=== PATIENT | female | born 1940 | race Caucasian/White ===

== ENCOUNTER 2017-06-14 10:45 | Emergency (ER) | payer MEDICARE, SELFPAY ==
[2017-06-14 10:46] VITALS: BP 152/110; PULSE 70; RESP 16; TEMP 36.2; O2SAT 98; BMI 25.6
[2017-06-14 11:10] VITALS: BP 144/102; PULSE 71; RESP 15; O2SAT 97
[2017-06-14] MEDS: predniSONE 20 MG Tablet 40 MG PO (11:18)
[2017-06-14] MEDS: oxyCODONE 5 MG Tablet PO ×2 (11:18→13:12)
--- NOTE | 2017-06-14 11:40 | RAD_ITS ---
STUDY: X-RAY - PELVIS AND RIGHT HIP REASON FOR EXAM: Female, 77 years old. Right hip pain. Unable to bear weight. TECHNIQUE: Radiological exam, hip, unilateral, with pelvis when performed; 2 or 3 views. COMPARISON: None. FINDINGS: There is a non-specific bowel gas pattern. Normal visualized soft tissue structures. Normal bilateral iliac wings, sacroiliac joints and visualized sacrum. Normal bilateral superior and inferior pubic rami. There is narrowing with sclerosis of the pubic symphysis. Normal bilateral ischial tuberosities. Normal visualized femoral head. There is osteoarthritic spur formation of the acetabular rim. There is mild articular joint space narrowing of the hip. RAD/Hip 2-3 Views with Pelvis IMPRESSION: Degenerative changes of the right hip joint and symphysis pubis. Electronically Signed: Tigre Leos MD at 12:17 EDT Tel [phone], Service support ,
--- NOTE | 2017-06-14 12:48 | ED.VISSUMM ---
- ER Visit Summary Date of Service: 06/14/17 Chief Complaint: Right leg pain History of Present Illness: The patient is a 77 F reports mild pain to the right lateral hip last . It was improved Tuesday, but then the pain worsened over the weekend. Patient states the pain severely worse this morning. She denies any known injury. She does take Neurontin and this dose has not changed recently. Patient has not taken anything else for pain at this time. She states she has an allergy to Tylenol and that it makes her vomit. Patient states that she is not able to bear weight on her right leg today. She denies paresthesias. Physical Examination: Vital signs are significant for blood pressure 152/110, otherwise unremarkable. Head neck examination is unremarkable. Heart is regular rate and rhythm. Lung sounds are clear. Abdomen is soft, nontender, with no masses. Back examination was tenderness over the right SI joint in the sciatic notch. Right lower extremity examination was tenderness over the greater trochanter of the right hip but not over the anterior portion of the hip. The anterior right thigh is tender with light palpation. She has tenderness over the lower leg with light palpation. She has strong distal pulses. Test Results: Right hip and pelvis x-rays revealed degenerative changes. Emergency Department Course and Treatment: Patient was given 5 mg of oxycodone along with 40 mg of p.o. prednisone. On repeat evaluation she does report some improvement but is still unwilling to get up to ambulate. She be given an additional 5 mg of oxycodone. After the second dose of oxycodone patient was able to get up and walk down the dai to the bathroom with her walker. She will be given prednisone and oxycodone for home. Treatment Plan: [] Disposition: Discharge Impression: Sciatica This note was generated with [employer] dictation software. It may contain incorrect words, spelling, and punctuation that were not noted in review of the chart prior to signing ED Disposition - Plan for ED Patient: Chief Complaint: Lower Extremity Injury Referrals: Blade Moseley DO [Primary Care Provider] -
[2017-06-14 13:13] VITALS: BP 134/64; PULSE 70; RESP 18; O2SAT 97
--- NOTE | 2017-06-14 14:08 | ED.DEP ---
ED Disposition - Plan for ED Patient: Disposition: Home or Assisted Living Chief Complaint: Lower Extremity Injury Instructions: ED Sciatica Prescriptions: Oxycodone [Oxyir] 5 mg PO Q6H PRN PRN 4 Days #14 tablet PRN Reason: Pain Prednisone [Deltasone] 40 mg PO DAILY #10 tab Referrals: Blade Moseley DO [Primary Care Provider] - 1 Week
[2017-06-14 14:23] VITALS: RESP 16
== END 2017-06-14 14:24 | disposition home or self-care (01) ==
PROVIDERS: Emergency Provider Emergency Medicine; Family Provider Family Medicine; PCP Family Medicine
DX: M54.30 Sciatica, unspecified side (principal); E11.9 Type 2 diabetes mellitus without complications; I10 Essential (primary) hypertension; E78.00 Pure hypercholesterolemia, unspecified; Z86.73 Personal history of transient ischemic attack (TIA), and cerebral infarction without residual deficits
CPT/HCPCS: 73502; 99283

== ENCOUNTER → 2017-07-05 09:14 | Outpatient (CLI) | payer MEDICARE, SELFPAY ==
[2017-07-05 09:38] LABS: Absolute Lymphocyte Count 1.43 X10^3/ul (0.83-4.51); Absolute Neutrophil Count 2.3 X10^3/uL (2.0-7.7); Basophil# 0.02 X10^3/uL; Basophil% 0.4 % (0-1); Eosinophil# 0.11 X10^3/uL; Eosinophils% 2.5 % (0-5); Hematocrit 37.6 % (37-47); Hemoglobin 12.1 g/dl (12.0-15.0); Lymphocyte # 1.43 X10^3/ul (4.0); Lymphocyte % 32.1 % (19-41); Mean Corp Hgb Conc 32.2 g/gl (32-36); Mean Corpuscular Hgb 31.9 pg (27.0-32.0); Mean Corpuscular Volume 99.2 fL (81-99); Monocyte# 0.57 X10^3/uL; Monocyte% 12.8 % (0-10); Neutrophil % 51.8 % (47-70); Platelet Count 179 K/mm3 (150-450); Red Blood Count 3.79 M/mm3 (4.2-5.4); White Blood Count 4.5 K/mm3 (4.4-11.0)
[2017-07-05 09:40] LABS: POSITIVE COUNT NO; POSITIVE DIFFERENTIAL NO; POSITIVE MORPHOLOGY NO
[2017-07-05 09:53] LABS: Hemoglobin A1c 7.6 % (4.2-6.3)
[2017-07-05 10:12] LABS: ALB/GLOB Ratio 0.9 RATIO (0.9-2.4); AST(SGOT) 21 U/L (15-37); Alanine Aminotransfer ALT/SGPT 18 U/L (13-56); Albumin, Serum 3.4 g/dL (3.2-5.0); Alkaline Phosphatase 48 U/L (45-117); Anion Gap 7 (5-15); BUN 21 mg/dL (7-18); BUN/Creat Ratio 20.2 RATIO (10-20); Calcium,Total 8.8 mg/dL (8.5-10.1); Chloride 107 mmol/L (98-107); Cholesterol 135 mg/dL (200); Creatinine, Serum 1.04 mg/dL (0.55-1.02); EST Glomerular Filtration Rate 54 mL/min (>60); Est Glom Filt Rate - Afr Amer 66 mL/min (>60); Globulin 3.9 g/dL (2.2-4.2); Glucose 150 mg/dL (74-106); High Density Lipoprotein 30 mg/dL; Protein, Total 7.3 g/dL (6.4-8.2); Sodium Level 141 mmol/L (136-145); Triglycerides 334 mg/dL; Very Low Density Lipoprotein 67 mg/dL (5-40)
== END ==
PROVIDERS: Family Provider Family Medicine; PCP Family Medicine; Visit Provider Family Medicine
DX: E11.49 Type 2 diabetes mellitus with other diabetic neurological complication (principal); I10 Essential (primary) hypertension
CPT/HCPCS: 36415; 80053; 80061; 82043; 82570; 83036; 85025

== ENCOUNTER → 2017-11-02 10:34 | Outpatient (CLI) | payer MEDICARE, SELFPAY | PROVIDERS: Family Provider Family Medicine; PCP Family Medicine; Visit Provider Family Medicine | DX: M54.2 Cervicalgia (principal) | CPT/HCPCS: 72050 ==

== ENCOUNTER 2018-04-09 07:37 | Emergency (ER) | payer SELFPAY ==
[2018-04-09 07:38] VITALS: BP 121/91; PULSE 87; RESP 20; TEMP 36.4; O2SAT 97; BMI 27.4
[2018-04-09] MEDS: fentaNYL 100 MCG/2 ML Ampul 50 MCG IM (07:58)
[2018-04-09] MEDS: Ondansetron ODT 4 MG Tablet PO (07:58)
--- NOTE | 2018-04-09 08:00 | RAD_ITS ---
STUDY: X-RAY - RIGHT FEMUR REASON FOR STUDY: Female, 77 years old. Fall. TECHNIQUE: 5 view(s) of the femur. COMPARISON: None. FINDINGS: There is diffuse demineralization of the femur. Normal visualized soft tissue structure. RAD/Femur Min 2 Views IMPRESSION: No evidence of acute fracture or dislocation. Electronically Signed: Fortino Lee DO at 8:44 EST , Service support ,
--- NOTE | 2018-04-09 08:05 | RAD_ITS ---
STUDY: X-RAY - RIGHT FOOT CLINICAL: Female, 77 years old. Fall. TECHNIQUE: 3 view(s) of the foot. COMPARISON: None. FINDINGS: Normal talus, calcaneus, and tarsal bones. Small enthesophyte of the distal Achilles tendon insertion and plantar fascial insertion is present. Normal visualized subtalar, talonavicular, calcaneocuboid, tarsal and tarsometatarsal articulations. Normal metatarsi. Normal metatarsophalangeal joint of the great toe. Normal tibial and fibular sesamoid bones. Normal interphalangeal joint of the great toe. Normal phalanges of the great toe. Normal second through fifth metatarsophalangeal joints. Normal interphalangeal joints and phalanges of the lesser toes. The soft tissue structures are unremarkable. RAD/Foot min 3 Views IMPRESSION: Degenerative changes with no evidence of acute fracture or dislocation. Electronically Signed: Fortino Lee DO at 8:44 EST , Service support ,
--- NOTE | 2018-04-09 08:10 | RAD_ITS ---
STUDY: X-RAY - RIGHT HIP REASON FOR EXAM: Female, 77 years old. Fall. TECHNIQUE: 2 views of the hip. COMPARISON: None. FINDINGS: There are osteoarthritic changes of the femoral head with marginal osteophyte formation. Normal acetabulum. There is mild articular joint space narrowing. Normal visualized superior and inferior pubic rami and ischial tuberosities. RAD/HIP, UNI W/ Pelvis 2-3 Views IMPRESSION: Degenerative changes with no evidence of acute fracture or dislocation. Electronically Signed: Fortino Lee DO at 8:33 EST , Service support ,
--- NOTE | 2018-04-09 08:15 | RAD_ITS ---
STUDY: X-RAY - LUMBAR SPINE REASON FOR EXAM: Female, 77 years old. Fall. TECHNIQUE: 3 view(s) of the lumbar spine were obtained. COMPARISON: None FINDINGS: Normal lumbar lordosis. There is no substantial scoliosis. There is a normal alignment of the vertebrae. There is multilevel endplate spondylosis of the lumbar vertebrae. Normal disc space heights. Multilevel facet arthropathy is present. The soft tissue structures are unremarkable. RAD/Lumbar Spine 2 or 3 Views IMPRESSION: Multilevel endplate degenerative changes and facet arthropathy with no evidence of malalignment. Electronically Signed: Fortino Lee DO at 8:32 EST , Service support ,
--- NOTE | 2018-04-09 08:20 | RAD_ITS ---
STUDY: X-RAY - RIGHT TIBIA AND FIBULA REASON FOR EXAM: Female, 77 years old. Fall. TECHNIQUE: 2 view(s) of the tibia and fibula were obtained. COMPARISON: None. FINDINGS: Normal visualized tibia. Normal visualized fibula. Calcification within the menisci are present. The soft tissue structures are unremarkable. RAD/Tibia & Fibula 2 Views IMPRESSION: No evidence of acute fracture or dislocation. Electronically Signed: Fortino Lee DO at 8:39 EST , Service support ,
--- NOTE | 2018-04-09 08:27 | ED.DCSUM_ITS ---
- ER Visit Summary Date of Service: 04/09/18 Chief Complaint: Fall History of Present Illness: The patient is a [address] Moseley. She reports that yesterday she slipped on ice in parking lot. States that she had pain in her right leg at that time. However, she is able to walk around yesterday without difficulty. She reports that today she is unable to bear weight. She is unable to localize the pain. States that she has pain in her right lower extremity from hip to foot that is 10 out of 10 in severity. She denies any blow to the head or loss of consciousness. She is not any blood thinners. Dates at baseline she does use a walker. She lives with her son. Physical Examination: Vitals: Stable. Afebrile. Neck: No vertebral tenderness. Full ROM without difficulty. Cleared by NEXUS criteria. Back: Mild diffuse tenderness palpation over lumbar spine. No point tenderness. General: A&O x 3. NAD. Cardiovascular exam: Regular rate and rhythm, no murmur, rub or gallop. Respiratory exam: Chest nontender. No crepitus. Clear to auscultation bilaterally. No wheezes or stridor. Abdominal exam: Soft, nontender, nondistended, normal bowel sounds. No pain in RUQ or LUQ specifically. No peritoneal signs. Extremity: Tenderness to palpation that is diffuse over her entire right lower extremity. This seems to be worse over her knee. There is no contusion or soft tissue swelling. She is neurovascular intact.. Test Results: Right hip and pelvis x-ray show degenerative changes. No acute disease. Right femur x-ray shows no acute disease. Right tib-fib shows no acute disease. Right foot x-ray shows degenerative changes and no acute disease. LS spine x-ray showed degenerative changes and no acute disease. Emergency Department Course and Treatment: Patient was treated with fentanyl IM and Zofran p.o. She is resting comfortably. Patient was given a single [place] p.o. She was able to ambulate without a walker without difficulty. She feels well and would like to go home. Treatment Plan: Patient be discharged with [place] and Colace. Instructed follow- up with her primary care physician in 3-5 days if not improving. Return to the emergency department for any worsening symptoms. Disposition: To home in improved and stable condition. Impression: 1. Fall. 2. Right knee pain, acute. This note was generated with [employer] dictation software. It may contain incorrect words, spelling, and punctuation that were not noted in review of the chart prior to signing ED Disposition - Plan for ED Patient: Disposition: Home or Assisted Living Chief Complaint: Lower Extremity Injury Instructions: ED Knee Pain [facility]O Prescriptions: Hydrocodone Bitart/Apap 5-325 [[place] 5MG-325MG] 1 tablet PO Q4H PRN PRN 2 Days #10 tablet PRN Reason: Pain Docusate Sodium [[place]ace] 100 mg PO DAILY #20 capsule Referrals: Blade Moseley DO [Primary Care Provider] - 3-5 Days if not improving
[2018-04-09 11:17] VITALS: BP 148/72; PULSE 89; RESP 16; O2SAT 96
--- NOTE | 2018-04-10 09:17 | ED.RN ---
see downtime documentation
== END 2018-04-09 11:19 | disposition home or self-care (01) ==
PROVIDERS: Emergency Provider Emergency Medicine; Family Provider Family Medicine; PCP Family Medicine
DX: M25.561 Pain in right knee (principal); Z79.899 Other long term (current) drug therapy; Z79.82 Long term (current) use of aspirin; Z79.84 Long term (current) use of oral hypoglycemic drugs; Z79.4 Long term (current) use of insulin; Z79.52 Long term (current) use of systemic steroids; E11.9 Type 2 diabetes mellitus without complications; I10 Essential (primary) hypertension; E78.00 Pure hypercholesterolemia, unspecified; Z86.73 Personal history of transient ischemic attack (TIA), and cerebral infarction without residual deficits
CPT/HCPCS: 72100; 73502; 73552; 73590; 73630; 96372; 99283

== ENCOUNTER → 2018-07-31 13:25 | Outpatient (CLI) | payer MEDICARE, SELFPAY ==
[2018-07-31 15:43] LABS: Absolute Lymphocyte Count 1.56 X10^3/ul (0.83-4.51); Absolute Neutrophil Count 1.9 X10^3/uL (2.0-7.7); Basophil# 0.02 X10^3/uL; Basophil% 0.5 % (0-1); Eosinophil# 0.12 X10^3/uL; Eosinophils% 2.9 % (0-5); Hematocrit 39.7 % (37-47); Hemoglobin 12.8 g/dl (12.0-15.0); Lymphocyte # 1.56 X10^3/ul (4.0); Lymphocyte % 37.7 % (19-41); Mean Corp Hgb Conc 32.2 g/gl (32-36); Mean Corpuscular Hgb 31.8 pg (27.0-32.0); Mean Corpuscular Volume 98.5 fL (81-99); Monocyte# 0.55 X10^3/uL; Monocyte% 13.3 % (0-10); Neutrophil # 1.87 X10^3/uL (2.7-7.7); Neutrophil % 45.1 % (47-70); Platelet Count 200 K/mm3 (150-450); RBC Distribution Width CV 13.8 % (11.6-14.6); RBC Distribution Width SD 48.1 fl (35.1-43.9); Red Blood Count 4.03 M/mm3 (4.2-5.4); White Blood Count 4.1 K/mm3 (4.4-11.0)
[2018-07-31 15:45] LABS: POSITIVE COUNT NO; POSITIVE DIFFERENTIAL NO; POSITIVE MORPHOLOGY NO
[2018-07-31 16:24] LABS: Microalbumin:Creatinine Ratio 1431.2 mg/g CRE (<30 mg/g CRE)
[2018-08-01 16:22] LABS: ALB/GLOB Ratio 0.9 RATIO (0.9-2.4); AST(SGOT) 18 U/L (15-37); Alanine Aminotransfer ALT/SGPT 20 U/L (13-56); Albumin, Serum 3.8 g/dL (3.2-5.0); Alkaline Phosphatase 52 U/L (45-117); Anion Gap 10 (5-15); BUN 28 mg/dL (7-18); BUN/Creat Ratio 25.9 RATIO (10-20); Calcium,Total 9.6 mg/dL (8.5-10.1); Chloride 105 mmol/L (98-107); Cholesterol 162 mg/dL (200); Creatinine, Serum 1.08 mg/dL (0.55-1.02); EST Glomerular Filtration Rate 52 mL/min (>60); Est Glom Filt Rate - Afr Amer 63 mL/min (>60); Globulin 4.4 g/dL (2.2-4.2); Glucose 75 mg/dL (74-106); High Density Lipoprotein 36 mg/dL; Potassium 4.2 mmol/L (3.5-5.1); Protein, Total 8.2 g/dL (6.4-8.2); Sodium Level 142 mmol/L (136-145); Triglycerides 318 mg/dL; Very Low Density Lipoprotein 64 mg/dL (5-40)
== END ==
PROVIDERS: Family Provider Family Medicine; PCP Family Medicine; Visit Provider Family Medicine
DX: E11.49 Type 2 diabetes mellitus with other diabetic neurological complication (principal); N18.3 Chronic kidney disease, stage 3 (moderate); I12.9 Hypertensive chronic kidney disease with stage 1 through stage 4 chronic kidney disease, or unspecified chronic kidney disease
CPT/HCPCS: 36415; 80053; 80061; 82043; 82570; 85025

== ENCOUNTER → 2019-02-15 08:53 | Outpatient (CLI) | payer MEDICARE, SELFPAY ==
--- NOTE | 2019-02-15 08:56 | CDU_ITS ---
Reason For Study: Updated evaluation of carotid atheroslcerosis Rt. Velocities/BP Lt. Velocities/BP Prox CCA 72.1/9.5 cm/sec. Prox CCA 79.4/14.6 cm/sec. Mid CCA 68.2/10.8 cm/sec. Mid CCA 87.1/15.7 cm/sec. Dist CCA 83.8/14.7 cm/sec. Dist CCA 72.9/14.6 cm/sec. Prox ICA 56.5/9.5 cm/sec. Prox ICA 164/31.9 cm/sec. Mid ICA 74.7/22.6 cm/sec. Mid ICA 130.1/29.2 cm/sec. Dist ICA 95.6/27.8 cm/sec. Dist ICA 95.1/24.8 cm/sec. Rt. ICA/CCA = 1.3. Lt. ICA/CCA = 2.1. Prox ECA 109.9/8.2 cm/sec. Prox ECA 172.3/7.9 cm/sec. Rt. Vert. 39/14.5 cm/sec. Lt. Vert. 106/20.4 cm/sec. Right Extracranial There is heterogeneous, irregular atherosclerotic plaque noted in the right common carotid artery. There is heterogeneous, irregular atherosclerotic plaque noted in the right internal carotid artery. There is intimal thickening but no significant atherosclerotic plaque noted in the right external carotid artery. Abnormal waveform noted in the right vertebral artery. Left Extracranial There is homogeneous, smooth atherosclerotic plaque noted in the left common carotid artery. There is heterogeneous, irregular atherosclerotic plaque noted in the left internal carotid artery. Acoustic shadowing does not allow adequate sampling of velocities in the left internal carotid artery. Significant stenosis cannot be excluded. There is heterogeneous, irregular atherosclerotic plaque noted in the left external carotid artery. Antegrade flow is noted in the left vertebral artery. Procedure Carotid Duplex [id number]. Exam performed in department. Interpretation Summary Irregular calcific plaque at the distal right common carotid artery Postoperative changes of the right carotid bulb and proximal internal carotid Irregular calcific plaque at the proximal portion of the right internal carotid <50% stenosis right internal carotid <50% stenosis right external carotid Patent, antegrade, less than 50% stenosis right vertebral Irregular calcific plaque with shadowing left proximal internal carotid 50-69% stenosis left internal carotid <50% stenosis left external carotid Patent, antegrade, less than 50% stenosis left vertebral though close to 50% Vertebral is the only slight change from the previous examination of February 08, 2017 Ordering Physician: Blade Moseley Referring Physician: Blade Moseley Performed By: Amy Hernandez RVT
== END ==
LOC: CVS 08:54
PROVIDERS: Family Provider Family Medicine; PCP Family Medicine; Referring Provider Family Medicine; Visit Provider Family Medicine
DX: I65.23 Occlusion and stenosis of bilateral carotid arteries (principal)
CPT/HCPCS: 93880

== ENCOUNTER 2019-06-17 16:21 | Inpatient (IN) | payer MEDICARE, SELFPAY ==
[2019-06-17] VITALS (25 sets, daily range): BP systolic 75–173; BP diastolic 53–87; PULSE 84–112; RESP 14–36; TEMP 33.7–37.7; O2SAT 77–100; BMI 24.6; BMI 24.0
--- NOTE | 2019-06-17 16:30 | EKG12_ITS ---
Test Reason : CP Blood Pressure : / mmHG Vent. Rate : 098 BPM Atrial Rate : 098 BPM P-R Int : 146 ms QRS Dur : 106 ms QT Int : 364 ms P-R-T Axes : 054 -16 101 degrees QTc Int : 464 ms Normal sinus rhythm ST elevation consider inferior injury or acute infarct with possible posterior extension ACUTE VT / STEMI Consider right ventricular involvement in acute inferior infarct Abnormal ECG Confirmed by ELEONORA KEMP, DENISE ([id number]), news editor GILBERT RAMOS ([id number]) on 06/19/2019 12:58:45 PM Referred By: Pedro Alexandre Confirmed By:DENISE CREWS MD
[2019-06-17] MEDS: Heparin Injection (Vial) 5,000 UNIT/ML VIAL 4000 UNIT IV (16:33)
[2019-06-17 16:39] LABS: Absolute Lymphocyte Count 3.67 X10^3/uL (0.83-4.51); Absolute Neutrophil Count 3.2 X10^3/uL (2.0-7.7); Basophil# 0.05 X10^3/uL; Basophil% 0.6 % (0-1); Eosinophil# 0.22 X10^3/uL; Eosinophils% 2.7 % (0-5); Hematocrit 42.4 % (37-47); Hemoglobin 13.4 g/dL (12.0-15.0); Lymphocyte # 3.67 X10^3/ul (4.0); Lymphocyte % 45.6 % (19-41); Mean Corp Hgb Conc 31.6 g/dL (32-36); Mean Corpuscular Hgb 32.5 pg (27.0-32.0); Mean Corpuscular Volume 102.9 fL (81-99); Mean Platelet Vol. 9.8 fl (6.2-12.0); Monocyte# 0.85 X10^3/uL; Monocyte% 10.6 % (0-10); NRBC Flagged by Analyzer 0 % (0-5); Neutrophil # 3.22 X10^3/uL (2.7-7.7); Neutrophil % 40.1 % (47-70); Platelet Count 199 K/mm3 (150-450); RBC Distribution Width SD 52.7 fl (35.1-43.9); Red Blood Count 4.12 M/mm3 (4.2-5.4)
[2019-06-17] MEDS: Etomidate 20 MG/10 ML Vial IV (16:42)
[2019-06-17] MEDS: Succinylcholine Chloride 200 MG/10 ML Vial 100 MG IV (16:43)
[2019-06-17 16:45] LABS: Partial Thromboplast Time 27.5 Seconds (24.1-36.2); Prothrombin Time (Protime)PT. 12.7 SECONDS (11.7-14.9)
[2019-06-17] MEDS: Propofol 10MG/Ml 1,000 MG/100 ML Bottle 3.8 MG CONT INF (16:55)
--- NOTE | 2019-06-17 16:57 | RAD_ITS ---
STUDY: X-RAY CHEST REASON FOR EXAM: Female, 79 years old. STEMI, ETT AND OG PLACEMENT TECHNIQUE: Single frontal view of the chest. COMPARISON: 06/19/2015 FINDINGS: Endotracheal tube tip is 5.8 cm from hector. Enteric tube tip in the body of the stomach. Diffuse alveolar disease, most confluent in the right upper lobe and right perihilar region. There is no demonstrated pleural abnormality. Normal size heart. Normal mediastinum and paul. Normal visualized pulmonary arteries. Normal visualized aortic arch and descending thoracic aorta. Normal visualized thoracic spine. Normal visualized ribs, clavicles, and shoulders. There is no demonstrated abnormality of the visualized soft tissue structures of the upper abdomen. RAD/Chest 1 View (Portable) IMPRESSION: Endotracheal tube tip is 5.8 cm from hector. Enteric tube tip in the body of the stomach. Diffuse alveolar disease, most confluent in the right upper lobe and right perihilar region. Electronically Signed: Harsha Dumont MD at 17:40 EDT Tel , Service support ,
--- NOTE | 2019-06-17 16:59 | ED.VISSUMM ---
- ER Visit Summary Date of Service: 06/17/19 Chief Complaint: Chest pain History of Present Illness: The patient is a 79 F with chest pain that started about 20 minutes ago at rest. It was retrosternal and 10 out of 10. No other associated symptoms. No history of this. She has a history of stroke, carotid stenosis, diabetes, hypertension, hyperlipidemia, former smoker. Denies any history of GA, stents, bypass. Denies any history of PE or dissection. Denies any aortic disease. Denies any recent cough or fever. Physical Examination: Blood pressure 75/53 and pulse ox 77% on room air. Patient appears uncomfortable but not toxic or in distress. Alert and oriented. Heart regular. Lungs clear. Skin unremarkable. Calves soft and supple. No edema. Test Results: EKG shows inferior ST segment elevation GA. Labs and chest x-ray pending. Emergency Department Course and Treatment: Prehospital EKG was limited secondary to artifact. There was some concern for an inferior GA, but her ETA was 2 minutes. Repeat on arrival did show inferior GA with reciprocal changes. STEMI team was activated. Patient was treated with heparin. Vitals showed hypotension and hypoxia. She was started on a fluid bolus 500 cc and supplemental oxygen. She was quickly deteriorating. She was intubated for hypoxic respiratory failure by me. [place] scope was used, one attempt. Coronavirus precautions were utilized although the patient had no symptoms. I wore full PPE. Cardiology was notified of her change in vitals and requested starting levo. Patient was sedated with propofol. Hospitalist was contacted and will accompany the patient to the lab. Treatment Plan: As above Disposition: Admit to ICU Impression: Inferior STEMI Hypoxic respiratory failure This note was generated with [employer] dictation software. It may contain incorrect words, spelling, and punctuation that were not noted in review of the chart prior to signing ED Disposition - Plan for ED Patient: Referrals: Blade Moseley DO [Primary Care Provider] -
[2019-06-17 17:00] LABS: Anion Gap 7 (5-15); BUN 26 mg/dL (7-18); BUN/Creat Ratio 20.5 RATIO (10-20); Calcium,Total 9.2 mg/dL (8.5-10.1); Chloride 107 mmol/L (98-107); Creatinine, Serum 1.27 mg/dL (0.55-1.02); EST Glomerular Filtration Rate 43 mL/min (>60); Est Glom Filt Rate - Afr Amer 52 mL/min (>60); Estimated Creatinine Clearance 33.07 ml/min; Glucose 201 mg/dL (74-106); Potassium 4.8 mmol/L (3.5-5.1); Sodium Level 139 mmol/L (136-145)
--- NOTE | 2019-06-17 17:31 | PCM.HP.STD ---
<Hemant Ventura - Last Filed: 06/17/19 17:31> Problem List (1) STEMI (ST elevation myocardial infarction) Status: Acute (2) HTN (hypertension) Status: Chronic (3) HLD (hyperlipidemia) Status: Chronic (4) CVA (cerebral vascular accident) Status: Chronic (5) Diabetes Status: Chronic Qualifiers: Diabetes mellitus type: type 2 History of Present Illness Date of Admission: 06/17/19 Chief Complaint: chest pain The patient is a 79 year old F with pmhx of DMt2, HTN, HLD, CVA wh presented to the ER with c/o chest pain. Hx limited as pt intubated and sedated at time of exam. Pt developed sudden onset of severe chest pain 20 mins prior to arrival. EMS was called. EKG in the ER showed ST elevation in lead III and ST depression in V2. Pt was initially alert and oriented. Pt was hypoxic on nonrebreather and subsequently sedated and intubated. Patient was hypotensive and placed on norepinephrine. Stemi alert was called and patient was taken to the tree tapping laborer. Troponin elevated. [] Past Medical History Past Medical History (Chronic Problems): Chronic Problems HTN (hypertension) (Chronic) HLD (hyperlipidemia) (Chronic) CVA (cerebral vascular accident) (Chronic) Diabetes (Chronic) Allergies niacin [From Niaspan Extended-Release] Allergy (Verified 06/17/19 16:23) Other ramipril [From Altace] Allergy (Verified 06/17/19 16:23) Other Home Medications: Ambulatory Orders Medication Instructions Recorded Amlodipine Besylate [Norvasc] 10 mg PO DAILY 06/14/17 Aspirin 325 mg PO DAILY@0800 06/14/17 Atorvastatin Calcium [Lipitor] 40 mg PO QHS 06/14/17 Gabapentin [Neurontin] 300 mg PO 4X/DAY 06/14/17 Gemfibrozil [Lopid] 600 mg PO BID 06/14/17 Insulin Glargine,Hum.rec.anlog 15 unit SQ QHS 06/14/17 [Lantus] Metoprolol Tartrate 25 mg PO BID 06/14/17 Docusate Sodium [Colace] 100 mg PO DAILY #20 capsule 04/09/18 metFORMIN HCl [Glucophage] 1,000 mg PO BIDCM 06/17/19 Surgical History: no surgical history Psychiatric History: No pertinent psych hx RECRUITING INTERN History: No pertinent RECRUITING INTERN history Lives: - - assisted living Smoking Status: Former smoker Tobacco Use: Non-smoker Alcohol: None Drugs: None - *Family History Maternal History Items: Unknown Paternal History Items: No pertinent history Review of Systems Constitutional: Denies: Chills, Fever, Weight Change HEENT: Denies: Head Aches, Sinus Congestion, Sinus Drainage Cardiovascular: Reports: Chest Pain. Denies: Palpitations Respiratory: Denies: Cough, Shortness of breath at rest, Sputum production Gastrointestinal: Denies: Abdominal Pain, Nausea, Vomiting Genitourinary: Denies: Dysuria Musculoskeletal: Denies: Joint Pain, Joint Tenderness Skin: Denies: Rash, Wounds Neurological: Denies: Numbness, Tingling, Focal weakness Psychiatric: Denies: Anxiety, Depression, Homicidal Ideations, Suicidal Ideations Hematologic/ Lymphatic: Denies: Easy Bruising, Easy Bleeding Unable to obtain accurate/complete ROS d/t: Pt intubated/sedated VTE Information - Inpt Only VTE Present on Admission: No VTE Mechan Device Prophylaxis: None VTE Pharm Prophylaxis ordered?: Yes Patient Problems: Active and Suspected Problems STEMI (ST elevation myocardial infarction) (Acute) - Physical Exam Vitals/I&O's: Vital Signs Temp Pulse Resp BP Pulse Ox 97.5 F L 111 H 25 H 106/79 96 06/17/19 17:04 06/17/19 17:04 06/17/19 17:04 06/17/19 17:04 06/17/19 17:04 Oxygen Flow Rate (L/min) 15 Oxygen Delivery Method Ambu-Bag Weight: 152 lb 8.958 oz Body Mass Index (BMI) 24.6 Intake and Output for Last 24 Hours 06/15/19 06/16/19 06/17/19 23:59 23:59 23:59 Intake Total 1000.44 / 1000.44 Balance 1000.44 / 1000.44 General: - - sedated HEENT: Atraumatic, PERRLA, EOMI, Normocephalic Neck: Supple, No JVD, Negative Carotid Bruits Lungs: Clear to auscultation, Normal air movement Cardiovascular: Regular rate, No murmurs Abdomen: Bowel Sounds Present, Soft, Non Tender Extremities: No edema, Capillary Refill Less than 3 Seconds Skin: No rashes, No breakdown Musculoskeletal: No Tenderness to Palpation of Joints or Extremities Neurological: Cranial nerves II-XII grossly intact Psych/Mental Status: - - sedated Laboratory Results 06/17/19 16:25: WBC 8.0, RBC 4.12 L, Hgb 13.4, Hct 42.4, MCV 102.9 H, MCH 32.5 H, MCHC 31.6 L, RDW Std Deviation 52.7 H, RDW Coeff of Hebert 14.0, Plt Count 199, MPV 9.8, Immature Gran % (Auto) 0.400, Neut % (Auto) 40.1 L, Lymph % (Auto) 45.6 H, [place] % (Auto) 10.6 H, Eos % (Auto) 2.7, Baso % (Auto) 0.6, Absolute Neuts (auto) 3.2, Absolute Lymphs (auto) 3.67, Nucleated RBC % 0 06/17/19 16:25: PT 12.7, INR 1.0, APTT 27.5 06/17/19 16:25: Sodium 139, Potassium 4.8, Chloride 107, Carbon Dioxide 25.0, Anion Gap 7, BUN 26 H, Creatinine 1.27 H, Estim Creat Clear Calc 33.07, Est GFR (MDRD) Af Amer 52 L, Est GFR (MDRD) Non-Af 43 L, BUN/Creatinine Ratio 20.5 H, Glucose 201 H, Calcium 9.2, Troponin I 0.821 H* 06/17/19 16:25: Serum , Qual Cancelled Current Medications Sodium Chloride () 500 mls @ 999 mls/hr IV .Q31M [facility] Last Infusion: 06/17/19 16:57 Dose: Infused Documented by: Norepinephrine Bitartrate 8 mg (/ Sodium Chloride) 250 mls @ 9.375 mls/hr CONT INF .[id number] [facility]; Protocol Stop: 06/18/19 19:19 Last Admin: 06/17/19 16:57 Dose: 5 mcg/min, 9.4 mls/hr Documented by: Propofol (Diprivan) 1,000 mg in 100 mls @ 4.152 mls/hr CONT INF .Q12H [facility]; Protocol Last Titration: 06/17/19 17:02 Dose: 15 mcg/kg/min, 6.2 mls/hr Documented by: Assessment/Plan All Active Problems STEMI (ST elevation myocardial infarction) (Acute) 1. STEMI, chest pain - ST elevation in III, ST depression in V2. Cath per Dr. Alexandre. No prior hx CAD. Trop initially 0.821. Continue aspirin, statin. Pt on norepi. Allergic to ramipril. 2. DMt2 - hold orals, SSI, check A1C, continue lantus. 3. HLD - statin, hold lopid. 4. HTN - hold for hypotension. This patient was seen by Hemant Ventura PA-C under the supervision of Dr. Kent <Janice Kent - Last Filed: 06/17/19 20:09> History of Present Illness The patient is a 79 year old F [] Past Medical History Allergies niacin [From Niaspan Extended-Release] Allergy (Verified 06/17/19 16:23) Other ramipril [From Altace] Allergy (Verified 06/17/19 16:23) Other - Physical Exam Vitals/I&O's: Vital Signs Temp Pulse Resp BP Pulse Ox 97.5 F L 111 H 32 H 106/79 96 06/17/19 17:04 06/17/19 17:04 06/17/19 17:58 06/17/19 17:04 06/17/19 17:04 Oxygen Flow Rate (L/min) 15 Oxygen Delivery Method Ambu-Bag Weight: 69.2 kg Body Mass Index (BMI) 24.6 Intake and Output for Last 24 Hours 06/15/19 06/16/19 06/17/19 23:59 23:59 23:59 Intake Total 1000.44 / 1000.44 Balance 1000.44 / 1000.44 Laboratory Results 06/17/19 16:25: WBC 8.0, RBC 4.12 L, Hgb 13.4, Hct 42.4, MCV 102.9 H, MCH 32.5 H, MCHC 31.6 L, RDW Std Deviation 52.7 H, RDW Coeff of Hebert 14.0, Plt Count 199, MPV 9.8, Immature Gran % (Auto) 0.400, Neut % (Auto) 40.1 L, Lymph % (Auto) 45.6 H, [place] % (Auto) 10.6 H, Eos % (Auto) 2.7, Baso % (Auto) 0.6, Absolute Neuts (auto) 3.2, Absolute Lymphs (auto) 3.67, Nucleated RBC % 0 06/17/19 16:25: PT 12.7, INR 1.0, APTT 27.5 06/17/19 16:25: Sodium 139, Potassium 4.8, Chloride 107, Carbon Dioxide 25.0, Anion Gap 7, BUN 26 H, Creatinine 1.27 H, Estim Creat Clear Calc 33.07, Est GFR (MDRD) Af Amer 52 L, Est GFR (MDRD) Non-Af 43 L, BUN/Creatinine Ratio 20.5 H, Glucose 201 H, Calcium 9.2, Troponin I 0.821 H* 06/17/19 16:25: Serum , Qual Cancelled Current Medications Aspirin (Ecotrin) 81 mg PO DAILY@0800 [facility] Atorvastatin Calcium (Lipitor) 40 mg PO QHS [facility] Atropine Sulfate () 0.5 mg IV UD PRN PRN Reason: HR <50 bpm Gabapentin (Neurontin) 300 mg PO 4X/DAY [facility] Gemfibrozil (Lopid) 600 mg PO BIDAC [facility] Heparin Sodium (Beef Lung) (Heparin 500 Unit/5 Ml (100/Ml)) 500 unit IV UD PRN PRN Reason: HEPARIN FLUSH Sodium Chloride () 500 mls @ 999 mls/hr IV .Q31M [facility] Last Infusion: 06/17/19 16:57 Dose: Infused Documented by: Norepinephrine Bitartrate 8 mg (/ Sodium Chloride) 250 mls @ 9.375 mls/hr CONT INF .[id number] [facility]; Protocol Stop: 06/18/19 19:19 Last Admin: 06/17/19 16:57 Dose: 5 mcg/min, 9.4 mls/hr Documented by: Propofol (Diprivan) 1,000 mg in 100 mls @ 4.152 mls/hr CONT INF .Q12H [facility]; Protocol Last Titration: 06/17/19 17:02 Dose: 15 mcg/kg/min, 6.2 mls/hr Documented by: Eptifibatide (Integrilin) 75 mg in 100 mls @ 5.536 mls/hr CONT INF .Q18H4M [facility] Stop: 06/18/19 08:00 Sodium Chloride () 250 mls @ 15 mls/hr IV .[id number] PRN PRN Reason: Saline Flush Sodium Chloride () 250 mls @ 15 mls/hr IV .[id number] PRN PRN Reason: Additional IVPB Infusion Metoprolol Tartrate (Lopressor (Beta Abel)) 25 mg PO BID [facility] Sodium Chloride () 500 ml IV BOLUS PRN PRN Reason: VASO-VAGAL PROTOCOL Sodium Chloride () 10 - 40 ml IV UD PRN PRN Reason: SALINE FLUSH Ticagrelor (Brilinta) 90 mg PO BID [facility] Assessment/Plan This patient was seen in conjunction with HECTOR Lackey. I have independently interviewed and examined the patient and reviewed pertinent historical, laboratory, and other data. Please refer to HECTOR Lackey note for his patient's presentation, findings, and recommendations. I have reviewed and his note and concur with his documentation 79-year-old female with past medical history of type II DM, hypertension, history of CVA who sent her with chest pain that started 20 minutes before arrival. Patient EKG from the field was suggestive of inferior [place] with reciprocal changes in the anterior leads. Patient was intubated at the time of exam, history was taken from review of chart and ED physician. Physical Exam: Gen: Intubated, not pale, not jaundiced CVS:HS I +II, regular, no murmurs RESP: Diminished at lung bases GI: BS present and normal, soft, nontender, no palpable organs EXT:No edema ASSESSMENT: 1. Acute STEMI, likely inferior [place] 2. Hypotension 3. Type II DM 4. Hyperlipidemia 5. History of CVA Plan: Patient was sent to the cardiac Utility Manager, intervention cardiology following We will follow-up on recommendations Inpatient E&M: [id number] Init Hosp L3
--- NOTE | 2019-06-17 19:00 | EKG12_ITS ---
Test Reason : POST CATH Blood Pressure : / mmHG Vent. Rate : 108 BPM Atrial Rate : 108 BPM P-R Int : 154 ms QRS Dur : 102 ms QT Int : 336 ms P-R-T Axes : 066 -36 075 degrees QTc Int : 450 ms Sinus tachycardia Left axis deviation Inferior-posterior infarct , possibly acute ST & T wave abnormality, consider lateral ischemia * ACUTE NH Consider right ventricular involvement in acute inferior infarct Abnormal ECG Confirmed by GUILLERMINA KEMP, LENARD ([id number]), photograph editor GILBERT RAMOS ([id number]) on 06/19/2019 2:34:32 PM Referred By: Pedro Alexandre Confirmed By:LENARD SARMIENTO MD
--- NOTE | 2019-06-17 19:10 | CON.PCM_ITS ---
Problem List (1) STEMI (ST elevation myocardial infarction) Status: Acute Reason for Consult Date of Consultation: 06/17/19 History of Present Illness: The patient is a 79 year old F with pmhx of DMt2, HTN, HLD, CVA wh presented to the ER with c/o chest pain. Hx limited as pt intubated and sedated at time of exam. Pt developed sudden onset of severe chest pain 20 mins prior to arrival. EMS was called. EKG in the ER showed ST elevation in lead III and ST depression in V2. Pt was initially alert and oriented. Pt was hypoxic on nonrebreather and subsequently sedated and intubated. Patient was hypotensive and placed on norepinephrine. Stemi alert was called and patient was taken to the microbiology lab manager. Troponin elevated. Patient was brought emergently to the Ocean Import Representative and underwent coronary angiography which revealed occluded circumflex which appears to be chronic, significant stenosis in the LAD and also RCA which appears to be the culprit for patient's presentation. Patient also had severe mitral regurgitation which is possibly ischemic and less likely due to flail leaflet. We did consider emergent echocardiography prior to proceeding with PCI to see if the patient would benefit from CABG and mitral valve replacement if that happens to the case. However the patient was hypotensive on levo and because of her advanced age and overall clinical condition we felt that it will be reasonable to attempt PCI and see if this helps with her MR and overall clinical condition. The RCA was tortuous and heavily calcified. It was also difficult to engage. Eventually we were able to cross the lesion but initial attempts at crossing the culprit lesion with the balloon were unsuccessful. We had to use a guide liner to assist with crossing the lesion. This led to delays in door to balloon time. PCI of the RCA was then completed with 3 drug-eluting stents. Patient's blood pressure improved and she has been requiring lesser doses of the levophed. Review of systems: Review of systems could not be performed as patient is intubated and sedated [] Past Medical History Allergies/Adverse Reactions: Allergies niacin [From Niaspan Extended-Release] Allergy (Verified 06/17/19 16:23) Other ramipril [From Altace] Allergy (Verified 06/17/19 16:23) Other Home Medications: Ambulatory Orders Medication Instructions Recorded Amlodipine Besylate [Norvasc] 10 mg PO DAILY 04/03/18 Aspirin 325 mg PO DAILY@0800 06/14/17 Atorvastatin Calcium [Lipitor] 40 mg PO QHS 06/14/17 Gabapentin [Neurontin] 300 mg PO 4X/DAY 06/14/17 Gemfibrozil [Lopid] 600 mg PO BID 06/14/17 Insulin Glargine,Hum.rec.anlog 15 unit SQ QHS 06/14/17 [Lantus] Metoprolol Tartrate 25 mg PO BID 06/14/17 Docusate Sodium [Colace] 100 mg PO DAILY #20 capsule 04/09/18 metFORMIN HCl [Glucophage] 1,000 mg PO BIDCM 06/17/19 Past Medical History (Chronic Problems): Chronic Problems HTN (hypertension) (Chronic) HLD (hyperlipidemia) (Chronic) CVA (cerebral vascular accident) (Chronic) Diabetes (Chronic) Surgical History: no surgical history Psychiatric History: No pertinent psych hx PUNCHBOARD STUFFER History: No pertinent PUNCHBOARD STUFFER history - *Family History Maternal History Items: Unknown Paternal History Items: No pertinent history Lives: - - assisted living Smoking Status: Former smoker Tobacco Use: Non-smoker Alcohol: None Drugs: None Objective: Vital Signs Temp Pulse Resp BP Pulse Ox 97.5 F L 111 H 32 H 106/79 96 06/17/19 17:04 06/17/19 17:04 06/17/19 17:58 06/17/19 17:04 06/17/19 17:04 Oxygen Flow Rate (L/min) 15 Oxygen Delivery Method Ambu-Bag Weight: 152 lb 8.958 oz Body Mass Index (BMI) 24.6 Intake and Output for Last 24 Hours 06/15/19 06/16/19 06/17/19 23:59 23:59 23:59 Intake Total 1000.44 / 1000.44 Balance 1000.44 / 1000.44 General: - - Intubated HEENT: Atraumatic Cardiovascular: Regular Rhythm Abdomen: Soft Skin: No Rashes 06/17/19 16:25: WBC 8.0, RBC 4.12 L, Hgb 13.4, Hct 42.4, MCV 102.9 H, MCH 32.5 H , MCHC 31.6 L, Plt Count 199, MPV 9.8, Immature Gran % (Auto) 0.400, Neut % (Auto) 40.1 L, Lymph % (Auto) 45.6 H, [place] % (Auto) 10.6 H, Eos % (Auto) 2.7, Baso % (Auto) 0.6, Absolute Neuts (auto) 3.2, Nucleated RBC % 0 06/17/19 16:25: PT 12.7, INR 1.0, APTT 27.5 06/17/19 16:25: Sodium 139, Potassium 4.8, Chloride 107, Carbon Dioxide 25.0, Anion Gap 7, BUN 26 H, Creatinine 1.27 H, Est GFR (MDRD) Af Amer 52 L, Est GFR (MDRD) Non-Af 43 L, BUN/Creatinine Ratio 20.5 H, Glucose 201 H, Calcium 9.2, Troponin I 0.821 H* Rhythm: EKG: ECHO: Stress Test: Cardiac Cath: PCI: CT Surgery: Holter monitor: EPS: PPM: CXR: Chest CT Scan: Assessment/Plan 1. ST elevation ND: Treated with PCI to the RCA. Patient is currently on levo. She is also on propofol which could be contributing to her hypotension as well. If possible, if she can be switched to a fentanyl drip this may help with her hypotension. For now we will continue the levo. We will also keep her on dual antiplatelet therapy with aspirin and Brilinta and continue her statin. 2. Mitral regurgitation: Patient had severe mitral regurgitation on LV gram. This could be ischemic in origin and less likely flail leaflet. We did consider getting an emergent echo. However after PCI to the RCA patient's blood pressure stabilized. We will get a 2D echo tomorrow morning. 3. LV dysfunction: Patient is on levo at this time. Eventually she will need MINESH inhibitor and beta-winifred. If her propofol can be switched to fentanyl that will be helpful as well.
--- NOTE | 2019-06-17 20:01 | CL.I_ITS ---
Patient Name: BHARATHI CUADRA Study Date: 06/17/2019 Performing: Agnes Alexandre MD Ht: 66.14 inches 168 cm : 1940 Wt: 152.12 lbs 69 kg Age: 79 Gender: female BSA: 1.78 PROCEDURE(S) PERFORMED QF18-HKS/COR/LV [id number], MATTHEW AND/OR PTCA, ARTERY OR GRAFT, SINGLE VESSEL CLINICAL PROFILE AND CO-MORBIDITIES Indications: ACS <= 24 hrs Heart Failure: NYHA Class: 4, Newly Diagnosed: Yes, Heart Failure Type: Systolic Stress/Imaging Stress/Image Study Performed: No CONCLUSIONS Triple vessel CAD as described. LVEF is around 45%. No significant . Severe MR. Successful PCI of R CA with MATTHEW RECOMMENDATIONS DESCRIPTION OF PROCEDURE The patient arrived to the procedure lab. The risks and benefits of the procedure as well as a full d escription of our services here and lack of surgical backup were fully explained to the patient and/o r their significant other prior to the catheterization. The Timeout was completed, verifying the eliazar ect patient and procedure. The patient's procedural site was prepped and draped in the usual fashion. Local anesthetic was given subcutaneously to right groin region with Lidocaine 2%. Using a modified Seldinger technique, arterial access was obtained via the right femoral artery, a 6Fr sheath was inse rted.. Right Coronary Artery selective angiography was then performed in multiple views using a 5 Fr . JR 4 catheter. Left Coronary Artery selective angiography was performed in multiple views using a 5 Fr. JL4 catheter. Left Ventriculography was performed in PINO projection using a 5 Fr. Pigtail cathet er. Right Coronary Artery selective angiography was then performed in multiple views using a 5 Fr. 3DRC (Vincent) catheter XB 3.0 Guide catheter was inserted and engaged into the RCA. BMW Guide wire was advanced to the R CA. JR 4 Guide catheter was inserted and engaged into the RCA. BMW Guide wire was advanced to the RCA . Emerge [id number] catheter was advanced across lesion in the graft to the RCA. PTCA balloon inf lated at 8 atms for 12 secs. PTCA balloon inflated at 8 atms for 7 secs. PTCA balloon inflated at 8 a tms for 7 secs. PTCA balloon inflated at 8 atms for 8 secs. Angiogram performed post balloon dilatati on. 6fr Guideliner Guide catheter was inserted and engaged into the RCA. Emerge 2.00x[address] Ball[address] was inserted. PTCA balloon inflated at 10 atms for 34 secs. PTCA balloon inflated at 12 atms for 11 secs. PTCA balloon inflated at 14 atms for 42 secs. PTCA balloon inflated at 14 atms for 29 secs. PTCA balloon inflated at 14 atms for 8 secs. PTCA balloon inflated at 14 atms for 9 secs. PTCA balloo n inflated at 14 atms for 9 secs. PTCA balloon inflated at 14 atms for 7 secs. Angiogram performed post balloon dilatation. Synergy 3.00x20 Drug Eluting stent was inserted. Angiogram perform ed post stent deployment. Synergy 3.00x38 Drug Eluting stent was inserted. Angiogram performed post s tent deployment. Angiogram performed post stent deployment. Synergy 3.00x28 Drug Eluting stent was in serted. Angiogram performed post stent deployment. NC Emerge 3.00x20 Balloon catheter was inserted. A ngiogram performed post balloon dilatation. NC Euphora Balloon catheter was inserted. PTCA balloon in flated at 26 atms for 25 secs. Angiogram performed post balloon dilatation. The arterial sheath was sutured in place with heparinized normal saline under pressure CORONARY ANGIOGRAPHY DOMINANCE: Right Dominant LEFT HEART ASSESSMENT Left Ventricular Ejection Fraction: by LV Gram 45 % LVEDP: 30 mmHg Inferior Hypokinesis - Severe LEFT MAIN: Mild luminal irregularities LEFT ANTERIOR DESCENDING ARTERY: PROX LAD: 90 % Stenosis CIRCUMFLEX ARTERY: OSTIAL CIRC: 100 % Stenosis RIGHT CORONARY ARTERY: PROX RCA: 80 % Stenosis MID RCA: 80 % Stenosis DISTAL RCA: 95 % Stenosis VALVE FINDINGS: No Aortic Valve Stenosis Mitral Valve Insufficiency - Grade 4 INTERVENTION INFORMATION LESION SITE: RCA (Distal) Lesion Complexity: High/C, chronic total occlusion: No, lesion at bifurcation: No, thrombus present: No, lesion length: 20 mm, culprit lesion: Yes, Previously treated lesion: No Pre Stenosis: 95 % Pre intervention JEAN PIERRE flow: 3 PROCEDURE: Drug Eluting Stent with pre and post dilatation RCA was difficult to engage. Pt. was vomiting in the lab during the procedure, lesion was difficult t o cross with a balloon. Initial attempts were unsuccessful. We had to use the guideliner and other ma neuvers to cross the lesion. Patient had to be intubated in the ER as well. All these led to delay to PCI. Also, since the LCx was occluded and pt. had severe MR and there was JEAN PIERRE 3 flow in the RCA ini tially, we wanted to make sure the LCx was a chronic occlusion. Post Stenosis: 0 % Post intervention JEAN PIERRE flow: 3 Lesion Devices: Cb Sci NC EMERGE MR 2.00x20 BALLOON Cb Sci EMERGE MR 3.00x20 BALLOON Cb Sci Synergy MR MATTHEW 3.00x20 Cb Sci NC EMERGE MR 3.00x20 BALLOON Medtronic NC EUPHORA RX 3.0x12 BALLOON LESION SITE: RCA (Mid) Lesion Complexity: High/C, lesion at bifurcation: No, thrombus present: No, lesion length: 38 mm, cul prit lesion: Yes, Previously treated lesion: No Pre Stenosis: 80 % Pre intervention JEAN PIERRE flow: 3 PROCEDURE: Drug Eluting Stent with pre and post dilatation Post Stenosis: 0 % Post intervention JEAN PIERRE flow: 3 Lesion Devices: Cb Sci Synergy MR MATTHEW 3.00x38 Cb Sci NC EMERGE MR 3.00x20 BALLOON Medtronic NC EUPHORA RX 3.0x12 BALLOON LESION SITE: RCA (Proximal) Lesion Complexity: High/C, chronic total occlusion: No, lesion at bifurcation: No, thrombus present: No, lesion length: 28 mm, culprit lesion: Yes, Previously treated lesion: No Pre Stenosis: 80 % Pre intervention JEAN PIERRE flow: 3 PROCEDURE: Drug Eluting Stent with pre and post dilatation Despite high pressure inflations with an NC balloon (upto 26 she) there was residual stenosis in this location. 30 % Post intervention JEAN PIERRE flow: 3 Lesion Devices: Cb Sci Synergy MR MATTHEW 3.00x28 Cb Sci NC EMERGE MR 3.00x20 BALLOON Medtronic NC EUPHORA RX 3.0x12 BALLOON COMPLICATIONS No Complications PROCEDURE MEDICATIONS Versed 3 mg IV Versed 2 mg IV Oxygen: 100 % FiO2 via ventilator. See Resp Record for Settings Heparin 2000 unit(s) IV 06/17/2019 17:54:21 SUMMARY OF HEMODYNAMIC DATA Time AIR REST ECG 17:20:55 AO 136/77 (107) SA 17:29:27 LV 89/7, 30 17:37:52 LV 86/7, 30 17:37:58 AO 72/49 (58) 17:46:15 Signed By Agnes Alexandre MD On 06/17/2019 20:00:23 Agnes Alexandre MD
[2019-06-17 20:06] LABS: Bedside Glucose 198 mg/dL (70-110)
--- NOTE | 2019-06-17 20:09 | ECHOD_ITS ---
Reason For Study: S/P DE Procedure This was a 2D Doppler, Color Flow transthoracic echocardiogram. The study was technically difficult. Pt in supine position on vent at time of exam. Exam performed portable in ICU/CCU. Left Ventricle Normal LV size. The estimated ejection fraction is 55-60 %. Unable to assess diastolic dysfunction. No regional wall motion abnormalities noted. Right Ventricle Normal RV size. Normal systolic function. Atria Normal left atrium. Normal right atrium. No doppler evidence for ASD. Mitral Valve There is moderate mitral annular calcification. Moderate focal mitral valve calcification of the posterior leaflet. There is no mitral valve stenosis. Severe (4+) mitral valve insufficiency. Tricuspid Valve There is no tricuspid stenosis. Unable to estimate RV systolic pressure due to inadequate jet, pulmonary artery pressure probably normal. Aortic Valve Aortic sclerosis, no stenosis. There is no aortic stenosis. Mild-Moderate (1-2+) aortic valve insufficiency. Great Vessels Normal aortic root. Pericardium/Pleural No pericardial effusion. MMode/2D Measurements & Calculations LVIDd: 4.4 cm IVSd: 1.2 cm Ao root diam: 3.5 cm LVIDs: 3.1 cm LVPWd: 1.3 cm RVDd: 3.0 cm FS: 30.0 % LAV(MOD-bp): 39.8 ml LVAd ap4: 24.9 cm2 SV(MOD-sp4): 30.6 ml LAV(MOD-bp) Indexed: 22.4 ml/m2 EDV(MOD-sp4): 67.9 ml LAV(MOD-sp2): 31.1 ml EDV(sp4-el): 72.1 ml LAV(MOD-sp4): 39.9 ml LVAs ap4: 17.8 cm2 ESV(MOD-sp4): 37.3 ml ESV(sp4-el): 38.8 ml EF(MOD-sp4): 45.1 % EF(sp4-el): 46.2 % SV(sp4-el): 33.3 ml LA dimension(2D): 3.6 cm LA A4 area: 16.4 cm2 RA A4 area: 10.5 cm2 Time Measurements MV dec time: 0.28 sec Doppler Measurements & Calculations MV E max stu: 79.9 cm/sec Lat Peak E' Stu: 5.6 cm/sec Med Peak E' Stu: 2.6 cm/sec MV A max stu: 130.6 cm/sec E/E' lat: 14.2 E/E' med: 30.2 MV E/A: 0.61 Ao V2 max: 154.6 cm/sec AI max stu: 364.5 cm/sec LV V1 max: 99.2 cm/sec Ao max P.6 mmHg AI max P.4 mmHg LV V1 max P.9 mmHg AI dec slope: 328.2 cm/sec2 AI P1/2t: 325.3 msec PA V2 max: 110.6 cm/sec PI end-d stu: 133.1 cm/sec Interpretation Summary There is moderate mitral annular calcification. Unable to assess diastolic dysfunction. Severe (4+) mitral valve insufficiency. Aortic sclerosis, no stenosis. Moderate focal mitral valve calcification of the posterior leaflet. Mild-Moderate (1-2+) aortic valve insufficiency. The estimated ejection fraction is 55-60 %. Ordering Physician: Pedro Alexandre Referring Physician: REBECCA DE LA GARZA Performed By: Natalia Pemberton, TIFFANYCS, RVT
--- NOTE | 2019-06-17 20:30 | NURSING ---
Pt intubated/sedated at this time. Unable to educate to room/surroundings.
[2019-06-17] MEDS: TICAGRELOR 90 MG TABLET 180 MG PO (20:58)
[2019-06-17 21:21] LABS: Hematocrit 40.9 % (37-47); Hemoglobin 13.4 g/dL (12.0-15.0); Mean Corp Hgb Conc 32.8 g/dL (32-36); Mean Corpuscular Hgb 33.1 pg (27.0-32.0); Platelet Count 191 K/mm3 (150-450); RBC Distribution Width SD 52.4 fl (35.1-43.9); Red Blood Count 4.05 M/mm3 (4.2-5.4); White Blood Count 9.3 K/mm3 (4.4-11.0)
--- NOTE | 2019-06-17 21:30 | NURSING ---
Drsg to right groin noted to have some oozing. New drsg placed area soft, nontender, no bruising or evidence of hematoma at this time. No new oozing noted. Knee immobilizer placed at this time.
[2019-06-17 21:32] LABS: Blood Gas Specimen Type ART; Mode A-C; O2 Delivery Device Vent; SITE ART LINE
[2019-06-17 21:33] LABS: FI02 80; PEEP 10; RR 14; Time Given 2112; Vt 430
[2019-06-17 21:34] LABS: Base Excess -3 mmol/L (-2 to +2); Bicarbonate 22.3 mmol/L (22-26); PO2 69 mmHG (75-100); SO2 93 % (95-99); Total Carbon Dioxide 23 mmol/L; pH 7.35 (7.35-7.45)
[2019-06-17] MEDS: Metoprolol Tartrate 25 MG Tablet PO (22:07)
[2019-06-17] MEDS: Gabapentin 300 MG Capsule PO (22:07)
[2019-06-17] MEDS: Atorvastatin Calcium 40 MG Tablet PO (22:07)
[2019-06-17] MEDS: Chlorhexidine 15 ML PO (22:18)
[2019-06-17] MEDS: fentaNYL drip 100 ML 2.5 MCG IV (22:32)
[2019-06-18] VITALS (42 sets, daily range): BP systolic 96–155; BP diastolic 56–79; PULSE 76–99; RESP 14–22; TEMP 38.2–39; O2SAT 95–99; BMI 24.0
[2019-06-18] MEDS: Propofol 10MG/Ml 1,000 MG/100 ML Bottle 8.3 MG CONT INF (01:24)
--- NOTE | 2019-06-18 03:01 | PCM.PN.BLA ---
Progress Note Notified by nursing the patient was a STEMI and was taken to the Public Health Worker. Patient vomited during the cath procedure. Her temperature has been increasing. Temperature now is 101.7 Fahrenheit. Review of records show that on presentation patient chest x-ray after endotracheal intubation showed diffuse alveolar disease, most confluent in the right upper lobe and right perihilar region. Chest x-ray was independently reviewed. I agree with radiologist interpretation. We will get urinalysis; and urine culture. We will get a culture of sputum. We will get blood culture x2. Because of concern for aspiration pneumonia we will start patient on Zosyn. PRN Tylenol ordered. STROKE Vital Signs/Narrative: Vital Signs Temp Pulse Resp BP Pulse Ox 06/18/19 02:00 101.6 F H 83 16 135/69 H 99 06/18/19 01:00 101.4 F H 82 16 133/68 H 99 06/18/19 00:00 100.7 F H 84 17 124/66 H 98 06/17/19 23:18 86
[2019-06-18] MEDS: Acetaminophen 650 MG/20 ML UDC GT ×3 (03:26→21:23)
[2019-06-18 03:29] LABS: Hematocrit 39.7 % (37-47); Hemoglobin 12.8 g/dL (12.0-15.0); Mean Corp Hgb Conc 32.2 g/dL (32-36); Mean Corpuscular Hgb 32.8 pg (27.0-32.0); Mean Corpuscular Volume 101.8 fL (81-99); Mean Platelet Vol. 9.8 fl (6.2-12.0); Platelet Count 203 K/mm3 (150-450); RBC Distribution Width CV 14.2 % (11.6-14.6); RBC Distribution Width SD 53.1 fl (35.1-43.9); White Blood Count 11.8 K/mm3 (4.4-11.0)
[2019-06-18 03:48] LABS: ALB/GLOB Ratio 0.8 RATIO (0.9-2.4); AST(SGOT) 304 U/L (15-37); Alanine Aminotransfer ALT/SGPT 45 U/L (13-56); Alkaline Phosphatase 50 U/L (45-117); Anion Gap 10 (5-15); BUN 26 mg/dL (7-18); BUN/Creat Ratio 23.4 RATIO (10-20); Chloride 105 mmol/L (98-107); Creatinine, Serum 1.11 mg/dL (0.55-1.02); EST Glomerular Filtration Rate 50 mL/min (>60); Est Glom Filt Rate - Afr Amer 61 mL/min (>60); Estimated Creatinine Clearance 37.84 ml/min; Globulin 3.8 g/dL (2.2-4.2); Glucose 237 mg/dL (74-106); Potassium 4.6 mmol/L (3.5-5.1); Protein, Total 6.8 g/dL (6.4-8.2); Sodium Level 138 mmol/L (136-145)
[2019-06-18 04:06] LABS: Bacteria 0 SEEN /hpf (None Seen); Color, Urine Yellow (Yellow); Glucose, Dipstick 50 mg/dl (Normal); Ketone-Dipstick Negative (Negative); Leukocyte Esterase-Dipstick 25 /ul (Negative); Mucous, Urine 0 SEEN /hpf (<or=2+); Nitrite-Dipstick Negative (Negative); Occult Blood-Urine 250 /ul (Negative); Protein-Dipstick 100 mg/dl (Negative); Specific Gravity, Urine 1.015 (1.002-1.030); Squamous Epithelial Cells - UA 0 SEEN /hpf (5-10); Urine Bilirubin Dipstick Negative (Negative); Urine Clarity Sl. Cloudy (Clear); Urine Urobilinogen Normal (Normal)
[2019-06-18 04:15] LABS: Red Blood Cells-Urine 25-50 SEEN /hpf (0-5); White Blood Cells 5-10 SEEN /hpf (0-5)
[2019-06-18 06:05] LABS: Bedside Glucose 236 mg/dL (70-110)
[2019-06-18] MEDS: TITRATION PARAMETER CHANGE 1 EACH IV (06:11)
[2019-06-18] MEDS: Gemfibrozil 600 MG Tablet PO ×2 (06:31→18:29)
[2019-06-18] MEDS: Insulin Lispro 100 UNIT/ML INSULN.PEN SC ×2 (06:31→11:29)
--- NOTE | 2019-06-18 07:47 | CON.PCM_ITS ---
Reason for Consult Date of Consultation: 06/18/19 Reason for Consultation: Acute respiratory failure History of Present Illness: The patient is an 79-year-old female, with a history as outlined below, who presented to the emergency department on June 16 with complaints of chest pain. History pertinent to the patient's hospitalization was obtained primarily via chart review, as the patient is currently intubated and there is no family available at the bedside. On presentation to the emergency department, the patient was noted to be afebrile, but was hypotensive and tachypneic. She was also documented to be saturating 77% on room air. Initial laboratory evaluation revealed no evidence of a leukocytosis. Coagulation profile was within normal limits. Chemistry profile was notable for a creatinine of 1.27. Initial troponin was elevated at 0.821. Due to impending respiratory failure, the patient was emergently intubated. Initial plain film chest x-ray revealed diffuse alveolar disease, most pronounced throughout the right hemithorax. The patient was taken to the cardiac catheterization lab where she underwent intervention with PCI to the RCA. There was evidence of triple-vessel coronary disease with an ejection fraction of 45% and severe MR. Post procedure, the patient was transferred to the medical intensive care unit for further management. Of note, I was notified by the nursing staff that the patient had vomited during her cardiac catheterization with concerns for subsequent aspiration event. The patient was febrile overnight with a T-max of 101.7 ?F. The patient was subsequently started on Zosyn. Past Medical History Past Medical History (Chronic Problems): Chronic Problems HTN (hypertension) (Chronic) HLD (hyperlipidemia) (Chronic) CVA (cerebral vascular accident) (Chronic) Diabetes (Chronic) Allergies niacin [From Niaspan Extended-Release] Allergy (Verified 06/17/19 16:23) Other ramipril [From Altace] Allergy (Verified 06/17/19 16:23) Other Home Medications: Ambulatory Orders Medication Instructions Recorded Amlodipine Besylate [Norvasc] 10 mg PO DAILY 06/14/17 Aspirin 325 mg PO DAILY@0800 06/14/17 Atorvastatin Calcium [Lipitor] 40 mg PO QHS 06/14/17 Gabapentin [Neurontin] 300 mg PO 4X/DAY 06/14/17 Gemfibrozil [Lopid] 600 mg PO BID 06/14/17 Insulin Glargine,Hum.rec.anlog 15 unit SQ QHS 06/14/17 [Lantus] Metoprolol Tartrate 25 mg PO BID 06/14/17 Docusate Sodium [Colace] 100 mg PO DAILY #20 capsule 04/09/18 metFORMIN HCl [Glucophage] 1,000 mg PO BIDCM 06/17/19 Surgical History: no surgical history Psychiatric History: No pertinent psych hx 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 Patient Problems: Active and Suspected Problems STEMI (ST elevation myocardial infarction) (Acute) Objective: The patient's most recent lab work, culture data and imaging studies have all b een personally reviewed. Blood, urine and sputum cultures are pending. - Physical Exam Vitals/I&O's: Vital Signs Temp Pulse Resp BP Pulse Ox 100.8 F H 87 16 129/61 H 96 06/18/19 07:00 06/18/19 07:01 06/18/19 07:01 06/18/19 07:00 06/18/19 07:01 Oxygen Flow Rate (L/min) 15 Oxygen Delivery Method Mechanical Ventilator Weight: 149 lb 4.047 oz Body Mass Index (BMI) 24.0 Intake and Output for Last 24 Hours 06/16/19 06/17/19 06/18/19 23:59 23:59 23:59 Intake Total 1121.33 / 1125.18 247.94 / 247.94 Output Total 400 / 400 475 / 475 Balance 721.33 / 725.18 -227.06 / -227.06 General: - - Intubated, sedated and mechanically ventilated. HEENT: Atraumatic, PERRLA, Normocephalic Oral: No Gingival or Mucosal Lesions/ Ulcerations, - - Endotracheal and OG tubes are currently in place Neck: Supple, No Nodes, Trachea Midline Lungs: No rhonchi, No wheeze, Diminished, Tachypneic Cardiovascular: Regular rate, Regular Rhythm, Normal S1, Normal S2, No murmurs Abdomen: Bowel Sounds Present, Soft, Non Tender Extremities: No clubbing, No cyanosis, No edema Skin: No breakdown Musculoskeletal: No Tenderness to Palpation of Joints or Extremities Lymphatic: No Cervical, Supraclavicular, or Inguinal Adenopathy Neurological: - - No focal neurological deficits. Currently sedated on the ventilator. Psych/Mental Status: Restless Labs (Last 48 Hours) 06/17/19 06/17/19 06/17/19 16:25 16:25 16:25 WBC 8.0 RBC 4.12 L Hgb 13.4 Hct 42.4 MCV 102.9 H MCH 32.5 H MCHC 31.6 L RDW Std Deviation 52.7 H RDW Coeff of Hebert 14.0 Plt Count 199 MPV 9.8 Immature Gran % (Auto) 0.400 Neut % (Auto) 40.1 L Lymph % (Auto) 45.6 H Mineral % (Auto) 10.6 H Eos % (Auto) 2.7 Baso % (Auto) 0.6 Absolute Neuts (auto) 3.2 Absolute Lymphs (auto) 3.67 Nucleated RBC % 0 PT 12.7 INR 1.0 APTT 27.5 Specimen Type Sample Site pH Bicarbonate Actual POC Total CO2 Base Excess O2 Saturation O2 % ABG pCO2 ABG pO2 Cabrera Test Respiration Rate O2 Delivery Device Minute Volume Vent Mode Tidal Volume POC PEEP Blood Gas Notified Whom Blood Gas Notified Time Sodium 139 Potassium 4.8 Chloride 107 Carbon Dioxide 25.0 Anion Gap 7 BUN 26 H Creatinine 1.27 H Estim Creat Clear Calc 33.07 Est GFR (MDRD) Af Amer 52 L Est GFR (MDRD) Non-Af 43 L BUN/Creatinine Ratio 20.5 H Glucose 201 H Calcium 9.2 Total Bilirubin AST ALT Alkaline Phosphatase Troponin I 0.821 H* Total Protein Albumin Globulin Albumin/Globulin Ratio Serum , Qual Urine Color Urine Clarity Urine pH Ur Specific [place] Urine Protein Urine Glucose (UA) Urine Ketones Urine Occult Blood Urine Nitrite Urine Bilirubin Urine Urobilinogen Ur Leukocyte Esterase Urine RBC Urine WBC Ur Squamous Epith Cells Urine Bacteria Urine Mucus POC Glucose 06/17/19 06/17/19 06/17/19 16:25 20:01 21:02 WBC RBC Hgb Hct MCV MCH MCHC RDW Std Deviation RDW Coeff of Hebert Plt Count MPV Immature Gran % (Auto) Neut % (Auto) Lymph % (Auto) Mineral % (Auto) Eos % (Auto) Baso % (Auto) Absolute Neuts (auto) Absolute Lymphs (auto) Nucleated RBC % PT INR APTT Specimen Type ART Sample Site ART LINE pH 7.35 Bicarbonate Actual 22.3 POC Total CO2 23 Base Excess -3 L O2 Saturation 93 L O2 % 80 ABG pCO2 40.0 ABG pO2 69 L Cabrera Test NA Respiration Rate 14 O2 Delivery Device Vent Minute Volume 7.90 Vent Mode A-C Tidal Volume 430 POC PEEP 10 Blood Gas Notified Whom [facility] Blood Gas Notified Time 2111 Sodium Potassium Chloride Carbon Dioxide Anion Gap BUN Creatinine Estim Creat Clear Calc Est GFR (MDRD) Af Amer Est GFR (MDRD) Non-Af BUN/Creatinine Ratio Glucose Calcium Total Bilirubin AST ALT Alkaline Phosphatase Troponin I Total Protein Albumin Globulin Albumin/Globulin Ratio Serum , Qual Cancelled Urine Color Urine Clarity Urine pH Ur Specific [place] Urine Protein Urine Glucose (UA) Urine Ketones Urine Occult Blood Urine Nitrite Urine Bilirubin Urine Urobilinogen Ur Leukocyte Esterase Urine RBC Urine WBC Ur Squamous Epith Cells Urine Bacteria Urine Mucus POC Glucose 198 H 06/17/19 06/18/19 06/18/19 21:05 03:20 03:20 WBC 9.3 11.8 H RBC 4.05 L 3.90 L Hgb 13.4 12.8 Hct 40.9 39.7 MCV 101.0 H 101.8 H MCH 33.1 H 32.8 H MCHC 32.8 32.2 RDW Std Deviation 52.4 H 53.1 H RDW Coeff of Hebert 14.0 14.2 Plt Count 191 203 MPV 10.0 9.8 Immature Gran % (Auto) Neut % (Auto) Lymph % (Auto) Mineral % (Auto) Eos % (Auto) Baso % (Auto) Absolute Neuts (auto) Absolute Lymphs (auto) Nucleated RBC % PT INR APTT Specimen Type Sample Site pH Bicarbonate Actual POC Total CO2 Base Excess O2 Saturation O2 % ABG pCO2 ABG pO2 Cabrera Test Respiration Rate O2 Delivery Device Minute Volume Vent Mode Tidal Volume POC PEEP Blood Gas Notified Whom Blood Gas Notified Time Sodium 138 Potassium 4.6 Chloride 105 Carbon Dioxide 23.0 Anion Gap 10 BUN 26 H Creatinine 1.11 H Estim Creat Clear Calc 37.84 Est GFR (MDRD) Af Amer 61 Est GFR (MDRD) Non-Af 50 L BUN/Creatinine Ratio 23.4 H Glucose 237 H Calcium 8.0 L Total Bilirubin 0.50 AST 304 H ALT 45 Alkaline Phosphatase 50 Troponin I Total Protein 6.8 Albumin 3.0 L Globulin 3.8 Albumin/Globulin Ratio 0.8 L Serum , Qual Urine Color Urine Clarity Urine pH Ur Specific [place] Urine Protein Urine Glucose (UA) Urine Ketones Urine Occult Blood Urine Nitrite Urine Bilirubin Urine Urobilinogen Ur Leukocyte Esterase Urine RBC Urine WBC Ur Squamous Epith Cells Urine Bacteria Urine Mucus POC Glucose 06/18/19 06/18/19 03:50 06:03 WBC RBC Hgb Hct MCV MCH MCHC RDW Std Deviation RDW Coeff of Hebert Plt Count MPV Immature Gran % (Auto) Neut % (Auto) Lymph % (Auto) Mineral % (Auto) Eos % (Auto) Baso % (Auto) Absolute Neuts (auto) Absolute Lymphs (auto) Nucleated RBC % PT INR APTT Specimen Type Sample Site pH Bicarbonate Actual POC Total CO2 Base Excess O2 Saturation O2 % ABG pCO2 ABG pO2 Cabrera Test Respiration Rate O2 Delivery Device Minute Volume Vent Mode Tidal Volume POC PEEP Blood Gas Notified Whom Blood Gas Notified Time Sodium Potassium Chloride Carbon Dioxide Anion Gap BUN Creatinine Estim Creat Clear Calc Est GFR (MDRD) Af Amer Est GFR (MDRD) Non-Af BUN/Creatinine Ratio Glucose Calcium Total Bilirubin AST ALT Alkaline Phosphatase Troponin I Total Protein Albumin Globulin Albumin/Globulin Ratio Serum , Qual Urine Color Yellow Urine Clarity Sl. Cloudy Urine pH 6.0 Ur Specific [place] 1.015 Urine Protein 100 H Urine Glucose (UA) 50 H Urine Ketones Negative Urine Occult Blood 250 H Urine Nitrite Negative Urine Bilirubin Negative Urine Urobilinogen Normal Ur Leukocyte Esterase 25 H Urine RBC 25-50 SEEN Urine WBC 5-10 SEEN Ur Squamous Epith Cells 0 SEEN Urine Bacteria 0 SEEN Urine Mucus 0 SEEN POC Glucose 236 H Clinical Impression(s) from Imaging Studies Chest X-Ray 06/17/19 16:57 IMPRESSION: Endotracheal tube tip is 5.8 cm from hector. Enteric tube tip in the body of the stomach. Diffuse alveolar disease, most confluent in the right upper lobe and right perihilar region. Electronically Signed: Harsha Dumont MD at 17:40 EDT Tel , Service support , Current Medications Acetaminophen (Tylenol Liquid) 650 mg GT Q6H PRN PRN PRN Reason: temperature of 100.7F Last Admin: 06/18/19 03:26 Dose: 650 mg Documented by: Aspirin (Ecotrin) 81 mg PO DAILY@0800 [facility] Atorvastatin Calcium (Lipitor) 40 mg PO QHS [facility] Last Admin: 06/17/19 22:07 Dose: 40 mg Documented by: Atropine Sulfate () 0.5 mg IV UD PRN PRN Reason: HR <50 bpm Chlorhexidine Gluconate () 15 ml PO BID [facility] Last Admin: 06/17/19 22:18 Dose: 15 ml Documented by: Chlorhexidine Gluconate () 1 each TOPICAL DAILY [facility] Gabapentin (Neurontin) 300 mg PO 4X/DAY [facility] Last Admin: 06/17/19 22:07 Dose: 300 mg Documented by: Gemfibrozil (Lopid) 600 mg PO BIDAC [facility] Last Admin: 06/18/19 06:31 Dose: 600 mg Documented by: Heparin Sodium (Beef Lung) (Heparin 500 Unit/5 Ml (100/Ml)) 500 unit IV UD PRN PRN Reason: HEPARIN FLUSH Norepinephrine Bitartrate 8 mg (/ Sodium Chloride) 250 mls @ 9.375 mls/hr CONT INF .[id number] [facility]; Protocol Stop: 06/18/19 19:19 Last Titration: 06/17/19 20:45 Dose: 0 mcg/min, 0 mls/hr Documented by: Propofol (Diprivan) 1,000 mg in 100 mls @ 4.062 mls/hr CONT INF .Q12H [facility]; Protocol Last Titration: 06/18/19 07:00 Dose: 20 mcg/kg/min, 8.1 mls/hr Documented by: Eptifibatide (Integrilin) 75 mg in 100 mls @ 5.416 mls/hr CONT INF .[id number] [facility] Stop: 06/18/19 08:00 Last Infusion: 06/18/19 06:00 Dose: 1 mcg/kg/min, 5.4 mls/hr Documented by: Sodium Chloride () 250 mls @ 15 mls/hr IV .[id number] PRN PRN Reason: Saline Flush Sodium Chloride () 250 mls @ 15 mls/hr IV .[id number] PRN PRN Reason: Additional IVPB Infusion Fentanyl () 100 mls @ 2.5 mls/hr IV UD [facility]; Protocol Last Titration: 06/18/19 07:00 Dose: 25 mcg/hr, 2.5 mls/hr Documented by: Piperacillin Sod/Tazobactam (Sod 3.375 gm/ Sodium Chloride) 50 mls @ 12.5 mls/hr IV Q8 [facility] Last Admin: 06/18/19 03:48 Dose: 12.5 mls/hr Documented by: Insulin Human Lispro (Humalog Kwikpen (Bkc)) 0 unit SC Q6 [facility]; Protocol Last Admin: 06/18/19 06:31 Dose: 3 units Documented by: Metoprolol Tartrate (Lopressor (Beta Abel)) 25 mg PO BID [facility] Last Admin: 06/17/19 22:07 Dose: 25 mg Documented by: Sodium Chloride () 500 ml IV BOLUS PRN PRN Reason: VASO-VAGAL PROTOCOL Sodium Chloride () 10 - 40 ml IV UD PRN PRN Reason: SALINE FLUSH Ticagrelor (Brilinta) 90 mg PO BID [facility] Assessment/Plan Active and Suspected Problems STEMI (ST elevation myocardial infarction) (Acute) RECOMMENDATIONS: 1. Wean FiO2 and PEEP to maintain oxygen saturations at or above 90%. 2. Obtain repeat plain film chest x-ray and arterial blood gas. 3. Continue empiric antimicrobials for at least 24 hours, pending infectious work-up. 4. Check MRSA screen. 5. Start tube feeds today. 6. Start sliding scale insulin coverage. 7. Start appropriate ICU prophylaxis. IMPRESSIONS: 1. Acute Hypoxemic Respiratory Failure The patient's respiratory failure was likely secondary to her primary cardiac event with subsequent edema vs possible infectious etiology. Repeat x-ray from this morning reveals improvement. Over concerns for possible aspiration event during cardiac catheterization, the patient will be maintained on empiric antimicrobials for at least 24 hours, pending infectious work-up. Will wean FiO2 and PEEP to maintain oxygen saturations at or above 90%. Tube feeds will be started today. The patient will remain on propofol and fentanyl for sedation. Plan for daily paired spontaneous awakening and breathing trials beginning tomorrow. 2. ST segment elevation SD The patient is status post PCI with drug-eluting stent placement to the RCA. Will defer cardiac medical management accordingly. 3. Hypertension/hyperlipidemia/neuropathy/diabetes mellitus Complicates care, management, recovery and prognosis. We will plan to start sliding scale insulin coverage. TIME: 40 minutes of critical care time, independent of procedures, was spent addressing the patient's acute hypoxemic respiratory failure, ST segment elevation myocardial infarction, review of all data and collaboration with the care team. ([id number]) [phone]: [id number] Critical care first hour
--- NOTE | 2019-06-18 07:55 | RAD_ITS ---
STUDY: X-RAY CHEST REASON FOR EXAM: Female, 79 years old. Respiratory failure. Exam done supine d/t cllin. cond TECHNIQUE: Single AP portable view of the chest. COMPARISON: Comparison is made with prior examination dated June 17, 2019. FINDINGS: An endotracheal tube is in situ. The tip is at 4.5 cm proximal to the hector. An orogastric tube is seen with the tip in the body of the stomach. EKG electrodes are seen. Since prior study, there has been improved aeration of the right lung. There now is evidence of the infiltration at the left lung base. Normal size heart. Normal mediastinum and paul. Normal visualized pulmonary arteries. Normal visualized aortic arch and descending thoracic aorta. There are degenerative changes of the visualized thoracic spine. Normal visualized ribs, clavicles, and shoulders. There is no demonstrated abnormality of the visualized soft tissue structures of the upper abdomen. RAD/Chest 1 View (Portable) IMPRESSION: Interval improvement in the aeration of the right lung with the new atelectasis and/or infiltrate in the left lower lobe. The support tubes are in good position. Electronically Signed: Tigre Leos, at 8:48 EDT , Service support ,
[2019-06-18 08:24] LABS: BNP,B-Type NATRIURETIC PEPTIDE 778.1 pg/mL (0-100)
--- NOTE | 2019-06-18 08:39 | PCM.NTREPORT ---
Nutrition Therapy Report - History Current diet / nutrition support order:: none ordered - Anthropometric Measurements Height:: 5 ft 6 in Weight:: 67.7 kg Body Mass Index (BMI):: 24.0 - Relevant Labs Relevant Labs:: WBC 11.8 K/mm3 (4.4-11.0) H 06/18/19 03:20 RBC 3.90 M/mm3 (4.2-5.4) L 06/18/19 03:20 MCV 101.8 fL (81-99) H 06/18/19 03:20 MCH 32.8 pg (27.0-32.0) H 06/18/19 03:20 MCHC 31.6 g/dL (32-36) L 06/17/19 16:25 RDW Std Deviation 53.1 fl (35.1-43.9) H 06/18/19 03:20 Neut % (Auto) 40.1 % (47-70) L 06/17/19 16:25 Lymph % (Auto) 45.6 % (19-41) H 06/17/19 16:25 [place] % (Auto) 10.6 % (0-10) H 06/17/19 16:25 BUN 26 mg/dL (7-18) H 06/18/19 03:20 Creatinine 1.11 mg/dL (0.55-1.02) H 06/18/19 03:20 Est GFR (MDRD) Af Amer 52 mL/min (>60) L 06/17/19 16:25 Est GFR (MDRD) Non-Af 50 mL/min (>60) L 06/18/19 03:20 BUN/Creatinine Ratio 23.4 RATIO (10-20) H 06/18/19 03:20 Glucose 237 mg/dL (74-106) H 06/18/19 03:20 Calcium 8.0 mg/dL (8.5-10.1) L 06/18/19 03:20 AST 304 U/L (15-37) H 06/18/19 03:20 Troponin I 0.821 ng/mL (<0.045) H* 06/17/19 16:25 B-Natriuretic Peptide 778.1 pg/mL (0-100) H 06/18/19 03:20 Albumin 3.0 g/dL (3.2-5.0) L 06/18/19 03:20 Albumin/Globulin Ratio 0.8 RATIO (0.9-2.4) L 06/18/19 03:20 - Assessment Food / Nutrition-Related History:: Pt sedated and intubated. OG in place. Per nsg adm note: UBW not known. Gluc elevated - hx of DM noted. No diet ordered at this time. - Nutrition Diagnosis Problem / Etiology / Signs & Symptoms (PES):: Pt with suboptimal nutrition status r/t sedated and on vent AEB NPO status. [ End ] Evidence of Malnutrition Exists:: No - Nutrition Intervention Nutrition Prescription:: [id number] rhoda/ 65-75 gm pro/day - Food / Nutrient Delivery Interventions Summary of nutrition intervention:: As medically able, rec WILLIAM 1600 rhoda Cardiac diet - consistency per HOME CARE CONSULTANT. If pt to remain on vent, rec nutrition support - rec Vital AF 1.2 at goal rate 60 cc/hr with 100 cc H2O flush every 4 hours to provide ~ 1728 rhoda/108 gm pro/1767 cc free water. Would start tf at 20 cc/hr and increase by 20 cc/hr every 6-8 hrs as pt tolerates until goal rate achieved. [ End ] Nutrition support ordered as / adjusted to:: If pt to remain on vent, rec nutrition support - rec Vital AF 1.2 at goal rate 60 cc/hr with 100 cc H2O flush every 4 hours to provide ~ 1728 rhoda/108 gm pro/1767 cc free water. Would start tf at 20 cc/hr and increase by 20 cc/hr every 6-8 hrs as pt tolerates until goal rate achieved. [ End ] Nutrition education provided?: No - MNT Monitoring Further MNT monitoring and evaluation required?: Yes MNT Follow-up in:: 3-5 days - Please consult RD/LD at [phone] if questions/concerns
--- NOTE | 2019-06-18 09:48 | PCM.PROGNOTE ---
Patient Problems: Active and Suspected Problems STEMI (ST elevation myocardial infarction) (Acute) Subjective: Patient was seen and examined today, she is currently on the ventilator and under light sedation. Patient does not appear to be in respiratory distress. I talked briefly with nursing and critical care about her medical care. - Physical Exam Vitals/I&O's: Vital Signs Temp Pulse Resp BP Pulse Ox 100.7 F H 89 20 H 135/65 H 96 06/18/19 09:00 06/18/19 09:00 06/18/19 09:00 06/18/19 09:00 06/18/19 09:00 Oxygen Flow Rate (L/min) 15 Oxygen Delivery Method Mechanical Ventilator Weight: 67.7 kg Body Mass Index (BMI) 24.0 Intake and Output for Last 24 Hours 06/16/19 06/17/19 06/18/19 23:59 23:59 23:59 Intake Total 1121.33 / 1125.18 297.94 / 297.94 Output Total 400 / 400 475 / 475 Balance 721.33 / 725.18 -177.06 / -177.06 General: No apparent distress, - HEENT: Atraumatic, PERRLA, EOMI, Normocephalic Oral: Moist Mucosa Neck: Supple, No JVD, Trachea Midline, Thyroid Normal Size and Texture Lungs: Clear to auscultation, Normal air movement, No rhonchi, No wheeze Cardiovascular: Regular rate, Regular Rhythm, Normal S1, Normal S2, No murmurs, PMI Normal, No rub noted Abdomen: Bowel Sounds Present, Soft, Non Tender, Non-Distended Extremities: No clubbing, No cyanosis, No edema, Capillary Refill Less than 3 Seconds Skin: No rashes, No breakdown Musculoskeletal: No Tenderness to Palpation of Joints or Extremities Neurological: - - Patient is sedated and on the ventilator Psych/Mental Status: - - Patient is sedated and on the ventilator Microbiology Past 72 Hours 06/18/19 05:45 Sputum, Induced/Lukens Gram Stain - Final Laboratory Results 06/17/19 16:25: WBC 8.0, RBC 4.12 L, Hgb 13.4, Hct 42.4, MCV 102.9 H, MCH 32.5 H, MCHC 31.6 L, RDW Std Deviation 52.7 H, RDW Coeff of Hebert 14.0, Plt Count 199, MPV 9.8, Immature Gran % (Auto) 0.400, Neut % (Auto) 40.1 L, Lymph % (Auto) 45.6 H, [place] % (Auto) 10.6 H, Eos % (Auto) 2.7, Baso % (Auto) 0.6, Absolute Neuts (auto) 3.2, Absolute Lymphs (auto) 3.67, Nucleated RBC % 0 06/17/19 16:25: PT 12.7, INR 1.0, APTT 27.5 06/17/19 16:25: Sodium 139, Potassium 4.8, Chloride 107, Carbon Dioxide 25.0, Anion Gap 7, BUN 26 H, Creatinine 1.27 H, Estim Creat Clear Calc 33.07, Est GFR (MDRD) Af Amer 52 L, Est GFR (MDRD) Non-Af 43 L, BUN/Creatinine Ratio 20.5 H, Glucose 201 H, Calcium 9.2, Troponin I 0.821 H* 06/17/19 16:25: Serum , Qual Cancelled 06/17/19 20:01: POC Glucose 198 H 06/17/19 21:02: Specimen Type ART, Sample Site ART LINE, pH 7.35, Bicarbonate Actual 22.3, POC Total CO2 23, Base Excess -3 L, O2 Saturation 93 L, O2 % 80, ABG pCO2 40.0, ABG pO2 69 L, Cabrera Test NA, Respiration Rate 14, O2 Delivery Device Vent, Minute Volume 7.90, Vent Mode A-C, Tidal Volume 430, POC PEEP 10, Blood Gas Notified Whom CHAKA KEMP, Blood Gas Notified Time 211106/17/19 21:05: WBC 9.3, RBC 4.05 L, Hgb 13.4, Hct 40.9, MCV 101.0 H, MCH 33.1 H, MCHC 32.8, RDW Std Deviation 52.4 H, RDW Coeff of Hebert 14.0, Plt Count 191, MPV 10.0 06/18/19 03:20: WBC 11.8 H, RBC 3.90 L, Hgb 12.8, Hct 39.7, MCV 101.8 H, MCH 32.8 H, MCHC 32.2, RDW Std Deviation 53.1 H, RDW Coeff of Hebert 14.2, Plt Count 203, MPV 9.8 06/18/19 03:20: Sodium 138, Potassium 4.6, Chloride 105, Carbon Dioxide 23.0, Anion Gap 10, BUN 26 H, Creatinine 1.11 H, Estim Creat Clear Calc 37.84, Est GFR (MDRD) Af Amer 61, Est GFR (MDRD) Non-Af 50 L, BUN/Creatinine Ratio 23.4 H, Glucose 237 H, Calcium 8.0 L, Total Bilirubin 0.50, AST 304 H, ALT 45, Alkaline Phosphatase 50, Total Protein 6.8, Albumin 3.0 L, Globulin 3.8, Albumin/Globulin Ratio 0.8 L 06/18/19 03:20: B-Natriuretic Peptide 778.1 H 06/18/19 03:50: Urine Color Yellow, Urine Clarity Sl. Cloudy, Urine pH 6.0, Ur Specific [place] 1.015, Urine Protein 100 H, Urine Glucose (UA) 50 H, Urine Ketones Negative, Urine Occult Blood 250 H, Urine Nitrite Negative, Urine Bilirubin Negative, Urine Urobilinogen Normal, Ur Leukocyte Esterase 25 H, Urine RBC 25-50 SEEN, Urine WBC 5-10 SEEN, Ur Squamous Epith Cells 0 SEEN, Urine Bacteria 0 SEEN, Urine Mucus 0 SEEN 06/18/19 06:03: POC Glucose 236 H 06/18/19 08:55: MRSA (PCR) Pending Current Medications Acetaminophen (Tylenol Liquid) 650 mg GT Q6H PRN PRN PRN Reason: temperature of 100.7F Last Admin: 06/18/19 03:26 Dose: 650 mg Documented by: Aspirin (Ecotrin) 81 mg PO DAILY@0800 [facility] Atorvastatin Calcium (Lipitor) 40 mg PO QHS [facility] Last Admin: 06/17/19 22:07 Dose: 40 mg Documented by: Atropine Sulfate () 0.5 mg IV UD PRN PRN Reason: HR <50 bpm Chlorhexidine Gluconate () 15 ml PO BID [facility] Last Admin: 06/17/19 22:18 Dose: 15 ml Documented by: Chlorhexidine Gluconate () 1 each TOPICAL DAILY [facility] Gabapentin (Neurontin) 300 mg PO 4X/DAY [facility] Last Admin: 06/17/19 22:07 Dose: 300 mg Documented by: Gemfibrozil (Lopid) 600 mg PO BIDAC [facility] Last Admin: 06/18/19 06:31 Dose: 600 mg Documented by: Heparin Sodium (Beef Lung) (Heparin 500 Unit/5 Ml (100/Ml)) 500 unit IV UD PRN PRN Reason: HEPARIN FLUSH Norepinephrine Bitartrate 8 mg (/ Sodium Chloride) 250 mls @ 9.375 mls/hr CONT INF .[id number] [facility]IS; Protocol Stop: 06/18/19 19:19 Last Titration: 06/17/19 20:45 Dose: 0 mcg/min, 0 mls/hr Documented by: Propofol (Diprivan) 1,000 mg in 100 mls @ 4.062 mls/hr CONT INF .Q12H [facility]IS; Protocol Last Titration: 06/18/19 07:00 Dose: 20 mcg/kg/min, 8.1 mls/hr Documented by: Sodium Chloride () 250 mls @ 15 mls/hr IV .[id number] PRN PRN Reason: Saline Flush Sodium Chloride () 250 mls @ 15 mls/hr IV .[id number] PRN PRN Reason: Additional IVPB Infusion Fentanyl () 100 mls @ 2.5 mls/hr IV UD AVIS; Protocol Last Titration: 06/18/19 07:00 Dose: 25 mcg/hr, 2.5 mls/hr Documented by: Piperacillin Sod/Tazobactam (Sod 3.375 gm/ Sodium Chloride) 50 mls @ 12.5 mls/hr IV Q8 [facility]IS Last Infusion: 06/18/19 07:48 Dose: Infused Documented by: Pantoprazole Sodium 40 mg/ (Sodium Chloride) 110 mls @ 330 mls/hr IV Q24 [facility] Enteral Nutritional Formula (Vital Af 1.2 Randy Liquid) 1,000 mls @ 60 mls/hr GT .[id number] [facility] Insulin Human Lispro (Humalog Kwikpen (Bkc)) 0 unit SC Q6 [facility]; Protocol Last Admin: 06/18/19 06:31 Dose: 3 units Documented by: Metoprolol Tartrate (Lopressor (Beta Abel)) 25 mg PO BID [facility] Last Admin: 06/17/19 22:07 Dose: 25 mg Documented by: Sodium Chloride () 500 ml IV BOLUS PRN PRN Reason: VASO-VAGAL PROTOCOL Sodium Chloride () 10 - 40 ml IV UD PRN PRN Reason: SALINE FLUSH Ticagrelor (Brilinta) 90 mg PO BID [facility]IS Medical Necessity - Tobacco Use Smoking Status: Unknown if ever smoked Tobacco Use: Non-smoker Assessment/Plan All Active Problems STEMI (ST elevation myocardial infarction) (Acute) #1 STEMI-cardiology is participating in her care-status post PCI of RCA with drug-eluting stent placement-postop day #1 #2 aspiration pneumonia-critical care is seeing patient, patient will remain on antibiotics at this time #3 type 2 diabetes-continue to monitor blood sugars #4 essential hypertension #5 hyperlipidemia #6 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
--- NOTE | 2019-06-18 10:00 | EKG12_ITS ---
Test Reason : AM EKG Blood Pressure : / mmHG Vent. Rate : 085 BPM Atrial Rate : 085 BPM P-R Int : 134 ms QRS Dur : 088 ms QT Int : 374 ms P-R-T Axes : 055 -49 021 degrees QTc Int : 445 ms Sinus rhythm with Premature atrial complexes Left axis deviation Inferior infarct , age undetermined Abnormal ECG When compared with ECG of 17-JUN-2019 20:01, MANUAL COMPARISON REQUIRED, DATA IS UNCONFIRMED Confirmed by GUILLERMINA KEMP, LENARD ([id number]), assistant film editor GILBERT RAMOS ([id number]) on 06/19/2019 2:34:43 PM Referred By: Pedro Alexandre Confirmed By:LENARD SARMIENTO MD
--- NOTE | 2019-06-18 11:02 | CASEMGMT ---
RN CM Note: attempted to contact luke Diaz [phone] to discuss RN CM assessment. No answer, and no name identifier. Will attempt to call again at later time. Pramod DURBINN RN ACM
[2019-06-18 11:19] LABS: M R Staph aureus DNA By PCR Negative (Negative); Probe Check PASS; Specimen Processing Control PASS
[2019-06-18] MEDS: Gabapentin 300 MG Capsule PO ×4 (11:20→21:23)
[2019-06-18] MEDS: 0.9% Saline Lock 10 ML Syringe IV (11:20)
[2019-06-18] MEDS: TICAGRELOR 90 MG TABLET PO ×2 (11:20→21:23)
[2019-06-18] MEDS: Metoprolol Tartrate 25 MG Tablet PO ×2 (11:20→21:23)
[2019-06-18] MEDS: Aspirin E.C. 81 MG Tablet PO (11:20)
[2019-06-18] MEDS: Chlorhexidine 15 ML PO ×2 (11:24→21:54)
--- NOTE | 2019-06-18 11:26 | CASEMGMT ---
RN CM Assessment Note Presentation: STEMI, emergency heart cath, stent RCA Intro role of CM and purpose of RN CM assessment to patient's son Joe via phone. Demographics, PCP and Pharmacy verified. Per Joe, he uses pt's address for his mailing address. Pt's listed address is correct ([address], [address], [place]). Per Joe, pt is normally independent; does not require assistance with personal care needs. PCP: Dr. Moseley Specialists: none per pt Preferred Pharmacy: [facility] Retail listed, will need to verify with pt when extubated. Insurance: [employer] [facility] Prescription Benefit: yes LNOK : Joe Betts, son. Living Arrangements: Pt lives in apartment. Per son, pt does not require assist with ADL's. Son takes pt to physician and to grocery shopping. Pt has been staying home recently. Transportation: Son drives DME: walker only HHC/SNF: none. Son states pt was in rehab in [place] approx 9 years ago after stroke. Patient DC goals: Home DC PLAN: Anticipate Home. PT/OT evaluations held today. RN CM let son know cm will speak with pt once she is able to participate and address any concerns/needs that may arise. Pramod BASS RN ACM
[2019-06-18] MEDS: Propofol 10MG/Ml 1,000 MG/100 ML Bottle 8.1 MG CONT INF ×2 (11:28→21:52)
[2019-06-18 11:45] LABS: Bedside Glucose 193 mg/dL (70-110)
--- NOTE | 2019-06-18 13:34 | PN.CARD_ITS ---
Subjectve: Patient is intubated, sedated. Her blood pressure is better and she is off Levophed. She has been having fevers overnight and aspiration pneumonia is suspected to be the culprit. She is now on Zosyn. Hemodynamically stable at this time. Objective: Vital Signs Temp Pulse Resp BP Pulse Ox 101 F H 76 14 155/75 H 97 06/18/19 12:00 06/18/19 13:14 06/18/19 13:14 06/18/19 12:00 06/18/19 13:14 Oxygen Flow Rate (L/min) 15 Oxygen Delivery Method Mechanical Ventilator Weight: 149 lb 4.047 oz Body Mass Index (BMI) 24.0 Intake and Output for Last 24 Hours 06/16/19 06/17/19 06/18/19 23:59 23:59 23:59 Intake Total 1121.33 / 1125.18 560.94 / 560.94 Output Total 400 / 400 900 / 900 Balance 721.33 / 725.18 -339.06 / -339.06 General: - - Intubated, sedated HEENT: Atraumatic Oral: Moist Mucosa Neck: Supple Lungs: Clear to auscultation Cardiovascular: Regular Rhythm Extremities: No edema Skin: No Rashes 06/17/19 16:25: WBC 8.0, RBC 4.12 L, Hgb 13.4, Hct 42.4, MCV 102.9 H, MCH 32.5 H , MCHC 31.6 L, Plt Count 199, MPV 9.8, Immature Gran % (Auto) 0.400, Neut % (Auto) 40.1 L, Lymph % (Auto) 45.6 H, [place] % (Auto) 10.6 H, Eos % (Auto) 2.7, Baso % (Auto) 0.6, Absolute Neuts (auto) 3.2, Nucleated RBC % 0 06/17/19 16:25: PT 12.7, INR 1.0, APTT 27.5 06/17/19 16:25: Sodium 139, Potassium 4.8, Chloride 107, Carbon Dioxide 25.0, Anion Gap 7, BUN 26 H, Creatinine 1.27 H, Est GFR (MDRD) Af Amer 52 L, Est GFR (MDRD) Non-Af 43 L, BUN/Creatinine Ratio 20.5 H, Glucose 201 H, Calcium 9.2, Troponin I 0.821 H* 06/17/19 21:02: pH 7.35, Bicarbonate Actual 22.3, POC Total CO2 23, Base Excess -3 L, O2 Saturation 93 L, ABG pCO2 40.0, ABG pO2 69 L, Cabrera Test NA 06/17/19 21:05: WBC 9.3, RBC 4.05 L, Hgb 13.4, Hct 40.9, MCV 101.0 H, MCH 33.1 H , MCHC 32.8, Plt Count 191, MPV 10.0 06/18/19 03:20: WBC 11.8 H, RBC 3.90 L, Hgb 12.8, Hct 39.7, MCV 101.8 H, MCH 32.8 H, MCHC 32.2, Plt Count 203, MPV 9.8 06/18/19 03:20: Sodium 138, Potassium 4.6, Chloride 105, Carbon Dioxide 23.0, Anion Gap 10, BUN 26 H, Creatinine 1.11 H, Est GFR (MDRD) Af Amer 61, Est GFR (MDRD) Non-Af 50 L, BUN/Creatinine Ratio 23.4 H, Glucose 237 H, Calcium 8.0 L, Total Bilirubin 0.50 06/18/19 03:20: B-Natriuretic Peptide 778.1 H 06/18/19 03:50: Urine Color Yellow, Urine Clarity Sl. Cloudy, Urine pH 6.0, Ur Specific [place] 1.015, Urine Protein 100 H, Urine Glucose (UA) 50 H, Urine Ketones Negative, Urine Occult Blood 250 H, Urine Nitrite Negative, Urine Bilirubin Negative, Urine Urobilinogen Normal, Ur Leukocyte Esterase 25 H, Urine RBC 25-50 SEEN, Urine WBC 5-10 SEEN Rhythm: EKG: ECHO: Stress Test: Cardiac Cath: PCI: CT Surgery: Holter monitor: EPS: PPM: CXR: Chest CT Scan: Medical Necessity - Tobacco Use Smoking Status: Unknown if ever smoked Tobacco Use: Non-smoker Assessment/Plan 1. ST elevation VT: Treated with PCI to the RCA. Continue dual antiplatelet therapy, statin. Agree with metoprolol. 2. Mitral regurgitation: Patient still has severe mitral regurgitation on the echo done this morning. No evidence of flail leaflet. Will monitor. 3. LV dysfunction: Patient is wall motion abnormality has resolved and on the 2D echo from this morning she has preserved EF and no significant regional wall motion abnormalities.
[2019-06-18] MEDS: Vital AF 1.2 Cal Liquid 1,000 ML 60 ML GT (15:17)
[2019-06-18] MEDS: CHLORHEXIDINE GLUC 2% CLOTH 1 EACH TOWELETTE TOPICAL (18:29)
[2019-06-18 18:41] LABS: Bedside Glucose 136 mg/dL (70-110)
[2019-06-18] MEDS: Atorvastatin Calcium 40 MG Tablet PO (21:23)
[2019-06-18] MEDS: fentaNYL drip 100 ML 2.5 MCG IV (23:02)
[2019-06-18 23:56] LABS: Bedside Glucose 144 mg/dL (70-110)
[2019-06-19] VITALS (37 sets, daily range): BP systolic 89–130; BP diastolic 57–80; PULSE 80–109; RESP 14–32; TEMP 37.8–38.7; O2SAT 88–99
[2019-06-19 04:36] LABS: Absolute Lymphocyte Count 2.37 X10^3/uL (0.83-4.51); Absolute Neutrophil Count 7.5 X10^3/uL (2.0-7.7); Basophil# 0.03 X10^3/uL; Basophil% 0.3 % (0-1); Eosinophils% 0.9 % (0-5); Hematocrit 34.6 % (37-47); Hemoglobin 11.2 g/dL (12.0-15.0); Lymphocyte # 2.37 X10^3/ul (4.0); Lymphocyte % 21.2 % (19-41); Mean Corp Hgb Conc 32.4 g/dL (32-36); Mean Corpuscular Hgb 32.7 pg (27.0-32.0); Mean Corpuscular Volume 101.2 fL (81-99); Mean Platelet Vol. 10.1 fl (6.2-12.0); Monocyte# 1.19 X10^3/uL; Monocyte% 10.6 % (0-10); NRBC Flagged by Analyzer 0 % (0-5); Neutrophil # 7.46 X10^3/uL (2.7-7.7); Neutrophil % 66.6 % (47-70); Platelet Count 136 K/mm3 (150-450); RBC Distribution Width CV 14.4 % (11.6-14.6); RBC Distribution Width SD 53.2 fl (35.1-43.9); Red Blood Count 3.42 M/mm3 (4.2-5.4); White Blood Count 11.2 K/mm3 (4.4-11.0)
[2019-06-19 04:51] LABS: Anion Gap 8 (5-15); BUN 24 mg/dL (7-18); BUN/Creat Ratio 18.3 RATIO (10-20); Calcium,Total 8.1 mg/dL (8.5-10.1); Chloride 103 mmol/L (98-107); Creatinine, Serum 1.31 mg/dL (0.55-1.02); EST Glomerular Filtration Rate 42 mL/min (>60); Est Glom Filt Rate - Afr Amer 50 mL/min (>60); Estimated Creatinine Clearance 32.06 ml/min; Glucose 205 mg/dL (74-106); Potassium 3.5 mmol/L (3.5-5.1); Sodium Level 137 mmol/L (136-145)
[2019-06-19] MEDS: Acetaminophen 650 MG/20 ML UDC GT ×4 (05:04→23:30)
[2019-06-19] MEDS: CHLORHEXIDINE GLUC 2% CLOTH 1 EACH TOWELETTE TOPICAL (05:17)
[2019-06-19 05:23] LABS: Procalcitonin 0.18 ng/mL (0.00-0.09)
[2019-06-19 06:20] LABS: Bedside Glucose 209 mg/dL (70-110)
[2019-06-19] MEDS: Insulin Lispro 100 UNIT/ML INSULN.PEN SC ×3 (06:21→17:24)
--- NOTE | 2019-06-19 10:00 | EKG12_ITS ---
Test Reason : AM EKG Blood Pressure : / mmHG Vent. Rate : 097 BPM Atrial Rate : 097 BPM P-R Int : 148 ms QRS Dur : 100 ms QT Int : 360 ms P-R-T Axes : 040 -39 026 degrees QTc Int : 457 ms Normal sinus rhythm Left axis deviation Inferior infarct , age undetermined Abnormal ECG Confirmed by ELEONORA KEMP, DENISE ([id number]), marketing editor GILBERT RAMOS ([id number]) on 06/20/2019 8:49:52 AM Referred By: Pedro Alexandre Confirmed By:DENISE CREWS MD
[2019-06-19] MEDS: Chlorhexidine 15 ML PO ×2 (10:15→21:10)
[2019-06-19] MEDS: TICAGRELOR 90 MG TABLET PO ×2 (11:28→21:09)
[2019-06-19] MEDS: Gabapentin 300 MG Capsule PO ×4 (11:28→21:09)
[2019-06-19] MEDS: Metoprolol Tartrate 25 MG Tablet PO ×2 (11:28→21:09)
[2019-06-19] MEDS: Gemfibrozil 600 MG Tablet PO ×2 (11:28→15:18)
[2019-06-19] MEDS: Aspirin E.C. 81 MG Tablet PO (11:28)
--- NOTE | 2019-06-19 11:50 | PCM.PN.INT ---
Subjective: The patient was seen and examined at the bedside this morning. Events from the last 24 hours have been reviewed. The patient has remained febrile overnight with a T-max of 102.2 ?F. She remains hemodynamically stable. The patient has done fairly well this morning on her spontaneous breathing trial. FiO2 requirement is stable at 35%. Procalcitonin was only mildly elevated at 0.18. The patient remains on empiric antimicrobial therapy with Zosyn. Given the patient's high-grade fevers overnight, discussion was undertaken with infectious diseases this morning. Following my discussion with ID, the decision was made to proceed with COVID testing. Objective: The patient's most recent lab work, culture data and imaging studies have all been personally reviewed. Surface echocardiogram revealed normal LV size with an ejection fraction of 60%. There was evidence of severe mitral valve insufficiency. Sputum, blood and urine cultures are pending. Respiratory viral panel was negative. General: - - Remains intubated and mechanically ventilated. Currently tolerating spontaneous mode of mechanical ventilation. Appears comfortable. HEENT: Atraumatic, Normocephalic Oral: Moist Mucosa, - - Endotracheal and OG tubes remain in place. Neck: Supple, No Nodes, Trachea Midline Lungs: No rhonchi, No wheeze, No rales, Diminished Cardiovascular: Regular rate, Regular Rhythm, Normal S1, Normal S2 Abdomen: Soft, Non Tender Extremities: No clubbing, No cyanosis Skin: No breakdown Musculoskeletal: No Muscle Wasting Lymphatic: No Cervical, Supraclavicular, or Inguinal Adenopathy Neurological: - - No focal neurological deficits. Alert and interactive. Vital Signs Temp Pulse Resp BP Pulse Ox 100.6 F H 102 H 24 H 126/75 H 98 06/19/19 08:00 06/19/19 11:28 06/19/19 08:00 06/19/19 08:00 06/19/19 08:00 Oxygen Flow Rate (L/min) 15 Oxygen Delivery Method Mechanical Ventilator Weight: 146 lb 6.191 oz Body Mass Index (BMI) 24.0 Intake and Output for Last 24 Hours 06/17/19 06/18/19 06/19/19 23:59 23:59 23:59 Intake Total 1121.33 / 1125.18 1000.42 / 1010.94 365.25 / 365.25 Output Total 400 / 400 1425 / 1425 1450 / 1450 Balance 721.33 / 725.18 -424.58 / -414.06 -1084.75 / -1084.75 Labs (Last 48 Hours) 06/17/19 06/17/19 06/17/19 16:25 16:25 16:25 WBC 8.0 RBC 4.12 L Hgb 13.4 Hct 42.4 MCV 102.9 H MCH 32.5 H MCHC 31.6 L RDW Std Deviation 52.7 H RDW Coeff of Hebert 14.0 Plt Count 199 MPV 9.8 Immature Gran % (Auto) 0.400 Neut % (Auto) 40.1 L Lymph % (Auto) 45.6 H [place] % (Auto) 10.6 H Eos % (Auto) 2.7 Baso % (Auto) 0.6 Absolute Neuts (auto) 3.2 Absolute Lymphs (auto) 3.67 Nucleated RBC % 0 PT 12.7 INR 1.0 APTT 27.5 Specimen Type Sample Site pH Bicarbonate Actual POC Total CO2 Base Excess O2 Saturation O2 % ABG pCO2 ABG pO2 Cabrera Test Respiration Rate O2 Delivery Device Minute Volume Vent Mode Tidal Volume POC PEEP Blood Gas Notified Whom Blood Gas Notified Time Sodium 139 Potassium 4.8 Chloride 107 Carbon Dioxide 25.0 Anion Gap 7 BUN 26 H Creatinine 1.27 H Estim Creat Clear Calc 33.07 Est GFR (MDRD) Af Amer 52 L Est GFR (MDRD) Non-Af 43 L BUN/Creatinine Ratio 20.5 H Glucose 201 H Calcium 9.2 Total Bilirubin AST ALT Alkaline Phosphatase Troponin I 0.821 H* B-Natriuretic Peptide Total Protein Albumin Globulin Albumin/Globulin Ratio Procalcitonin Serum , Qual Urine Color Urine Clarity Urine pH Ur Specific [place] Urine Protein Urine Glucose (UA) Urine Ketones Urine Occult Blood Urine Nitrite Urine Bilirubin Urine Urobilinogen Ur Leukocyte Esterase Urine RBC Urine WBC Ur Squamous Epith Cells Urine Bacteria Urine Mucus COVID-19 (JEAN-PIERRE) MRSA (PCR) POC Glucose 06/17/19 06/17/19 06/17/19 16:25 20:01 21:02 WBC RBC Hgb Hct MCV MCH MCHC RDW Std Deviation RDW Coeff of Hebert Plt Count MPV Immature Gran % (Auto) Neut % (Auto) Lymph % (Auto) [place] % (Auto) Eos % (Auto) Baso % (Auto) Absolute Neuts (auto) Absolute Lymphs (auto) Nucleated RBC % PT INR APTT Specimen Type ART Sample Site ART LINE pH 7.35 Bicarbonate Actual 22.3 POC Total CO2 23 Base Excess -3 L O2 Saturation 93 L O2 % 80 ABG pCO2 40.0 ABG pO2 69 L Cabrera Test NA Respiration Rate 14 O2 Delivery Device Vent Minute Volume 7.90 Vent Mode A-C Tidal Volume 430 POC PEEP 10 Blood Gas Notified Whom [facility] Blood Gas Notified Time 2111 Sodium Potassium Chloride Carbon Dioxide Anion Gap BUN Creatinine Estim Creat Clear Calc Est GFR (MDRD) Af Amer Est GFR (MDRD) Non-Af BUN/Creatinine Ratio Glucose Calcium Total Bilirubin AST ALT Alkaline Phosphatase Troponin I B-Natriuretic Peptide Total Protein Albumin Globulin Albumin/Globulin Ratio Procalcitonin Serum , Qual Cancelled Urine Color Urine Clarity Urine pH Ur Specific [place] Urine Protein Urine Glucose (UA) Urine Ketones Urine Occult Blood Urine Nitrite Urine Bilirubin Urine Urobilinogen Ur Leukocyte Esterase Urine RBC Urine WBC Ur Squamous Epith Cells Urine Bacteria Urine Mucus COVID-19 (JEAN-PIERRE) MRSA (PCR) POC Glucose 198 H 06/17/19 06/18/19 06/18/19 21:05 03:20 03:20 WBC 9.3 11.8 H RBC 4.05 L 3.90 L Hgb 13.4 12.8 Hct 40.9 39.7 MCV 101.0 H 101.8 H MCH 33.1 H 32.8 H MCHC 32.8 32.2 RDW Std Deviation 52.4 H 53.1 H RDW Coeff of Hebert 14.0 14.2 Plt Count 191 203 MPV 10.0 9.8 Immature Gran % (Auto) Neut % (Auto) Lymph % (Auto) [place] % (Auto) Eos % (Auto) Baso % (Auto) Absolute Neuts (auto) Absolute Lymphs (auto) Nucleated RBC % PT INR APTT Specimen Type Sample Site pH Bicarbonate Actual POC Total CO2 Base Excess O2 Saturation O2 % ABG pCO2 ABG pO2 Cabrera Test Respiration Rate O2 Delivery Device Minute Volume Vent Mode Tidal Volume POC PEEP Blood Gas Notified Whom Blood Gas Notified Time Sodium 138 Potassium 4.6 Chloride 105 Carbon Dioxide 23.0 Anion Gap 10 BUN 26 H Creatinine 1.11 H Estim Creat Clear Calc 37.84 Est GFR (MDRD) Af Amer 61 Est GFR (MDRD) Non-Af 50 L BUN/Creatinine Ratio 23.4 H Glucose 237 H Calcium 8.0 L Total Bilirubin 0.50 AST 304 H ALT 45 Alkaline Phosphatase 50 Troponin I B-Natriuretic Peptide Total Protein 6.8 Albumin 3.0 L Globulin 3.8 Albumin/Globulin Ratio 0.8 L Procalcitonin Serum , Qual Urine Color Urine Clarity Urine pH Ur Specific [place] Urine Protein Urine Glucose (UA) Urine Ketones Urine Occult Blood Urine Nitrite Urine Bilirubin Urine Urobilinogen Ur Leukocyte Esterase Urine RBC Urine WBC Ur Squamous Epith Cells Urine Bacteria Urine Mucus COVID-19 (JEAN-PIERRE) MRSA (PCR) POC Glucose 06/18/19 06/18/19 06/18/19 03:20 03:50 06:03 WBC RBC Hgb Hct MCV MCH MCHC RDW Std Deviation RDW Coeff of Hebert Plt Count MPV Immature Gran % (Auto) Neut % (Auto) Lymph % (Auto) [place] % (Auto) Eos % (Auto) Baso % (Auto) Absolute Neuts (auto) Absolute Lymphs (auto) Nucleated RBC % PT INR APTT Specimen Type Sample Site pH Bicarbonate Actual POC Total CO2 Base Excess O2 Saturation O2 % ABG pCO2 ABG pO2 Cabrera Test Respiration Rate O2 Delivery Device Minute Volume Vent Mode Tidal Volume POC PEEP Blood Gas Notified Whom Blood Gas Notified Time Sodium Potassium Chloride Carbon Dioxide Anion Gap BUN Creatinine Estim Creat Clear Calc Est GFR (MDRD) Af Amer Est GFR (MDRD) Non-Af BUN/Creatinine Ratio Glucose Calcium Total Bilirubin AST ALT Alkaline Phosphatase Troponin I B-Natriuretic Peptide 778.1 H Total Protein Albumin Globulin Albumin/Globulin Ratio Procalcitonin Serum , Qual Urine Color Yellow Urine Clarity Sl. Cloudy Urine pH 6.0 Ur Specific [place] 1.015 Urine Protein 100 H Urine Glucose (UA) 50 H Urine Ketones Negative Urine Occult Blood 250 H Urine Nitrite Negative Urine Bilirubin Negative Urine Urobilinogen Normal Ur Leukocyte Esterase 25 H Urine RBC 25-50 SEEN Urine WBC 5-10 SEEN Ur Squamous Epith Cells 0 SEEN Urine Bacteria 0 SEEN Urine Mucus 0 SEEN COVID-19 (JEAN-PIERRE) MRSA (PCR) POC Glucose 236 H 06/18/19 06/18/19 06/18/19 08:55 11:27 18:28 WBC RBC Hgb Hct MCV MCH MCHC RDW Std Deviation RDW Coeff of Hebert Plt Count MPV Immature Gran % (Auto) Neut % (Auto) Lymph % (Auto) [place] % (Auto) Eos % (Auto) Baso % (Auto) Absolute Neuts (auto) Absolute Lymphs (auto) Nucleated RBC % PT INR APTT Specimen Type Sample Site pH Bicarbonate Actual POC Total CO2 Base Excess O2 Saturation O2 % ABG pCO2 ABG pO2 Cabrera Test Respiration Rate O2 Delivery Device Minute Volume Vent Mode Tidal Volume POC PEEP Blood Gas Notified Whom Blood Gas Notified Time Sodium Potassium Chloride Carbon Dioxide Anion Gap BUN Creatinine Estim Creat Clear Calc Est GFR (MDRD) Af Amer Est GFR (MDRD) Non-Af BUN/Creatinine Ratio Glucose Calcium Total Bilirubin AST ALT Alkaline Phosphatase Troponin I B-Natriuretic Peptide Total Protein Albumin Globulin Albumin/Globulin Ratio Procalcitonin Serum , Qual Urine Color Urine Clarity Urine pH Ur Specific [place] Urine Protein Urine Glucose (UA) Urine Ketones Urine Occult Blood Urine Nitrite Urine Bilirubin Urine Urobilinogen Ur Leukocyte Esterase Urine RBC Urine WBC Ur Squamous Epith Cells Urine Bacteria Urine Mucus COVID-19 (JEAN-PIERRE) MRSA (PCR) Negative POC Glucose 193 H 136 H 06/18/19 06/19/19 06/19/19 23:49 04:30 04:30 WBC 11.2 H RBC 3.42 L Hgb 11.2 L Hct 34.6 L MCV 101.2 H MCH 32.7 H MCHC 32.4 RDW Std Deviation 53.2 H RDW Coeff of Hebert 14.4 Plt Count 136 L MPV 10.1 Immature Gran % (Auto) 0.400 Neut % (Auto) 66.6 Lymph % (Auto) 21.2 [place] % (Auto) 10.6 H Eos % (Auto) 0.9 Baso % (Auto) 0.3 Absolute Neuts (auto) 7.5 Absolute Lymphs (auto) 2.37 Nucleated RBC % 0 PT INR APTT Specimen Type Sample Site pH Bicarbonate Actual POC Total CO2 Base Excess O2 Saturation O2 % ABG pCO2 ABG pO2 Cabrera Test Respiration Rate O2 Delivery Device Minute Volume Vent Mode Tidal Volume POC PEEP Blood Gas Notified Whom Blood Gas Notified Time Sodium 137 Potassium 3.5 Chloride 103 Carbon Dioxide 26.0 Anion Gap 8 BUN 24 H Creatinine 1.31 H Estim Creat Clear Calc 32.06 Est GFR (MDRD) Af Amer 50 L Est GFR (MDRD) Non-Af 42 L BUN/Creatinine Ratio 18.3 Glucose 205 H Calcium 8.1 L Total Bilirubin AST ALT Alkaline Phosphatase Troponin I B-Natriuretic Peptide Total Protein Albumin Globulin Albumin/Globulin Ratio Procalcitonin Serum , Qual Urine Color Urine Clarity Urine pH Ur Specific [place] Urine Protein Urine Glucose (UA) Urine Ketones Urine Occult Blood Urine Nitrite Urine Bilirubin Urine Urobilinogen Ur Leukocyte Esterase Urine RBC Urine WBC Ur Squamous Epith Cells Urine Bacteria Urine Mucus COVID-19 (JEAN-PIERRE) MRSA (PCR) POC Glucose 144 H 06/19/19 06/19/19 06/19/19 04:30 06:16 07:55 WBC RBC Hgb Hct MCV MCH MCHC RDW Std Deviation RDW Coeff of Hebert Plt Count MPV Immature Gran % (Auto) Neut % (Auto) Lymph % (Auto) [place] % (Auto) Eos % (Auto) Baso % (Auto) Absolute Neuts (auto) Absolute Lymphs (auto) Nucleated RBC % PT INR APTT Specimen Type Sample Site pH Bicarbonate Actual POC Total CO2 Base Excess O2 Saturation O2 % ABG pCO2 ABG pO2 Cabrera Test Respiration Rate O2 Delivery Device Minute Volume Vent Mode Tidal Volume POC PEEP Blood Gas Notified Whom Blood Gas Notified Time Sodium Potassium Chloride Carbon Dioxide Anion Gap BUN Creatinine Estim Creat Clear Calc Est GFR (MDRD) Af Amer Est GFR (MDRD) Non-Af BUN/Creatinine Ratio Glucose Calcium Total Bilirubin AST ALT Alkaline Phosphatase Troponin I B-Natriuretic Peptide Total Protein Albumin Globulin Albumin/Globulin Ratio Procalcitonin 0.18 H Serum , Qual Urine Color Urine Clarity Urine pH Ur Specific [place] Urine Protein Urine Glucose (UA) Urine Ketones Urine Occult Blood Urine Nitrite Urine Bilirubin Urine Urobilinogen Ur Leukocyte Esterase Urine RBC Urine WBC Ur Squamous Epith Cells Urine Bacteria Urine Mucus COVID-19 (JEAN-PIERRE) Pending MRSA (PCR) POC Glucose 209 H Microbiology 06/18/19 05:45 Sputum, Induced/Lukens Gram Stain - Final 06/18/19 05:45 Sputum, Induced/Lukens Respiratory Culture - Preliminary Appears to be normal respiratory lenora. Further studies to follow. 06/18/19 03:50 Urine Catheter - Catheter Urine Culture - Preliminary Culture exhibits no growth. 06/19/19 07:55 Mucosa - Nose Respiratory Panel (PCR) - Final 06/19/19 07:58 Wash - Bronchial Wash Gram Stain - Final Clinical Impression(s) from Imaging Studies Chest X-Ray 06/17/19 16:57 IMPRESSION: Endotracheal tube tip is 5.8 cm from hector. Enteric tube tip in the body of the stomach. Diffuse alveolar disease, most confluent in the right upper lobe and right perihilar region. Electronically Signed: Harsha Dumont MD at 17:40 EDT Tel , Service support , Chest X-Ray 06/18/19 07:55 IMPRESSION: Interval improvement in the aeration of the right lung with the new atelectasis and/or infiltrate in the left lower lobe. The support tubes are in good position. Electronically Signed: Tigre Leos, at 8:48 EDT , Service support , Medical Necessity - Tobacco Use Smoking Status: Unknown if ever smoked Tobacco Use: Non-smoker Assessment/Plan All Active Problems STEMI (ST elevation myocardial infarction) (Acute) RECOMMENDATIONS: 1. Wean FiO2 and PEEP to maintain oxygen saturations at or above 90%. 2. Place patient back on assist control mode of mechanical ventilation overnight. 3. Repeat spontaneous breathing trial tomorrow morning. 4. Continue empiric antimicrobials. 5. Obtain respiratory viral panel and send COVID testing. 6. Continue tube feeds. 7. Continue appropriate ICU prophylaxis. IMPRESSIONS: 1. Acute Hypoxemic Respiratory Failure Although the initial precipitating etiology for the patient's respiratory failure was felt to be cardiac in nature with subsequent edema, the patient went on to develop high-grade fevers overnight. Although there was concern for a possible aspiration event, no focal consolidation or infiltrate was noted on follow-up chest x-ray. The patient remains intubated on empiric antimicrobials. Infectious work-up has been unrevealing to date. Respiratory viral panel will be obtained. If negative, will send COVID testing, following discussion with infectious diseases. The patient will be continued on spontaneous mode mechanical ventilation today with plans to transition back to assist control overnight. Repeat spontaneous breathing trial will be completed in the morning with possible extubation. In the interim, recommend continuing tube feeds. 2. ST segment elevation NV The patient is status post PCI with drug-eluting stent placement to the RCA. Will defer cardiac medical management accordingly. 3. Hypertension/hyperlipidemia/neuropathy/diabetes mellitus Complicates care, management, recovery and prognosis. Continue sliding scale insulin coverage. TIME: 42 minutes of critical care time, independent of procedures, was spent addressing the patient's acute hypoxemic respiratory failure, ST segment elevation myocardial infarction, review of all data and collaboration with the care team. ([id number]) [phone]: [id number] Critical care first hour
--- NOTE | 2019-06-19 13:13 | CASEMGMT ---
Addendum entered by Amy Wiley 06/19/19 13:19: SW received call from Josette at [facility]. Pt is not a resident of [facility]. Original Note: Social Work Note Per handoff communication, it is noted that pt is from [facility]. Pt's address was confirmed with pt's son Joe and pt's address is not [facility] address. SW googled pt's address and pt lives at [facility] per the address. Pt is currently intubated. SW placed a call to [facility] and left message asking if pt is resident. SW waiting for call back. Amy Wiley HOSPICE PLAN ADMINISTRATOR, RELATIONS MANAGER
[2019-06-19 13:26] LABS: Bedside Glucose 194 mg/dL (70-110)
--- NOTE | 2019-06-19 16:18 | PN_ITS ---
Patient Problems: Active and Suspected Problems STEMI (ST elevation myocardial infarction) (Acute) Subjective: Patient was seen and examined today, she remains lightly sedated and on the ventilator, she continues to spike temperatures, a specimen was sent out for coronavirus-this is pending at this time. Patient's respiratory panel was negative. - Physical Exam Vitals/I&O's: Vital Signs Temp Pulse Resp BP Pulse Ox 100.6 F H 86 21 H 117/65 98 06/19/19 13:00 06/19/19 13:00 06/19/19 13:00 06/19/19 13:00 06/19/19 13:00 Oxygen Flow Rate (L/min) 15 Oxygen Delivery Method Mechanical Ventilator Weight: 66.4 kg Body Mass Index (BMI) 24.0 Intake and Output for Last 24 Hours 06/17/19 06/18/19 06/19/19 23:59 23:59 23:59 Intake Total 1121.33 / 1125.18 1000.42 / 1010.94 616.92 / 616.92 Output Total 400 / 400 1425 / 1425 1450 / 1450 Balance 721.33 / 725.18 -424.58 / -414.06 -833.08 / -833.08 General: No apparent distress, Well developed, - - Patient is lightly sedated and on the vent HEENT: Atraumatic, PERRLA, EOMI, Normocephalic Oral: Moist Mucosa Neck: Supple, No JVD, Trachea Midline, Thyroid Normal Size and Texture Lungs: Clear to auscultation, Normal air movement, No rhonchi, No wheeze, No rales Cardiovascular: Regular rate, Regular Rhythm, Normal S1, Normal S2, No murmurs, PMI Normal, No rub noted, No Gallop Abdomen: Bowel Sounds Present, Soft, Non Tender, Non-Distended, No hernias noted Extremities: No clubbing, No cyanosis, No edema, Capillary Refill Less than 3 Seconds Skin: No rashes, No breakdown Musculoskeletal: No Tenderness to Palpation of Joints or Extremities Neurological: Cranial nerves II-XII grossly intact, Neuro grossly intact, Sensory exam intact to light touch and pain Psych/Mental Status: Normal Affect, Appropriate, Alert and oriented to time, place, person, mood and affect Microbiology Past 72 Hours 06/18/19 05:45 Sputum, Induced/Lukens Gram Stain - Final 06/18/19 05:45 Sputum, Induced/Lukens Respiratory Culture - Preliminary Appears to be normal respiratory lenora. Further studies to follow. 06/18/19 03:50 Urine Catheter - Catheter Urine Culture - Preliminary Culture exhibits no growth. 06/19/19 07:55 Mucosa - Nose Respiratory Panel (PCR) - Final 06/19/19 07:58 Wash - Bronchial Wash Gram Stain - Final Laboratory Results 06/18/19 18:28: POC Glucose 136 H 06/18/19 23:49: POC Glucose 144 H 06/19/19 04:30: WBC 11.2 H, RBC 3.42 L, Hgb 11.2 L, Hct 34.6 L, MCV 101.2 H, MCH 32.7 H, MCHC 32.4, RDW Std Deviation 53.2 H, RDW Coeff of Hebert 14.4, Plt Count 136 L, MPV 10.1, Immature Gran % (Auto) 0.400, Neut % (Auto) 66.6, Lymph % (Auto) 21.2, [place] % (Auto) 10.6 H, Eos % (Auto) 0.9, Baso % (Auto) 0.3, Absolute Neuts (auto) 7.5, Absolute Lymphs (auto) 2.37, Nucleated RBC % 0 06/19/19 04:30: Sodium 137, Potassium 3.5, Chloride 103, Carbon Dioxide 26.0, Anion Gap 8, BUN 24 H, Creatinine 1.31 H, Estim Creat Clear Calc 32.06, Est GFR (MDRD) Af Amer 50 L, Est GFR (MDRD) Non-Af 42 L, BUN/Creatinine Ratio 18.3, Glucose 205 H, Calcium 8.1 L 06/19/19 04:30: Procalcitonin 0.18 H 06/19/19 06:16: POC Glucose 209 H 06/19/19 07:55: COVID-19 (JEAN-PIERRE) Pending 06/19/19 11:36: POC Glucose 194 H Current Medications Acetaminophen (Tylenol Liquid) 650 mg GT Q6H PRN PRN PRN Reason: temperature of 100.7F Last Admin: 06/19/19 11:36 Dose: 650 mg Documented by: Aspirin (Ecotrin) 81 mg PO DAILY@0800 AVIS Last Admin: 06/19/19 11:28 Dose: 81 mg Documented by: Atorvastatin Calcium (Lipitor) 40 mg PO QHS [facility] Last Admin: 06/18/19 21:23 Dose: 40 mg Documented by: Atropine Sulfate () 0.5 mg IV UD PRN PRN Reason: HR <50 bpm Chlorhexidine Gluconate () 15 ml PO BID [facility] Last Admin: 06/19/19 10:15 Dose: 15 ml Documented by: Chlorhexidine Gluconate () 1 each TOPICAL DAILY [facility] Last Admin: 06/19/19 05:17 Dose: 1 each Documented by: Gabapentin (Neurontin) 300 mg PO 4X/DAY [facility] Last Admin: 06/19/19 15:17 Dose: 300 mg Documented by: Gemfibrozil (Lopid) 600 mg PO BIDAC [facility] Last Admin: 06/19/19 15:18 Dose: 600 mg Documented by: Heparin Sodium (Beef Lung) (Heparin 500 Unit/5 Ml (100/Ml)) 500 unit IV UD PRN PRN Reason: HEPARIN FLUSH Propofol (Diprivan) 1,000 mg in 100 mls @ 4.062 mls/hr CONT INF .Q12H [facility]; Protocol Last Titration: 06/19/19 13:00 Dose: 0 mcg/kg/min, 0 mls/hr Documented by: Sodium Chloride () 250 mls @ 15 mls/hr IV .[id number] PRN PRN Reason: Saline Flush Sodium Chloride () 250 mls @ 15 mls/hr IV .[id number] PRN PRN Reason: Additional IVPB Infusion Fentanyl () 100 mls @ 2.5 mls/hr IV UD [facility]; Protocol Last Titration: 06/19/19 13:00 Dose: 0 mcg/hr, 0 mls/hr Documented by: Piperacillin Sod/Tazobactam (Sod 3.375 gm/ Sodium Chloride) 50 mls @ 12.5 mls/hr IV Q8 [facility] Last Admin: 06/19/19 15:16 Dose: 12.5 mls/hr Documented by: Pantoprazole Sodium 40 mg/ (Sodium Chloride) 110 mls @ 330 mls/hr IV Q24 [facility] Last Infusion: 06/19/19 11:47 Dose: Infused Documented by: Enteral Nutritional Formula (Vital Af 1.2 Randy Liquid) 1,000 mls @ 55 mls/hr GT .[id number] [facility] Last Admin: 06/19/19 06:57 Dose: Not Given Documented by: Insulin Human Lispro (Humalog Kwikpen (Bkc)) 0 unit SC Q6 [facility]; Protocol Last Admin: 06/19/19 11:44 Dose: 2 units Documented by: Metoprolol Tartrate (Lopressor (Beta Abel)) 25 mg PO BID [facility] Last Admin: 06/19/19 11:28 Dose: 25 mg Documented by: Sodium Chloride () 500 ml IV BOLUS PRN PRN Reason: VASO-VAGAL PROTOCOL Sodium Chloride () 10 - 40 ml IV UD PRN PRN Reason: SALINE FLUSH Last Admin: 06/18/19 11:20 Dose: 10 ml Documented by: Ticagrelor (Brilinta) 90 mg PO BID [facility] Last Admin: 06/19/19 11:28 Dose: 90 mg Documented by: Medical Necessity - Tobacco Use Smoking Status: Unknown if ever smoked Tobacco Use: Non-smoker Assessment/Plan All Active Problems STEMI (ST elevation myocardial infarction) (Acute) #1 STEMI-cardiology is participating in her care-status post PCI of RCA with drug-eluting stent placement-postop day #2 #2 aspiration pneumonia-critical care is seeing patient, patient will remain on antibiotics at this time, again a specimen was sent for coronavirus-this is pending at this time #3 type 2 diabetes-continue to monitor blood sugars #4 essential hypertension #5 hyperlipidemia #6 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 #8 hypoxic respiratory failure-patient remains on the vent at this time, pulmonary medicine is seeing patient-patient is under droplet/contact precautions for coronavirus Inpatient E&M: [id number] Subs Hosp L2
[2019-06-19 21:06] LABS: Bedside Glucose 166 mg/dL (70-110)
[2019-06-19] MEDS: Vital AF 1.2 Cal Liquid 1,000 ML 55 ML GT (21:08)
[2019-06-19] MEDS: Atorvastatin Calcium 40 MG Tablet PO (21:09)
[2019-06-20] VITALS (30 sets, daily range): BP systolic 108–156; BP diastolic 55–88; PULSE 78–98; RESP 12–25; TEMP 37.3–38.3; O2SAT 94–99
[2019-06-20] MEDS: Insulin Lispro 100 UNIT/ML INSULN.PEN SC ×4 (00:36→17:33)
[2019-06-20 00:45] LABS: Bedside Glucose 228 mg/dL (70-110)
[2019-06-20 05:51] LABS: Absolute Lymphocyte Count 1.28 X10^3/uL (0.83-4.51); Absolute Neutrophil Count 5.2 X10^3/uL (2.0-7.7); Basophil# 0.01 X10^3/uL; Basophil% 0.1 % (0-1); Eosinophil# 0.07 X10^3/uL; Hematocrit 31.5 % (37-47); Hemoglobin 10.1 g/dL (12.0-15.0); Lymphocyte # 1.28 X10^3/ul (4.0); Lymphocyte % 18.2 % (19-41); Mean Corp Hgb Conc 32.1 g/dL (32-36); Mean Corpuscular Hgb 32.7 pg (27.0-32.0); Mean Corpuscular Volume 101.9 fL (81-99); Monocyte# 0.47 X10^3/uL; Monocyte% 6.7 % (0-10); NRBC Flagged by Analyzer 0 % (0-5); Neutrophil # 5.19 X10^3/uL (2.7-7.7); Neutrophil % 73.6 % (47-70); Platelet Count 142 K/mm3 (150-450); RBC Distribution Width CV 14.1 % (11.6-14.6); RBC Distribution Width SD 52.5 fl (35.1-43.9); Red Blood Count 3.09 M/mm3 (4.2-5.4); White Blood Count 7.1 K/mm3 (4.4-11.0)
[2019-06-20 06:03] LABS: Anion Gap 5 (5-15); BUN 23 mg/dL (7-18); BUN/Creat Ratio 18.7 RATIO (10-20); Calcium,Total 8.5 mg/dL (8.5-10.1); Chloride 108 mmol/L (98-107); Creatinine, Serum 1.23 mg/dL (0.55-1.02); EST Glomerular Filtration Rate 45 mL/min (>60); Est Glom Filt Rate - Afr Amer 54 mL/min (>60); Estimated Creatinine Clearance 34.15 ml/min; Glucose 240 mg/dL (74-106); Potassium 3.1 mmol/L (3.5-5.1); Sodium Level 140 mmol/L (136-145)
[2019-06-20 06:16] LABS: Bedside Glucose 244 mg/dL (70-110)
--- NOTE | 2019-06-20 06:25 | PN_ITS ---
Subjective: The patient was seen and examined at the bedside this morning. Events from the last 24 hours have been reviewed. Although the patient remains febrile, the fever curve has improved. She remains hemodynamically stable. The patient is maintaining appropriate oxygen saturations on spontaneous mode of mechanical ventilation with an FiO2 of 35%. She is alert and appropriately interactive. Potassium was low this morning at 3.1. COVID testing is pending. Objective: The patient's most recent lab work, culture data and imaging studies have all been personally reviewed. Surface echocardiogram revealed normal LV size with an ejection fraction of 60%. There was evidence of severe mitral valve insufficiency. Sputum, blood and urine cultures are pending. Respiratory viral panel was negative. General: - - Remains intubated and mechanically ventilated. Currently tolerating spontaneous mode of mechanical ventilation. HEENT: Atraumatic, PERRLA, Normocephalic Oral: Moist Mucosa, - - Endotracheal and OG tubes remain in place Neck: Supple, No Nodes, Trachea Midline Lungs: No rhonchi, No wheeze, No rales, Diminished Cardiovascular: Regular rate, Regular Rhythm, Normal S1, Normal S2 Abdomen: Bowel Sounds Present, Soft, Non Tender Extremities: No clubbing, No cyanosis, No edema Skin: No breakdown Musculoskeletal: No Muscle Wasting Lymphatic: No Cervical, Supraclavicular, or Inguinal Adenopathy Neurological: - - No focal neurological deficits. Currently alert and following simple commands appropriately. Vital Signs Temp Pulse Resp BP Pulse Ox 100.4 F H 85 16 114/62 97 06/20/19 06:00 06/20/19 06:00 06/20/19 06:00 06/20/19 06:00 06/20/19 06:00 Oxygen Flow Rate (L/min) 15 Oxygen Delivery Method Mechanical Ventilator Weight: 146 lb 6.191 oz Body Mass Index (BMI) 24.0 Intake and Output for Last 24 Hours 06/18/19 06/19/19 06/20/19 23:59 23:59 23:59 Intake Total 1000.42 / 1010.94 819.74 / 1404.37 649.63 / 649.63 Output Total 1425 / 1425 2250 / 2675 425 / 425 Balance -424.58 / -414.06 -1430.26 / -1270.63 224.63 / 224.63 Labs (Last 48 Hours) 06/18/19 06/18/19 06/18/19 03:20 08:55 11:27 WBC RBC Hgb Hct MCV MCH MCHC RDW Std Deviation RDW Coeff of Hebert Plt Count MPV Immature Gran % (Auto) Neut % (Auto) Lymph % (Auto) [place] % (Auto) Eos % (Auto) Baso % (Auto) Absolute Neuts (auto) Absolute Lymphs (auto) Nucleated RBC % Sodium Potassium Chloride Carbon Dioxide Anion Gap BUN Creatinine Estim Creat Clear Calc Est GFR (MDRD) Af Amer Est GFR (MDRD) Non-Af BUN/Creatinine Ratio Glucose Calcium B-Natriuretic Peptide 778.1 H Procalcitonin COVID-19 (JEAN-PIERRE) MRSA (PCR) Negative POC Glucose 193 H 06/18/19 06/18/19 06/19/19 18:28 23:49 04:30 WBC 11.2 H RBC 3.42 L Hgb 11.2 L Hct 34.6 L MCV 101.2 H MCH 32.7 H MCHC 32.4 RDW Std Deviation 53.2 H RDW Coeff of Hebert 14.4 Plt Count 136 L MPV 10.1 Immature Gran % (Auto) 0.400 Neut % (Auto) 66.6 Lymph % (Auto) 21.2 [place] % (Auto) 10.6 H Eos % (Auto) 0.9 Baso % (Auto) 0.3 Absolute Neuts (auto) 7.5 Absolute Lymphs (auto) 2.37 Nucleated RBC % 0 Sodium Potassium Chloride Carbon Dioxide Anion Gap BUN Creatinine Estim Creat Clear Calc Est GFR (MDRD) Af Amer Est GFR (MDRD) Non-Af BUN/Creatinine Ratio Glucose Calcium B-Natriuretic Peptide Procalcitonin COVID-19 (JEAN-PIERRE) MRSA (PCR) POC Glucose 136 H 144 H 06/19/19 06/19/19 06/19/19 04:30 04:30 06:16 WBC RBC Hgb Hct MCV MCH MCHC RDW Std Deviation RDW Coeff of Hebert Plt Count MPV Immature Gran % (Auto) Neut % (Auto) Lymph % (Auto) [place] % (Auto) Eos % (Auto) Baso % (Auto) Absolute Neuts (auto) Absolute Lymphs (auto) Nucleated RBC % Sodium 137 Potassium 3.5 Chloride 103 Carbon Dioxide 26.0 Anion Gap 8 BUN 24 H Creatinine 1.31 H Estim Creat Clear Calc 32.06 Est GFR (MDRD) Af Amer 50 L Est GFR (MDRD) Non-Af 42 L BUN/Creatinine Ratio 18.3 Glucose 205 H Calcium 8.1 L B-Natriuretic Peptide Procalcitonin 0.18 H COVID-19 (JEAN-PIERRE) MRSA (PCR) POC Glucose 209 H 06/19/19 06/19/19 06/19/19 07:55 11:36 17:10 WBC RBC Hgb Hct MCV MCH MCHC RDW Std Deviation RDW Coeff of Hebert Plt Count MPV Immature Gran % (Auto) Neut % (Auto) Lymph % (Auto) [place] % (Auto) Eos % (Auto) Baso % (Auto) Absolute Neuts (auto) Absolute Lymphs (auto) Nucleated RBC % Sodium Potassium Chloride Carbon Dioxide Anion Gap BUN Creatinine Estim Creat Clear Calc Est GFR (MDRD) Af Amer Est GFR (MDRD) Non-Af BUN/Creatinine Ratio Glucose Calcium B-Natriuretic Peptide Procalcitonin COVID-19 (JEAN-PIERRE) Pending MRSA (PCR) POC Glucose 194 H 166 H 06/20/19 06/20/19 06/20/19 00:34 05:10 05:10 WBC 7.1 RBC 3.09 L Hgb 10.1 L Hct 31.5 L MCV 101.9 H MCH 32.7 H MCHC 32.1 RDW Std Deviation 52.5 H RDW Coeff of Hebert 14.1 Plt Count 142 L MPV 10.0 Immature Gran % (Auto) 0.400 Neut % (Auto) 73.6 H Lymph % (Auto) 18.2 L [place] % (Auto) 6.7 Eos % (Auto) 1.0 Baso % (Auto) 0.1 Absolute Neuts (auto) 5.2 Absolute Lymphs (auto) 1.28 Nucleated RBC % 0 Sodium 140 Potassium 3.1 L Chloride 108 H Carbon Dioxide 27.0 Anion Gap 5 BUN 23 H Creatinine 1.23 H Estim Creat Clear Calc 34.15 Est GFR (MDRD) Af Amer 54 L Est GFR (MDRD) Non-Af 45 L BUN/Creatinine Ratio 18.7 Glucose 240 H Calcium 8.5 B-Natriuretic Peptide Procalcitonin COVID-19 (JE[facility]ERRE) MRSA (PCR) POC Glucose 228 H 06/20/19 05:14 WBC RBC Hgb Hct MCV MCH MCHC RDW Std Deviation RDW Coeff of Hebert Plt Count MPV Immature Gran % (Auto) Neut % (Auto) Lymph % (Auto) [place] % (Auto) Eos % (Auto) Baso % (Auto) Absolute Neuts (auto) Absolute Lymphs (auto) Nucleated RBC % Sodium Potassium Chloride Carbon Dioxide Anion Gap BUN Creatinine Estim Creat Clear Calc Est GFR (MDRD) Af Amer Est GFR (MDRD) Non-Af BUN/Creatinine Ratio Glucose Calcium B-Natriuretic Peptide Procalcitonin COVID-19 ([facility]ERRE) MRSA (PCR) POC Glucose 244 H Microbiology 06/18/19 05:45 Sputum, Induced/Lukens Gram Stain - Final 06/18/19 05:45 Sputum, Induced/Lukens Respiratory Culture - Preliminary Appears to be normal respiratory lenora. Further studies to follow. 06/18/19 03:50 Urine Catheter - Catheter Urine Culture - Preliminary Culture exhibits no growth. 06/19/19 07:55 Mucosa - Nose Respiratory Panel (PCR) - Final 06/19/19 07:58 Wash - Bronchial Wash Gram Stain - Final Clinical Impression(s) from Imaging Studies Chest X-Ray 06/17/19 16:57 IMPRESSION: Endotracheal tube tip is 5.8 cm from hector. Enteric tube tip in the body of the stomach. Diffuse alveolar disease, most confluent in the right upper lobe and right perihilar region. Electronically Signed: Harsha Dumont MD at 17:40 EDT Tel , Service support , Chest X-Ray 06/18/19 07:55 IMPRESSION: Interval improvement in the aeration of the right lung with the new atelectasis and/or infiltrate in the left lower lobe. The support tubes are in good position. Electronically Signed: Tigre Leos at 8:48 EDT , Service support , Medical Necessity - Tobacco Use Smoking Status: Unknown if ever smoked Tobacco Use: Non-smoker Assessment/Plan All Active Problems STEMI (ST elevation myocardial infarction) (Acute) RECOMMENDATIONS: 1. Proceed with a trial of extubation this morning. 2. Once extubated, wean supplemental oxygen to maintain saturations at or above 90%. 3. Perform bedside swallow evaluation and advance diet accordingly. 4. De-escalate from Zosyn to Unasyn. 5. Await COVID test results. 6. Encourage incentive spirometer use and mobilize patient as tolerated. 7. Potassium repletion as ordered. IMPRESSIONS: 1. Acute Hypoxemic Respiratory Failure Although the initial precipitating etiology for the patient's respiratory failure was felt to be cardiac in nature with subsequent edema, the patient went on to develop high-grade fevers. Although there was concern for a possible aspiration event, no focal consolidation or infiltrate was noted on follow-up chest x-ray. Therefore, the patient was maintained on empiric antimicrobials with COVID testing pending. The patient has improved from a respiratory perspective and will be extubated this morning. Once extubated, supplemental oxygen will be weaned to maintain saturations at or above 90%. A bedside swallow evaluation can be completed and diet advanced accordingly. Antibiotics will be de-escalated from Zosyn to Unasyn. Encourage incentive spirometer use and mobilize patient as tolerated. 2. ST segment elevation PA The patient is status post PCI with drug-eluting stent placement to the RCA. Will defer cardiac medical management accordingly. 3. Hypertension/hyperlipidemia/neuropathy/diabetes mellitus Complicates care, management, recovery and prognosis. Continue sliding scale insulin coverage. TIME: 38 minutes of critical care time, independent of procedures, was spent addressing the patient's acute hypoxemic respiratory failure, ST segment elevation myocardial infarction, review of all data and collaboration with the care team. ([id number]) [id number] Critical care first hour
[2019-06-20] MEDS: Potassium Chloride 10mEq/100mL 10 MEQ/100 ML IV.SOLN. 100 MEQ IV BOLUS ×4 (07:42→14:23)
[2019-06-20] MEDS: Chlorhexidine 15 ML PO (07:46)
[2019-06-20] MEDS: Gemfibrozil 600 MG Tablet PO ×2 (09:12→17:32)
[2019-06-20] MEDS: Aspirin E.C. 81 MG Tablet PO (09:12)
[2019-06-20] MEDS: TICAGRELOR 90 MG TABLET PO ×2 (09:12→21:56)
[2019-06-20] MEDS: Metoprolol Tartrate 25 MG Tablet PO ×2 (09:12→21:56)
[2019-06-20] MEDS: Gabapentin 300 MG Capsule PO ×3 (09:44→21:58)
--- NOTE | 2019-06-20 09:45 | CASEMGMT ---
RN ZACH NOTE: Participated in ICU interdisciplinary rounds. Pt has been extubated and is currently on O2 @ 2L/M. PT/OT to work with pt today. CM to follow. If able to discharge home, will need [email or web address] 30 day savings card. Pacheco BSN RN ZACH
--- NOTE | 2019-06-20 10:00 | EKG12_ITS ---
Test Reason : AM EKG Blood Pressure : / mmHG Vent. Rate : 079 BPM Atrial Rate : 079 BPM P-R Int : 154 ms QRS Dur : 100 ms QT Int : 390 ms P-R-T Axes : 056 -37 048 degrees QTc Int : 447 ms Normal sinus rhythm Left axis deviation Inferior infarct (cited on or before 17-FEB-2000) Abnormal ECG When compared with ECG of 19-JUN-2019 04:39, No significant change was found Confirmed by GUILLERMINA KEMP, LENARD ([id number]), assignment desk editor GILBERT RAMOS ([id number]) on 06/25/2019 11:10:46 AM Referred By: Pedro Alexandre Confirmed By:LENARD SARMIENTO MD
[2019-06-20] MEDS: CHLORHEXIDINE GLUC 2% CLOTH 1 EACH TOWELETTE TOPICAL (10:33)
--- NOTE | 2019-06-20 11:15 | NURSING ---
son updated per phone on condition
--- NOTE | 2019-06-20 11:40 | CRPHASE1_ITS ---
Patient Communication PHII Cardiac Rehab Discussed with Patient:: Yes - Deyanira Vega FURNITURE SALESPERSON to completeb, Pt. currently on COVID precautions Guide to Cardiac Rehab Given to Patient:: Yes - Deyanira Vega FURNITURE SALESPERSON to complete, Pt. currently on COVID precautions Cardiac Rehab Facility Choice List Given to Patient:: Yes - Deyanira Vega FURNITURE SALESPERSON to complete, Pt. currently on COVID precautions Choice Program [facility] CR PHII:: Communication Given to CR Die Mounter:: Pedro Alexandre Refer Phase II Cardiac Rehab:: Yes Sessions:: 36 sessions - 3 days/wk, 12 weeks Risk Factors/Lifestyle Hx Hypertension: Yes Hx Diabetes Mellitus Type 2: Yes Hx Dyslipidemia: Yes Cardiac Rehabilitation Info Cardiac Rehabilitation Program Information: Cardiac Rehabilitation is important for patients like you who are recovering from a heart problem. Cardiac rehabilitation programs are recognized as integral to the continued care of the patient with coronary heart disease. The cardiac rehabilitation program is designed to optimize a patient's physical, psychological, and social functioning. Health spiritual care coordinator work in cardiac rehabilitation programs and assist you with getting the treatments you need to get stronger and healthier - like exercise, healthy eating habits, and m edications. Cardiac rehabilitation has been show to help people with heart problems live longer and have better life enjoyment than people who do not go to cardiac rehabilitation. Please contact the Cardiac Rehabilitation Program at [facility] at in two weeks if you have not heard from them.
[2019-06-20 11:41] LABS: Bedside Glucose 215 mg/dL (70-110)
--- NOTE | 2019-06-20 11:43 | CRPH1.INSTRU ---
General Education CAD and cardiac anatomy and function:: Needs reinforcement Explanation of diagnoses and procedures:: Needs reinforcement Sign/Symptoms of ME:: Needs reinforcement Antiplatelet therapy: Needs reinforcement Proper use of NTG-SL: Needs reinforcement Emergency procedures and activation of EMS: Needs reinforcement Compliance of all prescribed medications: Needs reinforcement Dyslipidemia Recommendations Include:: Lipid profile not available Dyslipidemia Response Code:: Needs reinforcement Hypertension Recommendations Include:: BP <130/80 if diabetic, DASH dietary guidelines, Decrease/maintain normal body weight Hypertension:: Needs reinforcement Heart Disease Patient Heart Disease Risk Factors Are:: Previous cardiac event Heart Disease Response Code:: Needs reinforcement Diabetes Patient Diabetes Risk Factors Are:: Elevated blood sugars Recommendations Include:: Maintain fasting blood sugars 70-110 md/dL, Maintain HgbA1c of 6% or less, Monitor blood sugar as prescribed, Diabetic dietary guidelines, Decrease/maintain body weight Diabetes:: Needs reinforcement Stress Recommendations Include:: Identification of stressors, and assessment of coping skills, Stress management techniques Stress Response Code:: Needs reinforcement - Pt currently under COVID precations
[2019-06-20 17:56] LABS: Bedside Glucose 167 mg/dL (70-110)
--- NOTE | 2019-06-20 18:41 | PCM.PROGNOTE ---
Patient Problems: Active and Suspected Problems STEMI (ST elevation myocardial infarction) (Acute) Subjective: Patient was seen and examined today, she was extubated earlier this morning, patient is hard of hearing but is able to communicate well. Her coronavirus test has not resulted as of this evening. Patient's white blood cell count is improved today, she is currently on 2 L of nasal cannula O2. - Physical Exam Vitals/I&O's: Vital Signs Temp Pulse Resp BP Pulse Ox 99.6 F H 85 22 H 155/86 H 98 06/20/19 18:00 06/20/19 18:00 06/20/19 18:00 06/20/19 18:00 06/20/19 18:00 Oxygen Flow Rate (L/min) 2 Oxygen Delivery Method Nasal Cannula Weight: 66.4 kg Body Mass Index (BMI) 24.0 Intake and Output for Last 24 Hours 06/18/19 06/19/19 06/20/19 23:59 23:59 23:59 Intake Total 1000.42 / 1010.94 819.74 / 1404.37 2545.13 / 2545.13 Output Total 1425 / 1425 2250 / 2675 1775 / 1775 Balance -424.58 / -414.06 -1430.26 / -1270.63 770.13 / 770.13 General: Alert, Cooperative, No apparent distress, Well developed HEENT: Atraumatic, PERRLA, EOMI, Normocephalic Oral: Moist Mucosa Neck: Supple, No JVD, Trachea Midline, Thyroid Normal Size and Texture Lungs: Clear to auscultation, Normal air movement, No rhonchi, No wheeze, No rales Cardiovascular: Regular rate, Regular Rhythm, Normal S1, Normal S2, No murmurs, PMI Normal, No rub noted Abdomen: Bowel Sounds Present, Soft, Non Tender, Non-Distended Extremities: No clubbing, No cyanosis, No edema, Capillary Refill Less than 3 Seconds Skin: No rashes, No breakdown Musculoskeletal: No Tenderness to Palpation of Joints or Extremities Neurological: Cranial nerves II-XII grossly intact, Neuro grossly intact, Sensory exam intact to light touch and pain Psych/Mental Status: Normal Affect, Appropriate Microbiology Past 72 Hours 06/19/19 07:58 Wash - Bronchial Wash Gram Stain - Final 06/19/19 07:58 Wash - Bronchial Wash Respiratory Culture - Preliminary Culture exhibits no growth. 06/18/19 05:45 Sputum, Induced/Lukens Gram Stain - Final 06/18/19 05:45 Sputum, Induced/Lukens Respiratory Culture - Final 06/18/19 03:46 Blood Culture (Wb) - Anticubital Left Blood Culture - Preliminary No growth in 48 hours. 06/18/19 03:30 Blood Culture (Wb) - Left Hand Blood Culture - Preliminary No growth in 48 hours. 06/18/19 03:50 Urine Catheter - Catheter Urine Culture - Final Culture exhibits no growth. 06/19/19 07:55 Mucosa - Nose Respiratory Panel (PCR) - Final Laboratory Results 06/19/19 17:10: POC Glucose 166 H 06/20/19 00:34: POC Glucose 228 H 06/20/19 05:10: WBC 7.1, RBC 3.09 L, Hgb 10.1 L, Hct 31.5 L, MCV 101.9 H, MCH 32.7 H, MCHC 32.1, RDW Std Deviation 52.5 H, RDW Coeff of Hebert 14.1, Plt Count 142 L, MPV 10.0, Immature Gran % (Auto) 0.400, Neut % (Auto) 73.6 H, Lymph % (Auto) 18.2 L, [place] % (Auto) 6.7, Eos % (Auto) 1.0, Baso % (Auto) 0.1, Absolute Neuts (auto) 5.2, Absolute Lymphs (auto) 1.28, Nucleated RBC % 0 06/20/19 05:10: Sodium 140, Potassium 3.1 L, Chloride 108 H, Carbon Dioxide 27.0, Anion Gap 5, BUN 23 H, Creatinine 1.23 H, Estim Creat Clear Calc 34.15, Est GFR (MDRD) Af Amer 54 L, Est GFR (MDRD) Non-Af 45 L, BUN/Creatinine Ratio 18.7, Glucose 240 H, Calcium 8.5 06/20/19 05:14: POC Glucose 244 H 06/20/19 11:38: POC Glucose 215 H 06/20/19 17:30: POC Glucose 167 H Current Medications Acetaminophen (Tylenol Liquid) 650 mg GT Q6H PRN PRN PRN Reason: temperature of 100.7F Last Admin: 06/19/19 23:30 Dose: 650 mg Documented by: Aspirin (Ecotrin) 81 mg PO DAILY@0800 [facility] Last Admin: 06/20/19 09:12 Dose: 81 mg Documented by: Atorvastatin Calcium (Lipitor) 40 mg PO QHS [facility] Last Admin: 06/19/19 21:09 Dose: 40 mg Documented by: Atropine Sulfate () 0.5 mg IV UD PRN PRN Reason: HR <50 bpm Chlorhexidine Gluconate () 1 each TOPICAL DAILY [facility] Last Admin: 06/20/19 10:33 Dose: 1 each Documented by: Gabapentin (Neurontin) 300 mg PO 4X/DAY [facility] Last Admin: 06/20/19 17:32 Dose: 300 mg Documented by: Gemfibrozil (Lopid) 600 mg PO BIDAC [facility] Last Admin: 06/20/19 17:32 Dose: 600 mg Documented by: Heparin Sodium (Beef Lung) (Heparin 500 Unit/5 Ml (100/Ml)) 500 unit IV UD PRN PRN Reason: HEPARIN FLUSH Sodium Chloride () 250 mls @ 15 mls/hr IV .[id number] PRN PRN Reason: Saline Flush Sodium Chloride () 250 mls @ 15 mls/hr IV .[id number] PRN PRN Reason: Additional IVPB Infusion Pantoprazole Sodium 40 mg/ (Sodium Chloride) 110 mls @ 330 mls/hr IV Q24 [facility] Last Infusion: 06/20/19 10:03 Dose: Infused Documented by: Ampicillin Sodium/Sulbactam (Sodium 3 gm/ Sodium Chloride) 112 mls @ 150 mls/hr IV Q6 [facility] Last Admin: 06/20/19 17:32 Dose: 150 mls/hr Documented by: Insulin Human Lispro (Humalog Kwikpen (Bkc)) 0 unit SC Q6 [facility]; Protocol Last Admin: 06/20/19 17:33 Dose: 1 units Documented by: Metoprolol Tartrate (Lopressor (Beta Abel)) 25 mg PO BID [facility] Last Admin: 06/20/19 09:12 Dose: 25 mg Documented by: Sodium Chloride () 500 ml IV BOLUS PRN PRN Reason: VASO-VAGAL PROTOCOL Sodium Chloride () 10 - 40 ml IV UD PRN PRN Reason: SALINE FLUSH Last Admin: 06/18/19 11:20 Dose: 10 ml Documented by: Ticagrelor (Brilinta) 90 mg PO BID [facility] Last Admin: 06/20/19 09:12 Dose: 90 mg Documented by: Medical Necessity - Tobacco Use Smoking Status: Unknown if ever smoked Tobacco Use: Non-smoker Assessment/Plan All Active Problems STEMI (ST elevation myocardial infarction) (Acute) #1 STEMI-cardiology is participating in her care-status post PCI of RCA with drug-eluting stent placement-postop day #3 #2 aspiration pneumonia-critical care is seeing patient, patient will remain on antibiotics at this time, again a specimen was sent for coronavirus-this is pending at this time #3 type 2 diabetes-continue to monitor blood sugars #4 essential hypertension #5 hyperlipidemia #6 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 #8 Acute hypoxic respiratory failure-patient is currently on nasal cannula oxygen at 2 L Inpatient E&M: [id number] Subs Hosp L2
[2019-06-20] MEDS: Atorvastatin Calcium 40 MG Tablet PO (21:57)
[2019-06-20] MEDS: Acetaminophen 325 MG Tablet 650 MG PO (21:57)
[2019-06-21] VITALS (29 sets, daily range): BP systolic 106–150; BP diastolic 55–77; PULSE 71–96; RESP 16–27; TEMP 36.6–38.3; O2SAT 93–99
[2019-06-21 00:51] LABS: Bedside Glucose 133 mg/dL (70-110)
[2019-06-21] MEDS: Insulin Lispro 100 UNIT/ML INSULN.PEN SC ×3 (05:53→17:30)
[2019-06-21] MEDS: Gemfibrozil 600 MG Tablet PO ×2 (06:01→17:32)
[2019-06-21 06:25] LABS: Bedside Glucose 169 mg/dL (70-110)
[2019-06-21 06:27] LABS: Absolute Lymphocyte Count 1.32 X10^3/uL (0.83-4.51); Absolute Neutrophil Count 4.4 X10^3/uL (2.0-7.7); Basophil# 0.04 X10^3/uL; Basophil% 0.6 % (0-1); Eosinophil# 0.18 X10^3/uL; Eosinophils% 2.7 % (0-5); Hematocrit 31.4 % (37-47); Hemoglobin 10.1 g/dL (12.0-15.0); Lymphocyte # 1.32 X10^3/ul (4.0); Lymphocyte % 19.7 % (19-41); Mean Corp Hgb Conc 32.2 g/dL (32-36); Mean Corpuscular Hgb 32.9 pg (27.0-32.0); Mean Corpuscular Volume 102.3 fL (81-99); Mean Platelet Vol. 9.5 fl (6.2-12.0); Monocyte# 0.71 X10^3/uL; Monocyte% 10.6 % (0-10); NRBC Flagged by Analyzer 0 % (0-5); Neutrophil # 4.42 X10^3/uL (2.7-7.7); Platelet Count 156 K/mm3 (150-450); RBC Distribution Width CV 13.9 % (11.6-14.6); RBC Distribution Width SD 52.6 fl (35.1-43.9); Red Blood Count 3.07 M/mm3 (4.2-5.4); White Blood Count 6.7 K/mm3 (4.4-11.0)
--- NOTE | 2019-06-21 06:29 | PN_ITS ---
Subjective: The patient was seen and examined at the bedside this morning. Events from the last 24 hours have been reviewed. The patient currently has a low-grade fever but remains hemodynamically stable. She is maintaining appropriate oxygen saturations on 2 L/min. COVID testing was negative. Objective: The patient's most recent lab work, culture data and imaging studies have all been personally reviewed. Surface echocardiogram revealed normal LV size with an ejection fraction of 60%. There was evidence of severe mitral valve insufficiency. Sputum, blood and urine cultures are pending. Respiratory viral panel was negative. General: Alert, No apparent distress HEENT: Atraumatic, Normocephalic Oral: No Gingival or Mucosal Lesions/ Ulcerations Neck: Supple, No Nodes, Trachea Midline Lungs: No rhonchi, No wheeze, No rales, Diminished Cardiovascular: Regular rate, Regular Rhythm, Normal S1, Normal S2 Abdomen: Bowel Sounds Present, Soft, Non Tender Extremities: No clubbing, No cyanosis, No edema Skin: No breakdown Musculoskeletal: No Muscle Wasting Lymphatic: No Cervical, Supraclavicular, or Inguinal Adenopathy Neurological: Neuro grossly intact Psych/Mental Status: Normal Affect, Appropriate Vital Signs Temp Pulse Resp BP Pulse Ox 99.6 F H 78 27 H 130/69 H 97 06/21/19 06:00 06/21/19 06:00 06/21/19 06:00 06/21/19 06:00 06/21/19 06:00 Oxygen Flow Rate (L/min) 2 Oxygen Delivery Method Nasal Cannula Weight: 141 lb 12.116 oz Body Mass Index (BMI) 24.0 Intake and Output for Last 24 Hours 06/19/19 06/20/19 06/21/19 23:59 23:59 23:59 Intake Total 819.74 / 1404.37 2757.13 / 2757.13 112 / 112 Output Total 2250 / 2675 2150 / 2150 150 / 150 Balance -1430.26 / -1270.63 607.13 / 607.13 -38 / -38 Labs (Last 48 Hours) 06/19/19 06/19/19 06/19/19 07:55 11:36 17:10 WBC RBC Hgb Hct MCV MCH MCHC RDW Std Deviation RDW Coeff of Hebert Plt Count MPV Immature Gran % (Auto) Neut % (Auto) Lymph % (Auto) [place] % (Auto) Eos % (Auto) Baso % (Auto) Absolute Neuts (auto) Absolute Lymphs (auto) Nucleated RBC % Sodium Potassium Chloride Carbon Dioxide Anion Gap BUN Creatinine Estim Creat Clear Calc Est GFR (MDRD) Af Amer Est GFR (MDRD) Non-Af BUN/Creatinine Ratio Glucose Calcium Total Bilirubin AST ALT Alkaline Phosphatase Total Protein Albumin COVID-19 (JEAN-PIERRE) Pending POC Glucose 194 H 166 H 06/20/19 06/20/19 06/20/19 00:34 05:10 05:10 WBC 7.1 RBC 3.09 L Hgb 10.1 L Hct 31.5 L MCV 101.9 H MCH 32.7 H MCHC 32.1 RDW Std Deviation 52.5 H RDW Coeff of Hebert 14.1 Plt Count 142 L MPV 10.0 Immature Gran % (Auto) 0.400 Neut % (Auto) 73.6 H Lymph % (Auto) 18.2 L [place] % (Auto) 6.7 Eos % (Auto) 1.0 Baso % (Auto) 0.1 Absolute Neuts (auto) 5.2 Absolute Lymphs (auto) 1.28 Nucleated RBC % 0 Sodium 140 Potassium 3.1 L Chloride 108 H Carbon Dioxide 27.0 Anion Gap 5 BUN 23 H Creatinine 1.23 H Estim Creat Clear Calc 34.15 Est GFR (MDRD) Af Amer 54 L Est GFR (MDRD) Non-Af 45 L BUN/Creatinine Ratio 18.7 Glucose 240 H Calcium 8.5 Total Bilirubin AST ALT Alkaline Phosphatase Total Protein Albumin COVID-19 (JEAN-PIERRE) POC Glucose 228 H 06/20/19 06/20/19 06/20/19 05:14 11:38 17:30 WBC RBC Hgb Hct MCV MCH MCHC RDW Std Deviation RDW Coeff of Hebert Plt Count MPV Immature Gran % (Auto) Neut % (Auto) Lymph % (Auto) [place] % (Auto) Eos % (Auto) Baso % (Auto) Absolute Neuts (auto) Absolute Lymphs (auto) Nucleated RBC % Sodium Potassium Chloride Carbon Dioxide Anion Gap BUN Creatinine Estim Creat Clear Calc Est GFR (MDRD) Af Amer Est GFR (MDRD) Non-Af BUN/Creatinine Ratio Glucose Calcium Total Bilirubin AST ALT Alkaline Phosphatase Total Protein Albumin COVID-19 (JEAN-PIERRE) POC Glucose 244 H 215 H 167 H 06/21/19 06/21/19 06/21/19 00:23 05:50 06:10 WBC 6.7 RBC 3.07 L Hgb 10.1 L Hct 31.4 L MCV 102.3 H MCH 32.9 H MCHC 32.2 RDW Std Deviation 52.6 H RDW Coeff of Hebert 13.9 Plt Count 156 MPV 9.5 Immature Gran % (Auto) 0.400 Neut % (Auto) 66.0 Lymph % (Auto) 19.7 [place] % (Auto) 10.6 H Eos % (Auto) 2.7 Baso % (Auto) 0.6 Absolute Neuts (auto) 4.4 Absolute Lymphs (auto) 1.32 Nucleated RBC % 0 Sodium Potassium Chloride Carbon Dioxide Anion Gap BUN Creatinine Estim Creat Clear Calc Est GFR (MDRD) Af Amer Est GFR (MDRD) Non-Af BUN/Creatinine Ratio Glucose Calcium Total Bilirubin AST ALT Alkaline Phosphatase Total Protein Albumin COVID-19 (JEAN-PIERRE) POC Glucose 133 H 169 H 06/21/19 06:10 WBC RBC Hgb Hct MCV MCH MCHC RDW Std Deviation RDW Coeff of Hebert Plt Count MPV Immature Gran % (Auto) Neut % (Auto) Lymph % (Auto) [place] % (Auto) Eos % (Auto) Baso % (Auto) Absolute Neuts (auto) Absolute Lymphs (auto) Nucleated RBC % Sodium Pending Potassium Pending Chloride Pending Carbon Dioxide Pending Anion Gap Pending BUN Pending Creatinine Pending Estim Creat Clear Calc Est GFR (MDRD) Af Amer Pending Est GFR (MDRD) Non-Af Pending BUN/Creatinine Ratio Pending Glucose Pending Calcium Pending Total Bilirubin Pending AST Pending ALT Pending Alkaline Phosphatase Pending Total Protein Pending Albumin Pending COVID-19 (JEAN-PIERRE) POC Glucose Microbiology 06/19/19 07:58 Wash - Bronchial Wash Gram Stain - Final 06/19/19 07:58 Wash - Bronchial Wash Respiratory Culture - Preliminary Culture exhibits no growth. 06/18/19 05:45 Sputum, Induced/Lukens Gram Stain - Final 06/18/19 05:45 Sputum, Induced/Lukens Respiratory Culture - Final 06/18/19 03:46 Blood Culture (Wb) - Anticubital Left Blood Culture - Preliminary No growth in 48 hours. 06/18/19 03:30 Blood Culture (Wb) - Left Hand Blood Culture - Preliminary No growth in 48 hours. 06/18/19 03:50 Urine Catheter - Catheter Urine Culture - Final Culture exhibits no growth. 06/19/19 07:55 Mucosa - Nose Respiratory Panel (PCR) - Final Clinical Impression(s) from Imaging Studies Chest X-Ray 06/17/19 16:57 IMPRESSION: Endotracheal tube tip is 5.8 cm from hector. Enteric tube tip in the body of the stomach. Diffuse alveolar disease, most confluent in the right upper lobe and right perihilar region. Electronically Signed: Harsha Dumont MD at 17:40 EDT Tel , Service support , Chest X-Ray 06/18/19 07:55 IMPRESSION: Interval improvement in the aeration of the right lung with the new atelectasis and/or infiltrate in the left lower lobe. The support tubes are in good position. Electronically Signed: Tigre Leos, at 8:48 EDT , Service support , Medical Necessity - Tobacco Use Smoking Status: Unknown if ever smoked Tobacco Use: Non-smoker Assessment/Plan All Active Problems STEMI (ST elevation myocardial infarction) (Acute) RECOMMENDATIONS: 1. Continue Augmentin to complete 5 days of treatment. 2. Wean supplemental oxygen to maintain saturations at or above 90%. 3. Encourage incentive spirometer use and mobilize patient as tolerated. 4. The patient is medically stable for transfer out of the intensive care unit. 5. Will sign off from a critical care perspective. IMPRESSIONS: 1. Acute Hypoxemic Respiratory Failure Although the initial precipitating etiology for the patient's respiratory failure was felt to be cardiac in nature with subsequent edema, the patient went on to develop high-grade fevers. Although there was concern for a possible aspiration event, no focal consolidation or infiltrate was noted on follow-up chest x-ray. Therefore, the patient was maintained on empiric antimicrobials. COVID testing was negative. The patient has improved from a respiratory perspective and was able to be extubated on June 19. Plan to continue to wean supplemental oxygen to maintain saturations at or above 90%. Encourage incentive spirometer use and mobilize patient as tolerated. Antibiotics will be de-escalated to Augmentin with plans to complete 5 additional days of treatment. 2. ST segment elevation [place] The patient is status post PCI with drug-eluting stent placement to the RCA. Will defer cardiac medical management accordingly. 3. Hypertension/hyperlipidemia/neuropathy/diabetes mellitus Complicates care, management, recovery and prognosis. Continue sliding scale insulin coverage. This note was generated with [employer] dictation software. It may contain incorrect words, spelling, and punctuation that were not noted in checking the note before signing. Inpatient E&M: 31350 Subs Hosp L3
[2019-06-21 06:46] LABS: ALB/GLOB Ratio 0.5 RATIO (0.9-2.4); AST(SGOT) 54 U/L (15-37); Alanine Aminotransfer ALT/SGPT 21 U/L (13-56); Albumin, Serum 2.5 g/dL (3.2-5.0); Alkaline Phosphatase 44 U/L (45-117); Anion Gap 9 (5-15); BUN 19 mg/dL (7-18); BUN/Creat Ratio 19.2 RATIO (10-20); Calcium,Total 8.7 mg/dL (8.5-10.1); Chloride 107 mmol/L (98-107); Creatinine, Serum 0.99 mg/dL (0.55-1.02); EST Glomerular Filtration Rate 57 mL/min (>60); Est Glom Filt Rate - Afr Amer 69 mL/min (>60); Estimated Creatinine Clearance 42.43 ml/min; Globulin 4.6 g/dL (2.2-4.2); Glucose 173 mg/dL (74-106); Potassium 3.9 mmol/L (3.5-5.1); Protein, Total 7.1 g/dL (6.4-8.2); Sodium Level 141 mmol/L (136-145)
[2019-06-21] MEDS: Gabapentin 300 MG Capsule PO ×4 (08:18→21:22)
[2019-06-21] MEDS: TICAGRELOR 90 MG TABLET PO ×2 (08:19→21:22)
[2019-06-21] MEDS: Metoprolol Tartrate 25 MG Tablet PO ×2 (08:19→21:22)
[2019-06-21] MEDS: CHLORHEXIDINE GLUC 2% CLOTH 1 EACH TOWELETTE TOPICAL (08:20)
[2019-06-21] MEDS: Aspirin E.C. 81 MG Tablet PO (10:39)
[2019-06-21 11:41] LABS: Bedside Glucose 291 mg/dL (70-110)
[2019-06-21] MEDS: Amox/Clavulanate 500 MG Tablet PO ×2 (14:11→21:22)
--- NOTE | 2019-06-21 14:55 | CASEMGMT ---
FLOR SERRANO NOTE: PT/OT notes have been reviewed. Additional therapy recommended. Attempted to contact pt via phone to discuss pt's wishes @ discharge. No answer. CM to attempt again tomorrow. If pt discharged home, will need Brilinta 30 day savings card/instruction on use. COVID-19 results still pending. Pt remains on O2 @ 2 L/M n/c. CM to continue to follow. Pacheco BASS RN CM
--- NOTE | 2019-06-21 16:08 | PN_ITS ---
Patient Problems: Active and Suspected Problems STEMI (ST elevation myocardial infarction) (Acute) Subjective: Patient was seen and examined today, her coronavirus test did not result today-I called the lab and the lab stated that they were told that it takes up to 72 hours now to get the result back. Patient is currently on nasal cannula oxygen and she appears comfortable, she is not coughing during the time of my examination. - Physical Exam Vitals/I&O's: Vital Signs Temp Pulse Resp BP Pulse Ox 97.9 F 84 25 H 130/65 H 98 06/21/19 14:00 06/21/19 15:00 06/21/19 15:00 06/21/19 15:00 06/21/19 15:00 Oxygen Flow Rate (L/min) 2 Oxygen Delivery Method Nasal Cannula Weight: 64.3 kg Body Mass Index (BMI) 24.0 Intake and Output for Last 24 Hours 06/19/19 06/20/19 06/21/19 23:59 23:59 23:59 Intake Total 819.74 / 1404.37 2757.13 / 2757.13 634 / 634 Output Total 2250 / 2675 2150 / 2150 550 / 550 Balance -1430.26 / -1270.63 607.13 / 607.13 84 / 84 General: Alert, Oriented x3, Cooperative, No apparent distress, Well developed HEENT: Atraumatic, PERRLA, EOMI, Normocephalic Oral: Moist Mucosa Neck: Supple, No JVD, Trachea Midline, Thyroid Normal Size and Texture Lungs: Clear to auscultation, Normal air movement, No rhonchi, No wheeze, No rales Cardiovascular: Regular rate, Regular Rhythm, Normal S1, Normal S2, No murmurs, PMI Normal, No rub noted, No Gallop Abdomen: Bowel Sounds Present, Soft, Non Tender, Non-Distended Extremities: No clubbing, No cyanosis, No edema, Capillary Refill Less than 3 Seconds Skin: No rashes, No breakdown Musculoskeletal: No Tenderness to Palpation of Joints or Extremities Neurological: Cranial nerves II-XII grossly intact, Neuro grossly intact, Sensory exam intact to light touch and pain, Coordination normal Psych/Mental Status: Normal Affect, Appropriate, Alert and oriented to time, place, person, mood and affect Microbiology Past 72 Hours 06/19/19 07:58 Wash - Bronchial Wash Gram Stain - Final 06/19/19 07:58 Wash - Bronchial Wash Respiratory Culture - Preliminary Culture exhibits no growth. 06/18/19 05:45 Sputum, Induced/Lukens Gram Stain - Final 06/18/19 05:45 Sputum, Induced/Lukens Respiratory Culture - Final 06/18/19 03:46 Blood Culture (Wb) - Anticubital Left Blood Culture - Preliminary No growth in 48 hours. 06/18/19 03:30 Blood Culture (Wb) - Left Hand Blood Culture - Preliminary No growth in 48 hours. 06/18/19 03:50 Urine Catheter - Catheter Urine Culture - Final Culture exhibits no growth. 06/19/19 07:55 Mucosa - Nose Respiratory Panel (PCR) - Final Laboratory Results 06/20/19 17:30: POC Glucose 167 H 06/21/19 00:23: POC Glucose 133 H 06/21/19 05:50: POC Glucose 169 H 06/21/19 06:10: WBC 6.7, RBC 3.07 L, Hgb 10.1 L, Hct 31.4 L, MCV 102.3 H, MCH 32.9 H, MCHC 32.2, RDW Std Deviation 52.6 H, RDW Coeff of Hebert 13.9, Plt Count 156, MPV 9.5, Immature Gran % (Auto) 0.400, Neut % (Auto) 66.0, Lymph % (Auto) 19.7, [place] % (Auto) 10.6 H, Eos % (Auto) 2.7, Baso % (Auto) 0.6, Absolute Neuts (auto) 4.4, Absolute Lymphs (auto) 1.32, Nucleated RBC % 0 06/21/19 06:10: Sodium 141, Potassium 3.9, Chloride 107, Carbon Dioxide 25.0, Anion Gap 9, BUN 19 H, Creatinine 0.99, Estim Creat Clear Calc 42.43, Est GFR (MDRD) Af Amer 69, Est GFR (MDRD) Non-Af 57 L, BUN/Creatinine Ratio 19.2, Glucose 173 H, Calcium 8.7, Total Bilirubin 0.40, AST 54 H, ALT 21, Alkaline Phosphatase 44 L, Total Protein 7.1, Albumin 2.5 L, Globulin 4.6 H, Albumin/Globulin Ratio 0.5 L 06/21/19 10:36: POC Glucose 291 H Current Medications Acetaminophen (Tylenol Liquid) 650 mg GT Q6H PRN PRN PRN Reason: temperature of 100.7F Last Admin: 06/19/19 23:30 Dose: 650 mg Documented by: Acetaminophen (Tylenol) 650 mg PO Q6H PRN PRN PRN Reason: FEVER Last Admin: 06/20/19 21:57 Dose: 650 mg Documented by: Amoxicillin/Clavulanate Potassium (Augmentin Tablet) 500 mg PO Q8 [facility] Stop: 06/26/19 10:01 Last Admin: 06/21/19 14:11 Dose: 500 mg Documented by: Aspirin (Ecotrin) 81 mg PO DAILY@0800 [facility] Last Admin: 06/21/19 10:39 Dose: 81 mg Documented by: Atorvastatin Calcium (Lipitor) 40 mg PO QHS [facility] Last Admin: 06/20/19 21:57 Dose: 40 mg Documented by: Atropine Sulfate () 0.5 mg IV UD PRN PRN Reason: HR <50 bpm Chlorhexidine Gluconate () 1 each TOPICAL DAILY [facility] Last Admin: 06/21/19 08:20 Dose: 1 each Documented by: Gabapentin (Neurontin) 300 mg PO 4X/DAY [facility] Last Admin: 06/21/19 14:12 Dose: 300 mg Documented by: Gemfibrozil (Lopid) 600 mg PO BIDAC [facility] Last Admin: 06/21/19 06:01 Dose: 600 mg Documented by: Heparin Sodium (Beef Lung) (Heparin 500 Unit/5 Ml (100/Ml)) 500 unit IV UD PRN PRN Reason: HEPARIN FLUSH Sodium Chloride () 250 mls @ 15 mls/hr IV .[id number] PRN PRN Reason: Saline Flush Sodium Chloride () 250 mls @ 15 mls/hr IV .[id number] PRN PRN Reason: Additional IVPB Infusion Insulin Human Lispro (Humalog Kwikpen (Bkc)) 0 unit SC ACHS [facility]; Protocol Metoprolol Tartrate (Lopressor (Beta Abel)) 25 mg PO BID [facility] Last Admin: 06/21/19 08:19 Dose: 25 mg Documented by: Pantoprazole Sodium (Protonix) 20 mg PO DAILY [facility] Sodium Chloride () 500 ml IV BOLUS PRN PRN Reason: VASO-VAGAL PROTOCOL Sodium Chloride () 10 - 40 ml IV UD PRN PRN Reason: SALINE FLUSH Last Admin: 06/18/19 11:20 Dose: 10 ml Documented by: Ticagrelor (Brilinta) 90 mg PO BID [place] Last Admin: 06/21/19 08:19 Dose: 90 mg Documented by: Medical Necessity - Tobacco Use Smoking Status: Unknown if ever smoked Tobacco Use: Non-smoker Assessment/Plan All Active Problems STEMI (ST elevation myocardial infarction) (Acute) #1 STEMI-cardiology is participating in her care-status post PCI of RCA with dr perales-eluting stent placement-postop day #4 #2 aspiration pneumonia-critical care is seeing patient, patient will remain on antibiotics at this time, again a specimen was sent for coronavirus-this is pe nding at this time #3 type 2 diabetes-continue to monitor blood sugars #4 essential hypertension #5 hyperlipidemia #6 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 #8 Acute hypoxic respiratory failure-patient is currently on nasal cannula oxygen at 2 L Inpatient E&M: 32333 Subs Hosp L2
[2019-06-21 17:41] LABS: Bedside Glucose 179 mg/dL (70-110)
[2019-06-21] MEDS: Atorvastatin Calcium 40 MG Tablet PO (21:23)
[2019-06-21] MEDS: Acetaminophen 650 MG/20 ML UDC GT (21:23)
--- NOTE | 2019-06-21 21:24 | NURSING ---
PT UNABLE TO PEPITO LIQUID TYLENOL. TOOK APPROX 2/3 OF DOSE AND STARTED TO GAG. STATES SHE CANNOT HANDLE THE FLAVOR.
[2019-06-21 21:50] LABS: Bedside Glucose 148 mg/dL (70-110)
[2019-06-22] VITALS (18 sets, daily range): BP systolic 114–138; BP diastolic 57–76; PULSE 72–97; RESP 17–26; TEMP 36.3–37.9; O2SAT 93–98
[2019-06-22 05:11] LABS: Absolute Lymphocyte Count 1.45 X10^3/uL (0.83-4.51); Absolute Neutrophil Count 3.8 X10^3/uL (2.0-7.7); Basophil# 0.04 X10^3/uL; Basophil% 0.6 % (0-1); Eosinophil# 0.21 X10^3/uL; Eosinophils% 3.3 % (0-5); Hematocrit 31.4 % (37-47); Hemoglobin 9.9 g/dL (12.0-15.0); Lymphocyte # 1.45 X10^3/ul (4.0); Lymphocyte % 22.9 % (19-41); Mean Corp Hgb Conc 31.5 g/dL (32-36); Mean Corpuscular Hgb 32.1 pg (27.0-32.0); Mean Corpuscular Volume 101.9 fL (81-99); Monocyte# 0.82 X10^3/uL; NRBC Flagged by Analyzer 0 % (0-5); Neutrophil # 3.78 X10^3/uL (2.7-7.7); Neutrophil % 59.7 % (47-70); Platelet Count 162 K/mm3 (150-450); RBC Distribution Width CV 13.6 % (11.6-14.6); RBC Distribution Width SD 50.4 fl (35.1-43.9); Red Blood Count 3.08 M/mm3 (4.2-5.4); White Blood Count 6.3 K/mm3 (4.4-11.0)
[2019-06-22] MEDS: Amox/Clavulanate 500 MG Tablet PO ×3 (05:16→21:43)
[2019-06-22 05:28] LABS: ALB/GLOB Ratio 0.5 RATIO (0.9-2.4); AST(SGOT) 40 U/L (15-37); Alanine Aminotransfer ALT/SGPT 21 U/L (13-56); Albumin, Serum 2.5 g/dL (3.2-5.0); Alkaline Phosphatase 46 U/L (45-117); Anion Gap 8 (5-15); BUN 22 mg/dL (7-18); Calcium,Total 8.8 mg/dL (8.5-10.1); Chloride 107 mmol/L (98-107); EST Glomerular Filtration Rate 57 mL/min (>60); Est Glom Filt Rate - Afr Amer 69 mL/min (>60); Globulin 4.6 g/dL (2.2-4.2); Glucose 175 mg/dL (74-106); Protein, Total 7.1 g/dL (6.4-8.2); Sodium Level 139 mmol/L (136-145)
[2019-06-22] MEDS: Insulin Lispro 100 UNIT/ML INSULN.PEN SC ×4 (08:09→21:44)
[2019-06-22] MEDS: Gemfibrozil 600 MG Tablet PO ×2 (08:11→16:35)
[2019-06-22] MEDS: Aspirin E.C. 81 MG Tablet PO (08:11)
[2019-06-22 08:41] LABS: Bedside Glucose 200 mg/dL (70-110)
[2019-06-22] MEDS: TICAGRELOR 90 MG TABLET PO ×2 (09:41→21:43)
[2019-06-22] MEDS: Pantoprazole Sodium 20 MG Tablet PO (09:41)
[2019-06-22] MEDS: Gabapentin 300 MG Capsule PO ×4 (09:41→21:43)
[2019-06-22] MEDS: Metoprolol Tartrate 25 MG Tablet PO ×2 (09:41→21:43)
--- NOTE | 2019-06-22 10:05 | NURSING ---
Report called to Jaymie RN for pt to be transferred to PCU. Covid 19 result is negative.
--- NOTE | 2019-06-22 12:02 | CASEMGMT ---
Addendum entered by Isaias Giraldo 06/22/19 12:40: Call back received from son Joe. Discussed dc planning including recommendation pt have someone with her for a few days for safety. Son said he will arrange this. Son is agreeable to have [facility] schedule visits with him as pt is [place] and afraid of missing calls. (Dominique, [facility] updated). -Discussed Brilinta savings card, will need to be given to pharmacy when picking up meds for first 30 days free. Verified pt uses [facility] in [place]. Also let son know to check copay for next refill on Brilinta and if cost prohibitive, to call cardiology office and speak with physician. Son is agreeable and voices understanding of above. -ZACH Coy updated on dc plan. Pramod JHAVERI Original Note: FLOR SERRANO Note. Intro role of CM to patient in room. Pt is [place], but able to participate in dc planning. Explained PT notes and recommendation for Home Health on DC. List reviewed, pt is agreeable to [facility] on dc for SN and PT (order placed). Pt lives alone, states her son should be able to assist. FLOR SERRANO requesting to call son to discuss dc plan and he is agreeable. (attempted call, no answer, message left on machine to call FLOR SERRANO back). -Call to [facility]- Dominique. Updated on need for SN, PT on discharge. Updated that coronavirus testing was negative. Pramod JHAVERI
[2019-06-22 12:21] LABS: Bedside Glucose 316 mg/dL (70-110)
--- NOTE | 2019-06-22 12:41 | PCM.PN.CARD ---
Subjectve: Due to the COVID 19 pandemic, patient's condition was discussed with patient's nurse. Patient appears to be stable and doing well from a cardiac standpoint. Her fevers are also coming down. Patient is negative for COVID 19. Objective: Vital Signs Temp Pulse Resp BP Pulse Ox 98.1 F 84 18 138/76 H 96 06/22/19 10:35 06/22/19 12:00 06/22/19 10:35 06/22/19 10:35 06/22/19 10:35 Oxygen Flow Rate (L/min) 2 Oxygen Delivery Method Nasal Cannula Weight: 141 lb 15.643 oz Body Mass Index (BMI) 24.0 Intake and Output for Last 24 Hours 06/20/19 06/21/19 06/22/19 23:59 23:59 23:59 Intake Total 2757.13 / 2757.13 834 / 834 240 / 240 Output Total 2150 / 2150 750 / 1150 1175 / 1175 Balance 607.13 / 607.13 84 / -316 -935 / -935 06/22/19 04:30: WBC 6.3, RBC 3.08 L, Hgb 9.9 L, Hct 31.4 L, MCV 101.9 H, MCH 32.1 H, MCHC 31.5 L, Plt Count 162, MPV 10.0, Immature Gran % (Auto) 0.500, Neut % (Auto) 59.7, Lymph % (Auto) 22.9, [place] % (Auto) 13.0 H, Eos % (Auto) 3.3, Baso % (Auto) 0.6, Absolute Neuts (auto) 3.8, Nucleated RBC % 0 06/22/19 04:30: Sodium 139, Potassium 4.0, Chloride 107, Carbon Dioxide 24.0, Anion Gap 8, BUN 22 H, Creatinine 1.00, Est GFR (MDRD) Af Amer 69, Est GFR (MDRD) Non-Af 57 L, BUN/Creatinine Ratio 22.0 H, Glucose 175 H, Calcium 8.8, Total Bilirubin 0.50 Rhythm: EKG: ECHO: Stress Test: Cardiac Cath: PCI: CT Surgery: Holter monitor: EPS: PPM: CXR: Chest CT Scan: Medical Necessity - Tobacco Use Smoking Status: Unknown if ever smoked Tobacco Use: Non-smoker Assessment/Plan 1. ST elevation RI: Treated with PCI to the RCA. Continue dual antiplatelet therapy, statin. Agree with metoprolol. 2. Mitral regurgitation: Patient still has severe mitral regurgitation on the echo. No evidence of flail leaflet. Will monitor. 3. LV dysfunction: Patient is wall motion abnormality has resolved and on the 2D echo from this morning she has preserved EF and no significant regional wall motion abnormalities. 4. Fever: Improving. Appears to be secondary to aspiration pneumonia. Patient has remained stable from a cardiac standpoint. We will sign off at this time. Please let us know if we can be of any further assistance.
--- NOTE | 2019-06-22 15:50 | PCM.PROGNOTE ---
Patient Problems: Active and Suspected Problems STEMI (ST elevation myocardial infarction) (Acute) Subjective: Patient was seen and examined today, I talked with discharge planning as well as manager social services about discharge planning concerning the patient, at this time, patient is ambulating on room air with an O2 sat of 90%. I talked to her son who states that there will be someone with the patient 24 hours a day when she is discharged for the next several days. Patient's coronavirus test was negative. - Physical Exam Vitals/I&O's: Vital Signs Temp Pulse Resp BP Pulse Ox 98.1 F 84 18 138/76 H 96 06/22/19 10:35 06/22/19 12:00 06/22/19 10:35 06/22/19 10:35 06/22/19 10:35 Oxygen Flow Rate (L/min) 2 Oxygen Delivery Method Nasal Cannula Weight: 64.4 kg Body Mass Index (BMI) 24.0 Intake and Output for Last 24 Hours 06/20/19 06/21/19 06/22/19 23:59 23:59 23:59 Intake Total 2757.13 / 2757.13 834 / 834 240 / 240 Output Total 2150 / 2150 750 / 1150 1175 / 1175 Balance 607.13 / 607.13 84 / -316 -935 / -935 General: Alert, Oriented x3, Cooperative, No apparent distress, Well developed HEENT: Atraumatic, PERRLA, EOMI, Normocephalic Oral: Moist Mucosa Neck: Supple, No JVD, Trachea Midline, Thyroid Normal Size and Texture Lungs: Clear to auscultation, Normal air movement, No rhonchi, No wheeze, No rales Cardiovascular: Regular rate, Regular Rhythm, Normal S1, Normal S2, No murmurs, PMI Normal, No rub noted Abdomen: Bowel Sounds Present, Soft, Non Tender, Non-Distended Extremities: No clubbing, No cyanosis, No edema, Capillary Refill Less than 3 Seconds Skin: No rashes, No breakdown Musculoskeletal: No Tenderness to Palpation of Joints or Extremities Neurological: Cranial nerves II-XII grossly intact, Neuro grossly intact, Sensory exam intact to light touch and pain, Coordination normal Psych/Mental Status: Normal Affect, Appropriate, Alert and oriented to time, place, person, mood and affect Microbiology Past 72 Hours 06/19/19 07:58 Wash - Bronchial Wash Gram Stain - Final 06/19/19 07:58 Wash - Bronchial Wash Respiratory Culture - Preliminary Mixed normal respiratory lenora. No Haemophilus, Streptococcus pneumoniae, beta-hemolytic Streptococcus or Staphylococcus aureus isolated. 06/18/19 05:45 Sputum, Induced/Lukens Gram Stain - Final 06/18/19 05:45 Sputum, Induced/Lukens Respiratory Culture - Final 06/18/19 03:46 Blood Culture (Wb) - Anticubital Left Blood Culture - Preliminary No growth in 48 hours. 06/18/19 03:30 Blood Culture (Wb) - Left Hand Blood Culture - Preliminary No growth in 48 hours. 06/18/19 03:50 Urine Catheter - Catheter Urine Culture - Final Culture exhibits no growth. Laboratory Results 06/19/19 07:55: COVID-19 (JEAN-PIERRE) Not Detected 06/21/19 17:28: POC Glucose 179 H 06/21/19 21:21: POC Glucose 148 H 06/22/19 04:30: WBC 6.3, RBC 3.08 L, Hgb 9.9 L, Hct 31.4 L, MCV 101.9 H, MCH 32.1 H, MCHC 31.5 L, RDW Std Deviation 50.4 H, RDW Coeff of Hebert 13.6, Plt Count 162, MPV 10.0, Immature Gran % (Auto) 0.500, Neut % (Auto) 59.7, Lymph % (Auto) 22.9, [place] % (Auto) 13.0 H, Eos % (Auto) 3.3, Baso % (Auto) 0.6, Absolute Neuts (auto) 3.8, Absolute Lymphs (auto) 1.45, Nucleated RBC % 0 06/22/19 04:30: Sodium 139, Potassium 4.0, Chloride 107, Carbon Dioxide 24.0, Anion Gap 8, BUN 22 H, Creatinine 1.00, Estim Creat Clear Calc 42.00, Est GFR (MDRD) Af Amer 69, Est GFR (MDRD) Non-Af 57 L, BUN/Creatinine Ratio 22.0 H, Glucose 175 H, Calcium 8.8, Total Bilirubin 0.50, AST 40 H, ALT 21, Alkaline Phosphatase 46, Total Protein 7.1, Albumin 2.5 L, Globulin 4.6 H, Albumin/Globulin Ratio 0.5 L 06/22/19 07:52: POC Glucose 200 H 06/22/19 11:21: POC Glucose 316 H Current Medications Acetaminophen (Tylenol Liquid) 650 mg GT Q6H PRN PRN PRN Reason: temperature of 100.7F Last Admin: 06/21/19 21:23 Dose: 650 mg Documented by: Acetaminophen (Tylenol) 650 mg PO Q6H PRN PRN PRN Reason: FEVER Last Admin: 06/20/19 21:57 Dose: 650 mg Documented by: Amoxicillin/Clavulanate Potassium (Augmentin Tablet) 500 mg PO Q8 [facility] Stop: 06/26/19 10:01 Last Admin: 06/22/19 13:55 Dose: 500 mg Documented by: Aspirin (Ecotrin) 81 mg PO DAILY@0800 [facility] Last Admin: 06/22/19 08:11 Dose: 81 mg Documented by: Atorvastatin Calcium (Lipitor) 40 mg PO QHS [facility] Last Admin: 06/21/19 21:23 Dose: 40 mg Documented by: Atropine Sulfate () 0.5 mg IV UD PRN PRN Reason: HR <50 bpm Chlorhexidine Gluconate () 1 each TOPICAL DAILY [facility] Last Admin: 06/22/19 08:18 Dose: Not Given Documented by: Gabapentin (Neurontin) 300 mg PO 4X/DAY [facility] Last Admin: 06/22/19 13:55 Dose: 300 mg Documented by: Gemfibrozil (Lopid) 600 mg PO BIDAC [facility] Last Admin: 06/22/19 08:11 Dose: 600 mg Documented by: Heparin Sodium (Beef Lung) (Heparin 500 Unit/5 Ml (100/Ml)) 500 unit IV UD PRN PRN Reason: HEPARIN FLUSH Sodium Chloride () 250 mls @ 15 mls/hr IV .[id number] PRN PRN Reason: Saline Flush Sodium Chloride () 250 mls @ 15 mls/hr IV .[id number] PRN PRN Reason: Additional IVPB Infusion Insulin Human Lispro (Humalog Kwikpen (Bkc)) 0 unit SC ACHS [facility]; Protocol Last Admin: 06/22/19 11:53 Dose: 6 u Documented by: Metoprolol Tartrate (Lopressor (Beta Abel)) 25 mg PO BID [facility] Last Admin: 06/22/19 09:41 Dose: 25 mg Documented by: Pantoprazole Sodium (Protonix) 20 mg PO DAILY [facility] Last Admin: 06/22/19 09:41 Dose: 20 mg Documented by: Sodium Chloride () 500 ml IV BOLUS PRN PRN Reason: VASO-VAGAL PROTOCOL Sodium Chloride () 10 - 40 ml IV UD PRN PRN Reason: SALINE FLUSH Last Admin: 06/18/19 11:20 Dose: 10 ml Documented by: Ticagrelor (Brilinta) 90 mg PO BID [facility] Last Admin: 06/22/19 09:41 Dose: 90 mg Documented by: Medical Necessity - Tobacco Use Smoking Status: Unknown if ever smoked Tobacco Use: Non-smoker Assessment/Plan All Active Problems STEMI (ST elevation myocardial infarction) (Acute) #1 STEMI-cardiology is participating in her care-status post PCI of RCA with drug-eluting stent placement-postop day #5 #2 aspiration pneumonia-critical care is seeing patient, patient will remain on antibiotics at this time #3 type 2 diabetes-continue to monitor blood sugars, I will place the patient back on her basal insulin #4 essential hypertension #5 hyperlipidemia #6 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 #8 Acute hypoxic respiratory failure-this is resolving Inpatient E&M: 64488 Subs Hosp L2
[2019-06-22] MEDS: metFORMIN HCl 500 MG Tablet PO (16:35)
[2019-06-22 16:41] LABS: Bedside Glucose 151 mg/dL (70-110)
[2019-06-22] MEDS: Atorvastatin Calcium 40 MG Tablet PO (21:43)
[2019-06-22 22:56] LABS: Bedside Glucose 168 mg/dL (70-110)
[2019-06-23] VITALS (7 sets, daily range): BP systolic 106–116; BP diastolic 61–68; PULSE 70–82; RESP 14–22; TEMP 36.7–37.1; O2SAT 94–99
[2019-06-23] MEDS: Amox/Clavulanate 500 MG Tablet PO (05:25)
[2019-06-23] MEDS: Insulin Lispro 100 UNIT/ML INSULN.PEN SC ×2 (06:34→12:45)
[2019-06-23] MEDS: Gemfibrozil 600 MG Tablet PO (06:34)
[2019-06-23 06:41] LABS: Bedside Glucose 180 mg/dL (70-110)
[2019-06-23 07:29] LABS: Absolute Lymphocyte Count 1.52 X10^3/uL (0.83-4.51); Absolute Neutrophil Count 3.5 X10^3/uL (2.0-7.7); Basophil# 0.04 X10^3/uL; Basophil% 0.7 % (0-1); Eosinophil# 0.11 X10^3/uL; Eosinophils% 1.8 % (0-5); Hematocrit 32.1 % (37-47); Hemoglobin 10.5 g/dL (12.0-15.0); Lymphocyte # 1.52 X10^3/ul (4.0); Mean Corp Hgb Conc 32.7 g/dL (32-36); Mean Corpuscular Hgb 32.6 pg (27.0-32.0); Mean Corpuscular Volume 99.7 fL (81-99); Mean Platelet Vol. 10.3 fl (6.2-12.0); Monocyte# 0.85 X10^3/uL; NRBC Flagged by Analyzer 0 % (0-5); Neutrophil # 3.53 X10^3/uL (2.7-7.7); Neutrophil % 57.8 % (47-70); Platelet Count 188 K/mm3 (150-450); RBC Distribution Width CV 13.2 % (11.6-14.6); RBC Distribution Width SD 48.2 fl (35.1-43.9); Red Blood Count 3.22 M/mm3 (4.2-5.4); White Blood Count 6.1 K/mm3 (4.4-11.0)
[2019-06-23 08:00] LABS: ALB/GLOB Ratio 0.5 RATIO (0.9-2.4); AST(SGOT) 33 U/L (15-37); Alanine Aminotransfer ALT/SGPT 21 U/L (13-56); Albumin, Serum 2.6 g/dL (3.2-5.0); Alkaline Phosphatase 49 U/L (45-117); Anion Gap 8 (5-15); BUN 23 mg/dL (7-18); BUN/Creat Ratio 22.5 RATIO (10-20); Chloride 104 mmol/L (98-107); Creatinine, Serum 1.02 mg/dL (0.55-1.02); EST Glomerular Filtration Rate 55 mL/min (>60); Est Glom Filt Rate - Afr Amer 67 mL/min (>60); Estimated Creatinine Clearance 41.18 ml/min; Globulin 4.8 g/dL (2.2-4.2); Glucose 194 mg/dL (74-106); Potassium 3.6 mmol/L (3.5-5.1); Protein, Total 7.4 g/dL (6.4-8.2); Sodium Level 136 mmol/L (136-145)
[2019-06-23] MEDS: Aspirin E.C. 81 MG Tablet PO (08:36)
[2019-06-23] MEDS: metFORMIN HCl 500 MG Tablet PO (08:37)
[2019-06-23] MEDS: TICAGRELOR 90 MG TABLET PO (08:37)
[2019-06-23] MEDS: Metoprolol Tartrate 25 MG Tablet PO (08:37)
[2019-06-23] MEDS: Pantoprazole Sodium 20 MG Tablet PO (08:38)
[2019-06-23] MEDS: Gabapentin 300 MG Capsule PO (08:38)
--- NOTE | 2019-06-23 10:14 | DCINST_ITS ---
- Discharge Diagnoses Current Active Problems: Current Active and Chronic Problems STEMI (ST elevation myocardial infarction) (Acute) HTN (hypertension) (Chronic) HLD (hyperlipidemia) (Chronic) CVA (cerebral vascular accident) (Chronic) Diabetes (Chronic) You will use the following diet at home:: Calorie/Carbohydrate Controlled (specify 1200, 1400, etc) - 1800 OSMIN DIET Your food should be the consistency of: Regular Your liquids should be the consistency of: Regular/Thin Discharge Activity: Return to Normal Activity Weight Bearing Status: Full weight bearing Allergies/Adverse Reactions: Allergies niacin [From Niaspan Extended-Release] Allergy (Verified 06/17/19 16:23) Other ramipril [From Altace] Allergy (Verified 06/17/19 16:23) Other Medications to take at Discharge Atorvastatin Calcium [Lipitor] 40 mg PO QHS 06/14/17 Gabapentin [Neurontin] 300 mg PO 4X/DAY 06/14/17 Gemfibrozil [Lopid] 600 mg PO BID 06/14/17 Insulin Glargine,Hum.rec.anlog [Lantus] 15 unit SQ QHS 06/14/17 Metoprolol Tartrate 25 mg PO BID 06/14/17 Docusate Sodium [Colace] 100 mg PO DAILY #20 capsule 04/09/18 metFORMIN HCl [Glucophage] 1,000 mg PO BIDCM 06/17/19 Amox/Clavulanate Tablet [Augmentin Tablet] 500 mg PO TIDCM #15 tab 06/23/19 Aspirin E.C. [Ecotrin] 81 mg PO DAILY@0800 tablet 06/23/19 Ticagrelor [Brilinta] 90 mg PO BID #60 tab 06/23/19 The following prescriptions were given: Amox/Clavulanate Tablet [Augmentin Tablet] 500 mg PO TIDCM #15 tab Transmission Status: Pending to [facility] Ticagrelor [Brilinta] 90 mg PO BID #60 tab Transmission Status: Pending to [facility] Primary Care Physician: Blade Moseley DO [Primary Care Provider] - Please follow up with your Primary Care Physician in: IN 3 WEEKS Test Results: Test results from this visit will be discussed in further detail at your follow- up appointment, if applicable. Please Follow Up With: Pedro Alexandre MD When: IN 2 WEEKS-CALL OFFICE TO ARRANGE
[2019-06-23 12:01] LABS: Bedside Glucose 201 mg/dL (70-110)
--- NOTE | 2019-06-24 09:21 | DS.PCM_ITS ---
Discharge Date and Diagnosis Date of Admission: 06/17/19 Date of Discharge: 06/23/19 - Primary Discharge Diagnosis #1 STEMI-culprit lesion right coronary artery #2 aspiration pneumonia #3 type 2 diabetes #4 essential hypertension #5 hyperlipidemia #6 Occlusive coronary artery disease left anterior descending artery #7 severe mitral regurg #8 acute hypoxic respiratory failure secondary to pulmonary edema from STEMI #9 triple-vessel coronary artery disease - Secondary Discharge Diagnosis Chronic Problems HTN (hypertension) (Chronic) HLD (hyperlipidemia) (Chronic) CVA (cerebral vascular accident) (Chronic) Diabetes (Chronic) Hospital Course and Treatment Operations: None Procedures: 2-D Echocardiogram, Cardiac catheterization - With MATTHEW stent placement RCA Summary of Care Provided: The patient is a 79 year old F who was seen in the emergency room at [facility] after being brought in by squad with complaints of chest pain or shortness of breath, shortly after her arrival to the emergency room, patient was intubated due to extreme hypoxia, EKG indicated the patient had an acute STEMI, she was taken to the [facility] and cardiac catheterization revealed triple-vessel coronary artery disease with subtotal blockage of the right coronary artery. PCI with MATTHEW stent placement was carried out in the right coronary artery. Patient was then admitted to ICU, she developed a high fever and was felt to have aspirated-it was noted that during her cardiac catheterization she vomited and some vomitus was noted to be present in the ET tube. Patient was seen by critical care, she was placed on IV antibiotics, and a coronavirus test was ultimately carried out which was negative. Patient improved while in the ICU and ultimately was extubated and transferred to PCU. Ultimately her oxygen was weaned off. On 06/23/2019, patient was seen and examined: On examination she appeared in good health and spirits, she does not appear to be in any distress. Vital signs as documented. Skin warm and dry and without overt rashes. Neck without JVD, thyroid appears normal, trachea is midline, neck is supple. Lungs clear, normal air movement was noted. Heart exam notable for regular rhythm, normal sounds and absence of murmurs, rubs or gallops. Abdomen unremarkable and without evidence of organomegaly, masses, or abdominal aortic enlargement, bowel sounds are present in all 4 quadrants, no abdominal tenderness was noted. Extremities nonedematous, no cyanosis was noted, no clubbing was noted. Neuro: Cranial nerves II through XII are grossly intact, no focal motor deficits were noted, sensation to light touch and pinprick is intact, motor exam 5/5 throughout. Psych: Patient is alert and oriented x3, she does not appear anxious or depressed, she does not appear agitated. On 06/23/2019, patient was seen and examined and felt to be in stable condition for discharge home - Physical Exam Vitals/I&O's: Vital Signs Temp Pulse Resp BP Pulse Ox 98.0 F 72 14 116/68 95 06/23/19 09:15 06/23/19 11:04 06/23/19 09:15 06/23/19 09:15 06/23/19 11:38 Oxygen Flow Rate (L/min) 1.5 Oxygen Delivery Method Room Air Weight: 65 kg Body Mass Index (BMI) 24.0 Intake and Output for Last 24 Hours 06/22/19 06/23/19 06/24/19 23:59 23:59 23:59 Intake Total 600 / 600 60 / 60 Output Total 1675 / 1675 Balance -1075 / -1075 60 / 60 Microbiology Past 72 Hours 06/19/19 07:58 Wash - Bronchial Wash Gram Stain - Final 06/19/19 07:58 Wash - Bronchial Wash Respiratory Culture - Final Mixed normal respiratory lneora. No Streptococcus pneumoniae, beta-hemolytic Streptococcus or Staphylococcus aureus isolated. 06/18/19 03:46 Blood Culture (Wb) - Anticubital Left Blood Culture - Final No growth in 5 days. 06/18/19 03:30 Blood Culture (Wb) - Left Hand Blood Culture - Final No growth in 5 days. Laboratory Results 06/23/19 11:38: POC Glucose 201 H Discharge Activity: Return to Normal Activity Weight Bearing Status: Full weight bearing Home Medications: Medications to take at Discharge Atorvastatin Calcium [Lipitor] 40 mg PO QHS 06/14/17 Gabapentin [Neurontin] 300 mg PO 4X/DAY 06/14/17 Gemfibrozil [Lopid] 600 mg PO BID 06/14/17 Insulin Glargine,Hum.rec.anlog [Lantus] 15 unit SQ QHS 06/14/17 Metoprolol Tartrate 25 mg PO BID 06/14/17 Docusate Sodium [Colace] 100 mg PO DAILY #20 capsule 04/09/18 metFORMIN HCl [Glucophage] 1,000 mg PO BIDCM 06/17/19 Amox/Clavulanate Tablet [Augmentin Tablet] 500 mg PO TIDCM #15 tab 06/23/19 Aspirin E.C. [Ecotrin] 81 mg PO DAILY@0800 tab 06/23/19 Ticagrelor [Brilinta] 90 mg PO BID #60 tab 06/23/19 Following Prescrptions Were Given to Patient: Amox/Clavulanate Tablet [Augmentin Tablet] 500 mg PO TIDCM #15 tab Transmission Status: Received by [facility] Ticagrelor [Brilinta] 90 mg PO BID #60 tab Transmission Status: Received by [facility] Primary Care Physician: Blade Moseley DO [Primary Care Provider] - Please follow up with your Primary Care Physician in: IN 3 WEEKS Please Follow Up With: Pedro Alexandre MD When: IN 2 WEEKS-CALL OFFICE TO ARRANGE Disposition: Home with Home Health Minutes spent on discharge:: 31 Patient Condition:: Stable Medical Necessity - Tobacco Use Smoking Status: Unknown if ever smoked Tobacco Use: Non-smoker Meaningful Use Info Meaningful Use Diagnoses (Choose all that apply): AMI - AMI/Post PCI/Angioplasty Aspirin given w/in 24hrs of arrival?: Yes ASA at discharge?: Yes Antiplatelet Therapy at Discharge:: Yes Statins at discharge?: Yes Elvin/ARB at discharge?: No Reason Elvin/ARB not ordered:: Allergy Beta Abel at discharge?: Yes Done w/ Acute [place] measure.: Yes Documented LVEF (%): 55 Inpatient E&M: [id number] Disch Hosp
--- NOTE | 2019-06-25 13:00 | CASEMGMT ---
FLOR SERRANO Discharge Follow-up Phone Call: KEHINDE: Alexandra Strata: 3 Call Date: 06/25/19 Discharge Date: 06/23/19 Time of Call: 1300 Duration: 1 min Admitting Diagnosis: Chest pain RN ZACH attempted to complete follow-up phone call after recent hospitalization. No answer, voice message left with return contact information. Patient was setup with [facility] at discharge.
--- NOTE | 2019-06-26 11:04 | CASEMGMT ---
RN CM Note: Hosp to Post acute COVID-19 transfer Comm Tool faxed to [facility]. COVID 19 testing negative. Pramod DURBINN RN ACM
== END 2019-06-23 14:02 | disposition home health service (06) | DRG 246 ==
LOC: ED 16:31 → ICU 06-18 09:25 → MS2 06-22 06:57 → PCU 06-22 10:33
PROVIDERS: Family Medicine; Hospitalist; Internal Medicine Critical Care Medicine; Admitting Provider Internal Medicine; Emergency Provider Emergency Medicine; PCP Family Medicine; Referring Provider Specialist; Visit Provider Internal Medicine
DX: I21.19 ST elevation (STEMI) myocardial infarction involving other coronary artery of inferior wall (principal); J69.0 Pneumonitis due to inhalation of food and vomit; J96.01 Acute respiratory failure with hypoxia; I50.20 Unspecified systolic (congestive) heart failure; I11.0 Hypertensive heart disease with heart failure; E78.5 Hyperlipidemia, unspecified; I34.0 Nonrheumatic mitral (valve) insufficiency; I25.10 Atherosclerotic heart disease of native coronary artery without angina pectoris; E11.40 Type 2 diabetes mellitus with diabetic neuropathy, unspecified; I65.29 Occlusion and stenosis of unspecified carotid artery; Z86.73 Personal history of transient ischemic attack (TIA), and cerebral infarction without residual deficits; Z79.82 Long term (current) use of aspirin; Z79.899 Other long term (current) drug therapy; Z87.891 Personal history of nicotine dependence
CPT/HCPCS: 31500; 31720; 36415; 51702; 71045; 80048; 80053; 81001; 82803; 82962; 83880; 84145; 84484; 85025; 85027; 85610; 85730; 87040; 87070; 87086; 87205; 87633; 87635; 87641; 92941; 93005; 93306; 93458; 94002; 94003; 94660; 97110; 97116; 97162; 97166; 97530; 97535; 97802; 97803; 99152; 99153; 99251; 99285; J7030; J7040; J7050; Q9967; A4216; C1725; C1769; C1874; C1887; C1894; C9606; G0463; J0295; J0330; J1327; U0004

== ENCOUNTER → 2019-08-02 07:51 | Outpatient (CLI) | payer MEDICARE, SELFPAY ==
[2019-07-04 09:34] VITALS: BMI 24.0
[2019-08-01 14:16] VITALS: BMI 25.7
[2019-08-02 08:18] LABS: Absolute Lymphocyte Count 2.17 X10^3/uL (0.83-4.51); Absolute Neutrophil Count 2.4 X10^3/uL (2.0-7.7); Basophil# 0.05 X10^3/uL; Basophil% 0.9 % (0-1); Eosinophil# 0.21 X10^3/uL; Eosinophils% 3.9 % (0-5); Hematocrit 36.1 % (37-47); Hemoglobin 11.3 g/dL (12.0-15.0); Lymphocyte # 2.17 X10^3/ul (4.0); Lymphocyte % 39.9 % (19-41); Mean Corp Hgb Conc 31.3 g/dL (32-36); Mean Corpuscular Volume 102.3 fL (81-99); Mean Platelet Vol. 9.2 fl (6.2-12.0); Monocyte# 0.59 X10^3/uL; Monocyte% 10.8 % (0-10); NRBC Flagged by Analyzer 0 % (0-5); Neutrophil # 2.36 X10^3/uL (2.7-7.7); Neutrophil % 43.4 % (47-70); Platelet Count 218 K/mm3 (150-450); RBC Distribution Width SD 60.1 fl (35.1-43.9); Red Blood Count 3.53 M/mm3 (4.2-5.4); White Blood Count 5.4 K/mm3 (4.4-11.0)
[2019-08-02 08:37] LABS: Hemoglobin A1c 6.6 % (3.8-5.6)
[2019-08-02 09:04] LABS: ALB/GLOB Ratio 0.8 RATIO (0.9-2.4); AST(SGOT) 18 U/L (15-37); Alanine Aminotransfer ALT/SGPT 20 U/L (13-56); Albumin, Serum 3.4 g/dL (3.2-5.0); Alkaline Phosphatase 53 U/L (45-117); Anion Gap 7 (5-15); BUN 15 mg/dL (7-18); BUN/Creat Ratio 13.6 RATIO (10-20); Calcium,Total 9.8 mg/dL (8.5-10.1); Chloride 106 mmol/L (98-107); Cholesterol 145 mg/dL (200); EST Glomerular Filtration Rate 51 mL/min (>60); Est Glom Filt Rate - Afr Amer 61 mL/min (>60); Globulin 4.3 g/dL (2.2-4.2); Glucose 116 mg/dL (74-106); High Density Lipoprotein 28 mg/dL; Microalbumin:Creatinine Ratio 1120.4 mg/g CRE (<30 mg/g CRE); Potassium 3.9 mmol/L (3.5-5.1); Protein, Total 7.7 g/dL (6.4-8.2); Sodium Level 139 mmol/L (136-145); Triglycerides 411 mg/dL
== END ==
LOC: LAB.FUTURE 07:56 → LAB 07:57
PROVIDERS: Family Provider Family Medicine; PCP Family Medicine; Referring Provider Family Medicine; Visit Provider Family Medicine
DX: I12.9 Hypertensive chronic kidney disease with stage 1 through stage 4 chronic kidney disease, or unspecified chronic kidney disease (principal); E11.22 Type 2 diabetes mellitus with diabetic chronic kidney disease; E11.49 Type 2 diabetes mellitus with other diabetic neurological complication; N18.3 Chronic kidney disease, stage 3 (moderate); E78.5 Hyperlipidemia, unspecified; D64.9 Anemia, unspecified
CPT/HCPCS: 36415; 80053; 80061; 82043; 82570; 83036; 85025

== ENCOUNTER 2019-12-08 00:20 | Emergency (ER) | payer MEDICARE, SELFPAY ==
[2019-10-02 13:22] VITALS: BMI 25.9
[2019-12-08 00:22] VITALS: BP 167/106; PULSE 89; RESP 14; TEMP 36.7; O2SAT 97; BMI 25.0
--- NOTE | 2019-12-08 00:32 | RAD_ITS ---
STUDY: X-RAY - RIGHT WRIST REASON FOR EXAM: Female, 79 years old. NKI -- C/O RT WRIST AND THUMB AREA PAIN X 2+DAYS TECHNIQUE: 4 view(s) of the wrist were obtained. COMPARISON: None. FINDINGS: Normal visualized distal radius and ulna. Normal radiocarpal articulation. Normal distal radioulnar articulation. Normal carpal bones. Normal carpal articulations. There is degenerative arthrosis of the carpometacarpal articulation of the thumb. Normal second through fifth carpometacarpal articulations. Normal visualized metacarpal bones. The soft tissue structures are unremarkable. 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 There is NO fracture or dislocation. Electronically Signed: Preet Katz MD at 1:01 EDT , Service support ,
--- NOTE | 2019-12-08 00:35 | ED.VIS.UPPEX ---
History of Present Illness Chief Complaint: Upper Extremity Injury Informant: Patient Onset: Days - 2-3 Context: Gradual Onset Timing: Continuous Quality of Pain: Aching Location: mostly radial side of R wrist Current Severity: Severe Maximum Severity: Severe Worsened by: moving wrist and/or thumb Relieved by: remaining still Associated Symptoms: Negative for: Parasthesia, Weakness Narrative: Patient denies a known injury but noted yesterday when she was crocheting, she is having a lot of pain in her right wrist and thumb. Pain is gotten worse. She denies any fevers or chills. History is limited she is very hard of hearing. When asked if she has had a history of gout, she states no and her son who lives with her says yes. She is confused about this and states she does not think she has had that before. Patient is a diabetic. - Past Medical History (1) Atherosclerosis of coronary artery of [place] heart without angina pectoris Status: Chronic (2) CVA (cerebral vascular accident) Status: Chronic (3) Essential hypertension Status: Chronic (4) HLD (hyperlipidemia) Status: Chronic (5) History of coronary artery stent placement Status: Chronic Comment: 3.00 x 20 Synergy MR MATTHEW to dRCA, 3.00 x 28 mm Synergy MR MATTHEW to pRCA, 3.00 x 38 mm Synergy MR to mRCA 06/17/19 (6) Mitral valve insufficiency Status: Chronic (7) Nonrheumatic aortic (valve) insufficiency Status: Chronic Past Medical History - Allergies and Home Meds Allergies/Adverse Reactions: Allergies niacin [From Niaspan Extended-Release] Allergy (Verified 12/08/19 00:22) Other ramipril [From Altace] Allergy (Verified 12/08/19 00:22) Other Primary Care Physician: Blade Moseley DO [Primary Care Provider] - Surgical History: no surgical history Lives: With Family Smoking Status: Never smoker - Family History Maternal Family History: Reports: Unknown Paternal Family History: Reports: No pertinent history Review of Systems General: Denies: Chills, Fever, Malaise, Sweats Musculoskeletal: Reports: Extremity Pain. Denies: Neck pain, Back pain, Swelling Skin: Reports: - - Redness right wrist Neurological: Denies: Headache, Weakness, Numbness Physical Exam Vital Signs/Narrative: Vital Signs Temp Pulse Resp BP Pulse Ox 12/08/19 00:22 98.1 F 89 14 167/106 H 97 General: Well nourished, Well developed Head: Normocephalic, Atraumatic ENT: No Trauma, Moist Mucous Membranes Neck: Nontender, Full ROM Extremeties: Very limited range of motion of the right wrist due to pain. There is mild swelling throughout, especially noticed dorsally. All of that is tender, even more the ulnar aspect dorsally. When keeping her wrist immobilized, she is able to move her thumb and range it pretty well. Supination/pronation really increases her pain at the wrist. No obvious nidus for any infection or discrete lesions. The mild erythema at the radial aspect of the wrist is not well-circumscribed. No other skin lesions or epitrochlear lymphadenopathy present. Skin: No rash. Negative for: Normal color - Mild erythema radial aspect of right wrist dorsum, and including the base of the thumb. 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 There is NO fracture or dislocation. Electronically Signed: Preet Katz MD at 1:01 EDT , Service support , 12/08/19 00:32 Wrist min 3 Views [RAD] Stat 12/08/19 00:50 Fluid - Synovial (joint) Gram Stain - Preliminary Laboratory Results 12/08/19 12/08/19 01:00 01:00 WBC 7.5 RBC 3.92 L Hgb 12.6 Hct 39.1 MCV 99.7 H MCH 32.1 H MCHC 32.2 RDW Std Deviation 50.5 H RDW Coeff of Hebert 13.8 Plt Count 214 MPV 9.9 Immature Gran % (Auto) 0.300 Neut % (Auto) 50.8 Lymph % (Auto) 34.7 [place] % (Auto) 11.7 H Eos % (Auto) 2.0 Baso % (Auto) 0.5 Absolute Neuts (auto) 3.8 Absolute Lymphs (auto) 2.60 Nucleated RBC % 0 Sodium 137 Potassium 4.1 Chloride 104 Carbon Dioxide 23.0 Anion Gap 10 BUN 34 H Creatinine 1.37 H Estim Creat Clear Calc 28.28 Est GFR (MDRD) Af Amer 48 L Est GFR (MDRD) Non-Af 39 L BUN/Creatinine Ratio 24.8 H Glucose 173 H Uric Acid 8.2 H Calcium 9.9 - Medical Decision Making I suspect this is gouty arthritis. However, the patient said that she had an infection in her left hand/wrist once that she indicates needed surgery, the details of all of that are unknown, so I recommended an arthrocentesis. The results are as above, see the procedure note. Very little fluid was available but it was reassuring with a positive string sign. I think the chances of this being infected are low, but I did send it for a culture that is pending. I do not have the results of the Gram stain yet. Patient wants to go home before it is back. Her uric acid level is high, and she has no leukocytosis. These are also consistent with gouty arthritis, as is her exam. After colchicine and ibuprofen, she is improved and able to move her wrist better. Again, consistent with gout and less consistent with infection. At this time I do not think she needs any other emergent studies that I am able to get here in the ER within reason. Discussed risk and benefits and reasons to return, including if the area gets worse, to discontinue the prednisone return to the ER immediately. She and the son are comfortable with this overall plan. Given a wrist plan for comfort. Advised to follow-up. Procedures Procedure(s): Right wrist arthrocentesis: After informed consent, the patient was locally anesthetized with 1 cc of plain 1% lidocaine over the dorsum of the wrist, about mid distal radius, after isopropanol prep. I then inserted a 21-gauge needle into the carpal joint, I was able to withdraw only a very small amount of bloody joint fluid with a positive string sign. There is not enough for crystal or cell count analysis, so those were canceled and it was sent for culture. ED Disposition - Plan for ED Patient: Disposition: Home or Assisted Living Diagnosis: Arthritis of right wrist Instructions: ED Osteoarthritis, ED ARTHRITIS Gout Prescriptions: Prednisone [Deltasone] 20 mg PO DAILY #5 tab Transmission Status: Pending to [id number] Referrals: Blade Moseley, DO [Primary Care Provider] - 1-2 Days if not improving Additional Instructions: Use the wrist splint as needed for comfort/pain. Make sure and look at the painful area daily; if at any point it is looking worse or more red/swollen, or you develop fever and chills, stop the prednisone and return to the ER immediately. Expect that your blood sugars may go up with the prednisone, which is why we are putting you on a half dose. You may need to increase your Lantus injection dosing every night. Discussed with your doctor according to what your blood sugars are, if they go up.
[2019-12-08 01:10] LABS: Absolute Neutrophil Count 3.8 X10^3/uL (2.0-7.7); Basophil# 0.04 X10^3/uL; Basophil% 0.5 % (0-1); Eosinophil# 0.15 X10^3/uL; Hematocrit 39.1 % (37-47); Hemoglobin 12.6 g/dL (12.0-15.0); Lymphocyte % 34.7 % (19-41); Mean Corp Hgb Conc 32.2 g/dL (32-36); Mean Corpuscular Hgb 32.1 pg (27.0-32.0); Mean Corpuscular Volume 99.7 fL (81-99); Mean Platelet Vol. 9.9 fl (6.2-12.0); Monocyte# 0.88 X10^3/uL; Monocyte% 11.7 % (0-10); NRBC Flagged by Analyzer 0 % (0-5); Neutrophil # 3.81 X10^3/uL (2.7-7.7); Neutrophil % 50.8 % (47-70); Platelet Count 214 K/mm3 (150-450); RBC Distribution Width CV 13.8 % (11.6-14.6); RBC Distribution Width SD 50.5 fl (35.1-43.9); Red Blood Count 3.92 M/mm3 (4.2-5.4); White Blood Count 7.5 K/mm3 (4.4-11.0)
[2019-12-08 01:24] LABS: Anion Gap 10 (5-15); BUN 34 mg/dL (7-18); BUN/Creat Ratio 24.8 RATIO (10-20); Calcium,Total 9.9 mg/dL (8.5-10.1); Chloride 104 mmol/L (98-107); Creatinine, Serum 1.37 mg/dL (0.55-1.02); EST Glomerular Filtration Rate 39 mL/min (>60); Est Glom Filt Rate - Afr Amer 48 mL/min (>60); Estimated Creatinine Clearance 28.28 ml/min; Glucose 173 mg/dL (74-106); Potassium 4.1 mmol/L (3.5-5.1); Sodium Level 137 mmol/L (136-145); Uric Acid 8.2 mg/dL (2.6-6.0)
[2019-12-08] MEDS: predniSONE 20 MG Tablet 40 MG PO (02:18)
[2019-12-08 02:25] VITALS: BP 139/98; PULSE 87; RESP 15; O2SAT 98
== END 2019-12-08 02:26 | disposition home or self-care (01) ==
PROVIDERS: Emergency Provider Emergency Medicine; PCP Family Medicine
DX: M19.031 Primary osteoarthritis, right wrist (principal); E11.9 Type 2 diabetes mellitus without complications; E78.5 Hyperlipidemia, unspecified; I10 Essential (primary) hypertension; I25.10 Atherosclerotic heart disease of native coronary artery without angina pectoris; I35.1 Nonrheumatic aortic (valve) insufficiency; Z86.73 Personal history of transient ischemic attack (TIA), and cerebral infarction without residual deficits; Z95.5 Presence of coronary angioplasty implant and graft
CPT/HCPCS: 20605; 20610; 36415; 73110; 80048; 84550; 85025; 87070; 87075; 87077; 87205; 99284

== ENCOUNTER → 2020-01-24 12:57 | Outpatient (CLI) | payer MEDICARE, SELFPAY ==
--- NOTE | 2020-01-24 12:58 | ECHOD_ITS ---
Reason For Study: MITRAL REGURG Procedure This was a 2D Doppler, Color Flow transthoracic echocardiogram. Exam performed in department. Left Ventricle Normal LV size. The estimated ejection fraction is 70 %. Unable to assess diastolic dysfunction. No regional wall motion abnormalities noted. Right Ventricle Normal RV size. Normal systolic function. Atria Normal left atrium. Normal right atrium. No doppler evidence for ASD. Mitral Valve There is moderate to severe mitral annular calcification. There is no mitral valve stenosis. Severe (4+) mitral valve insufficiency. Tricuspid Valve There is no tricuspid stenosis. Unable to estimate RV systolic pressure due to insufficient tricuspid regurgitant envelope. Aortic Valve Aortic sclerosis, no stenosis. There is no aortic stenosis. Mild (1+) aortic valve insufficiency. Pulmonic Valve There is no pulmonic valvular stenosis. Trivial pulmonic valve insufficiency. Great Vessels Normal aortic root. Pericardium/Pleural No pericardial effusion. MMode/2D Measurements & Calculations LVIDd: 4.1 cm IVSd: 1.1 cm Ao root diam: 3.7 cm LVIDs: 2.8 cm LVPWd: 1.2 cm RVDd: 3.6 cm FS: 31.5 % LAV(MOD-bp): 50.1 ml LVAd ap4: 29.2 cm2 SV(MOD-sp4): 46.9 ml LAV(MOD-bp) Indexed: 30.8 ml/m2 EDV(MOD-sp4): 86.0 ml LAV(MOD-sp2): 61.2 ml EDV(sp4-el): 93.1 ml LAV(MOD-sp4): 30.3 ml LVAs ap4: 17.4 cm2 ESV(MOD-sp4): 39.0 ml ESV(sp4-el): 41.8 ml EF(MOD-sp4): 54.6 % EF(sp4-el): 55.1 % SV(sp4-el): 51.2 ml LA A4 area: 12.8 cm2 LA dimension(2D): 4.2 cm RA A4 area: 10.7 cm2 Time Measurements MV dec time: 0.34 sec Doppler Measurements & Calculations MV E max stu: 97.7 cm/sec Lat Peak E' Stu: 4.4 cm/sec Med Peak E' Stu: 3.0 cm/sec MV A max stu: 154.3 cm/sec E/E' lat: 22.3 E/E' med: 32.2 MV E/A: 0.63 MV V2 max: 179.1 cm/sec Ao V2 max: 153.6 cm/sec AI max stu: 379.8 cm/sec MV max P.8 mmHg Ao max P.4 mmHg AI max P.8 mmHg MV V2 mean: 89.0 cm/sec MV mean P.7 mmHg AI dec slope: 251.8 cm/sec2 MV V2 VTI: 32.0 cm AI P1/2t: 441.8 msec LV V1 max: 120.4 cm/sec PA V2 max: 93.2 cm/sec PI end-d stu: 76.3 cm/sec LV V1 max P.8 mmHg TR max stu: 280.9 cm/sec MV P1/2t-pr_phl: 105.4 msec TR max P.6 mmHg Interpretation Summary The estimated ejection fraction is 70 %. Unable to assess diastolic dysfunction. Severe (4+) mitral valve insufficiency. Mild (1+) aortic valve insufficiency. Ordering Physician: Pedro Alexandre Referring Physician: REBECCA DE LA GARZA Performed By: Natalia Pemberton, YAJAIRA, RVT
== END ==
PROVIDERS: PCP Family Medicine; Visit Provider Specialist
DX: I34.0 Nonrheumatic mitral (valve) insufficiency (principal); I35.1 Nonrheumatic aortic (valve) insufficiency; I25.10 Atherosclerotic heart disease of native coronary artery without angina pectoris; I10 Essential (primary) hypertension
CPT/HCPCS: 93306

== ENCOUNTER → 2020-02-04 15:20 | Outpatient (CLI) | payer MEDICARE, SELFPAY ==
[2020-02-04 17:35] LABS: Anion Gap 5 (5-15); BUN 23 mg/dL (7-18); BUN/Creat Ratio 18.5 RATIO (10-20); Calcium,Total 10.4 mg/dL (8.5-10.1); Chloride 105 mmol/L (98-107); Creatinine, Serum 1.24 mg/dL (0.55-1.02); EST Glomerular Filtration Rate 44 mL/min (>60); Est Glom Filt Rate - Afr Amer 53 mL/min (>60); Glucose 151 mg/dL (74-106); Potassium 4.4 mmol/L (3.5-5.1); Sodium Level 138 mmol/L (136-145)
== END ==
PROVIDERS: PCP Family Medicine; Visit Provider Family Medicine
DX: E11.49 Type 2 diabetes mellitus with other diabetic neurological complication (principal); N18.31 Chronic kidney disease, stage 3a
CPT/HCPCS: 36415; 80048

== ENCOUNTER 2020-03-10 18:10 | Emergency (ER) | payer MEDICARE, SELFPAY ==
[2020-02-26 13:02] VITALS: BMI 24.3
[2020-03-10] VITALS (7 sets, daily range): BP systolic 122–162; BP diastolic 62–91; PULSE 87–106; RESP 19–29; TEMP 38.6; O2SAT 91–98; BMI 25.7
--- NOTE | 2020-03-10 18:15 | EKG12_ITS ---
Test Reason : SOB Blood Pressure : / mmHG Vent. Rate : 100 BPM Atrial Rate : 100 BPM P-R Int : 134 ms QRS Dur : 084 ms QT Int : 364 ms P-R-T Axes : 023 -49 031 degrees QTc Int : 469 ms Normal sinus rhythm Left anterior fascicular block Inferior infarct , age undetermined Abnormal ECG Confirmed by MARLO KEMP, ANEL ([id number]), online editor YANIRA ESQUIVEL ([id number]) on 03/17/2020 9:14:51 AM Referred By: JAYESH Confirmed By:STEVEN SELLERS MD
--- NOTE | 2020-03-10 18:17 | ED.DCSUM_ITS ---
History of Present Illness Chief Complaint: Shortness of Breath Informant: Patient, [facility] Onset: Days - 3 days prior to arrival Context: Sudden Onset Timing: Continuous Quality: Shortness of breath, fever, cough Location: Infectious Current Severity: Moderate Maximum Severity: - - Not certain Worsened by: Dyspnea on exertion Relieved by: Nothing Associated Symptoms: Exposure to Covid 4 days prior to [place] Narrative: Patient is an 79-year-old woman with history of coronary disease, hypertension, hyperlipidemia, CVA and diabetes who arrived by ambulance because of shortness of breath. Pulse ox on room air at residence was 86%. Patient's cough is scantly positive for sputum. She cannot tell me color. She is not a good informant either because of infectious encephalopathy and or hard of hearing. Patient is slow to respond. She does know her age. She does know the month is February. She thought the year was 2001. There is no history of dementia per review of prior records. Prior similar symptoms: Yes - Per old records respiratory failure with hypoxia due to pneumonia Recent Illness/Hospitalization: No - Past Medical History (1) Nonrheumatic aortic (valve) insufficiency Status: Chronic (2) Mitral valve insufficiency Status: Chronic (3) Atherosclerosis of coronary artery of [place] heart without angina pectoris Status: Chronic (4) Essential hypertension Status: Chronic (5) History of coronary artery stent placement Status: Chronic Comment: 3.00 x 20 Synergy MR MATTHEW to dRCA, 3.00 x 28 mm Synergy MR MATTHEW to pRCA, 3.00 x 38 mm Synergy MR to mRCA 06/17/19 (6) HLD (hyperlipidemia) Status: Chronic (7) CVA (cerebral vascular accident) Status: Chronic Past Medical History - Allergies and Home Meds Allergies/Adverse Reactions: Allergies niacin [From Niaspan Extended-Release] Allergy (Verified 03/10/20 18:23) Other ramipril [From Altace] Allergy (Verified 03/10/20 18:23) Other Primary Care Physician: Blade Moseley DO [Primary Care Provider] - Prior records reviewed: Yes Surgical History: no surgical history Lives: With Family Smoking Status: Never smoker Alcohol: None Drugs: None - Family History Maternal Family History: Reports: Unknown Paternal Family History: Reports: No pertinent history Review of Systems ROS: Unable to Obtain - Not a good informant as documented in the HPI General: Reports: Fever, Malaise Respiratory: Reports: Dyspnea, Cough, Sputum Gastrointestinal: Denies: Abdominal pain, Nausea, Vomiting Genitourinary: Denies: Dysuria, Hematuria, Frequency Skin: Denies: Rash Neurological: Reports: Headache, Weakness Hematologic: Denies: Easy bruising Physical Exam Inital Vital Signs reviewed: Yes General: Well nourished, Well developed, No Acute Distress Head: Normocephalic, Atraumatic Eyes: Perrl, EOMI. Negative for: Pale conjunctiva, Scleral icterus ENT: TM's clear, Nasal congestion. Negative for: No rhinorrhea Neck: Supple, Nontender, No lymphadenopathy, No JVD Cardiovascular: Regular rhythm, No murmurs, Normal S1, Normal S2, Tachycardia Respiratory: Chest nontender, Rales, Decreased Air Movement, - - Breathing is shallow and rapid.. Negative for: No distress, CTA bilaterally Abdomen: Soft, Nontender, Nondistended, Normal bowel sounds Rectal: Deferred Back: Nontender, Normal Inspection Extremities: Nontender, No edema. Negative for: Tenderness Skin: Normal color, No rash, No Trauma. Negative for: Cyanosis, Diaphoresis, Jaundice Neurological: Cranial nerves II-XII grossly intact, Normal Strength, Normal Sensation. Negative for: Alert, Oriented x3, Normal Gait Psychological: - - Unable to determine Diagnostic/Tx/Re-eval Chest X-Ray - ED: 1 View, Read by ED Physician, Heart, Mediastinum, Right Infiltrate, Left Infiltrate Impressions Chest X-Ray 03/10/20 19:20 IMPRESSION: Bilateral infiltrates. Electronically Signed: Benny Swanson DO at 20:04 EST Tel [phone], Service support , 03/10/20 19:20 Chest 1 View (Portable) [RAD] Stat 03/10/20 18:55 Mucosa - Nose SARS-CoV-2 Antigen (Rapid) - Final SARS-CoV-2 (COVID 19) 03/10/20 18:23 Mucosa - Nose Influenza Types A,B Direct FA (CELESTINO) - Final Laboratory Results 03/10/20 03/10/20 03/10/20 18:35 18:35 18:35 WBC 5.0 RBC 3.62 L Hgb 11.8 L Hct 35.1 L MCV 97.0 MCH 32.6 H MCHC 33.6 RDW Std Deviation 48.7 H RDW Coeff of Hebert 13.6 Plt Count 195 MPV 9.7 Immature Gran % (Auto) 0.800 Neut % (Auto) 73.9 H Lymph % (Auto) 18.4 L [place] % (Auto) 6.7 Eos % (Auto) 0.0 Baso % (Auto) 0.2 Absolute Neuts (auto) 3.7 Absolute Lymphs (auto) 0.91 Nucleated RBC % 0 PT 16.7 H INR 1.4 APTT 36.2 Specimen Type VBG pH VBG pO2 VBG HCO3 VBG Total CO2 VBG O2 Sat (Calc) VBG Base Excess POC Mix VBG pCO2 Pt Tmp Sodium 135 L Potassium 3.3 L Chloride 97 L Carbon Dioxide 27.0 Anion Gap 11 BUN 22 H Creatinine 1.20 H Estim Creat Clear Calc 29.57 Est GFR (MDRD) Af Amer 56 L Est GFR (MDRD) Non-Af 46 L BUN/Creatinine Ratio 18.3 Glucose 200 H Lactic Acid Calcium 7.9 L Total Bilirubin 0.80 AST 64 H ALT 35 Alkaline Phosphatase 48 Total Protein 8.0 Albumin 2.8 L Globulin 5.2 H Albumin/Globulin Ratio 0.5 L 03/10/20 03/10/20 18:35 19:16 WBC RBC Hgb Hct MCV MCH MCHC RDW Std Deviation RDW Coeff of Hebert Plt Count MPV Immature Gran % (Auto) Neut % (Auto) Lymph % (Auto) [place] % (Auto) Eos % (Auto) Baso % (Auto) Absolute Neuts (auto) Absolute Lymphs (auto) Nucleated RBC % PT INR APTT Specimen Type CARLOS ENRIQUE VBG pH 7.51 H VBG pO2 32 VBG HCO3 27 H VBG Total CO2 28 VBG O2 Sat (Calc) 69 VBG Base Excess 4 H POC Mix VBG pCO2 Pt Tmp 33.9 L Sodium Potassium Chloride Carbon Dioxide Anion Gap BUN Creatinine Estim Creat Clear Calc Est GFR (MDRD) Af Amer Est GFR (MDRD) Non-Af BUN/Creatinine Ratio Glucose Lactic Acid 1.8 Calcium Total Bilirubin AST ALT Alkaline Phosphatase Total Protein Albumin Globulin Albumin/Globulin Ratio White count is on the low normal side. Lactate is normal. VBG reveals a alkalosis. Comprehensive metabolic panel was marked for an elevated creatinine of 1.2 and glucose of 200. Influenza screen was negative. Covid is positive. In light of the pulse ox of 86% on room air by squad concerned she may deteriorate. Her lowest oxygen saturation at rest was 90%. Will ambulate to determine if patient desaturates. She did receive 10 mg of Decadron IV push. Pulse ox dropped to 91% with activity. Patient does qualify for home oxygen. She has not a candidate for monoclonal antibody. A prescription for Decadron was dispensed. - Medical Decision Making Presents with infectious respiratory symptoms. Need to rule out viral i.e. influenza versus Covid versus other viral causes. Also need to evaluate for bacterial infection and sepsis. Patient has fine rales noted bilaterally. Unable to cooperate to assess for egophony or increased vocal fremitus. Chest x-ray is obtained to evaluate for pneumonia. EKG to rule out cardiac ischemia since she has history of coronary disease as well as prior stroke. Antibiotics were not initially ordered since differential includes influenza, Covid and other viral causes. Patient demanded food. She was told there are more pressing medical tests that need to be done prior to her being fed. Family member states she has to eat now. Family was told she does not need to eat now. Is more important to assess whether she needs to be admitted versus outpatient therapy with oxygen. ED Disposition - Plan for ED Patient: Disposition: Home or Assisted Living Diagnosis: Pneumonia due to COVID-19 virus, Hyperglycemia, Acute renal insufficiency Instructions: Coronavirus Disease 2019 (COVID-19): Caring for Yourself or Others, Coronavirus Disease 2019 (COVID-19): Overview Prescriptions: Dexamethasone [Decadron] 6 mg PO DAILY 5 Days #5 tab Transmission Status: Pending to [id number] Referrals: Blade Moseley DO [Primary Care Provider] - As Needed
[2020-03-10] MEDS: Acetaminophen 325 MG Tablet 650 MG PO (18:42)
[2020-03-10] MEDS: 0.9% Normal Saline 1,000 ML 150 ML IV (18:42)
[2020-03-10] MEDS: dexAMETHasone 10 MG/ML Vial IV (18:43)
[2020-03-10 18:48] LABS: Absolute Lymphocyte Count 0.91 X10^3/uL (0.83-4.51); Absolute Neutrophil Count 3.7 X10^3/uL (2.0-7.7); Basophil# 0.01 X10^3/uL; Basophil% 0.2 % (0-1); Hematocrit 35.1 % (37-47); Hemoglobin 11.8 g/dL (12.0-15.0); Lymphocyte # 0.91 X10^3/ul (4.0); Lymphocyte % 18.4 % (19-41); Mean Corp Hgb Conc 33.6 g/dL (32-36); Mean Corpuscular Hgb 32.6 pg (27.0-32.0); Mean Platelet Vol. 9.7 fl (6.2-12.0); Monocyte# 0.33 X10^3/uL; Monocyte% 6.7 % (0-10); NRBC Flagged by Analyzer 0 % (0-5); Neutrophil # 3.66 X10^3/uL (2.7-7.7); Neutrophil % 73.9 % (47-70); Platelet Count 195 K/mm3 (150-450); RBC Distribution Width CV 13.6 % (11.6-14.6); RBC Distribution Width SD 48.7 fl (35.1-43.9); Red Blood Count 3.62 M/mm3 (4.2-5.4)
[2020-03-10 19:03] LABS: International Normalized Ratio 1.4; Partial Thromboplast Time 36.2 Seconds (24.1-36.2); Prothrombin Time (Protime)PT. 16.7 SECONDS (11.7-14.9)
[2020-03-10 19:04] LABS: ALB/GLOB Ratio 0.5 RATIO (0.9-2.4); AST(SGOT) 64 U/L (15-37); Alanine Aminotransfer ALT/SGPT 35 U/L (13-56); Albumin, Serum 2.8 g/dL (3.2-5.0); Alkaline Phosphatase 48 U/L (45-117); Anion Gap 11 (5-15); BUN 22 mg/dL (7-18); BUN/Creat Ratio 18.3 RATIO (10-20); Calcium,Total 7.9 mg/dL (8.5-10.1); Chloride 97 mmol/L (98-107); EST Glomerular Filtration Rate 46 mL/min (>60); Est Glom Filt Rate - Afr Amer 56 mL/min (>60); Estimated Creatinine Clearance 29.57 ml/min; Globulin 5.2 g/dL (2.2-4.2); Glucose 200 mg/dL (74-106); Potassium 3.3 mmol/L (3.5-5.1); Sodium Level 135 mmol/L (136-145)
[2020-03-10 19:07] LABS: Lactic Acid 1.8 mmol/L (0.4-1.9)
--- NOTE | 2020-03-10 19:20 | RAD_ITS ---
STUDY: X-RAY CHEST REASON FOR EXAM: Female, 79 years old. Fever. Shortness of breath. Productive cough since March 07. TECHNIQUE: Single AP portable view of the chest. COMPARISON: 06/18/2019 FINDINGS: The lungs are well expanded. There is density at the right lung base and left upper lobe. The possibility of a retrocardiac infiltrate left lung base is also considered. There is no demonstrated pleural abnormality. There is borderline cardiomegaly. Normal mediastinum and paul. Normal visualized pulmonary arteries. There is atherosclerotic calcification of the aortic arch with tortuosity. There are diffuse degenerative changes of the visualized thoracic spine. There is degenerative osteoarthritis of the bilateral shoulders. There is no demonstrated abnormality of the visualized soft tissue structures of the upper abdomen. RAD/Chest 1 View (Portable) IMPRESSION: Bilateral infiltrates. Electronically Signed: Benny Swanson DO at 20:04 EST Tel [phone], Service support ,
[2020-03-10 19:21] LABS: Blood Gas Specimen Type VEN; VBG BASE EXCESS 4 mmol/L (-1.0-3.5); VBG Bicarbonate 27 mmol/L (22-26); VBG PO2 32 mmHg (25-40); VBG SO2 69 % (50-70); VBG TCO2 28 mmol/L (23-33); VBG pCO2 33.9 mmHg (41-51); VBG pH 7.51 (7.32-7.42)
--- NOTE | 2020-03-10 21:05 | ED.RN ---
Pt resting po 94% on ra. pt walked around room several times. po drop to 91% on ra. Pt c/o wanting to eat. dr clement notified ok to eat
--- NOTE | 2020-03-10 21:41 | CM.ED ---
Social Work Consult: Home oxygen set-up. Informant: Dr. Mcguire This social worker clinical spoke with patient and patient granddaughter. Patient lives alone but has family checking in on patient often. Patient reports to have a medical alert button. Patient alert and oriented. Patient and patient granddaughter agreeable to plan for patient to discharge to home as patient does not meet criteria for admission per Dr. Mcguire. Patient and patient granddaughter agreeable to home oxygen being set up through [employer]. Patient granddaughter to provide transportation to home for patient. Telephone call to [employer]. Patient information provided. Order and demographic sheet faxed to [employer]. Patient to call [employer] when leaving [facility] ED. Patient provided with number to call [employer] on. PLAN: Discharge to home with home oxygen. Tye BARNETT, MEGANS
== END 2020-03-10 22:08 | disposition home or self-care (01) ==
PROVIDERS: Emergency Provider Emergency Medicine; PCP Family Medicine
DX: U07.1 COVID-19 (principal); J12.89 Other viral pneumonia; E11.65 Type 2 diabetes mellitus with hyperglycemia; N28.9 Disorder of kidney and ureter, unspecified; E78.5 Hyperlipidemia, unspecified; I10 Essential (primary) hypertension; I25.10 Atherosclerotic heart disease of native coronary artery without angina pectoris; I35.1 Nonrheumatic aortic (valve) insufficiency; Z86.73 Personal history of transient ischemic attack (TIA), and cerebral infarction without residual deficits; Z95.5 Presence of coronary angioplasty implant and graft
CPT/HCPCS: 71045; 80053; 82803; 83605; 85025; 85610; 85730; 87040; 87426; 87804; 93005; 96361; 96374; 99285; J7030

== ENCOUNTER 2020-03-15 19:42 | Inpatient (IN) | payer MEDICARE, SELFPAY ==
[2020-03-10 18:12] VITALS: BMI 25.7
[2020-03-15] VITALS (8 sets, daily range): BP systolic 138–152; BP diastolic 66–82; PULSE 71–90; RESP 18–29; TEMP 36–36.8; O2SAT 95–96; BMI 25.6; BMI 23.8
--- NOTE | 2020-03-15 20:42 | EKG12_ITS ---
Test Reason : SOB Blood Pressure : / mmHG Vent. Rate : 082 BPM Atrial Rate : 082 BPM P-R Int : 148 ms QRS Dur : 088 ms QT Int : 396 ms P-R-T Axes : 030 -42 019 degrees QTc Int : 462 ms Normal sinus rhythm Left axis deviation Moderate voltage criteria for LVH, may be normal variant Possible Inferior infarct , age undetermined Abnormal ECG Confirmed by GUILLERMINA KEMP, LENARD ([id number]), visual effects editor YANIRA ESQUIVEL ([id number]) on 03/17/2020 8:50:37 AM Referred By: Jaymie Hobson Confirmed By:LENARD SARMIENTO MD
--- NOTE | 2020-03-15 20:57 | ED.DCSUM_ITS ---
- ER Visit Summary Date of Service: 03/15/20 Chief Complaint: Feeling worse and more short of breath History of Present Illness: The patient is a 79 F diagnosed with Covid pneumonitis several days ago. Placed on home O2. States she is feeling worse and feels more short of breath. Denies any history of DVT or PE. Denies any hemoptysis. Physical Examination: Elderly female vital signs are stable. On 2 L she is 95%. She does not look septic or toxic. She does look very weak. HEENT exam unremarkable. Neck nontender no lymphadenopathy. Lungs clear to auscultation bilaterally. Heart regular rhythm rate about 90 no murmur. Abdomen soft nontender normal bowel sounds no peritoneal signs. Patient is moving all 4 extremities. Calves are nontender without edema or cords. Neurologically she is awake and alert with no focal motor deficits. Test Results: Chest x-ray shows bilateral lower lobe infiltrates consistent with Covid pneumonitis. Compared to the most recent chest x-ray it is significantly worse. CBC shows a white count of 4. Hemoglobin 10.6. Hemoglobin was previously 11. Electrolytes unremarkable creatinine 1.2. Glucose elevated at 451. Patient is diabetic. She is currently on Decadron. Gap of 12. Troponin normal. D-dimer is elevated 1.68 I will discuss that with the hospitalist. EKG sinus rhythm rate 82 no acute signs of NE or ischemia and unchanged from her prior EKG from June of this year. Emergency Department Course and Treatment: Early female known Covid pneumonia diagnosed 4 to 5 days ago. Says she is feeling more short of breath and feeling overall worse. Clinically she appears weak. Her vital signs however stable. Repeat exam patient looks weak tired and dyspneic. Given that she is been treated with Decadron and oxygen as an outpatient she seemed failed that and has worsening Covid appearance on her chest x-ray I will speak to the hospitalist about admission. Treatment Plan: Admission for Covid therapeutics. Disposition: Admission Impression: Acute dyspnea Covid pneumonitis failed outpatient therapy History of prior stroke, CAD with cardiac stents Diabetic hyperglycemia History of diabetes This note was generated with LivelyFeedation software. It may contain incorrect words, spelling, and punctuation that were not noted in review of the chart prior to signing ED Disposition - Plan for ED Patient: Referrals: Blade Moseley DO [Primary Care Provider] -
--- NOTE | 2020-03-15 21:00 | RAD_ITS ---
STUDY: X-RAY CHEST REASON FOR EXAM: Female, 79 years old. PT WAS RECENTLY DIAGNOSED WITH PNEUMONIA SENT HOME ON 2L NC. SATS AT HOME WERE 88% ON 2L WITH INCREASED BACK PAIN PER PT TECHNIQUE: Single AP portable view of the chest. COMPARISON: 03/02/2020 FINDINGS: Worsening patchy airspace disease overlies the left mid to lower lung and right lower lobe. There is no demonstrated pleural abnormality. Normal size heart. Normal mediastinum and paul. Normal visualized pulmonary arteries. There is atherosclerotic calcification of the aortic arch with tortuosity. Normal visualized thoracic spine. Normal visualized ribs, clavicles, and shoulders. There is no demonstrated abnormality of the visualized soft tissue structures of the upper abdomen. RAD/Chest 1 View (Portable) IMPRESSION: Setting airspace disease overlies the left mid to lower lobe and right lower lobe concerning for multifocal infiltrates in the appropriate clinical setting. Underlying viral etiology of illness is not excluded, clinically correlate. Electronically Signed: Fortino Lee DO at 21:15 EST , Service support ,
[2020-03-15 21:22] LABS: Absolute Lymphocyte Count 0.27 X10^3/uL (0.83-4.51); Absolute Neutrophil Count 3.9 X10^3/uL (2.0-7.7); Hematocrit 31.8 % (37-47); Hemoglobin 10.6 g/dL (12.0-15.0); Lymphocyte # 0.27 X10^3/ul (4.0); Lymphocyte % 6.1 % (19-41); Mean Corp Hgb Conc 33.3 g/dL (32-36); Mean Corpuscular Hgb 32.2 pg (27.0-32.0); Mean Corpuscular Volume 96.7 fL (81-99); Mean Platelet Vol. 10.6 fl (6.2-12.0); Monocyte% 4.5 % (0-10); NRBC Flagged by Analyzer 0 % (0-5); Neutrophil % 88.5 % (47-70); POSITIVE DIFFERENTIAL YES; Platelet Count 166 K/mm3 (150-450); RBC Distribution Width CV 13.5 % (11.6-14.6); RBC Distribution Width SD 48.1 fl (35.1-43.9); Red Blood Count 3.29 M/mm3 (4.2-5.4); White Blood Count 4.4 K/mm3 (4.4-11.0)
[2020-03-15 21:25] LABS: Differential Indicated SCAN CRITERIA MET
[2020-03-15 21:34] LABS: D-Dimer Quantitative (DVT/PE) 1.68 FEU/ug/m (0.27-0.49)
[2020-03-15 21:50] LABS: Anion Gap 12 (5-15); BUN 25 mg/dL (7-18); BUN/Creat Ratio 20.8 RATIO (10-20); Calcium,Total 8.2 mg/dL (8.5-10.1); Chloride 100 mmol/L (98-107); EST Glomerular Filtration Rate 46 mL/min (>60); Est Glom Filt Rate - Afr Amer 56 mL/min (>60); Estimated Creatinine Clearance 29.57 ml/min; Glucose 451 mg/dL (74-106); Potassium 4.2 mmol/L (3.5-5.1); Sodium Level 134 mmol/L (136-145)
[2020-03-15 21:52] LABS: Differential Comment SCANNED
--- NOTE | 2020-03-15 22:14 | HP.PCM_ITS ---
Problem List (1) Pneumonia due to COVID-19 virus Status: Acute (2) Acute respiratory failure with hypoxia Status: Acute (3) Valvular heart disease Status: Chronic (4) CKD (chronic kidney disease), stage III Status: Chronic Qualifiers: Chronic kidney disease stage 3 subtype: unspecified whether 3a or 3b Qualified Code(s): N18.30 - Chronic kidney disease, stage 3 unspecified (5) Chronic anemia Status: Chronic (6) Diabetes mellitus, type II Status: Chronic Qualifiers: Diabetes mellitus skilled nursing insulin use: with skilled nursing use Diabetes mellitus complication status: with other specified complication Qualified Code(s): E11.69 - Type 2 diabetes mellitus with other specified complication; Z79.4 - 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 insulin (7) Atherosclerosis of coronary artery of [place] heart without angina pectoris Status: Chronic Qualifiers: Coronary Disease-Associated Artery/Lesion type: [place] artery Qualified Code(s): I25.10 - Atherosclerotic heart disease of [place] coronary artery without angina pectoris (8) Essential hypertension Status: Chronic (9) History of coronary artery stent placement Status: Chronic Comment: 3.00 x 20 Synergy MR MATTHEW to dRCA, 3.00 x 28 mm Synergy MR MATTHEW to pRCA, 3.00 x 38 mm Synergy MR to mRCA 06/17/19 (10) HLD (hyperlipidemia) Status: Chronic Qualifiers: Hyperlipidemia type: unspecified Qualified Code(s): E78.5 - Hyperlipidemia, unspecified (11) CVA (cerebral vascular accident) Status: Chronic Qualifiers: CVA mechanism: unspecified Qualified Code(s): I63.9 - Cerebral infarction, unspecified History of Present Illness Date of Admission: 03/15/20 Chief Complaint: Worsening dyspnea, cough, malaise. The patient is a 79 y/o F w/ PMHx: Chronic normocytic anemia, Hx CVA, HTN, HLD, CAD s/p PCI distal RCA, Diabetes mellitus type II who presents to the [facility] ED on 03/15/19 with history of diagnosis COVID 03/10/20 with exposure ~ 4 days prior to [place] with ongoing dyspnea, cough, fevers with pulse ox at that time 86% on RA with discharge on 2L NC and initiation of decadron; however she has been progressively worsening/declining prompting ED return. She also notes nausea without emesis and ongoing abdominal diffuse cramping 8-10/10 in severity but no diarrhea. She denies any alteration to her sense of taste or smell. She does admit to some headaches. Her son and his family has been checking on her since her ED evaluation. Discussed her current status with them and they denied any other ill family members. Work-up in the ED included T 98.3, heart 89, BP 138/72, respiratory 29, 95% on 2 L nasal cannula, CBC with WBC 4.4, hemoglobin 10.6, platelet 166 with lymphopenia, D-dimer 1.68, BMP with sodium 134, BUN/creatinine 25/1.20, glucose 451, troponin less than 0.015, chest x-ray with airspace disease overlying the left mid to left lower lobe as well as right lower lobe concerning for multifocal infiltrates, EKG was sinus rhythm with no acute evidence of ischemia unchanged from prior. Past Medical History Past Medical History (Chronic Problems): Chronic Problems (Last Reviewed 02/26/20 @ 15:[address] Pedro Alexandre MD) Valvular heart disease (Chronic) CKD (chronic kidney disease), stage III (Chronic) Chronic anemia (Chronic) Diabetes mellitus, type II (Chronic) Nonrheumatic aortic (valve) insufficiency (Chronic) Mitral valve insufficiency (Chronic) Atherosclerosis of coronary artery of [place] heart without angina pectoris (Chronic) Essential hypertension (Chronic) History of coronary artery stent placement (Chronic) 3.00 x [address] Synergy MR MATTHEW to dRCA, 3.00 x 28 mm Synergy MR MATTHEW to pRCA, 3.00 x 38 mm Synergy MR to mRCA 06/17/19 STEMI (ST elevation myocardial infarction) (Chronic) HLD (hyperlipidemia) (Chronic) CVA (cerebral vascular accident) (Chronic) Medical History: Medical History (Last Reviewed 02/26/20 @ 15:[address] Pedro Alexandre MD) Nonrheumatic aortic (valve) insufficiency (Chronic) I35.1 Mitral valve insufficiency (Chronic) I34.0 Atherosclerosis of coronary artery of [place] heart without angina pectoris (Chronic) I25.10 Essential hypertension (Chronic) I10 STEMI (ST elevation myocardial infarction) (Chronic) I21.3 HLD (hyperlipidemia) (Chronic) E78.5 CVA (cerebral vascular accident) (Chronic) I63.9 Type 2 diabetes mellitus without complication E11.9 Acute respiratory failure with hypoxia J96.01 Aspiration pneumonia J69.0 Allergies niacin [From Niaspan Extended-Release] Allergy (Verified 03/15/20 19:49) Other ramipril [From Altace] Allergy (Verified 03/15/20 19:49) Other Home Medications: Ambulatory Orders Medication Instructions Recorded Atorvastatin Calcium [Lipitor] 40 mg PO QHS 06/14/17 Gabapentin [Neurontin] 300 mg PO 4X/DAY 06/14/17 Gemfibrozil [Lopid] 600 mg PO BID 06/14/17 Insulin Glargine,Hum.rec.anlog 15 unit SQ QHS 06/14/17 [Lantus] Metoprolol Tartrate 25 mg PO BID 06/14/17 metFORMIN HCl [Glucophage] 1,000 mg PO BIDCM 06/17/19 Aspirin E.C. [Ecotrin] 81 mg PO DAILY@0800 tab 06/23/19 amlodipine 10 mg tablet 10 mg PO DAILY 10/02/19 ticagrelor 90 mg tablet 90 mg PO BID #60 tab 10/02/19 glimepiride 4 mg tablet 4 mg PO BID tab 02/26/20 Dexamethasone [Decadron] 6 mg PO DAILY 5 Days #5 tab 03/10/20 Surgical History: Surgical History (Last Reviewed 02/26/20 @ 15:[address] Pedro Alexandre MD) History of coronary artery stent placement (Chronic) Z95.5 3.00 x [address] Synergy [address] MATTHEW to dRCA, 3.00 x 28 mm Synergy MR MATTHEW to pRCA, 3.00 x 38 mm Synergy MR to mRCA 06/17/19 Surgical History: - - PCI, R CEA, Hysterectomy. 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 Tobacco Use: Non-smoker Alcohol: None Drugs: None - *Family History Maternal History Items: Diabetes Paternal History Items: Hypertension Review of Systems Constitutional: Reports: Anorexia, Fever, Malaise, Weakness, Fatigue. Denies: Chills, Weight Change HEENT: Reports: Head Aches. Denies: Sinus Congestion, Sinus Drainage Cardiovascular: Denies: Chest Pain, Palpitations Respiratory: Reports: Cough, Shortness of Breath, Shortness of breath at rest, Shortness of breath upon exertion. Denies: Sputum production Gastrointestinal: Reports: Abdominal Pain, Nausea. Denies: Diarrhea, Vomiting Genitourinary: Denies: Dysuria Musculoskeletal: Reports: Back Pain, Joint Pain, Muscle pain. Denies: Joint Tenderness Skin: Denies: Rash, Wounds Neurological: Denies: Numbness, Tingling, Focal weakness Psychiatric: Denies: Anxiety, Depression, Homicidal Ideations, Suicidal Ideations Hematologic/ Lymphatic: Reports: Anemia, Easy Bruising, Easy Bleeding VTE Information - Inpt Only VTE Present on Admission: No VTE Mechan Device Prophylaxis: SCD's VTE Pharm Prophylaxis ordered?: Yes Subjective: Patient ill-appearing, increased respiratory rate, accessory muscle usage, evident distress, notes feeling ill and fatigued. Objective: Physical Examination: General: awake, alert, oriented x 3 and cooperative, extremely hard of hearing all communications via writing, seated upright in the ED bed, increased work of breathing, accessory muscle usage, evident respiratory distress. Skin: normal color, turgor, no icterus, cyanosis. HEENT: AT/NC, EOMI, PERRLA, dry MM, no carotid bruits or JVD noted. Lungs: Diminished breath sounds, greater bilaterally, increased work of breathing accessory muscle usage, evident distress, mild crackles right base otherwise primarily diminished as noted, no obvious rhonchi or wheezing. Heart: Regular rate and rhythm; no gallop, rub audible, +SM. Abdomen: soft, generalized diffuse discomfort with palpation, no rebound or guarding, ND, hyperactive BS, no HSM. Extremities: no cyanosis, clubbing, or edema. Neurological: patient awake, alert, oriented as noted; cognitive function mildly decreased given acute presentation of fatigue; pupils equally reactive to light and accomodation; cranial nerves II-XII grossly normal, moving all 4 extremities, no focal deficits, strength severely global decrease secondary to acute presentation and severity of illness. Psychiatric: affect appears ill-appearing, evident respiratory distress, fatigued, no acute evidence of depressive or anxiety feelings. - Physical Exam Vitals/I&O's: Vital Signs Temp Pulse Resp BP Pulse Ox 98.3 F 72 23 H 143/82 H 95 03/15/20 19:45 03/15/20 21:52 03/15/20 21:52 03/15/20 21:52 03/15/20 21:52 Oxygen Flow Rate (L/min) 2 Oxygen Delivery Method Nasal Cannula Weight: 140 lb Body Mass Index (BMI) 25.6 Laboratory Results 03/15/20 21:05: WBC 4.4, RBC 3.29 L, Hgb 10.6 L, Hct 31.8 L, MCV 96.7, MCH 32.2 H, MCHC 33.3, RDW Std Deviation 48.1 H, RDW Coeff of Hebert 13.5, Plt Count 166, MPV 10.6, Immature Gran % (Auto) 0.900, Neut % (Auto) 88.5 H, Lymph % (Auto) 6.1 L, [place] % (Auto) 4.5, Eos % (Auto) 0.0, Baso % (Auto) 0.0, Absolute Neuts (auto) 3.9, Absolute Lymphs (auto) 0.27 L, Nucleated RBC % 0, Differential Comment SCANNED 03/15/20 21:05: Sodium 134 L, Potassium 4.2, Chloride 100, Carbon Dioxide 22.0, Anion Gap 12, BUN 25 H, Creatinine 1.20 H, Estim Creat Clear Calc 29.57, Est GFR (MDRD) Af Amer 56 L, Est GFR (MDRD) Non-Af 46 L, BUN/Creatinine Ratio 20.8 H, Glucose 451 H*, Calcium 8.2 L, Troponin I < 0.015 03/15/20 21:05: D-Dimer Quant (PE/DVT) 1.68 H* Assessment/Plan All Active Problems (Last Reviewed 02/26/20 @ 15:[address] Pedro Alexandre MD) Pneumonia due to COVID-19 virus (Acute) Acute respiratory failure with hypoxia (Acute) The patient is a 79 y/o F w/ PMHx: Chronic normocytic anemia, Hx CVA, HTN, HLD, CAD s/p PCI distal RCA, Diabetes mellitus type II who presents to the [facility] ED on 03/15/19 with history of diagnosis COVID 03/10/20 with exposure ~ 4 days prior to [place] with ongoing dyspnea, cough, fevers with pulse ox at that time 86% on RA with discharge on 2L NC and initiation of decadron; however she has been progressively worsening/declining prompting ED return. 1. Acute Hypoxic Respiratory Failure secondary Acute Bilateral Pneumonia secondary to Acute Viral Syndrome, COVID-19: Will admit to the COVID unit, will maintain on oxygen with wean as tolerated to room air, PRN albuterol, HOB, IS parameters w/ pending sputum cultures, respiratory viral panel and urine antigens, will obtain procalcitonin, CRP, CPK, Ferritin, LDH, Alk phos/AST/ALT, continue supportive care including q 2 hour turning including prone given no prone bed availability and judicious hydration, closely monitor for worsening status for ARDS and multiorgan failure, D-dimer elevated thus pending CTPA upon admission, will alter chemoprophylaxis if PE evidence, will continue decadron, will initiate remdesivir as renal function currently ~ 30 CrCl but if worsens may need to discontinue, ID consulted. If worsening will transition to the ICU and consult Pulmonary critical care. T+S pending. ABG pending. SPECT likely will require either air Vo or BiPAP. 2. Diabetes mellitus type II with hyperglycemia: Hold oral home regimen, continue home insulin regimen although given usage concurrently of Decadron with significant hyperglycemia will likely need increased dosing and alteration as needed, ADA diet, accu checks w/ ISS. 3. Valvular heart disease: Patient with known severe mitral regurgitation with recent evaluation per cardiology with ongoing dyspnea on exertion with patient reluctance from notes to undergo any further evaluation including MVR plus CABG or LAD PCI with MitraClip. 4. CAD: Status post PCI distal RCA, continue aspirin, Brilinta, statin, metoprolol, not on MINESH inhibitor or ARB. 5. Hypertension: Continue home regimen including amlodipine, metoprolol with hold parameters as needed, PRN hydralazine. 6. Hyperlipidemia: Continue home statin regimen. 7. Chronic normocytic anemia: Admission hemoglobin 10.6, prior appears 10-11, normal, trend. 8. Chronic Kidney Disease Stage III: Admission BUN/Cr 25/1.20, baseline renal function 1.1-1.3, repeat BMP in AM. 9. History CVA: We will continue patient aspirin, Brilinta, statin, hypertensive therapy as noted, attempting blood sugar control given Decadron usage as noted above, may need to alter insulin therapy. 10. DVT prophylaxis: SCDs, lovenox. 11. CODE status: Patient does not have HCPOA nor living will. Discussed via writing communication as patient severely hard of hearing CODE status at length including difference between FULL code, DNR-CCA and DNR-CC status. Following discussions about the differences in these status, requested Full Code status. Discussed that given her age and co-morbidities she has a very poor prognosis. Her son was contacted and her current status was described and did discuss c oncern for her possible demise. Advanced Care Planning Face to Face Time: 18 minutes. Inpatient E&M: 72674 Init Hosp L3 Procedures: 39668 Advncd Care Plan 30 Min
--- NOTE | 2020-03-15 22:39 | ED.RN ---
PT'S SON, HILARIO, WAS UPDATED THROUGHOUT PT'S STAY IN THE E.D. AND INFORMED PT WILL BE ADMITTED TO [facility] AND GIVEN THE PHONE NUMBER FOR UNIT TO CALL FOR UPDATES.
--- NOTE | 2020-03-15 22:50 | CT_ITS ---
HISTORY: COVID + WITH INCREASE SOB AND ELEVATED D -DIMER TECHNIQUE: Helically acquired images were obtained of the chest following the intravenous administration of 75 mL of Isovue-370 Iodinated contrast. as per pulmonary angiogram protocol with 2D , without 3-D MIP reconstructions. A radiation dose optimization technique was used for this scan. COMPARISON: Most recent chest x-ray is from less than 2 hours earlier. FINDINGS: # of images incl. paperwork: [id number] Multifocal bilateral rounded groundglass opacities are present throughout both lungs. Disease is greater peripherally greater than centrally. Greet disease is greater within the bases and it is in the lung apices although it is present within the apices.. No effusions. Within the thoracic spinethere is a kyphosis. Some degenerative disc disease. Vertebral body height is normal. Facets are well aligned. No rib lesions are perceived. Left glenohumeral osteoarthritis with osteophytes and joint space narrowing Heart is enlarged. Thoracic aorta elongated with atherosclerotic plaque. No aneurysms, stenoses, dissections, nor occlusions. Mediastinal adenopathy No pulmonary emboli. The gallbladder is distended. No adrenal lesions are perceived. Some liquid is present within the stomach. Of the visualized portions of the right kidney no hydronephrosis. CT/CTA Chest W/WO Contrast IMPRESSION: No pulmonary embolism, aortic aneurysm, or aortic dissection. Multi lobar multifocal bilateral rounded groundglass airspace disease consistent with Covid 19 pneumonia. Individualized dose optimization techniques were used for this CT. at 2331 Reported and signed by: Albino Martinez MD Electronically Signed: Albino Martinez MD at 23:30 EST Tel , Service support ,
--- NOTE | 2020-03-15 23:06 | PCS.PANDOC ---
PANDEMIC DOCUMENTATION INITIATED: Date: 03/15/20 Time: [id number]
[2020-03-15 23:41] LABS: AST(SGOT) 21 U/L (15-37); Alanine Aminotransfer ALT/SGPT 22 U/L (13-56); Albumin, Serum 2.2 g/dL (3.2-5.0); Alkaline Phosphatase 56 U/L (45-117); Bilirubin, Direct 0.37 mg/dL (0.00-0.30); Ferritin 501 ng/mL (8-252); Globulin 5.3 g/dL (2.2-4.2); LDH 293 U/L (84-246); Magnesium 1.7 mg/dL (1.6-2.6); Protein, Total 7.5 g/dL (6.4-8.2)
[2020-03-15] MEDS: Insulin Lispro 100 UNIT/ML INSULN.PEN 20 UNIT SC (23:52)
[2020-03-15] MEDS: 0.9% Saline Lock 10 ML Syringe IV (23:56)
[2020-03-15] MEDS: MELATONIN 3 MG TABLET PO (23:59)
[2020-03-16] VITALS (13 sets, daily range): BP systolic 107–141; BP diastolic 63–73; PULSE 63–82; RESP 20; TEMP 36.6–37.1; O2SAT 94–97; BMI 24.7
[2020-03-16 01:16] LABS: Bedside Glucose 331 mg/dL (70-110)
[2020-03-16 01:32] LABS: BNP,B-Type NATRIURETIC PEPTIDE 194.5 pg/mL (0-100)
[2020-03-16] MEDS: Gabapentin 300 MG Capsule PO ×4 (05:42→22:09)
[2020-03-16 06:46] LABS: Bedside Glucose 119 mg/dL (70-110)
[2020-03-16 07:48] LABS: Absolute Lymphocyte Count 0.62 X10^3/uL (0.83-4.51); Absolute Neutrophil Count 3.6 X10^3/uL (2.0-7.7); Basophil# 0.01 X10^3/uL; Basophil% 0.2 % (0-1); Eosinophil# 0.01 X10^3/uL; Eosinophils% 0.2 % (0-5); Hematocrit 31.9 % (37-47); Hemoglobin 10.5 g/dL (12.0-15.0); Lymphocyte # 0.62 X10^3/ul (4.0); Lymphocyte % 13.6 % (19-41); Mean Corp Hgb Conc 32.9 g/dL (32-36); Mean Corpuscular Hgb 32.2 pg (27.0-32.0); Mean Corpuscular Volume 97.9 fL (81-99); Mean Platelet Vol. 10.6 fl (6.2-12.0); Monocyte# 0.24 X10^3/uL; Monocyte% 5.3 % (0-10); NRBC Flagged by Analyzer 0 % (0-5); Neutrophil # 3.62 X10^3/uL (2.7-7.7); Neutrophil % 79.6 % (47-70); Platelet Count 166 K/mm3 (150-450); RBC Distribution Width CV 13.5 % (11.6-14.6); RBC Distribution Width SD 48.3 fl (35.1-43.9); Red Blood Count 3.26 M/mm3 (4.2-5.4); White Blood Count 4.6 K/mm3 (4.4-11.0)
--- NOTE | 2020-03-16 07:51 | PN_ITS ---
Patient Problems: Active and Suspected Problems (Last Reviewed 02/26/20 @ 15:[address] Pedro Alexandre MD) Pneumonia due to COVID-19 virus (Acute) Acute respiratory failure with hypoxia (Acute) Reason for Visit: Acute COVID-19 pneumonia Subjective: An 79-year-old lady diagnosed with COVID-19 infection on 03/10/2020 presented to the emergency department with worsening respiratory status Objective: GENERAL: cooperative HEENT: Atraumatic; EYES; Anicteric, Normal Conjunctiva NECK; supple, normal thyroid, RESPIRATORY: Diminished to auscultation CARDIOVASCULAR: Regular S1 S2, GI: soft, normoactive bowel sounds, : No Renal angle tenderness; EXTREMITIES: No edema, no clubbing, MUSCULOSKELETAL: no muscle waisting NEURO: Awake; no lateralizing signs. SKIN: No Rash PSYCH; Flat affect Vitals/I&O's: Vital Signs Temp Pulse Resp BP Pulse Ox 97.9 F 63 20 H 137/71 H 94 03/16/20 05:36 03/16/20 06:59 03/16/20 05:36 03/16/20 05:36 03/16/20 05:36 Oxygen Flow Rate (L/min) 2 Oxygen Delivery Method Nasal Cannula Weight: 61.416 kg Body Mass Index (BMI) 23.8 Intake and Output for Last 24 Hours 03/14/20 03/15/20 03/16/20 23:59 23:59 23:59 Intake Total 200 / 200 814.75 / 814.75 Output Total 650 / 650 Balance 200 / 200 164.75 / 164.75 Microbiology Past 72 Hours 03/16/20 01:20 Mucosa - Nasopharyngeal Respiratory Panel (PCR) - Final Laboratory Results 03/15/20 21:05: WBC 4.4, RBC 3.29 L, Hgb 10.6 L, Hct 31.8 L, MCV 96.7, MCH 32.2 H, MCHC 33.3, RDW Std Deviation 48.1 H, RDW Coeff of Hebert 13.5, Plt Count 166, MPV 10.6, Immature Gran % (Auto) 0.900, Neut % (Auto) 88.5 H, Lymph % (Auto) 6.1 L, [place] % (Auto) 4.5, Eos % (Auto) 0.0, Baso % (Auto) 0.0, Absolute Neuts (auto) 3.9, Absolute Lymphs (auto) 0.27 L, Nucleated RBC % 0, Differential Comment SCANNED 03/15/20 21:05: Sodium 134 L, Potassium 4.2, Chloride 100, Carbon Dioxide 22.0, Anion Gap 12, BUN 25 H, Creatinine 1.20 H, Estim Creat Clear Calc 29.57, Est GFR (MDRD) Af Amer 56 L, Est GFR (MDRD) Non-Af 46 L, BUN/Creatinine Ratio 20.8 H, Glucose 451 H*, Calcium 8.2 L, Troponin I < 0.015 03/15/20 21:05: D-Dimer Quant (PE/DVT) 1.68 H* 03/15/20 21:05: Magnesium 1.7, Ferritin 501 H, Total Bilirubin 0.90, Direct Bilirubin 0.37 H, AST 21, ALT 22, Alkaline Phosphatase 56, Lactate Dehydrogenase 293 H, C-React Prot Ext Range 109.00 H, Total Protein 7.5, Albumin 2.2 L, Globulin 5.3 H 03/15/20 21:05: B-Natriuretic Peptide 194.5 H 03/15/20 21:05: Procalcitonin 0.10 H 03/15/20 23:49: POC Glucose 331 H 03/15/20 23:57: Blood Type A POSITIVE, Antibody Screen NEGATIVE 03/16/20 05:41: POC Glucose 119 H 03/16/20 07:10: Sodium Pending, Potassium Pending, Chloride Pending, Carbon Dioxide Pending, Anion Gap Pending, BUN Pending, Creatinine Pending, Est GFR (MDRD) Af Amer Pending, Est GFR (MDRD) Non-Af Pending, BUN/Creatinine Ratio Pending, Glucose Pending, Calcium Pending, Ferritin Pending, Total Bilirubin Pending, AST Pending, ALT Pending, Alkaline Phosphatase Pending, Troponin I Pending, C-React Prot Ext Range Pending, Total Protein Pending, Albumin Pending 03/16/20 07:10: WBC 4.6, RBC 3.26 L, Hgb 10.5 L, Hct 31.9 L, MCV 97.9, MCH 32.2 H, MCHC 32.9, RDW Std Deviation 48.3 H, RDW Coeff of Hebert 13.5, Plt Count 166, MPV 10.6, Immature Gran % (Auto) 1.100 H, Neut % (Auto) 79.6 H, Lymph % (Auto) 13.6 L, [place] % (Auto) 5.3, Eos % (Auto) 0.2, Baso % (Auto) 0.2, Absolute Neuts (auto) 3.6, Absolute Lymphs (auto) 0.62 L, Nucleated RBC % 0 03/16/20 07:10: D-Dimer Quant (PE/DVT) Pending 03/16/20 07:10: Procalcitonin Pending Current Medications Acetaminophen (Acetaminophen 325 Mg Suppository) 650 mg RECTAL Q4H PRN PRN PRN Reason: Pain Score 1-10/Temp > 100.7 F Acetaminophen (Acetaminophen 325 Mg Tablet) 650 mg PO Q6H PRN PRN PRN Reason: Pain Score 1-10/Temp > 100.7 F Al Hydroxide/Mg Hydroxide (Mag Hydrox/Al Hydrox/Simeth 30 Ml Udc) 30 ml PO Q6H PRN PRN PRN Reason: Gastric Burning Albuterol Sulfate (Albuterol Ih 8.5 Gm (Proair) Inhaler (200 Puffs)) 4 - 8 puff INHALATION Q4H PRN PRN PRN Reason: Dyspnea, wheezing Amlodipine Besylate (Amlodipine 10 Mg Tablet) 10 mg PO DAILY [facility] Aspirin (Aspirin E.C. 81 Mg Tablet) 81 mg PO DAILY [facility] Atorvastatin Calcium (Atorvastatin Calcium 40 Mg Tablet) 40 mg PO QHS [facility] Dexamethasone Sodium Phosphate (Dexamethasone 10 Mg/Ml Vial) 6 mg IV DAILY [facility] Enoxaparin Sodium (Enoxaparin 30 Mg/0.3 Ml Syringe) 30 mg SC DAILY [facility] Gabapentin (Gabapentin 300 Mg Capsule) 300 mg PO ACHS [facility] Last Admin: 03/16/20 05:42 Dose: 300 mg Documented by: Guaifenesin (Guaifenesin 10 Ml Udc (200mg/10ml)) 20 ml PO Q4H PRN PRN PRN Reason: COUGH Hydralazine HCl (Hydralazine 20 Mg/Ml Vial) 10 mg IV Q4H PRN PRN PRN Reason: SBP > 160 Sodium Chloride () 250 mls @ 15 mls/hr IV .[id number] PRN PRN Reason: Saline Flush Last Infusion: 03/16/20 05:35 Dose: 0 mls/hr Documented by: Remdesivir 100 mg/ Sodium (Chloride) 250 mls @ 125 mls/hr IV Q24H [facility] Stop: 03/19/20 23:59 Insulin Glargine (Insulin Glargine 100 Units/Ml Pen) 25 units SC BID [facility] Insulin Human Lispro (Insulin Lispro 100 Unit/Ml Insuln.Pen) 0 unit SC ACHS [facility]; Protocol Last Admin: 03/16/20 05:42 Dose: Not Given Documented by: Magnesium Hydroxide (Magnesium Hydroxide 30 Ml Udc) 30 ml PO DAILY PRN PRN PRN Reason: Constipation Melatonin (Melatonin 3 Mg Tablet) 3 mg PO QHS PRN PRN PRN Reason: INSOMNIA Last Admin: 03/15/20 23:59 Dose: 3 mg Documented by: Metoprolol Tartrate (Metoprolol Tartrate 25 Mg Tablet) 25 mg PO BID [facility] Morphine Sulfate (Morphine 2 Mg/Ml Syringe) 2 mg IV Q3H PRN PRN PRN Reason: Pain Score 6-10 Nitroglycerin (Nitroglycerin (Inpatient Use) 0.4 Mg Tab.Subl) 0.4 mg SUBLINGUAL Q5M PRN PRN Reason: CARDIAC/CHEST PAIN Nutritional Formula (Lactose Free) (Glucerna Shake 120 Ml Liquid) 120 ml PO BID [facility] Ondansetron HCl (Ondansetron 4 Mg/2 Ml Vial) 4 mg IV Q8H PRN PRN PRN Reason: NAUSEA/VOMITING Oxycodone HCl (Oxycodone 5 Mg Tablet) 5 mg PO Q4H PRN PRN PRN Reason: Pain Score 4-5 Prochlorperazine Edisylate (Prochlorperazine 10 Mg/2 Ml Vial) 5 mg IV Q4H PRN PRN PRN Reason: Breakthrough Nausea/Vomiting Psyllium Hydrophilic Mucilloid (Psyllium 1 Packet) 1 packet PO DAILY PRN PRN PRN Reason: Constipation Senna/Docusate Sodium (Senna/Docusate Sodium 1 Tablet) 2 tablet PO BID PRN PRN PRN Reason: Constipation Sodium Chloride (0.9% Saline Lock 10 Ml Syringe) 10 - 40 ml IV UD PRN PRN Reason: SALINE FLUSH Last Admin: 03/15/20 23:56 Dose: 10 ml Documented by: Throat Lozenges (Benzocaine/Menthol 1 Lozenge) 1 lozenge MUCOUS MEM Q2H PRN PRN PRN Reason: SORE THROAT Ticagrelor (Ticagrelor 90 Mg Tablet) 90 mg PO BID [facility] Vital Signs/Narrative: Vital Signs Temp Pulse Resp BP Pulse Ox 03/16/20 06:59 63 03/16/20 05:54 68 03/16/20 05:36 97.9 F 70 20 H 137/71 H 94 Medical Necessity - Tobacco Use Smoking Status: Former smoker - Patient quit cigarette tobacco usage ~ 40 years prior, noted 1 pack/week, starting later in life. Tobacco Use: Non-smoker Assessment/Plan All Active Problems (Last Reviewed 02/26/20 @ 15:[address] Pedro Alexandre MD) Pneumonia due to COVID-19 virus (Acute) Acute respiratory failure with hypoxia (Acute) An 79-year-old lady diagnosed with COVID-19 infection on 03/10/2020 presented to the emergency department with worsening respiratory status 1. Acute hypoxic respiratory failure secondary to COVID-19 pneumonia ?Patient admitted to regular nursing floor started on remdesivir as well as Decadron with daily monitoring with CBC and BMP ordered consult placed to Dr. Saavedra with ID on admission Diabetes mellitus type 2 ?With hyperglycemia patient oral agents held on admission started on long-acting insulin with Accu-Cheks before meals and at bedtime with sliding scale coverage 3. Valvular heart disease ?Patient has known severe mitral valve regurgitation being evaluated by cardiology for possible mitral valve replacement 4. Coronary artery disease ?With previous PCI involving the RCA patient is on recommended medications including dual antiplatelet therapy MINESH inhibitor statin therapy and beta- blockers 5. Hypertension - Blood pressure controlled, home medications continued with dose adjustment as needed 6. Dyslipidemia -Patient is on statin therapy, continued at home dose 7. Dehydration with acute renal insufficiency ?Kidney function improved with rehydration creatinine went down from 1.20 on admission to 0.88 8. Moderate protein calorie malnutrition ?As evidenced by hypoalbuminemia decreased energy level and low appetite consult placed to dietitian 9. History of CVA with no residual effect Patient is on dual antiplatelet therapy and statin therapy did continue 10. DVT prophylaxis ?Lovenox Inpatient E&M: [id number] [facility] Hosp L3
[2020-03-16 08:15] LABS: D-Dimer Quantitative (DVT/PE) 1.88 FEU/ug/m (0.27-0.49)
[2020-03-16 08:19] LABS: ALB/GLOB Ratio 0.5 RATIO (0.9-2.4); AST(SGOT) 17 U/L (15-37); Alanine Aminotransfer ALT/SGPT 17 U/L (13-56); Albumin, Serum 2.1 g/dL (3.2-5.0); Alkaline Phosphatase 51 U/L (45-117); Anion Gap 9 (5-15); BUN 21 mg/dL (7-18); Calcium,Total 8.2 mg/dL (8.5-10.1); Chloride 108 mmol/L (98-107); Creatinine, Serum 0.88 mg/dL (0.55-1.02); EST Glomerular Filtration Rate 66 mL/min (>60); Est Glom Filt Rate - Afr Amer 80 mL/min (>60); Estimated Creatinine Clearance 40.33 ml/min; Ferritin 498 ng/mL (8-252); Globulin 4.2 g/dL (2.2-4.2); Glucose 79 mg/dL (74-106); Potassium 3.5 mmol/L (3.5-5.1); Protein, Total 6.3 g/dL (6.4-8.2); Sodium Level 141 mmol/L (136-145)
[2020-03-16 09:49] LABS: Procalcitonin 0.13 ng/mL (0.00-0.09)
[2020-03-16] MEDS: Enoxaparin 30 MG/0.3 ML Syringe SC (10:02)
[2020-03-16] MEDS: dexAMETHasone 10 MG/ML Vial 6 MG IV (10:03)
[2020-03-16] MEDS: Aspirin E.C. 81 MG Tablet PO (10:03)
[2020-03-16] MEDS: Metoprolol Tartrate 25 MG Tablet PO (10:03)
[2020-03-16] MEDS: amLODIPine 10 MG Tablet PO (10:04)
[2020-03-16] MEDS: TICAGRELOR 90 MG TABLET PO ×2 (10:04→22:06)
--- NOTE | 2020-03-16 11:36 | NT.THERAPY_ITS ---
Nutrition Therapy Report - History Nutrition Services has been consulted to:: Manage nutrient details of diet order Current diet / nutrition support order:: consistent carbohydrate, 2000 calorie controlled, 120mL Glucerna BID - Anthropometric Measurements Height:: 5 ft 2 in Weight:: 61.416 kg Body Mass Index (BMI):: 24.7 - Relevant Labs Relevant Labs:: RBC 3.26 M/mm3 (4.2-5.4) L 03/16/20 07:10 Hgb 10.5 g/dL (12.0-15.0) L 03/16/20 07:10 Hct 31.9 % (37-47) L 03/16/20 07:10 MCH 32.2 pg (27.0-32.0) H 03/16/20 07:10 RDW Std Deviation 48.3 fl (35.1-43.9) H 03/16/20 07:10 Immature Gran % (Auto) 1.100 % (0.0-0.9) H 03/16/20 07:10 Neut % (Auto) 79.6 % (47-70) H 03/16/20 07:10 Lymph % (Auto) 13.6 % (19-41) L 03/16/20 07:10 Absolute Lymphs (auto) 0.62 X10^3/uL (0.83-4.51) L 03/16/20 07:10 D-Dimer Quant (PE/DVT) 1.88 FEU/ug/m (0.27-0.49) H* 03/16/20 07:10 Sodium 134 mmol/L (136-145) L 03/15/20 21:05 Chloride 108 mmol/L (98-107) H 03/16/20 07:10 BUN 21 mg/dL (7-18) H 03/16/20 07:10 Creatinine 1.20 mg/dL (0.55-1.02) H 03/15/20 21:05 Est GFR (MDRD) Af Amer 56 mL/min (>60) L 03/15/20 21:05 Est GFR (MDRD) Non-Af 46 mL/min (>60) L 03/15/20 21:05 BUN/Creatinine Ratio 24.0 RATIO (10-20) H 03/16/20 07:10 Glucose 451 mg/dL (74-106) H* 03/15/20 21:05 Calcium 8.2 mg/dL (8.5-10.1) L 03/16/20 07:10 Ferritin 498 ng/mL (8-252) H 03/16/20 07:10 Direct Bilirubin 0.37 mg/dL (0.00-0.30) H 03/15/20 21:05 Lactate Dehydrogenase 293 U/L (84-246) H 03/15/20 21:05 C-React Prot Ext Range 119.00 mg/L (0.0-3.0) H 03/16/20 07:10 B-Natriuretic Peptide 194.5 pg/mL (0-100) H 03/15/20 21:05 Total Protein 6.3 g/dL (6.4-8.2) L 03/16/20 07:10 Albumin 2.1 g/dL (3.2-5.0) L 03/16/20 07:10 Globulin 5.3 g/dL (2.2-4.2) H 03/15/20 21:05 Albumin/Globulin Ratio 0.5 RATIO (0.9-2.4) L 03/16/20 07:10 Procalcitonin 0.13 ng/mL (0.00-0.09) H 03/16/20 07:10 - Assessment Food / Nutrition-Related History:: Currently in isolation d/t COVID-19. Unable to reach pt by phone. Information gathered from EMR. Per H&P, pt w/ poor PO intake/appetite ~5 days [employer] d/t nausea, abd pain. Diet advanced from clears this AM, so PO intake to be established. Reported UBW 140# and CBW 135.4#-4.6#/3.2% wt loss. - Nutrition Diagnosis Problem / Etiology / Signs & Symptoms (PES):: Pt w/ severe, acute malnutrition r/t inadequate energy intake during acute COVID-19 infection as evidenced by 4.6#/3.2% wt loss < 1 week, reported inadequate PO intake meeting less than 50% of estimated nutritional needs x 5 days. Evidence of Malnutrition Exists:: Yes Severe PCM:: Acute Illness - Nutrition Intervention Nutrition Prescription:: [id number] calories, 50-60 g protein per day - Food / Nutrient Delivery Interventions Summary of nutrition intervention:: Will liberalize diet to regular given acute malnutrition. Will switch Glucerna from BID to TID w/ meals given COVID-19 isolation. Nutrition support ordered as / adjusted to:: regular diet, 120mL glucerna w/ meals - MNT Monitoring Further MNT monitoring and evaluation required?: Yes MNT Follow-up in:: 3-5 days
[2020-03-16 12:05] LABS: Bedside Glucose 60 mg/dL (70-110)
[2020-03-16] MEDS: Insulin Lispro 100 UNIT/ML INSULN.PEN SC ×2 (16:14→22:03)
[2020-03-16] MEDS: Acetaminophen 325 MG Tablet 650 MG PO (16:15)
[2020-03-16 17:00] LABS: Bedside Glucose 319 mg/dL (70-110)
[2020-03-16 21:41] LABS: Bedside Glucose 390 mg/dL (70-110)
[2020-03-16] MEDS: Atorvastatin Calcium 40 MG Tablet PO (22:07)
[2020-03-16] MEDS: 0.9% Saline Lock 10 ML Syringe IV (22:09)
[2020-03-17] VITALS (13 sets, daily range): BP systolic 106–134; BP diastolic 52–78; PULSE 59–96; RESP 18–20; TEMP 36.4–36.6; O2SAT 94–97
[2020-03-17 06:16] LABS: Hematocrit 33.4 % (37-47); Hemoglobin 10.8 g/dL (12.0-15.0); Mean Corp Hgb Conc 32.3 g/dL (32-36); Mean Corpuscular Hgb 31.6 pg (27.0-32.0); Mean Corpuscular Volume 97.7 fL (81-99); Mean Platelet Vol. 10.1 fl (6.2-12.0); Platelet Count 173 K/mm3 (150-450); RBC Distribution Width CV 13.8 % (11.6-14.6); RBC Distribution Width SD 49.3 fl (35.1-43.9); Red Blood Count 3.42 M/mm3 (4.2-5.4); White Blood Count 6.2 K/mm3 (4.4-11.0)
[2020-03-17] MEDS: 0.9% Saline Lock 10 ML Syringe IV ×3 (06:44→08:10)
[2020-03-17] MEDS: Gabapentin 300 MG Capsule PO ×4 (06:44→21:58)
[2020-03-17] MEDS: Dextrose 50%-Water 25 GM/50 ML DISP.SYRIN IV (07:02)
[2020-03-17 07:09] LABS: ALB/GLOB Ratio 0.5 RATIO (0.9-2.4); AST(SGOT) 25 U/L (15-37); Alanine Aminotransfer ALT/SGPT 17 U/L (13-56); Albumin, Serum 2.1 g/dL (3.2-5.0); Alkaline Phosphatase 53 U/L (45-117); Anion Gap 10 (5-15); BUN 25 mg/dL (7-18); BUN/Creat Ratio 29.6 RATIO (10-20); Calcium,Total 8.8 mg/dL (8.5-10.1); Chloride 105 mmol/L (98-107); Creatinine, Serum 0.85 mg/dL (0.55-1.02); EST Glomerular Filtration Rate 69 mL/min (>60); Est Glom Filt Rate - Afr Amer 83 mL/min (>60); Estimated Creatinine Clearance 41.75 ml/min; Globulin 4.3 g/dL (2.2-4.2); Glucose 37 mg/dL (74-106); Magnesium 1.8 mg/dL (1.6-2.6); Potassium 3.6 mmol/L (3.5-5.1); Protein, Total 6.4 g/dL (6.4-8.2); Sodium Level 140 mmol/L (136-145)
[2020-03-17 07:11] LABS: Bedside Glucose 25 mg/dL (70-110)
[2020-03-17 07:11] LABS: Bedside Glucose 32 mg/dL (70-110)
--- NOTE | 2020-03-17 07:28 | NURSING ---
0640 this RN went in to get a AM blood sugar, pts reading came back as 25. this RN retook blood sugar, and reading came back as 32. Pt was conscious, alert and oriented x3, stating she was feeling cold and pt stated she was slightly lightheaded. this RN had AUTOMATIC DISPENSER MECHANIC run and get saltines with peanut butter and apple juice. Dr. Hobson notified and ordered x1 D50 amp. 0702: this RN went in to recheck pts sugar after above, and sugar is now 217
[2020-03-17 07:40] LABS: Bedside Glucose 217 mg/dL (70-110)
[2020-03-17] MEDS: Aspirin E.C. 81 MG Tablet PO (08:06)
[2020-03-17] MEDS: Enoxaparin 30 MG/0.3 ML Syringe SC ×2 (08:06→21:58)
[2020-03-17] MEDS: TICAGRELOR 90 MG TABLET PO ×2 (08:07→21:58)
[2020-03-17] MEDS: dexAMETHasone 10 MG/ML Vial 6 MG IV (08:07)
[2020-03-17] MEDS: amLODIPine 10 MG Tablet PO (08:07)
[2020-03-17] MEDS: Metoprolol Tartrate 25 MG Tablet PO ×2 (08:07→21:58)
[2020-03-17 08:51] LABS: Bedside Glucose 217 mg/dL (70-110)
[2020-03-17] MEDS: Insulin Lispro 100 UNIT/ML INSULN.PEN SC ×3 (11:52→22:00)
[2020-03-17 12:26] LABS: Bedside Glucose 204 mg/dL (70-110)
--- NOTE | 2020-03-17 12:27 | PN_ITS ---
Patient Problems: Active and Suspected Problems (Last Reviewed 02/26/20 @ 15:[address] Pedro Alexandre MD) Pneumonia due to COVID-19 virus (Acute) Acute respiratory failure with hypoxia (Acute) Subjective: Patient seen and examined. She is being managed for acute hypoxic respiratory failure due to COVID-19 infection. Patient was lethargic this morning. She got very worn out easily with the slightest exertion and even by talking. She says she felt very weak and tired. She is on 3 L of oxygen. Review of signs otherw ise negative. Blood sugar fell to 37 today. Vitals/I&O's: Vital Signs Temp Pulse Resp BP Pulse Ox 97.9 F 82 20 H 129/59 H 94 03/17/20 07:58 03/17/20 08:07 03/17/20 07:58 03/17/20 08:07 03/17/20 07:58 Oxygen Flow Rate (L/min) 3 Oxygen Delivery Method Nasal Cannula Weight: 136 lb 8 oz Body Mass Index (BMI) 24.7 Intake and Output for Last 24 Hours 03/15/20 03/16/20 03/17/20 23:59 23:59 23:59 Intake Total 200 / 200 1274.75 / 1274.75 641.75 / 641.75 Output Total 1550 / 1550 625 / 625 Balance 200 / 200 -275.25 / -275.25 16.75 / 16.75 General: Alert, Oriented x3, Cooperative, Lethargic HEENT: Atraumatic, PERRLA, EOMI, Normocephalic Oral: Dry Mucosa Neck: Supple, No JVD, Negative Carotid Bruits Lungs: Clear to auscultation, Normal air movement, No rhonchi, No wheeze, - - on 3L of oxygen by nasal canula Cardiovascular: Regular rate, Regular Rhythm, Normal S1, Normal S2, No murmurs Abdomen: Bowel Sounds Present, Soft, Non Tender, Non-Distended, No Hepato- splenomegaly Extremities: No clubbing, No cyanosis, No edema, Capillary Refill Less than 3 Seconds Skin: No rashes, No breakdown Musculoskeletal: No Tenderness to Palpation of Joints or Extremities Lymphatic: No Cervical, Supraclavicular, or Inguinal Adenopathy Neurological: Cranial nerves II-XII grossly intact, Neuro grossly intact, Motor Exam 5/5 strength throughout Psych/Mental Status: - - lethargic Microbiology Past 72 Hours 03/16/20 05:45 Sputum, Expectorated/Coughed Gram Stain - Final 03/16/20 05:45 Sputum, Expectorated/Coughed Respiratory Culture - Preliminary Appears to be normal respiratory lenora. Further studies to follow. 03/16/20 00:03 Urine, Clean Catch Legionella Antigen - Final 03/16/20 00:03 Urine, Clean Catch Streptococcus pneumoniae Antigen (M - Final 03/16/20 01:20 Mucosa - Nasopharyngeal Respiratory Panel (PCR) - Final Laboratory Results 03/16/20 16:12: POC Glucose 319 H 03/16/20 21:18: POC Glucose 390 H 03/17/20 06:00: WBC 6.2, RBC 3.42 L, Hgb 10.8 L, Hct 33.4 L, MCV 97.7, MCH 31.6, MCHC 32.3, RDW Std Deviation 49.3 H, RDW Coeff of Hebert 13.8, Plt Count 173, MPV 10.1 03/17/20 06:00: Sodium 140, Potassium 3.6, Chloride 105, Carbon Dioxide 25.0, Anion Gap 10, BUN 25 H, Creatinine 0.85, Estim Creat Clear Calc 41.75, Est GFR (MDRD) Af Amer 83, Est GFR (MDRD) Non-Af 69, BUN/Creatinine Ratio 29.6 H, Glucose 37 L*, Calcium 8.8, Magnesium 1.8, Total Bilirubin 0.40, AST 25, ALT 17, Alkaline Phosphatase 53, Total Protein 6.4, Albumin 2.1 L, Globulin 4.3 H, Albumin/Globulin Ratio 0.5 L 03/17/20 06:24: POC Glucose 25 L* 03/17/20 06:27: POC Glucose 32 L* 03/17/20 07:04: POC Glucose 217 H 03/17/20 08:09: POC Glucose 217 H 03/17/20 11:42: POC Glucose 204 H Current Medications Acetaminophen (Acetaminophen 325 Mg Suppository) 650 mg RECTAL Q4H PRN PRN PRN Reason: Pain Score 1-10/Temp > 100.7 F Acetaminophen (Acetaminophen 325 Mg Tablet) 650 mg PO Q6H PRN PRN PRN Reason: Pain Score 1-10/Temp > 100.7 F Last Admin: 03/16/20 16:15 Dose: 650 mg Documented by: Al Hydroxide/Mg Hydroxide (Mag Hydrox/Al Hydrox/Simeth 30 Ml Udc) 30 ml PO Q6H PRN PRN PRN Reason: Gastric Burning Albuterol Sulfate (Albuterol Ih 8.5 Gm (Proair) Inhaler (200 Puffs)) 4 - 8 puff INHALATION Q4H PRN PRN PRN Reason: Dyspnea, wheezing Amlodipine Besylate (Amlodipine 10 Mg Tablet) 10 mg PO DAILY [facility] Last Admin: 03/17/20 08:07 Dose: 10 mg Documented by: Aspirin (Aspirin E.C. 81 Mg Tablet) 81 mg PO DAILY [facility] Last Admin: 03/17/20 08:06 Dose: 81 mg Documented by: Atorvastatin Calcium (Atorvastatin Calcium 40 Mg Tablet) 40 mg PO QHS [facility] Last Admin: 03/16/20 22:07 Dose: 40 mg Documented by: Dexamethasone Sodium Phosphate (Dexamethasone 10 Mg/Ml Vial) 6 mg IV DAILY [facility] Last Admin: 03/17/20 08:07 Dose: 6 mg Documented by: Enoxaparin Sodium (Enoxaparin 30 Mg/0.3 Ml Syringe) 30 mg SC DAILY [facility] Last Admin: 03/17/20 08:06 Dose: 30 mg Documented by: Gabapentin (Gabapentin 300 Mg Capsule) 300 mg PO ACHS [facility] Last Admin: 03/17/20 11:43 Dose: 300 mg Documented by: Guaifenesin (Guaifenesin 10 Ml Udc (200mg/10ml)) 20 ml PO Q4H PRN PRN PRN Reason: COUGH Hydralazine HCl (Hydralazine 20 Mg/Ml Vial) 10 mg IV Q4H PRN PRN PRN Reason: SBP > 160 Sodium Chloride () 250 mls @ 15 mls/hr IV .[id number] PRN PRN Reason: Saline Flush Last Infusion: 03/17/20 03:35 Dose: 0 mls/hr Documented by: Remdesivir 100 mg/ Sodium (Chloride) 250 mls @ 125 mls/hr IV Q24H [facility] Stop: 03/19/20 23:59 Last Infusion: 03/17/20 00:08 Dose: Infused Documented by: Insulin Glargine (Insulin Glargine 100 Units/Ml Pen) 25 units SC BID [facility] Last Admin: 03/17/20 11:43 Dose: 25 u Documented by: Insulin Human Lispro (Insulin Lispro 100 Unit/Ml Insuln.Pen) 0 unit SC [facility]; Protocol Last Admin: 03/17/20 11:52 Dose: 3 u Documented by: Magnesium Hydroxide (Magnesium Hydroxide 30 Ml Udc) 30 ml PO DAILY PRN PRN PRN Reason: Constipation Melatonin (Melatonin 3 Mg Tablet) 3 mg PO QHS PRN PRN PRN Reason: INSOMNIA Last Admin: 03/15/20 23:59 Dose: 3 mg Documented by: Metoprolol Tartrate (Metoprolol Tartrate 25 Mg Tablet) 25 mg PO BID [facility] Last Admin: 03/17/20 08:07 Dose: 25 mg Documented by: Nitroglycerin (Nitroglycerin (Inpatient Use) 0.4 Mg Tab.Subl) 0.4 mg SUBLINGUAL Q5M PRN PRN Reason: CARDIAC/CHEST PAIN Ondansetron HCl (Ondansetron 4 Mg/2 Ml Vial) 4 mg IV Q8H PRN PRN PRN Reason: NAUSEA/VOMITING Oxycodone HCl (Oxycodone 5 Mg Tablet) 5 mg PO Q4H PRN PRN PRN Reason: Pain Score 4-5 Prochlorperazine Edisylate (Prochlorperazine 10 Mg/2 Ml Vial) 5 mg IV Q4H PRN PRN PRN Reason: Breakthrough Nausea/Vomiting Psyllium Hydrophilic Mucilloid (Psyllium 1 Packet) 1 packet PO DAILY PRN PRN PRN Reason: Constipation Senna/Docusate Sodium (Senna/Docusate Sodium 1 Tablet) 2 tablet PO BID PRN PRN PRN Reason: Constipation Sodium Chloride (0.9% Saline Lock 10 Ml Syringe) 10 - 40 ml IV UD PRN PRN Reason: SALINE FLUSH Last Admin: 03/17/20 08:10 Dose: 10 ml Documented by: Throat Lozenges (Benzocaine/Menthol 1 Lozenge) 1 lozenge MUCOUS MEM Q2H PRN PRN PRN Reason: SORE THROAT Ticagrelor (Ticagrelor 90 Mg Tablet) 90 mg PO BID [facility] Last Admin: 03/17/20 08:07 Dose: 90 mg Documented by: Medical Necessity - Tobacco Use Smoking Status: Former smoker - Patient quit cigarette tobacco usage ~ 40 years prior, noted 1 pack/week, starting later in life. Tobacco Use: Non-smoker Assessment/Plan All Active Problems (Last Reviewed 02/26/20 @ 15:[address] Pedro Alexandre MD) Pneumonia due to COVID-19 virus (Acute) Acute respiratory failure with hypoxia (Acute) #Acute hypoxic respiratory failure due to COVID 19 infection * currently on 3L of oxygen. Feels lethargic * on IV decadron and remdesivir * ID consulted; await rec's * titrate oxygen to maintain sats >90% * #COVID 19 infection: as above # Type 2 diabetes mellitus * Was hypoglycemic this morning with blood sugar falling to 37. This resolved after she was given sugary drink. Hold diabetes medications. * Currently on Lantus 25 units twice daily, will hold. Continue insulin sliding scale. Accu-Cheks AC at bedtime. * #Mitral valve regurgitation: To follow-up with cardiology on outpatient basis #Coronary artery disease: Status post stents to the RCA. On aspirin and Brilinta as well as high intensity statin # Hypertension; BP fairly well controlled. On amlodipine and metoprolol. 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
--- NOTE | 2020-03-17 13:34 | CASEMGMT ---
RN CM Note: attempted to contact patient via phone to room. Not available @ this time. Pramod DURBINN RN ACM
--- NOTE | 2020-03-17 15:24 | PCM.HP.ID ---
Problem List (1) Pneumonia due to COVID-19 virus Status: Acute Reason for Consult: covid Consulted by: Dr. Villeda History of Present Illness: The patient is a 79 year old F dx covid 03/10, presented 1/2 with aches, fever, cough, nausea, not feeling well. Started on dex, remdesivir, lovenox 30mg qday. Feeling ok, having some dyspnea. Full ROS performed and neg except as noted above. - Medical History Past Medical History (Chronic Problems): Chronic Problems (Last Reviewed 02/26/20 @ 15:[address] Pedro Alexandre MD) Valvular heart disease (Chronic) CKD (chronic kidney disease), stage III (Chronic) Chronic anemia (Chronic) Diabetes mellitus, type II (Chronic) Nonrheumatic aortic (valve) insufficiency (Chronic) Mitral valve insufficiency (Chronic) Atherosclerosis of coronary artery of [place] heart without angina pectoris (Chronic) Essential hypertension (Chronic) History of coronary artery stent placement (Chronic) 3.00 x 20 Synergy MR MATTHEW to dRCA, 3.00 x 28 mm Synergy MR MATTHEW to pRCA, 3.00 x 38 mm Synergy MR to mRCA 06/17/19 STEMI (ST elevation myocardial infarction) (Chronic) HLD (hyperlipidemia) (Chronic) CVA (cerebral vascular accident) (Chronic) Allergies/Adverse Reactions: Allergies niacin [From Niaspan Extended-Release] Allergy (Verified 03/15/20 19:49) Other ramipril [From Altace] Allergy (Verified 03/15/20 19:49) Other Home Medications: Ambulatory Orders Medication Instructions Recorded Atorvastatin Calcium [Lipitor] 40 mg PO QHS 06/14/17 Gabapentin [Neurontin] 300 mg PO 4X/DAY 06/14/17 Gemfibrozil [Lopid] 600 mg PO BID 06/14/17 Insulin Glargine,Hum.rec.anlog 15 unit SQ QHS 06/14/17 [Lantus] Metoprolol Tartrate 25 mg PO BID 06/14/17 metFORMIN HCl [Glucophage] 1,000 mg PO BIDCM 06/17/19 Aspirin E.C. [Ecotrin] 81 mg PO DAILY@0800 tab 06/23/19 amlodipine 10 mg tablet 10 mg PO DAILY 10/02/19 ticagrelor 90 mg tablet 90 mg PO BID #60 tab 10/02/19 glimepiride 4 mg tablet 4 mg PO BID tab 02/26/20 Dexamethasone [Decadron] 6 mg PO DAILY 5 Days #5 tab 03/10/20 - Social History SMOKING STATUS:: Former smoker Vital Signs Temp Pulse Resp BP Pulse Ox 97.8 F 83 18 106/52 L 97 03/17/20 13:55 03/17/20 13:55 03/17/20 13:55 03/17/20 13:55 03/17/20 13:55 Oxygen Flow Rate (L/min) 3 Oxygen Delivery Method Nasal Cannula Weight: 61.915 kg Body Mass Index (BMI) 24.7 Microbiology Past 72 Hours 03/16/20 05:45 Gram Stain - Final Sputum, Expectorated/Coughed Respiratory Culture - Preliminary Appears to be normal respiratory lenora. Further studies to follow. 03/16/20 00:03 Legionella Antigen - Final Urine, Clean Catch Streptococcus pneumoniae Antigen (M - Final 03/16/20 01:20 Respiratory Panel (PCR) - Final Mucosa - Nasopharyngeal Laboratory Tests Past 24 Hrs 03/17/20 03/17/20 06:00 06:00 WBC 6.2 RBC 3.42 L Hgb 10.8 L Hct 33.4 L MCV 97.7 MCH 31.6 MCHC 32.3 RDW Std Deviation 49.3 H RDW Coeff of Hebert 13.8 Plt Count 173 MPV 10.1 Sodium 140 Potassium 3.6 Chloride 105 Carbon Dioxide 25.0 Anion Gap 10 BUN 25 H Creatinine 0.85 Estim Creat Clear Calc 41.75 Est GFR (MDRD) Af Amer 83 Est GFR (MDRD) Non-Af 69 BUN/Creatinine Ratio 29.6 H Glucose 37 L* Calcium 8.8 Magnesium 1.8 Total Bilirubin 0.40 AST 25 ALT 17 Alkaline Phosphatase 53 Total Protein 6.4 Albumin 2.1 L Globulin 4.3 H Albumin/Globulin Ratio 0.5 L - Other Studies Radiology: [] reviewed Other Studies: [] Route of nutrition/ use of supplements: [] Nutritional Intake: [] IV Site: [] Padilla Catheter: [] - Physical Exam General: Alert, Cooperative, No apparent distress, - - hard of hearing HEENT: Atraumatic, PERRLA, EOMI Neck: Supple, No Nodes Lungs: Diminished Cardiovascular: Regular rate, Regular Rhythm Abdomen: Soft, Non Tender, Non-Distended Extremities: No edema Skin: No rashes IV Site: Peripheral, without redness Musculoskeletal: No Tenderness to Palpation of Joints or Extremities Neurological: Cranial nerves II-XII grossly intact - Assessment/Plan Antibiotics: [] Assessment/Plan: [] Active and Suspected Problems (Last Reviewed 02/26/20 @ 15:[address] Pedro Alexandre MD) Pneumonia due to COVID-19 virus (Acute) Acute respiratory failure with hypoxia (Acute) covid with hypoxia - tested (+) 03/10. On dex, remdesivir. CT neg for PE. D-dimer 1.6. Will change dex to po and increase lovenox to bid. Will follow, thank you
[2020-03-17 16:11] LABS: Bedside Glucose 426 mg/dL (70-110)
[2020-03-17] MEDS: Atorvastatin Calcium 40 MG Tablet PO (21:58)
[2020-03-17 22:25] LABS: Bedside Glucose 194 mg/dL (70-110)
[2020-03-18] VITALS (10 sets, daily range): BP systolic 103–119; BP diastolic 54–60; PULSE 59–76; RESP 16–18; TEMP 36.5–37; O2SAT 94–96
[2020-03-18 05:30] LABS: Hematocrit 31.7 % (37-47); Hemoglobin 10.3 g/dL (12.0-15.0); Mean Corp Hgb Conc 32.5 g/dL (32-36); Mean Corpuscular Hgb 31.9 pg (27.0-32.0); Mean Corpuscular Volume 98.1 fL (81-99); Mean Platelet Vol. 10.2 fl (6.2-12.0); Platelet Count 151 K/mm3 (150-450); RBC Distribution Width CV 13.6 % (11.6-14.6); RBC Distribution Width SD 49.2 fl (35.1-43.9); Red Blood Count 3.23 M/mm3 (4.2-5.4); White Blood Count 4.1 K/mm3 (4.4-11.0)
[2020-03-18 05:49] LABS: ALB/GLOB Ratio 0.5 RATIO (0.9-2.4); AST(SGOT) 15 U/L (15-37); Alanine Aminotransfer ALT/SGPT 15 U/L (13-56); Albumin, Serum 1.9 g/dL (3.2-5.0); Alkaline Phosphatase 51 U/L (45-117); Anion Gap 8 (5-15); BUN 26 mg/dL (7-18); Calcium,Total 8.4 mg/dL (8.5-10.1); Chloride 107 mmol/L (98-107); EST Glomerular Filtration Rate 64 mL/min (>60); Est Glom Filt Rate - Afr Amer 78 mL/min (>60); Estimated Creatinine Clearance 39.43 ml/min; Glucose 67 mg/dL (74-106); Potassium 3.6 mmol/L (3.5-5.1); Protein, Total 5.9 g/dL (6.4-8.2); Sodium Level 142 mmol/L (136-145)
[2020-03-18] MEDS: Gabapentin 300 MG Capsule PO ×4 (07:31→21:04)
[2020-03-18 07:46] LABS: Bedside Glucose 110 mg/dL (70-110)
[2020-03-18 07:46] LABS: Bedside Glucose 51 mg/dL (70-110)
--- NOTE | 2020-03-18 07:56 | PCM.PN.HOSP ---
Patient Problems: Active and Suspected Problems (Last Reviewed 02/26/20 @ 15:[address] Pedro Alexandre MD) Pneumonia due to COVID-19 virus (Acute) Acute respiratory failure with hypoxia (Acute) Subjective: Patient seen and examined. She still feels weak and short of breath. She is now on 2 L of oxygen. She has remained afebrile and tachypnea has resolved. Review systems otherwise negative. Vitals/I&O's: Vital Signs Temp Pulse Resp BP Pulse Ox 97.7 F L 70 16 119/54 L 96 03/18/20 03:56 03/18/20 07:46 03/18/20 03:56 03/18/20 03:56 03/18/20 04:00 Oxygen Flow Rate (L/min) 2 Oxygen Delivery Method Nasal Cannula Weight: 136 lb 10.986 oz Body Mass Index (BMI) 24.7 Intake and Output for Last 24 Hours 03/16/20 03/17/20 03/18/20 23:59 23:59 23:59 Intake Total 1274.75 / 1274.75 841.75 / 841.75 450 / 450 Output Total 1550 / 1550 2100 / 2500 700 / 700 Balance -275.25 / -275.25 -1258.25 / -1658.25 -250 / -250 General: Alert, Oriented x3, Cooperative, Lethargic HEENT: Atraumatic, PERRLA, EOMI, Normocephalic Oral: Dry Mucosa Neck: Supple, No JVD, Negative Carotid Bruits Lungs: Clear to auscultation, Normal air movement, No rhonchi, No wheeze, - - on 2L of oxygen by nasal canula Cardiovascular: Regular rate, Regular Rhythm, Normal S1, Normal S2, No murmurs Abdomen: Bowel Sounds Present, Soft, Non Tender, Non-Distended, No Hepato-splenomegaly Extremities: No clubbing, No cyanosis, No edema, Capillary Refill Less than 3 Seconds Skin: No rashes, No breakdown Musculoskeletal: No Tenderness to Palpation of Joints or Extremities Lymphatic: No Cervical, Supraclavicular, or Inguinal Adenopathy Neurological: Cranial nerves II-XII grossly intact, Neuro grossly intact, Motor Exam 5/5 strength throughout Psych/Mental Status: - - lethargic Microbiology Past 72 Hours 03/16/20 05:45 Sputum, Expectorated/Coughed Gram Stain - Final 03/16/20 05:45 Sputum, Expectorated/Coughed Respiratory Culture - Preliminary Appears to be normal respiratory lenora. Further studies to follow. 03/16/20 00:03 Urine, Clean Catch Legionella Antigen - Final 03/16/20 00:03 Urine, Clean Catch Streptococcus pneumoniae Antigen (M - Final 03/16/20 01:20 Mucosa - Nasopharyngeal Respiratory Panel (PCR) - Final Laboratory Results 03/17/20 08:09: POC Glucose 217 H 03/17/20 11:42: POC Glucose 204 H 03/17/20 15:29: POC Glucose 426 H 03/17/20 21:50: POC Glucose 194 H 03/18/20 05:16: WBC 4.1 L, RBC 3.23 L, Hgb 10.3 L, Hct 31.7 L, MCV 98.1, MCH 31.9, MCHC 32.5, RDW Std Deviation 49.2 H, RDW Coeff of Hebert 13.6, Plt Count 151, MPV 10.2 03/18/20 05:16: Sodium 142, Potassium 3.6, Chloride 107, Carbon Dioxide 27.0, Anion Gap 8, BUN 26 H, Creatinine 0.90, Estim Creat Clear Calc 39.43, Est GFR (MDRD) Af Amer 78, Est GFR (MDRD) Non-Af 64, BUN/Creatinine Ratio 29.0 H, Glucose 67 L, Calcium 8.4 L, Total Bilirubin 0.40, AST 15, ALT 15, Alkaline Phosphatase 51, Total Protein 5.9 L, Albumin 1.9 L, Globulin 4.0, Albumin/Globulin Ratio 0.5 L 03/18/20 06:17: POC Glucose 51 L 03/18/20 07:30: POC Glucose 110 Current Medications Acetaminophen (Acetaminophen 325 Mg Suppository) 650 mg RECTAL Q4H PRN PRN PRN Reason: Pain Score 1-10/Temp > 100.7 F Acetaminophen (Acetaminophen 325 Mg Tablet) 650 mg PO Q6H PRN PRN PRN Reason: Pain Score 1-10/Temp > 100.7 F Last Admin: 03/16/20 16:15 Dose: 650 mg Documented by: Al Hydroxide/Mg Hydroxide (Mag Hydrox/Al Hydrox/Simeth 30 Ml Udc) 30 ml PO Q6H PRN PRN PRN Reason: Gastric Burning Albuterol Sulfate (Albuterol Ih 8.5 Gm (Proair) Inhaler (200 Puffs)) 4 - 8 puff INHALATION Q4H PRN PRN PRN Reason: Dyspnea, wheezing Amlodipine Besylate (Amlodipine 10 Mg Tablet) 10 mg PO DAILY [facility] Last Admin: 03/17/20 08:07 Dose: 10 mg Documented by: Aspirin (Aspirin E.C. 81 Mg Tablet) 81 mg PO DAILY [facility] Last Admin: 03/17/20 08:06 Dose: 81 mg Documented by: Atorvastatin Calcium (Atorvastatin Calcium 40 Mg Tablet) 40 mg PO QHS [facility] Last Admin: 03/17/20 21:58 Dose: 40 mg Documented by: Dexamethasone (Dexamethasone 4 Mg Tablet) 6 mg PO DAILY [facility] Stop: 03/26/20 10:01 Enoxaparin Sodium (Enoxaparin 30 Mg/0.3 Ml Syringe) 30 mg SC BID [facility] Last Admin: 03/17/20 21:58 Dose: 30 mg Documented by: Gabapentin (Gabapentin 300 Mg Capsule) 300 mg PO [facility] Last Admin: 03/18/20 07:31 Dose: 300 mg Documented by: Guaifenesin (Guaifenesin 10 Ml Udc (200mg/10ml)) 20 ml PO Q4H PRN PRN PRN Reason: COUGH Hydralazine HCl (Hydralazine 20 Mg/Ml Vial) 10 mg IV Q4H PRN PRN PRN Reason: SBP > 160 Sodium Chloride () 250 mls @ 15 mls/hr IV .[id number] PRN PRN Reason: Saline Flush Last Infusion: 03/17/20 03:35 Dose: 0 mls/hr Documented by: Remdesivir 100 mg/ Sodium (Chloride) 250 mls @ 125 mls/hr IV Q24H [facility] Stop: 03/19/20 23:59 Last Infusion: 03/18/20 00:15 Dose: Infused Documented by: Insulin Human Lispro (Insulin Lispro 100 Unit/Ml Insuln.Pen) 0 unit SC [facility]; Protocol Last Admin: 03/18/20 07:31 Dose: Not Given Documented by: Magnesium Hydroxide (Magnesium Hydroxide 30 Ml Udc) 30 ml PO DAILY PRN PRN PRN Reason: Constipation Melatonin (Melatonin 3 Mg Tablet) 3 mg PO QHS PRN PRN PRN Reason: INSOMNIA Last Admin: 03/15/20 23:59 Dose: 3 mg Documented by: Metoprolol Tartrate (Metoprolol Tartrate 25 Mg Tablet) 25 mg PO BID [facility] Last Admin: 03/17/20 21:58 Dose: 25 mg Documented by: Nitroglycerin (Nitroglycerin (Inpatient Use) 0.4 Mg Tab.Subl) 0.4 mg SUBLINGUAL Q5M PRN PRN Reason: CARDIAC/CHEST PAIN Ondansetron HCl (Ondansetron 4 Mg/2 Ml Vial) 4 mg IV Q8H PRN PRN PRN Reason: NAUSEA/VOMITING Oxycodone HCl (Oxycodone 5 Mg Tablet) 5 mg PO Q4H PRN PRN PRN Reason: Pain Score 4-5 Prochlorperazine Edisylate (Prochlorperazine 10 Mg/2 Ml Vial) 5 mg IV Q4H PRN PRN PRN Reason: Breakthrough Nausea/Vomiting Psyllium Hydrophilic Mucilloid (Psyllium 1 Packet) 1 packet PO DAILY PRN PRN PRN Reason: Constipation Senna/Docusate Sodium (Senna/Docusate Sodium 1 Tablet) 2 tablet PO BID PRN PRN PRN Reason: Constipation Sodium Chloride (0.9% Saline Lock 10 Ml Syringe) 10 - 40 ml IV UD PRN PRN Reason: SALINE FLUSH Last Admin: 03/17/20 08:10 Dose: 10 ml Documented by: Throat Lozenges (Benzocaine/Menthol 1 Lozenge) 1 lozenge MUCOUS MEM Q2H PRN PRN PRN Reason: SORE THROAT Ticagrelor (Ticagrelor 90 Mg Tablet) 90 mg PO BID [facility] Last Admin: 03/17/20 21:58 Dose: 90 mg Documented by: STROKE Vital Signs/Narrative: Vital Signs Pulse Pulse Ox 03/18/20 07:46 70 03/18/20 04:00 96 Medical Necessity - Tobacco Use Smoking Status: Former smoker - Patient quit cigarette tobacco usage ~ 40 years prior, noted 1 pack/week, starting later in life. Tobacco Use: Non-smoker Assessment/Plan All Active Problems (Last Reviewed 02/26/20 @ 15:[address] Pedro Alexandre MD) Pneumonia due to COVID-19 virus (Acute) Acute respiratory failure with hypoxia (Acute) #Acute hypoxic respiratory failure due to COVID 19 infection currently on 2L of oxygen. Feels lethargic on PO decadron and IV remdesivir ID on board titrate oxygen to maintain sats >90% #COVID 19 infection: as above # Type 2 diabetes mellitus Lantus on hold on account of hypoglycemia Continue same sliding scale. Checks AC at bedtime. #Mitral valve regurgitation: To follow-up with cardiology on outpatient basis #Coronary artery disease: Status post stents to the RCA. On aspirin and Brilinta as well as high intensity statin # Hypertension; BP fairly well controlled. On amlodipine and metoprolol. 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
[2020-03-18 09:26] LABS: Bedside Glucose 49 mg/dL (70-110)
[2020-03-18 09:26] LABS: Bedside Glucose 62 mg/dL (70-110)
[2020-03-18] MEDS: Enoxaparin 30 MG/0.3 ML Syringe SC ×2 (09:28→21:04)
[2020-03-18] MEDS: amLODIPine 10 MG Tablet PO (09:29)
[2020-03-18] MEDS: TICAGRELOR 90 MG TABLET PO ×2 (09:29→21:04)
[2020-03-18] MEDS: Aspirin E.C. 81 MG Tablet PO (09:29)
[2020-03-18] MEDS: Metoprolol Tartrate 25 MG Tablet PO ×2 (09:29→21:14)
[2020-03-18] MEDS: dexAMETHasone 4 MG Tablet 6 MG PO (09:30)
--- NOTE | 2020-03-18 10:15 | PCM.PN.ID ---
Patient Problems: Active and Suspected Problems (Last Reviewed 02/26/20 @ 15:[address] Pedro Alexandre MD) Pneumonia due to COVID-19 virus (Acute) Acute respiratory failure with hypoxia (Acute) Subjective: Feeling a little better, breathing slightly improved, no fever, no n/v/d - Physical Exam Vitals/I&O's: Vital Signs Temp Pulse Resp BP Pulse Ox 97.9 F 76 16 103/54 L 94 03/18/20 09:45 03/18/20 09:45 03/18/20 09:45 03/18/20 09:45 03/18/20 09:45 Oxygen Flow Rate (L/min) 3 Oxygen Delivery Method Nasal Cannula Weight: 62 kg Body Mass Index (BMI) 24.7 Intake and Output for Last 24 Hours 03/16/20 03/17/20 03/18/20 23:59 23:59 23:59 Intake Total 1274.75 / 1274.75 841.75 / 841.75 450 / 450 Output Total 1550 / 1550 2100 / 2500 700 / 700 Balance -275.25 / -275.25 -1258.25 / -1658.25 -250 / -250 General: Alert, Cooperative, No apparent distress Lungs: Diminished Cardiovascular: Regular rate, Regular Rhythm Abdomen: Soft, Non Tender, Non-Distended Skin: No rashes Microbiology Past 72 Hours 03/16/20 05:45 Sputum, Expectorated/Coughed Gram Stain - Final 03/16/20 05:45 Sputum, Expectorated/Coughed Respiratory Culture - Final 03/16/20 00:03 Urine, Clean Catch Legionella Antigen - Final 03/16/20 00:03 Urine, Clean Catch Streptococcus pneumoniae Antigen (M - Final 03/16/20 01:20 Mucosa - Nasopharyngeal Respiratory Panel (PCR) - Final Laboratory Results 03/17/20 11:42: POC Glucose 204 H 03/17/20 15:29: POC Glucose 426 H 03/17/20 21:50: POC Glucose 194 H 03/18/20 05:16: WBC 4.1 L, RBC 3.23 L, Hgb 10.3 L, Hct 31.7 L, MCV 98.1, MCH 31.9, MCHC 32.5, RDW Std Deviation 49.2 H, RDW Coeff of Hebert 13.6, Plt Count 151, MPV 10.2 03/18/20 05:16: Sodium 142, Potassium 3.6, Chloride 107, Carbon Dioxide 27.0, Anion Gap 8, BUN 26 H, Creatinine 0.90, Estim Creat Clear Calc 39.43, Est GFR (MDRD) Af Amer 78, Est GFR (MDRD) Non-Af 64, BUN/Creatinine Ratio 29.0 H, Glucose 67 L, Calcium 8.4 L, Total Bilirubin 0.40, AST 15, ALT 15, Alkaline Phosphatase 51, Total Protein 5.9 L, Albumin 1.9 L, Globulin 4.0, Albumin/Globulin Ratio 0.5 L 03/18/20 06:17: POC Glucose 51 L 03/18/20 06:41: POC Glucose 49 L 03/18/20 06:52: POC Glucose 62 L 03/18/20 07:30: POC Glucose 110 Current Medications Acetaminophen (Acetaminophen 325 Mg Suppository) 650 mg RECTAL Q4H PRN PRN PRN Reason: Pain Score 1-10/Temp > 100.7 F Acetaminophen (Acetaminophen 325 Mg Tablet) 650 mg PO Q6H PRN PRN PRN Reason: Pain Score 1-10/Temp > 100.7 F Last Admin: 03/16/20 16:15 Dose: 650 mg Documented by: Al Hydroxide/Mg Hydroxide (Mag Hydrox/Al Hydrox/Simeth 30 Ml Udc) 30 ml PO Q6H PRN PRN PRN Reason: Gastric Burning Albuterol Sulfate (Albuterol Ih 8.5 Gm (Proair) Inhaler (200 Puffs)) 4 - 8 puff INHALATION Q4H PRN PRN PRN Reason: Dyspnea, wheezing Amlodipine Besylate (Amlodipine 10 Mg Tablet) 10 mg PO DAILY [facility] Last Admin: 03/18/20 09:29 Dose: 10 mg Documented by: Aspirin (Aspirin E.C. 81 Mg Tablet) 81 mg PO DAILY [facility] Last Admin: 03/18/20 09:29 Dose: 81 mg Documented by: Atorvastatin Calcium (Atorvastatin Calcium 40 Mg Tablet) 40 mg PO QHS [facility] Last Admin: 03/17/20 21:58 Dose: 40 mg Documented by: Dexamethasone (Dexamethasone 4 Mg Tablet) 6 mg PO DAILY [facility] Stop: 03/26/20 10:01 Last Admin: 03/18/20 09:30 Dose: 6 mg Documented by: Enoxaparin Sodium (Enoxaparin 30 Mg/0.3 Ml Syringe) 30 mg SC BID [facility] Last Admin: 03/18/20 09:28 Dose: 30 mg Documented by: Gabapentin (Gabapentin 300 Mg Capsule) 300 mg PO [facility] Last Admin: 03/18/20 07:31 Dose: 300 mg Documented by: Guaifenesin (Guaifenesin 10 Ml Udc (200mg/10ml)) 20 ml PO Q4H PRN PRN PRN Reason: COUGH Hydralazine HCl (Hydralazine 20 Mg/Ml Vial) 10 mg IV Q4H PRN PRN PRN Reason: SBP > 160 Sodium Chloride () 250 mls @ 15 mls/hr IV .[id number] PRN PRN Reason: Saline Flush Last Infusion: 03/17/20 03:35 Dose: 0 mls/hr Documented by: Remdesivir 100 mg/ Sodium (Chloride) 250 mls @ 125 mls/hr IV Q24H [facility] Stop: 03/19/20 23:59 Last Infusion: 03/18/20 00:15 Dose: Infused Documented by: Insulin Human Lispro (Insulin Lispro 100 Unit/Ml Insuln.Pen) 0 unit SC [facility]; Protocol Last Admin: 03/18/20 07:31 Dose: Not Given Documented by: Magnesium Hydroxide (Magnesium Hydroxide 30 Ml Udc) 30 ml PO DAILY PRN PRN PRN Reason: Constipation Melatonin (Melatonin 3 Mg Tablet) 3 mg PO QHS PRN PRN PRN Reason: INSOMNIA Last Admin: 03/15/20 23:59 Dose: 3 mg Documented by: Metoprolol Tartrate (Metoprolol Tartrate 25 Mg Tablet) 25 mg PO BID [facility] Last Admin: 03/18/20 09:29 Dose: 25 mg Documented by: Nitroglycerin (Nitroglycerin (Inpatient Use) 0.4 Mg Tab.Subl) 0.4 mg SUBLINGUAL Q5M PRN PRN Reason: CARDIAC/CHEST PAIN Ondansetron HCl (Ondansetron 4 Mg/2 Ml Vial) 4 mg IV Q8H PRN PRN PRN Reason: NAUSEA/VOMITING Oxycodone HCl (Oxycodone 5 Mg Tablet) 5 mg PO Q4H PRN PRN PRN Reason: Pain Score 4-5 Prochlorperazine Edisylate (Prochlorperazine 10 Mg/2 Ml Vial) 5 mg IV Q4H PRN PRN PRN Reason: Breakthrough Nausea/Vomiting Psyllium Hydrophilic Mucilloid (Psyllium 1 Packet) 1 packet PO DAILY PRN PRN PRN Reason: Constipation Senna/Docusate Sodium (Senna/Docusate Sodium 1 Tablet) 2 tablet PO BID PRN PRN PRN Reason: Constipation Sodium Chloride (0.9% Saline Lock 10 Ml Syringe) 10 - 40 ml IV UD PRN PRN Reason: SALINE FLUSH Last Admin: 03/17/20 08:10 Dose: 10 ml Documented by: Throat Lozenges (Benzocaine/Menthol 1 Lozenge) 1 lozenge MUCOUS MEM Q2H PRN PRN PRN Reason: SORE THROAT Ticagrelor (Ticagrelor 90 Mg Tablet) 90 mg PO BID [facility] Last Admin: 03/18/20 09:29 Dose: 90 mg Documented by: Medical Necessity - Tobacco Use Smoking Status: Former smoker - Patient quit cigarette tobacco usage ~ 40 years prior, noted 1 pack/week, starting later in life. Tobacco Use: Non-smoker Route of nutrition/ use of supplements: [] Nutritional Intake: [] IV Site: [] Padilla Catheter: [] - Assessment/Plan Antibiotics: [] Assessment/Plan: [] Active and Suspected Problems (Last Reviewed 02/26/20 @ 15:[address] Pedro Alexandre MD) Pneumonia due to COVID-19 virus (Acute) Acute respiratory failure with hypoxia (Acute) covid with hypoxia - tested (+) 03/10. On dex, remdesivir. CT neg for PE. D-dimer 1.6. On intermediate dose lovenox. Plan will be for 20 days of quarantine from symptom start, complete 10 days total of dex and 2 weeks of either xarelto 10mg daily or eliquis 2.5mg bid. Will follow
--- NOTE | 2020-03-18 10:52 | CASEMGMT ---
Addendum entered by Loulou Esqueda 03/18/20 12:41: JAMIL received message from Gloria at [facility], they are not in network but have been able to get one time contracts with [employer] for pts who have COVID. JAMIL called son back, [facility] is his first choice and would like to try to see if we can get the contract with [facility] for pt. He is in agreement w/placement for pt, he knows she will need 24 hour care when she leaves the hospital. SW will fax the referral to [facility] shortly. LUCHO Arzola Original Note: JAMIL called pt's son to discuss discharge plan as pt is sleeping at this time, as physician states pt may need to go somewhere after her hospital stay. PCP: Dr. Mendez Specialists: [facility] Pharmacy: [facility] [place] Insurance: [employer] Medicare LNOK: Son LW/POA: As per son he is POA, though he is not certain if pt ever completed the forms. SW let son know there are no forms in the computer here. Prior level of function/Living arrangements: Pt lives alone in an apartment. Pt is independent with ADL's except for driving, son takes pt to appointments. DME/HHC/SNF: Pt uses a walker, no home O2. Pt had home health after she had stents put in a few years ago. No history of SNF. SW spoke w/pt about the possibility pt may need SNF placement. SW reviewed w/son possible nursing homes that take COVID and pt's insurance. Son would prefer one of the facilities in [place], though they are not listed on insurance as in network. Pt also mentioned [facility] as a possibility. SW explained will call facilities in [place], and go from there. SW called [facility], they are not in network. SW called [facility], message left. Once SW hears back will follow up again w/son. Plan: SNF likely, facility TBD LUCHO Arzola
[2020-03-18] MEDS: Insulin Lispro 100 UNIT/ML INSULN.PEN SC ×3 (12:25→21:18)
--- NOTE | 2020-03-18 13:02 | CASEMGMT ---
JAMIL faxed referral to [facility], message left for Gloria in admissions. JAMIL will continue to follow. LUCHO Arzola
[2020-03-18 13:50] LABS: Bedside Glucose 298 mg/dL (70-110)
[2020-03-18 16:56] LABS: Bedside Glucose 385 mg/dL (70-110)
[2020-03-18] MEDS: Atorvastatin Calcium 40 MG Tablet PO (21:04)
[2020-03-18] MEDS: 0.9% Saline Lock 10 ML Syringe IV (21:05)
[2020-03-18 21:30] LABS: Bedside Glucose 353 mg/dL (70-110)
[2020-03-19] VITALS (13 sets, daily range): BP systolic 101–126; BP diastolic 55–70; PULSE 52–69; RESP 16–22; TEMP 36.4–36.7; O2SAT 94–98
[2020-03-19 00:41] LABS: Bacteria 0 SEEN /hpf (None Seen); Mucous, Urine 0 SEEN /hpf (<or=2+); Red Blood Cells-Urine 0 SEEN /hpf (0-5); Squamous Epithelial Cells - UA 0 SEEN /hpf (5-10); White Blood Cells 0 SEEN /hpf (0-5)
[2020-03-19 00:44] LABS: Color, Urine Yellow (Yellow); Glucose, Dipstick 1000 mg/dl (Normal); Ketone-Dipstick Negative (Negative); Leukocyte Esterase-Dipstick Negative /ul (Negative); Nitrite-Dipstick Negative (Negative); Occult Blood-Urine Negative /ul (Negative); Protein-Dipstick 15 mg/dl (Negative); Urine Bilirubin Dipstick Negative (Negative); Urine Clarity Clear (Clear); Urine Urobilinogen Normal (Normal)
[2020-03-19 06:15] LABS: Hematocrit 31.1 % (37-47); Hemoglobin 10.1 g/dL (12.0-15.0); Mean Corp Hgb Conc 32.5 g/dL (32-36); Mean Corpuscular Hgb 31.9 pg (27.0-32.0); Mean Corpuscular Volume 98.1 fL (81-99); Mean Platelet Vol. 10.5 fl (6.2-12.0); Platelet Count 141 K/mm3 (150-450); RBC Distribution Width CV 13.5 % (11.6-14.6); RBC Distribution Width SD 48.6 fl (35.1-43.9); Red Blood Count 3.17 M/mm3 (4.2-5.4); White Blood Count 4.6 K/mm3 (4.4-11.0)
[2020-03-19 06:35] LABS: ALB/GLOB Ratio 0.4 RATIO (0.9-2.4); AST(SGOT) 10 U/L (15-37); Alanine Aminotransfer ALT/SGPT 15 U/L (13-56); Albumin, Serum 1.9 g/dL (3.2-5.0); Alkaline Phosphatase 51 U/L (45-117); Anion Gap 6 (5-15); BUN 28 mg/dL (7-18); BUN/Creat Ratio 29.8 RATIO (10-20); Calcium,Total 8.7 mg/dL (8.5-10.1); Chloride 108 mmol/L (98-107); Creatinine, Serum 0.94 mg/dL (0.55-1.02); EST Glomerular Filtration Rate 61 mL/min (>60); Est Glom Filt Rate - Afr Amer 74 mL/min (>60); Estimated Creatinine Clearance 37.75 ml/min; Globulin 4.5 g/dL (2.2-4.2); Glucose 173 mg/dL (74-106); Potassium 4.1 mmol/L (3.5-5.1); Protein, Total 6.4 g/dL (6.4-8.2); Sodium Level 140 mmol/L (136-145)
[2020-03-19 06:51] LABS: Bedside Glucose 223 mg/dL (70-110)
[2020-03-19] MEDS: Gabapentin 300 MG Capsule PO ×4 (06:54→22:09)
[2020-03-19] MEDS: Insulin Lispro 100 UNIT/ML INSULN.PEN SC ×4 (06:54→21:33)
[2020-03-19 07:01] LABS: Bedside Glucose 179 mg/dL (70-110)
[2020-03-19] MEDS: dexAMETHasone 4 MG Tablet 6 MG PO (10:17)
[2020-03-19] MEDS: Aspirin E.C. 81 MG Tablet PO (10:17)
[2020-03-19] MEDS: TICAGRELOR 90 MG TABLET PO ×2 (10:18→21:32)
[2020-03-19] MEDS: amLODIPine 10 MG Tablet PO (10:18)
[2020-03-19] MEDS: Enoxaparin 30 MG/0.3 ML Syringe SC ×2 (10:18→21:32)
[2020-03-19] MEDS: Metoprolol Tartrate 25 MG Tablet PO ×2 (10:27→21:31)
--- NOTE | 2020-03-19 11:22 | CASEMGMT ---
Social Work SW spoke with Gloria at [facility]. Gloria states she submitted requested for one time contract and precert yesterday. Insurance notified her this morning that they received request and are process and will notify of determination later in the day. LISA Sharif
--- NOTE | 2020-03-19 12:10 | PCM.PN.HOSP ---
Patient Problems: Active and Suspected Problems (Last Reviewed 02/26/20 @ 15:[address] Pedro Alexandre MD) Pneumonia due to COVID-19 virus (Acute) Acute respiratory failure with hypoxia (Acute) Subjective: Patient seen and examined. She complains of incontinence with her urine, as well as dysuria. She still complains of feeling very tired. Review of systems is otherwise negative. She has remained hemodynamically stable. Vitals/I&O's: Vital Signs Temp Pulse Resp BP Pulse Ox 97.9 F 62 18 101/55 L 94 03/19/20 10:00 03/19/20 10:27 03/19/20 10:00 03/19/20 10:00 03/19/20 10:00 Oxygen Flow Rate (L/min) 3 Oxygen Delivery Method Nasal Cannula Weight: 137 lb 2.04 oz Body Mass Index (BMI) 24.7 Intake and Output for Last 24 Hours 03/17/20 03/18/20 03/19/20 23:59 23:59 23:59 Intake Total 841.75 / 841.75 700 / 700 700 / 700 Output Total 2100 / 2500 1550 / 1550 750 / 750 Balance -1258.25 / -1658.25 -850 / -850 -50 / -50 General: Alert, Oriented x3, Cooperative, No apparent distress, Lethargic HEENT: Atraumatic, PERRLA, EOMI, Normocephalic Oral: Dry Mucosa Neck: Supple, No JVD, Negative Carotid Bruits Lungs: Clear to auscultation, Normal air movement, No rhonchi, No wheeze, No rales Cardiovascular: Regular rate, Regular Rhythm, Normal S1, Normal S2, No murmurs Abdomen: Bowel Sounds Present, Soft, Non Tender, Non-Distended, No Hepato-splenomegaly Extremities: No clubbing, No cyanosis, No edema, Capillary Refill Less than 3 Seconds Skin: No rashes, No breakdown Musculoskeletal: No Tenderness to Palpation of Joints or Extremities Lymphatic: No Cervical, Supraclavicular, or Inguinal Adenopathy Neurological: Cranial nerves II-XII grossly intact, Neuro grossly intact Psych/Mental Status: Normal Affect, Appropriate, Alert and oriented to time, place, person, mood and affect Microbiology Past 72 Hours 03/16/20 05:45 Sputum, Expectorated/Coughed Gram Stain - Final 03/16/20 05:45 Sputum, Expectorated/Coughed Respiratory Culture - Final 03/16/20 00:03 Urine, Clean Catch Legionella Antigen - Final 03/16/20 00:03 Urine, Clean Catch Streptococcus pneumoniae Antigen (M - Final Laboratory Results 03/18/20 12:21: POC Glucose 298 H 03/18/20 16:31: POC Glucose 385 H 03/18/20 19:25: Urine Color Yellow, Urine Clarity Clear, Urine pH 6.0, Ur Specific [place] 1.010, Urine Protein 15 H, Urine Glucose (UA) 1000 H, Urine Ketones Negative, Urine Occult Blood Negative, Urine Nitrite Negative, Urine Bilirubin Negative, Urine Urobilinogen Normal, Ur Leukocyte Esterase Negative, Urine RBC 0 SEEN, Urine WBC 0 SEEN, Ur Squamous Epith Cells 0 SEEN, Urine Bacteria 0 SEEN, Urine Mucus 0 SEEN 03/18/20 21:17: POC Glucose 353 H 03/19/20 03:33: POC Glucose 223 H 03/19/20 06:02: WBC 4.6, RBC 3.17 L, Hgb 10.1 L, Hct 31.1 L, MCV 98.1, MCH 31.9, MCHC 32.5, RDW Std Deviation 48.6 H, RDW Coeff of Hebert 13.5, Plt Count 141 L, MPV 10.5 03/19/20 06:02: Sodium 140, Potassium 4.1, Chloride 108 H, Carbon Dioxide 26.0, Anion Gap 6, BUN 28 H, Creatinine 0.94, Estim Creat Clear Calc 37.75, Est GFR (MDRD) Af Amer 74, Est GFR (MDRD) Non-Af 61, BUN/Creatinine Ratio 29.8 H, Glucose 173 H, Calcium 8.7, Total Bilirubin 0.30, AST 10 L, ALT 15, Alkaline Phosphatase 51, Total Protein 6.4, Albumin 1.9 L, Globulin 4.5 H, Albumin/Globulin Ratio 0.4 L 03/19/20 06:52: POC Glucose 179 H Diagnostic Data Chest X-Ray 03/15/20 21:00 IMPRESSION: Setting airspace disease overlies the left mid to lower lobe and right lower lobe concerning for multifocal infiltrates in the appropriate clinical setting. Underlying viral etiology of illness is not excluded, clinically correlate. Electronically Signed: Fortino Lee DO at 21:15 EST , Service support , Chest CTA 03/15/20 22:50 IMPRESSION: No pulmonary embolism, aortic aneurysm, or aortic dissection. Multi lobar multifocal bilateral rounded groundglass airspace disease consistent with Covid 19 pneumonia. Individualized dose optimization techniques were used for this CT. at 2331 Reported and signed by: Albino Martinez MD Electronically Signed: Albino Martinez MD at 23:30 EST Tel , Service support , Current Medications Acetaminophen (Acetaminophen 325 Mg Suppository) 650 mg RECTAL Q4H PRN PRN PRN Reason: Pain Score 1-10/Temp > 100.7 F Acetaminophen (Acetaminophen 325 Mg Tablet) 650 mg PO Q6H PRN PRN PRN Reason: Pain Score 1-10/Temp > 100.7 F Last Admin: 03/16/20 16:15 Dose: 650 mg Documented by: Al Hydroxide/Mg Hydroxide (Mag Hydrox/Al Hydrox/Simeth 30 Ml Udc) 30 ml PO Q6H PRN PRN PRN Reason: Gastric Burning Albuterol Sulfate (Albuterol Ih 8.5 Gm (Proair) Inhaler (200 Puffs)) 4 - 8 puff INHALATION Q4H PRN PRN PRN Reason: Dyspnea, wheezing Amlodipine Besylate (Amlodipine 10 Mg Tablet) 10 mg PO DAILY [facility] Last Admin: 03/19/20 10:18 Dose: 10 mg Documented by: Aspirin (Aspirin E.C. 81 Mg Tablet) 81 mg PO DAILY [facility] Last Admin: 03/19/20 10:17 Dose: 81 mg Documented by: Atorvastatin Calcium (Atorvastatin Calcium 40 Mg Tablet) 40 mg PO QHS [facility] Last Admin: 03/18/20 21:04 Dose: 40 mg Documented by: Dexamethasone (Dexamethasone 4 Mg Tablet) 6 mg PO DAILY [facility] Stop: 03/26/20 10:01 Last Admin: 03/19/20 10:17 Dose: 6 mg Documented by: Enoxaparin Sodium (Enoxaparin 30 Mg/0.3 Ml Syringe) 30 mg SC BID [facility] Last Admin: 03/19/20 10:18 Dose: 30 mg Documented by: Gabapentin (Gabapentin 300 Mg Capsule) 300 mg PO [facility] Last Admin: 03/19/20 06:54 Dose: 300 mg Documented by: Guaifenesin (Guaifenesin 10 Ml Udc (200mg/10ml)) 20 ml PO Q4H PRN PRN PRN Reason: COUGH Hydralazine HCl (Hydralazine 20 Mg/Ml Vial) 10 mg IV Q4H PRN PRN PRN Reason: SBP > 160 Sodium Chloride () 250 mls @ 15 mls/hr IV .[id number] PRN PRN Reason: Saline Flush Last Infusion: 03/17/20 03:35 Dose: 0 mls/hr Documented by: Remdesivir 100 mg/ Sodium (Chloride) 250 mls @ 125 mls/hr IV Q24H [facility] Stop: 03/19/20 23:59 Last Infusion: 03/18/20 23:53 Dose: Infused Documented by: Insulin Human Lispro (Insulin Lispro 100 Unit/Ml Insuln.Pen) 0 unit SC [facility]; Protocol Last Admin: 03/19/20 06:54 Dose: 3 u Documented by: Magnesium Hydroxide (Magnesium Hydroxide 30 Ml Udc) 30 ml PO DAILY PRN PRN PRN Reason: Constipation Melatonin (Melatonin 3 Mg Tablet) 3 mg PO QHS PRN PRN PRN Reason: INSOMNIA Last Admin: 03/15/20 23:59 Dose: 3 mg Documented by: Metoprolol Tartrate (Metoprolol Tartrate 25 Mg Tablet) 25 mg PO BID [facility] Last Admin: 03/19/20 10:27 Dose: 25 mg Documented by: Nitroglycerin (Nitroglycerin (Inpatient Use) 0.4 Mg Tab.Subl) 0.4 mg SUBLINGUAL Q5M PRN PRN Reason: CARDIAC/CHEST PAIN Ondansetron HCl (Ondansetron 4 Mg/2 Ml Vial) 4 mg IV Q8H PRN PRN PRN Reason: NAUSEA/VOMITING Oxycodone HCl (Oxycodone 5 Mg Tablet) 5 mg PO Q4H PRN PRN PRN Reason: Pain Score 4-5 Prochlorperazine Edisylate (Prochlorperazine 10 Mg/2 Ml Vial) 5 mg IV Q4H PRN PRN PRN Reason: Breakthrough Nausea/Vomiting Psyllium Hydrophilic Mucilloid (Psyllium 1 Packet) 1 packet PO DAILY PRN PRN PRN Reason: Constipation Senna/Docusate Sodium (Senna/Docusate Sodium 1 Tablet) 2 tablet PO BID PRN PRN PRN Reason: Constipation Sodium Chloride (0.9% Saline Lock 10 Ml Syringe) 10 - 40 ml IV UD PRN PRN Reason: SALINE FLUSH Last Admin: 03/18/20 21:05 Dose: 10 ml Documented by: Throat Lozenges (Benzocaine/Menthol 1 Lozenge) 1 lozenge MUCOUS MEM Q2H PRN PRN PRN Reason: SORE THROAT Ticagrelor (Ticagrelor 90 Mg Tablet) 90 mg PO BID [facility] Last Admin: 03/19/20 10:18 Dose: 90 mg Documented by: STROKE Vital Signs/Narrative: Vital Signs Temp Pulse Resp BP Pulse Ox 03/19/20 10:27 62 03/19/20 10:00 97.9 F 62 18 101/55 L 94 Medical Necessity - Tobacco Use Smoking Status: Former smoker - Patient quit cigarette tobacco usage ~ 40 years prior, noted 1 pack/week, starting later in life. Tobacco Use: Non-smoker Assessment/Plan All Active Problems (Last Reviewed 02/26/20 @ 15:[address] Pedro Alexandre MD) Pneumonia due to COVID-19 virus (Acute) Acute respiratory failure with hypoxia (Acute) #Acute hypoxic respiratory failure due to COVID 19 infection currently on 3L of oxygen. Feels lethargic on PO decadron and IV remdesivir ID on board titrate oxygen to maintain sats >90% #COVID 19 infection: as above #Cystitis: patient complaining of frequency and dysuria as well as incontinence. UA is negative though. Will start on PO omnicef whilst urine culture is pending, as she is symptomatic. # Type 2 diabetes mellitus Lantus on hold on account of hypoglycemia. Hypoglycemia has resolved patient not on lantus at home; this was started in pateint. WIll put lizz back on her home metformin and glimepiride Continue insulin sliding scale. Checks AC at bedtime. #Mitral valve regurgitation: To follow-up with cardiology on outpatient basis #Coronary artery disease: Status post stents to the RCA. On aspirin and Brilinta as well as high intensity statin # Hypertension; BP fairly well controlled. On amlodipine and metoprolol. 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 Will need to be discharged rafal 2 weeks of eliquis 2.5mg bid or xarelto 10mg daily. Disposition: will need placement in SNF. Inpatient E&M: [id number] Subs Hosp L2
[2020-03-19 12:41] LABS: Bedside Glucose 292 mg/dL (70-110)
[2020-03-19] MEDS: Cefdinir 300 MG Capsule PO ×2 (15:09→21:55)
[2020-03-19] MEDS: Glimepiride 4 MG Tablet PO (16:23)
[2020-03-19] MEDS: metFORMIN HCl 1,000 MG Tablet 1000 MG PO (16:24)
[2020-03-19] MEDS: Atorvastatin Calcium 40 MG Tablet PO (21:32)
[2020-03-19] MEDS: 0.9% Saline Lock 10 ML Syringe IV (22:05)
[2020-03-19 22:11] LABS: Bedside Glucose 338 mg/dL (70-110)
[2020-03-20] VITALS (17 sets, daily range): BP systolic 105–117; BP diastolic 50–59; PULSE 52–74; RESP 18–20; TEMP 36.4; O2SAT 90–98
[2020-03-20] MEDS: 0.9% Saline Lock 10 ML Syringe IV (07:03)
[2020-03-20] MEDS: Gabapentin 300 MG Capsule PO ×4 (07:04→21:10)
[2020-03-20 07:06] LABS: Bedside Glucose 403 mg/dL (70-110)
[2020-03-20 07:06] LABS: Bedside Glucose 467 mg/dL (70-110)
[2020-03-20 07:10] LABS: Bedside Glucose 137 mg/dL (70-110)
[2020-03-20 08:14] LABS: Absolute Lymphocyte Count 0.83 X10^3/uL (0.83-4.51); Absolute Neutrophil Count 4.5 X10^3/uL (2.0-7.7); Basophil# 0.02 X10^3/uL; Basophil% 0.3 % (0-1); Eosinophil# 0.02 X10^3/uL; Eosinophils% 0.3 % (0-5); Hematocrit 29.8 % (37-47); Hemoglobin 9.8 g/dL (12.0-15.0); Lymphocyte # 0.83 X10^3/ul (4.0); Lymphocyte % 14.2 % (19-41); Mean Corp Hgb Conc 32.9 g/dL (32-36); Mean Corpuscular Hgb 31.9 pg (27.0-32.0); Mean Corpuscular Volume 97.1 fL (81-99); Monocyte# 0.38 X10^3/uL; Monocyte% 6.5 % (0-10); NRBC Flagged by Analyzer 0.3 % (0-5); Neutrophil # 4.47 X10^3/uL (2.7-7.7); Neutrophil % 76.8 % (47-70); Platelet Count 158 K/mm3 (150-450); RBC Distribution Width CV 13.4 % (11.6-14.6); RBC Distribution Width SD 47.5 fl (35.1-43.9); Red Blood Count 3.07 M/mm3 (4.2-5.4); White Blood Count 5.8 K/mm3 (4.4-11.0)
[2020-03-20 08:54] LABS: ALB/GLOB Ratio 0.5 RATIO (0.9-2.4); AST(SGOT) 19 U/L (15-37); Alanine Aminotransfer ALT/SGPT 17 U/L (13-56); Alkaline Phosphatase 54 U/L (45-117); Anion Gap 9 (5-15); BUN 35 mg/dL (7-18); BUN/Creat Ratio 37.6 RATIO (10-20); Calcium,Total 8.5 mg/dL (8.5-10.1); Chloride 106 mmol/L (98-107); Creatinine, Serum 0.93 mg/dL (0.55-1.02); EST Glomerular Filtration Rate 61 mL/min (>60); Est Glom Filt Rate - Afr Amer 74 mL/min (>60); Estimated Creatinine Clearance 38.16 ml/min; Globulin 3.8 g/dL (2.2-4.2); Glucose 116 mg/dL (74-106); Potassium 4.2 mmol/L (3.5-5.1); Protein, Total 5.8 g/dL (6.4-8.2); Sodium Level 140 mmol/L (136-145)
[2020-03-20] MEDS: metFORMIN HCl 1,000 MG Tablet 1000 MG PO ×2 (09:15→16:17)
[2020-03-20] MEDS: Enoxaparin 30 MG/0.3 ML Syringe SC ×2 (09:17→21:10)
[2020-03-20] MEDS: TICAGRELOR 90 MG TABLET PO ×2 (09:18→21:09)
[2020-03-20] MEDS: amLODIPine 10 MG Tablet PO (09:18)
[2020-03-20] MEDS: Metoprolol Tartrate 25 MG Tablet PO ×2 (09:18→21:10)
[2020-03-20] MEDS: Cefdinir 300 MG Capsule PO ×2 (09:18→21:10)
[2020-03-20] MEDS: dexAMETHasone 4 MG Tablet 6 MG PO (09:18)
[2020-03-20] MEDS: Glimepiride 4 MG Tablet PO ×2 (09:19→16:17)
[2020-03-20] MEDS: Aspirin E.C. 81 MG Tablet PO (09:19)
[2020-03-20] MEDS: Acetaminophen 325 MG Tablet 650 MG PO (09:23)
--- NOTE | 2020-03-20 11:00 | CASEMGMT ---
Social Work SW received message from [facility] who states [facility] will not give them a one time contract to accept pt unless 5 facilities have denied pt then they will reconsider. Phone call to pt son Joe and explained above. Provided names of facilities that are in network with insurance and are accepting covid positive patients. Son does not want [facility]. Informed son of other options: [facility], [facility], [facility], [facility], [facility], [facility], [facility], [facility]. Son stating facilities are too far away. SW again explained insurance will not approve out of network facility. Son choosing [facility]. SW inquired if son has spoke with pt regarding SNF placement yet and he states he has not. SW attempted to call pt room and she does not answer phone. Phone call to [facility] and they will accept referral to review. Referral faxed and will await determination. LISA Sharif
[2020-03-20 11:41] LABS: Bedside Glucose 285 mg/dL (70-110)
[2020-03-20] MEDS: Insulin Lispro 100 UNIT/ML INSULN.PEN SC ×3 (11:57→21:11)
--- NOTE | 2020-03-20 13:36 | CASEMGMT ---
Addendum entered by Litzy Zavala 03/20/20 15:05: Second call placed to [facility] and spoke with Svetlana. They do have beds available. Referral faxed and will await determination if they can accept pt. LISA Sharif Original Note: Social Work Return call from [facility] and they are unable to accept pt. Phone call placed to pt son and updated him and provided list of in network facilities that accept covid patients. Son's next choice is [facility]. left at the [facility] to inquire about bed availability. SW will await return call. LISA Sharif
--- NOTE | 2020-03-20 14:19 | PN_ITS ---
Patient Problems: Active and Suspected Problems (Last Reviewed 02/26/20 @ 15:[address] Pedro Alexandre MD) Pneumonia due to COVID-19 virus (Acute) Acute respiratory failure with hypoxia (Acute) Subjective: Patient seen and examined. She still complains of feeling very tired. Shortness of breath remains the same. She remains on 3 L of oxygen. Review of symptoms otherwise negative. Vitals/I&O's: Vital Signs Temp Pulse Resp BP Pulse Ox 97.5 F L 57 L 20 H 105/51 L 94 03/20/20 08:51 03/20/20 10:54 03/20/20 08:51 03/20/20 09:18 03/20/20 08:51 Oxygen Flow Rate (L/min) 2 Oxygen Delivery Method Nasal Cannula Weight: 137 lb 6.4 oz Body Mass Index (BMI) 24.7 Intake and Output for Last 24 Hours 03/18/20 03/19/20 03/20/20 23:59 23:59 23:59 Intake Total 700 / 700 700 / 700 250 / 250 Output Total 1550 / 1550 750 / 750 Balance -850 / -850 -50 / -50 250 / 250 General: Alert, Oriented x3, Cooperative, No apparent distress, Lethargic HEENT: Atraumatic, PERRLA, EOMI, Normocephalic Oral: Dry Mucosa Neck: Supple, No JVD, Negative Carotid Bruits Lungs: Clear to auscultation, Normal air movement, No rhonchi, No wheeze, No rales, on 3L of oxygen by nasal canula Cardiovascular: Regular rate, Regular Rhythm, Normal S1, Normal S2, No murmurs Abdomen: Bowel Sounds Present, Soft, Non Tender, Non-Distended, No Hepato- splenomegaly Extremities: No clubbing, No cyanosis, No edema, Capillary Refill Less than 3 Seconds Skin: No rashes, No breakdown Musculoskeletal: No Tenderness to Palpation of Joints or Extremities Lymphatic: No Cervical, Supraclavicular, or Inguinal Adenopathy Neurological: Cranial nerves II-XII grossly intact, Neuro grossly intact Psych/Mental Status: Normal Affect, Appropriate, Alert and oriented to time, place, person, mood and affect Microbiology Past 72 Hours 03/18/20 19:25 Urine, Clean Catch Urine Culture - Preliminary Culture exhibits no growth. 03/16/20 05:45 Sputum, Expectorated/Coughed Gram Stain - Final 03/16/20 05:45 Sputum, Expectorated/Coughed Respiratory Culture - Final Laboratory Results 03/19/20 16:17: POC Glucose 467 H* 03/19/20 16:21: POC Glucose 403 H 03/19/20 21:17: POC Glucose 338 H 03/20/20 07:02: POC Glucose 137 H 03/20/20 08:00: WBC 5.8, RBC 3.07 L, Hgb 9.8 L, Hct 29.8 L, MCV 97.1, MCH 31.9, MCHC 32.9, RDW Std Deviation 47.5 H, RDW Coeff of Hebert 13.4, Plt Count 158, MPV 1 1.0, Immature Gran % (Auto) 1.900 H, Neut % (Auto) 76.8 H, Lymph % (Auto) 14.2 L , Craig % (Auto) 6.5, Eos % (Auto) 0.3, Baso % (Auto) 0.3, Absolute Neuts (auto) 4.5, Absolute Lymphs (auto) 0.83, Nucleated RBC % 0.3 03/20/20 08:00: Sodium 140, Potassium 4.2, Chloride 106, Carbon Dioxide 25.0, Anion Gap 9, BUN 35 H, Creatinine 0.93, Estim Creat Clear Calc 38.16, Est GFR (MDRD) Af Amer 74, Est GFR (MDRD) Non-Af 61, BUN/Creatinine Ratio 37.6 H, Glucose 116 H, Calcium 8.5, Total Bilirubin 0.30, AST 19, ALT 17, Alkaline Phosphatase 54, Total Protein 5.8 L, Albumin 2.0 L, Globulin 3.8, Albumin/Globulin Ratio 0.5 L 03/20/20 11:33: POC Glucose 285 H Current Medications Acetaminophen (Acetaminophen 325 Mg Suppository) 650 mg RECTAL Q4H PRN PRN PRN Reason: Pain Score 1-10/Temp > 100.7 F Acetaminophen (Acetaminophen 325 Mg Tablet) 650 mg PO Q6H PRN PRN PRN Reason: Pain Score 1-10/Temp > 100.7 F Last Admin: 03/20/20 09:23 Dose: 650 mg Documented by: Al Hydroxide/Mg Hydroxide (Mag Hydrox/Al Hydrox/Simeth 30 Ml Udc) 30 ml PO Q6H PRN PRN PRN Reason: Gastric Burning Albuterol Sulfate (Albuterol Ih 8.5 Gm (Proair) Inhaler (200 Puffs)) 4 - 8 puff INHALATION Q4H PRN PRN PRN Reason: Dyspnea, wheezing Amlodipine Besylate (Amlodipine 10 Mg Tablet) 10 mg PO DAILY [facility] Last Admin: 03/20/20 09:18 Dose: 10 mg Documented by: Aspirin (Aspirin E.C. 81 Mg Tablet) 81 mg PO DAILY [facility] Last Admin: 03/20/20 09:19 Dose: 81 mg Documented by: Atorvastatin Calcium (Atorvastatin Calcium 40 Mg Tablet) 40 mg PO QHS [facility] Last Admin: 03/19/20 21:32 Dose: 40 mg Documented by: Cefdinir (Cefdinir 300 Mg Capsule) 300 mg PO Q12 [facility] Last Admin: 03/20/20 09:18 Dose: 300 mg Documented by: Dexamethasone (Dexamethasone 4 Mg Tablet) 6 mg PO DAILY [facility] Stop: 03/26/20 10:01 Last Admin: 03/20/20 09:18 Dose: 6 mg Documented by: Enoxaparin Sodium (Enoxaparin 30 Mg/0.3 Ml Syringe) 30 mg SC BID [facility] Last Admin: 03/20/20 09:17 Dose: 30 mg Documented by: Gabapentin (Gabapentin 300 Mg Capsule) 300 mg PO [facility] Last Admin: 03/20/20 11:59 Dose: 300 mg Documented by: Glimepiride (Glimepiride 4 Mg Tablet) [facility] Last Admin: 03/20/20 09:19 Dose: 4 mg Documented by: Guaifenesin (Guaifenesin 10 Ml Udc (200mg/10ml)) 20 ml PO Q4H PRN PRN PRN Reason: COUGH Hydralazine HCl (Hydralazine 20 Mg/Ml Vial) 10 mg IV Q4H PRN PRN PRN Reason: SBP > 160 Sodium Chloride () 250 mls @ 15 mls/hr IV .[id number] PRN PRN Reason: Saline Flush Last Infusion: 03/17/20 03:35 Dose: 0 mls/hr Documented by: Insulin Human Lispro (Insulin Lispro 100 Unit/Ml Insuln.Pen) 0 unit SC [facility]; Protocol Last Admin: 03/20/20 11:57 Dose: 9 units Documented by: Magnesium Hydroxide (Magnesium Hydroxide 30 Ml Udc) 30 ml PO DAILY PRN PRN PRN Reason: Constipation Melatonin (Melatonin 3 Mg Tablet) 3 mg PO QHS PRN PRN PRN Reason: INSOMNIA Last Admin: 03/15/20 23:59 Dose: 3 mg Documented by: Metformin HCl (Metformin Hcl 1,000 Mg Tablet) [facility] Last Admin: 03/20/20 09:15 Dose: 1,000 mg Documented by: Metoprolol Tartrate (Metoprolol Tartrate 25 Mg Tablet) 25 mg PO BID [facility] Last Admin: 03/20/20 09:18 Dose: 25 mg Documented by: Nitroglycerin (Nitroglycerin (Inpatient Use) 0.4 Mg Tab.Subl) 0.4 mg SUBLINGUAL Q5M PRN PRN Reason: CARDIAC/CHEST PAIN Ondansetron HCl (Ondansetron 4 Mg/2 Ml Vial) 4 mg IV Q8H PRN PRN PRN Reason: NAUSEA/VOMITING Oxycodone HCl (Oxycodone 5 Mg Tablet) 5 mg PO Q4H PRN PRN PRN Reason: Pain Score 4-5 Prochlorperazine Edisylate (Prochlorperazine 10 Mg/2 Ml Vial) 5 mg IV Q4H PRN PRN PRN Reason: Breakthrough Nausea/Vomiting Psyllium Hydrophilic Mucilloid (Psyllium 1 Packet) 1 packet PO DAILY PRN PRN PRN Reason: Constipation Senna/Docusate Sodium (Senna/Docusate Sodium 1 Tablet) 2 tablet PO BID PRN PRN PRN Reason: Constipation Sodium Chloride (0.9% Saline Lock 10 Ml Syringe) 10 - 40 ml IV UD PRN PRN Reason: SALINE FLUSH Last Admin: 03/20/20 07:03 Dose: 10 ml Documented by: Throat Lozenges (Benzocaine/Menthol 1 Lozenge) 1 lozenge MUCOUS MEM Q2H PRN PRN PRN Reason: SORE THROAT Ticagrelor (Ticagrelor 90 Mg Tablet) 90 mg PO BID [facility] Last Admin: 03/20/20 09:18 Dose: 90 mg Documented by: STROKE Vital Signs/Narrative: Vital Signs Pulse 01/07/21 10:54 57 L Medical Necessity - Tobacco Use Smoking Status: Former smoker - Patient quit cigarette tobacco usage ~ 40 years prior, noted 1 pack/week, starting later in life. Tobacco Use: Non-smoker Assessment/Plan All Active Problems (Last Reviewed 02/26/20 @ 15:[address] Pedro Alexandre MD) Pneumonia due to COVID-19 virus (Acute) Acute respiratory failure with hypoxia (Acute) #Acute hypoxic respiratory failure due to COVID 19 infection * currently on 3L of oxygen. * on PO decadron and IV remdesivir * ID on board * titrate oxygen to maintain sats >90% * #COVID 19 infection: as above #Cystitis: * on PO omnicef. Urine culture pending. * # Type 2 diabetes mellitus * on metformin and glimepiride. * Continue insulin sliding scale. Checks AC at bedtime. * #Mitral valve regurgitation: To follow-up with cardiology on outpatient basis #Coronary artery disease: Status post stents to the RCA. On aspirin and Brilinta as well as high intensity statin # Hypertension; BP fairly well controlled. On amlodipine and metoprolol. 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 Will need to be discharged 2 weeks of eliquis 2.5mg bid or xarelto 10mg daily. Disposition: awaiting placement Inpatient E&M: [id number] Subs Hosp L2
[2020-03-20 21:00] LABS: Bedside Glucose 410 mg/dL (70-110)
[2020-03-20] MEDS: Atorvastatin Calcium 40 MG Tablet PO (21:09)
[2020-03-20 22:45] LABS: Bedside Glucose 332 mg/dL (70-110)
[2020-03-21] VITALS (11 sets, daily range): BP systolic 105–126; BP diastolic 53–66; PULSE 57–72; RESP 18–20; TEMP 36.3–36.6; O2SAT 87–96
[2020-03-21] MEDS: Mag Hydrox/Al Hydrox/Simeth 30 ML UDC PO (00:22)
[2020-03-21] MEDS: Insulin Lispro 100 UNIT/ML INSULN.PEN SC ×2 (07:52→11:35)
[2020-03-21] MEDS: Gabapentin 300 MG Capsule PO ×2 (07:53→11:35)
[2020-03-21 08:33] LABS: Bedside Glucose 158 mg/dL (70-110)
[2020-03-21] MEDS: Enoxaparin 30 MG/0.3 ML Syringe SC (09:12)
[2020-03-21] MEDS: Aspirin E.C. 81 MG Tablet PO (09:13)
[2020-03-21] MEDS: TICAGRELOR 90 MG TABLET PO (09:13)
[2020-03-21] MEDS: Metoprolol Tartrate 25 MG Tablet PO (09:13)
[2020-03-21] MEDS: metFORMIN HCl 1,000 MG Tablet 1000 MG PO (09:13)
[2020-03-21] MEDS: dexAMETHasone 4 MG Tablet 6 MG PO (09:13)
[2020-03-21] MEDS: Cefdinir 300 MG Capsule PO (09:14)
[2020-03-21] MEDS: Glimepiride 4 MG Tablet PO (09:14)
[2020-03-21] MEDS: amLODIPine 10 MG Tablet PO (09:14)
--- NOTE | 2020-03-21 09:27 | PCM.TXEXTCAR ---
- Diet 03/16/20 11:24 Diet: Regular - General Type of Dietary Supplement:: Glucerna Shake Is pt able to select menu?: No Diet Comments: 120mL w/ meals - Routine Orders/Code Status Enema Type: Fleetz Enema Frequency: Daily PRN Suppository Type: Dulcolax 10mg Suppository Frequency: Daily PRN O2 Liters per Minute: 2 O2 Frequency: PRN Keep PO Greater than or Equal to (%): 90 Code Status: Full Code - Therapies Weight Bearing: Weight bearing as tolerated Physical Therapy: Eval and Treat Occupational Therapy: Eval and Treat - Allergies/Procedures Done in Hospital Allergies/Adverse Reactions: Allergies niacin [From Niaspan Extended-Release] Allergy (Verified 03/15/20 19:49) Other ramipril [From Altace] Allergy (Verified 03/15/20 19:49) Other Procedures: None - Type of Care/Length of Stay Estimated LOS: Convalescent Care Less Than 30 days Type of Care Needed: Skilled Rehab Potential: Fair Prognosis: Fair - Additional Orders/Day of Discharge Day of Discharge: 03/21/20 - Dietary and Speech Recommendations Dietitian Recommendations/Changes: Continue regular diet and glucerna TID w/ meals d/t acute malnutrition. - Follow Up Care Primary Care Physician: Blade Moseley DO [Primary Care Provider] - Please follow up with your Primary Care Physician in: 1-2 weeks
--- NOTE | 2020-03-21 11:47 | CASEMGMT ---
Social Work SW spoke with [facility] and they are able to accept pt today. SW met with pt in room to discuss discharge plans. Pt was understanding that she needs rehab prior to return home alone and is agreeable to discharge plan to [facility]. Pt stating that she wished she had her glasses and dentures to take with her. With pt permission, phone call to pt son and notified that pt has been accepted to the [facility] and requested he bring in dentures and glasses that she can take with her. Son agreeing and states he will bring them in this morning. [facility] notified and will discharge pt today. 7000 convalescent form completed in [facility] system and faxed along with orders to [facility]. Transportation arranged with [facility] for 1230 picker and packer by cot. Son notified of d/c time and [facility] notified as well. Nursing updated on d/c plan. LISA Sharif
[2020-03-21 11:56] LABS: Bedside Glucose 264 mg/dL (70-110)
--- NOTE | 2020-03-21 13:56 | PCM.DC.SUM ---
Discharge Date and Diagnosis - Problem List Patient Problems: Active and Suspected Problems (Last Reviewed 02/26/20 @ 15:[address] Pedro Alexandre MD) Pneumonia due to COVID-19 virus (Acute) Acute respiratory failure with hypoxia (Acute) Date of Admission: 03/15/20 Date of Discharge: 03/21/20 - Primary Discharge Diagnosis Acute Problems: Active Problems (Last Reviewed 02/26/20 @ 15:[address] Pedro Alexandre MD) Pneumonia due to COVID-19 virus (Acute) Acute respiratory failure with hypoxia (Acute) covid 19 - Secondary Discharge Diagnosis Chronic Problems: Chronic Problems (Last Reviewed 02/26/20 @ 15:[address] Pedro Alexandre MD) Valvular heart disease (Chronic) CKD (chronic kidney disease), stage III (Chronic) Chronic anemia (Chronic) Diabetes mellitus, type II (Chronic) Nonrheumatic aortic (valve) insufficiency (Chronic) Mitral valve insufficiency (Chronic) Atherosclerosis of coronary artery of [place] heart without angina pectoris (Chronic) Essential hypertension (Chronic) History of coronary artery stent placement (Chronic) 3.00 x 20 Synergy MR MATTHEW to dRCA, 3.00 x 28 mm Synergy MR MATTHEW to pRCA, 3.00 x 38 mm Synergy MR to mRCA 06/17/19 STEMI (ST elevation myocardial infarction) (Chronic) HLD (hyperlipidemia) (Chronic) CVA (cerebral vascular accident) (Chronic) Hospital Course and Treatment Operations: None Procedures: None Summary of Care Provided: The patient is a 79 year old F with an extensive past medical history as above who was admitted through the ED on 03/15/2020 with a complaint of shortness of breath, cough and fever with her pulse ox being 86% on room air. She had been diagnosed with Covid on 03/10/2020 and had come into the ED and was discharged on 2 L of oxygen and started on Decadron. However she progressively worsened at home so she came back to the ED. She had assisted nausea and some headache. Her D-dimer was elevated at 1.68 and chest x-ray showed airspace disease overlying the mid to left lower lobe as well as right lower lobe concerning for multifocal infiltrates. EKG showed no acute ST changes. She was admitted and managed for [] acute hypoxic respiratory failure due to COVID-19 pneumonia. She was started on Decadron and remdesivir. ID was consulted. CTA chest was negative for PE. Patient's oxygen needs gradually improved and shortness of breath improved though she was still requiring 2 L of oxygen pulse in the hospital. Patient was very debilitated and got easily worn out with even the slightest exertion. She finished a course of remdesivir. She was deemed is needing skilled care in SNF. Stay was complicated by hypoglycemia as she had been put on insulin when she came in. This was stopped and she was put about on her oral diabetes medications. She remained stable and was discharged to the SNF on 03/21/2020 with a prescription for p.o. Decadron 6 mg daily for 6 days to complete a 10 day course. She was also discharged on eliquis 2.5mg bid x 14 days due to hypercoagulability. She is to follow up with her PCP in 1-2 weeks. Patient seen and examined prior to discharge. She was still weak and lethargic. Review of systems otherwise negative. Labs and vitals reviewed. Home meds reviewed and reconciled. O/E: Vital Signs Temp Pulse Resp BP Pulse Ox 97.4 F L 60 20 H 106/54 L 87 03/21/20 11:39 03/21/20 11:39 03/21/20 11:39 03/21/20 11:39 03/21/20 11:48 General: Alert, Oriented x3, Cooperative, No apparent distress, Lethargic HEENT: Atraumatic, PERRLA, EOMI, Normocephalic Oral: Dry Mucosa Neck: Supple, No JVD, Negative Carotid Bruits Lungs: Clear to auscultation, Normal air movement, No rhonchi, No wheeze, No rales, on 3L of oxygen by nasal canula Cardiovascular: Regular rate, Regular Rhythm, Normal S1, Normal S2, No murmurs Abdomen: Bowel Sounds Present, Soft, Non Tender, Non-Distended, No Hepato-splenomegaly Extremities: No clubbing, No cyanosis, No edema, Capillary Refill Less than 3 Seconds Skin: No rashes, No breakdown Musculoskeletal: No Tenderness to Palpation of Joints or Extremities Lymphatic: No Cervical, Supraclavicular, or Inguinal Adenopathy Neurological: Cranial nerves II-XII grossly intact, Neuro grossly intact Psych/Mental Status: Normal Affect, Appropriate, Alert and oriented to time, place, person, mood and affect Plan is for discharge to SNF today. He was discharged on 2 L of oxygen to use as needed for shortness of breath. She was saturating at 87% with ambulation even on 2 L and qualified for oxygen. Patient Problems: Active and Suspected Problems (Last Reviewed 02/26/20 @ 15:[address] Pedro Alexandre MD) Pneumonia due to COVID-19 virus (Acute) Acute respiratory failure with hypoxia (Acute) - Physical Exam Vitals/I&O's: Vital Signs Temp Pulse Resp BP Pulse Ox 97.4 F L 60 20 H 106/54 L 87 03/21/20 11:39 03/21/20 11:39 03/21/20 11:39 03/21/20 11:39 03/21/20 11:48 Oxygen Flow Rate (L/min) [ 2 AMBULATION with Oxygen] Oxygen Flow Rate (L/min) 2 Oxygen Delivery Method Nasal Cannula Weight: 138 lb 0.15 oz Body Mass Index (BMI) 24.7 Intake and Output for Last 24 Hours 03/19/20 03/20/20 03/21/20 23:59 23:59 23:59 Intake Total 700 / 700 250 / 250 Output Total 750 / 750 Balance -50 / -50 250 / 250 Microbiology Past 72 Hours 03/18/20 19:25 Urine, Clean Catch Urine Culture - Final Culture exhibits no growth. Laboratory Results 03/20/20 16:15: POC Glucose 410 H 03/20/20 21:03: POC Glucose 332 H 03/21/20 06:41: POC Glucose 158 H 03/21/20 11:35: POC Glucose 264 H Discharge Diet: Low fat/ Low Cholesterol Discharge Activity: Return to Normal Activity Weight Bearing Status: Weight bearing as tolerated Call your doctor if you observe: Fever of 101 or Higher, Shortness of breath, Dizziness, Fainting spells, Swelling in the ankles Home Medications: Medications to take at Discharge Atorvastatin Calcium [Lipitor] 40 mg PO QHS 06/14/17 Gabapentin [Neurontin] 300 mg PO 4X/DAY 06/14/17 Gemfibrozil [Lopid] 600 mg PO BID 06/14/17 Insulin Glargine,Hum.rec.anlog [Lantus] 15 unit SQ QHS 06/14/17 Metoprolol Tartrate 25 mg PO BID 06/14/17 metFORMIN HCl [Glucophage] 1,000 mg PO BIDCM 06/17/19 Aspirin E.C. [Ecotrin] 81 mg PO DAILY@0800 tab 06/23/19 amlodipine 10 mg tablet 10 mg PO DAILY 10/02/19 ticagrelor 90 mg tablet 90 mg PO BID #60 tab 10/02/19 glimepiride 4 mg tablet 4 mg PO BID tab 02/26/20 Dexamethasone [Decadron] 6 mg PO DAILY 5 Days #6 tab 03/21/20 Following Prescriptions Were Given to Patient: Dexamethasone [Decadron] 6 mg PO DAILY 5 Days #6 tab Transmission Status: Received by [id number] Primary Care Physician: Blade Moseley DO [Primary Care Provider] - Please follow up with your Primary Care Physician in: 1-2 weeks Disposition: Nursing Home facility Minutes spent on discharge:: 45 Patient Condition:: Stable Medical Necessity - Tobacco Use Smoking Status: Former smoker - Patient quit cigarette tobacco usage ~ 40 years prior, noted 1 pack/week, starting later in life. Tobacco Use: Non-smoker Meaningful Use Info Meaningful Use Diagnoses (Choose all that apply): None applicable Inpatient E&M: 13477 Disch Hosp
== END 2020-03-21 12:50 | disposition skilled nursing facility (03) | DRG 177 ==
LOC: ED 20:37 → MS2 23:44
PROVIDERS: Internal Medicine; Admitting Provider Family Medicine; Emergency Provider Emergency Medicine; PCP Family Medicine; Referring Provider Family Medicine; Visit Provider Student in an Organized Health Care Education/Training Program
DX: U07.1 COVID-19 (principal); J12.82 Pneumonia due to coronavirus disease 2019; J96.01 Acute respiratory failure with hypoxia; E44.0 Moderate protein-calorie malnutrition; D68.59 Other primary thrombophilia; I12.9 Hypertensive chronic kidney disease with stage 1 through stage 4 chronic kidney disease, or unspecified chronic kidney disease; N18.30 Chronic kidney disease, stage 3 unspecified; E11.22 Type 2 diabetes mellitus with diabetic chronic kidney disease; E78.5 Hyperlipidemia, unspecified; D64.9 Anemia, unspecified; I08.0 Rheumatic disorders of both mitral and aortic valves; E86.0 Dehydration; I25.10 Atherosclerotic heart disease of native coronary artery without angina pectoris; N30.90 Cystitis, unspecified without hematuria; E11.65 Type 2 diabetes mellitus with hyperglycemia; Z66 Do not resuscitate; Z87.891 Personal history of nicotine dependence; I25.2 Old myocardial infarction; Z79.4 Long term (current) use of insulin; Z79.02 Long term (current) use of antithrombotics/antiplatelets; Z79.82 Long term (current) use of aspirin; Z82.49 Family history of ischemic heart disease and other diseases of the circulatory system; Z83.3 Family history of diabetes mellitus; Z86.73 Personal history of transient ischemic attack (TIA), and cerebral infarction without residual deficits; Z90.710 Acquired absence of both cervix and uterus; Z95.5 Presence of coronary angioplasty implant and graft; E11.649 Type 2 diabetes mellitus with hypoglycemia without coma; H91.90 Unspecified hearing loss, unspecified ear
CPT/HCPCS: 36415; 71045; 71275; 80048; 80053; 80076; 81001; 82728; 82962; 83615; 83735; 83880; 84145; 84484; 85025; 85027; 85379; 86140; 86850; 86900; 86901; 87070; 87086; 87205; 87449; 87633; 93005; 97110; 97116; 97162; 97166; 97530; 97535; 99251; 99285; J7050; Q9967; A4216; G0463

== ENCOUNTER → 2020-07-25 14:03 | Outpatient (CLI) | payer MEDICARE, SELFPAY ==
[2020-06-23 14:10] VITALS: BMI 26.3
[2020-07-25 15:11] LABS: Absolute Lymphocyte Count 2.09 X10^3/uL (0.83-4.51); Absolute Neutrophil Count 2.6 X10^3/uL (2.0-7.7); Basophil# 0.03 X10^3/uL; Basophil% 0.5 % (0-1); Color, Urine Yellow (Yellow); Eosinophil# 0.11 X10^3/uL; Glucose, Dipstick 100 mg/dl (Normal); Hemoglobin 10.6 g/dL (12.0-15.0); Ketone-Dipstick Negative (Negative); Leukocyte Esterase-Dipstick Negative /ul (Negative); Lymphocyte # 2.09 X10^3/ul (0.83-4.51); Lymphocyte % 38.3 % (19-41); Mean Corp Hgb Conc 30.3 g/dL (32-36); Mean Corpuscular Hgb 30.3 pg (27.0-32.0); Mean Platelet Vol. 9.9 fl (6.2-12.0); Monocyte# 0.56 X10^3/uL; Monocyte% 10.3 % (0-10); NRBC Flagged by Analyzer 0 % (0-5); Neutrophil # 2.64 X10^3/uL (2.7-7.7); Neutrophil % 48.4 % (47-70); Nitrite-Dipstick Negative (Negative); Occult Blood-Urine Negative /ul (Negative); Platelet Count 188 K/mm3 (150-450); Protein-Dipstick 100 mg/dl (Negative); RBC Distribution Width CV 14.1 % (11.6-14.6); RBC Distribution Width SD 51.4 fl (35.1-43.9); Urine Bilirubin Dipstick Negative (Negative); Urine Clarity Clear (Clear); Urine Urobilinogen Normal (Normal); White Blood Count 5.5 K/mm3 (4.4-11.0)
[2020-07-25 15:38] LABS: ALB/GLOB Ratio 0.8 RATIO (0.9-2.4); AST(SGOT) 15 U/L (15-37); Alanine Aminotransfer ALT/SGPT 22 U/L (13-56); Albumin, Serum 3.7 g/dL (3.2-5.0); Alkaline Phosphatase 44 U/L (45-117); Anion Gap 6 (5-15); BUN 26 mg/dL (7-18); BUN/Creat Ratio 24.1 RATIO (10-20); Calcium,Total 9.9 mg/dL (8.5-10.1); Chloride 103 mmol/L (98-107); Creatinine, Serum 1.08 mg/dL (0.55-1.02); EST Glomerular Filtration Rate 52 mL/min (>60); Est Glom Filt Rate - Afr Amer 63 mL/min (>60); Ferritin 41 ng/mL (8-252); Globulin 4.4 g/dL (2.2-4.2); Glucose 192 mg/dL (74-106); Iron 64 ug/dL (50-170); Potassium 4.2 mmol/L (3.5-5.1); Protein, Total 8.1 g/dL (6.4-8.2); Sodium Level 138 mmol/L (136-145); Thyroid Stim Hormone (TSH) 1.22 uIU/mL (0.358-3.74)
[2020-07-26 08:06] LABS: Vitamin B12 216 pg/mL (211-911)
== END ==
PROVIDERS: PCP Family Medicine; Referring Provider Family Medicine; Visit Provider Family Medicine
DX: E11.49 Type 2 diabetes mellitus with other diabetic neurological complication (principal); I25.10 Atherosclerotic heart disease of native coronary artery without angina pectoris; I10 Essential (primary) hypertension; M10.331 Gout due to renal impairment, right wrist; D64.9 Anemia, unspecified; R53.83 Other fatigue; R41.3 Other amnesia
CPT/HCPCS: 36415; 80053; 81002; 82607; 82728; 83540; 84443; 85025

== ENCOUNTER 2021-05-28 07:01 | Outpatient (CLI) | payer MEDICARE, SELFPAY ==
--- NOTE | 2021-05-28 07:06 | CDU_ITS ---
Reason For Study: carotid stenosis Rt. Velocities/BP Lt. Velocities/BP Prox CCA 72.1/13.4 cm/sec. Prox CCA 75.9/10.7 cm/sec. Mid CCA 61.7/12.1 cm/sec. Mid CCA 84.4/19.2 cm/sec. Dist CCA 74.7/14.7 cm/sec. Dist CCA 71.1/14.5 cm/sec. Prox ICA 50.9/10.2 cm/sec. Prox ICA 176.2/44.5 cm/sec. Mid ICA 67.3/16.8 cm/sec. Mid ICA 136.7/35.8 cm/sec. Dist ICA 113.8/33.4 cm/sec. Dist ICA 103.8/29.2 cm/sec. Rt. ICA/CCA = 1.8. Lt. ICA/CCA = 2.1. Prox ECA 66.2/5.8 cm/sec. Prox ECA 191.6/13.8 cm/sec. Rt. Vert. 40.9/13.5 cm/sec. Lt. Vert. 127.9/20.4 cm/sec. Right Extracranial There is heterogeneous, irregular atherosclerotic plaque noted in the right common carotid artery. There is heterogeneous, irregular atherosclerotic plaque noted in the right internal carotid artery. There is intimal thickening but no significant atherosclerotic plaque noted in the right external carotid artery. Abnormal waveform noted in the right vertebral artery. Left Extracranial There is heterogeneous, irregular atherosclerotic plaque noted in the left common carotid artery. There is heterogeneous, irregular atherosclerotic plaque noted in the left internal carotid artery. Acoustic shadowing does not allow adequate sampling of velocities in the left internal carotid artery. There is heterogeneous, irregular atherosclerotic plaque noted in the left external carotid artery. Antegrade flow is noted in the left vertebral artery. Procedure Carotid Duplex 97948. This is a Carotid Duplex examination using B-mode, color flow and specral Doppler. The exam was diagnostic. Exam performed in department. VL/Carotid Duplex Ultrasound Interpretation Summary Irregular calcific plaque with shadowing at the proximal right internal carotid artery with less than 50% stenosis Less than 50% stenosis right external carotid artery Extensive calcific plaque at the proximal left internal carotid artery providin g shadowing. Velocities cannot be obtained at that level. 50 to 69% stenosis of the left internal carotid artery where the velocities can be imaged. Less than 50% stenosis left external carotid artery Patent and antegrade vertebral arteries bilaterally with greater than 50% steno sis of the left vertebral Progression of the left vertebral is noted from the previous examination of Feb Ordering Physician: Isac Baez Performed By: Mario Lima RVT
--- NOTE | 2021-05-28 07:06 | ECHOD_ITS ---
Reason For Study: syncope/near syncope Procedure This was a 2D Doppler, Color Flow transthoracic echocardiogram. The study was technically difficult. Exam performed supine due to hip pain and weakness. Exam performed in department. Left Ventricle Normal LV size. Left ventricular systolic function is normal. The estimated ejection fraction is 70 %. There is evidence of diastolic dysfunction. No regional wall motion abnormalities noted. Right Ventricle Normal RV size. Normal systolic function. Atria The left atrium is moderately enlarged. Normal right atrium. No doppler evidence for ASD. Mitral Valve There is moderate to severe mitral annular calcification. Extension of the mitral annular calcification onto the mitral valve leaflets. The mitral papillary muscle appears thickened and/or calcified. Trivial mitral valve insufficiency. Tricuspid Valve Normal tricuspid valve. Trivial tricuspid valve insufficiency. Unable to estimate RV systolic pressure/pulmonary artery pressure due to technically difficult study. Aortic Valve Trisinus/trileaflet aortic valve. Mild diffuse aortic valve thickening. Mild focal aortic valve calcification. Trivial aortic valve insufficiency. Pulmonic Valve The pulmonic valve is not well visualized. Trivial pulmonic valve insufficiency. Great Vessels Normal sized aortic root. Pericardium/Pleural No pericardial effusion. Epicardial fat. MMode/2D Measurements & Calculations LVIDd: 4.8 cm IVSd: 1.1 cm Ao root diam: 3.1 cm LVIDs: 3.1 cm LVPWd: 1.1 cm RVDd: 2.8 cm FS: 36.1 % LAV(MOD-bp): 56.4 ml LA A4 area: 20.3 cm2 RA A4 area: 14.8 cm2 LAV(MOD-bp) Indexed: 34.6 ml/m2 LAV(MOD-sp2): 56.2 ml LAV(MOD-sp4): 56.2 ml Time Measurements MV dec time: 0.24 sec Doppler Measurements & Calculations MV E max stu: 83.1 cm/sec Lat Peak E' Stu: 4.5 cm/sec Med Peak E' Stu: 4.8 cm/sec MV A max stu: 168.6 cm/sec E/E' lat: 18.4 E/E' med: 17.2 MV E/A: 0.49 MV V2 max: 164.7 cm/sec MV P1/2t max stu: 92.5 cm/sec Ao V2 max: 160.9 cm/sec MV max P.9 mmHg MV P1/2t: 94.3 msec Ao max P.4 mmHg MV V2 mean: 84.0 cm/sec MV dec slope: 287.4 cm/sec2 MV mean P.3 mmHg MVA(P1/2t): 2.3 cm2 MV V2 VTI: 32.8 cm LV V1 max: 99.0 cm/sec PA V2 max: 97.1 cm/sec LV V1 max P.9 mmHg ECHO/Echo Complete Interpretation Summary The study was technically difficult. Left ventricular systolic function is normal. The estimated ejection fraction is 70 %. The left atrium is moderately enlarged. There is moderate to severe mitral annular calcification. Extension of the mitral annular calcification onto the mitral valve leaflets. The mitral papillary muscle appears thickened and/or calcified. Trivial mitral valve insufficiency. Trivial tricuspid valve insufficiency. Mild diffuse aortic valve thickening. Mild focal aortic valve calcification. Trivial pulmonic valve insufficiency. Epicardial fat. Unable to estimate RV systolic pressure/pulmonary artery pressure due to techni deanna difficult study. There is evidence of diastolic dysfunction. Ordering Physician: Isac Baez Referring Physician: Blade Moseley Performed By: Antonieta Garza, YAJAIRA, RVT
--- NOTE | 2021-05-28 09:05 | STRESSREP ---
Stress Test Report Date: 05-28-2021 Procedure: Pharmacologic stress nuclear imaging study Indications: Syncope; CAD; status post STEMI; status post PCI Consent: Per the patient Procedure: The patient underwent pharmacologic (Regadenoson 0.4mg ) evaluation with a peak heart rate of 98 beats per minute (71%predicted maximal heart rate) and a peak blood pressure of 142/78 mmHg. The baseline ECG demonstrated sinus rhythm; poor R wave progression. The peak pharmacologic ECG demonstrated no obvious ECG changes. There were no cardiac dysrhythmias pretest, during pharmacologic infusion, or recovery. There was no complaint of chest discomfort during pharmacologic infusion or recovery. The examination was discontinued secondary to completion of protocol. Impression: 1. Pharmacologic (Regadenoson) evaluation 2. Peak pharmacologic ECG with no obvious ECG changes. 3. There were no cardiac dysrhythmias pretest, during pharmacologic infusion, or recovery. 4. Nuclear images pending Myocardial perfusion imaging study: Technique: The patient was injected with 11.3 millicuries of technetium 99m Cardiolite and subsequently rest SPECT Cardiolite nuclear imaging was obtained in the horizontal long, vertical long, and short axis views. The patient underwent pharmacologic (Regadenoson) evaluation with a peak heart rate of 98 beats per minute (71% percent predicted maximal heart rate) and a peak blood pressure of 142/78 mmHg. The patient was injected with 33.5 millicuries of technetium 99m Cardiolite and subsequently stress SPECT Cardiolite nuclear imaging was obtained in the horizontal long, vertical long, and short axis views. A gated Cardiolite study at peak stress was obtained. Interpretation: Rest and stress SPECT Cardiolite nuclear imaging status post realignment, normalization, and attenuation correction demonstrate. Attenuation correction the appearance of relative uniform tracer uptake at rest and status post stress and area of diminished tracer uptake in portions of the basal to mid lateral segments which status post attenuation correction appears to be less prominent on the post-rest images. There is end systolic thickening and brightening. The gated Cardiolite study demonstrates myocardial thickening and inward wall motion. The reported LVEF is 66%. Impression: 1. Rest and stress Cardiolite nuclear imaging demonstrate myocardial perfusion changes concerning for an area of stress-induced myocardial ischemia in the basal to mid lateral segments which appears to be somewhat more prominent on the preattenuation correction images versus the post attenuation correction images. 2. The gated Cardiolite study reports an LVEF of 66%. This note was generated with [employer] software. It may contain incorrect words, spelling, and punctuation that were not noted in checking the note before signing.
== END 2021-05-28 23:59 | disposition home or self-care (01) ==
LOC: CVS 07:04
PROVIDERS: PCP Family Medicine; Referring Provider Internal Medicine Cardiovascular Disease; Visit Provider Internal Medicine Cardiovascular Disease
DX: I25.10 Atherosclerotic heart disease of native coronary artery without angina pectoris (principal); I10 Essential (primary) hypertension; E78.5 Hyperlipidemia, unspecified; R55 Syncope and collapse; Z95.5 Presence of coronary angioplasty implant and graft
CPT/HCPCS: 78452; 93017; 93306; 93880; A9500; A4216; J2785

== ENCOUNTER 2021-09-11 23:51 | Emergency (ER) | payer MEDICARE, SELFPAY ==
[2021-09-11 23:54] VITALS: BP 116/60; PULSE 99; RESP 18; TEMP 36.2; O2SAT 96; BMI 25.9
--- NOTE | 2021-09-12 00:23 | RAD_ITS ---
STUDY: X-RAY CHEST REASON FOR EXAM: Female, 81 years old. chest pain TECHNIQUE: 1 view COMPARISON: 03/15/2020 FINDINGS: Cardiomediastinal silhouette is unremarkable. Costophrenic angles are sharp. Lungs are clear. The trachea is midline. There is no pneumothorax. The bones are grossly intact. RAD/Chest 1 View (Portable) IMPRESSION: No acute cardiopulmonary process. Electronically Signed: Mariano Quezada MD at 1:47 EDT ,
--- NOTE | 2021-09-12 00:23 | EKG12_ITS ---
Test Reason : CP Blood Pressure : / mmHG Vent. Rate : 088 BPM Atrial Rate : 088 BPM P-R Int : 158 ms QRS Dur : 082 ms QT Int : 368 ms P-R-T Axes : 022 -35 016 degrees QTc Int : 445 ms Normal sinus rhythm Left axis deviation Voltage criteria for left ventricular hypertrophy Inferior infarct , age undetermined Poor R wave progression Anterior MD, age undetermined, cannot be excluded Abnormal ECG Confirmed by ELEONORA KEMP, DENISE ([id number]), publications editor YANIRA ESQUIVEL ([id number]) on 09/15/2021 10:06:44 AM Referred By: EDGAR Confirmed By:DENISE CREWS MD
--- NOTE | 2021-09-12 00:23 | RAD_ITS ---
STUDY: X-RAY - LEFT WRIST REASON FOR EXAM: Female, 81 years old. pain TECHNIQUE: 3 view(s) of the wrist were obtained. COMPARISON: None. FINDINGS: Please see the impression. RAD/Wrist min 3 Views IMPRESSION: Questionable acute intra-articular fracture of distal radius. CT scan may be obtained to confirm. Marked subluxation of the first carpometacarpal joint, likely chronic and degenerative in etiology. Old avulsion fracture of the ulnar styloid. Multiple old fracture fragments on the volar and dorsal aspects of the wrist. 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 Electronically Signed: Mariano Quezada MD at 1:36 EDT ,
--- NOTE | 2021-09-12 00:24 | EX.ED.DYSGE1 ---
[facility] <Dr. Karli Bailey MD - Last Filed: 09/12/21 10:56> History of Present Illness Chief Complaint: Upper Extremity Injury Detail of Chief Complaint: Left arm pain Informant: patient Onset/Context/Timing Onset: Yesterday Context: Gradual Onset Current Severity: Mild Maximum Severity: Moderate Narrative Narrative: Patient presents secondary left arm pain. She states when she awoke yesterday morning she had pain in her wrist and left hand. It did not get better throughout the day. Tonight she tried laying down to go to sleep and around 1130 started having shooting pains from her wrist up into her armpit. She was concerned that this may be a problem with her heart. She does have history of coronary disease with prior AR. She has 3 cardiac stents. [facility] <Dr. Karli Bailey MD - Last Filed: 09/12/21 10:56> [facility] Medical History Acute respiratory failure with hypoxia Aspiration pneumonia Atherosclerosis of coronary artery of [place] heart without angina pectoris CVA (cerebral vascular accident) Essential hypertension HLD (hyperlipidemia) Mitral valve insufficiency Nonrheumatic aortic (valve) insufficiency Pneumonia due to COVID-19 virus (~03/2020) STEMI (ST elevation myocardial infarction) Syncope Type 2 diabetes mellitus without complication Home Medications atorvastatin 40 mg tablet 40 mg PO QHS 06/14/17 [History Last Taken 04/08/18] gabapentin 300 mg capsule 300 mg PO 4X/DAY 06/14/17 [History Last Taken 04/08/18] gemfibrozil 600 mg tablet 600 mg PO BID 06/14/17 [History Last Taken 04/08/18] metformin 1,000 mg tablet 1,000 mg PO BIDCM 06/17/19 [History Last Taken Unknown] aspirin 81 mg tablet,delayed release 81 mg PO DAILY@0800 06/23/19 [Rx Last Taken Unknown] ticagrelor 90 mg tablet 90 mg PO BID #60 tabs 10/02/19 [Rx Last Taken Unknown] glimepiride 4 mg tablet 4 mg PO BID 02/26/20 [History Last Taken Unknown] amlodipine 10 mg tablet 10 mg PO DAILY 06/23/20 [History Last Taken Unknown] metoprolol tartrate 25 mg tablet 25 mg PO BID 06/23/20 [History Last Taken Unknown] insulin glargine 100 unit/mL subcutaneous solution 16 unit subcut QHS 05/04/21 [History Last Taken Unknown] sertraline 25 mg tablet 25 mg PO DAILY 05/04/21 [History Last Taken Unknown] prednisone 20 mg tablet 40 mg PO DAILY #6 tabs 09/12/21 [Rx Last Taken Unknown] Allergy/AdvReac Type Severity Reaction Status Date / Time niacin Allergy Other Verified 09/11/21 23:53 [From Niaspan Extended-Release] ramipril [From Altace] Allergy Other Verified 09/11/21 23:53 Surgical History History of coronary artery stent placement History of right-sided carotid endarterectomy Social History Smoking Status: Former smoker how long ago did patient quit smokin years ago alcohol intake: never substance use type: does not use caffeine: No ROS <Dr. Karli Bailey MD - Last Filed: 09/12/21 10:56> ROS ED Constitutional Constitutional ED: Denies chills or fever(s) Eyes Eyes: Denies change in vision or discharge from eye(s) ENT ENT ED: Denies discharge from eye(s), rhinorrhea or sore throat Cardiovascular Cardiovascular: Denies chest pain or palpitations Respiratory/Chest Respiratory/Chest: Denies cough or dyspnea Gastrointestinal Gastrointestinal: Denies abdominal pain, diarrhea, nausea or vomiting Genitourinary Genitourinary ED: Reports difficulty urinating; Denies dysuria Musculoskeletal Musculoskeletal: Reports extremity pain; Denies back pain Integumentary Denies Abrasions or rash Neurologic Neurologic: Denies headache(s) or weakness Allergic/Immunologic Allergic/Immunologic ED: Denies lip swelling or urticaria EXAM <Dr. Karli Bailey MD - Last Filed: 09/12/21 10:56> Physical Exam Const Vital Signs: 09/11/21 23:54 09/12/21 03:02 Temperature 97.2 F L Temperature Source Oral Pulse Rate 99 87 Respiratory Rate 18 16 Blood Pressure 116/60 Blood Pressure Mean 78 Pulse Ox 96 99 Oxygen Delivery Method Room Air Positive well nourished and well developed General Appearance ED: well developed HEENT Reports normocephalic and head/scalp atraumatic Eyes PERRL and EOMs intact bilaterally Neck supple Chest Wall inspection of chest normal and palpation of chest normal Resp normal respiratory effort and clear to auscultation bilaterally Cardio regular rate and regular rhythm GI normal to inspection, nondistended, normoactive bowel sounds Palpation: soft Extremity Extremity Narrative: Patient is reproducible tenderness around the left wrist. She has pain with tight hand grasp or with wrist flexion or extension. There is no erythema, edema, or warmth. There is no tenderness to the elbow or shoulder. Neuro oriented x3 and no sensory deficits noted Sensorium / Orientation: alert Motor Exam: strength 5/5 throughout Psych mental status grossly normal Skin no rashes or lesions noted <Dr. Moises Mcknight DO - Last Filed: 09/12/21 03:05> Physical Exam Const Vital Signs: 09/11/21 23:54 09/12/21 03:02 Temperature 97.2 F L Temperature Source Oral Pulse Rate 99 87 Respiratory Rate 18 16 Blood Pressure 116/60 Blood Pressure Mean 78 Pulse Ox 96 99 Oxygen Delivery Method Room Air MDM <Dr. Karli Bailey MD - Last Filed: 09/12/21 10:56> MDM MDM Narrative Medical decision making narrative: Patient was given aspirin. Chest pain work-up undertaken in addition to left wrist x-ray. Lab Data Attestation: I reviewed the patient's lab results. Labs: Laboratory Results - last 24 hr 09/12/21 09/12/21 09/12/21 00:37 00:37 02:39 WBC 6.7 RBC 3.36 L Hgb 10.7 L Hct 34.4 L MCV 102.4 H MCH 31.8 MCHC 31.1 L RDW Std Deviation 54.4 H RDW Coeff of [place]bert 14.6 Plt Count 177 MPV 9.8 Immature Gran % (Auto) 0.400 Neut % (Auto) 59.3 Lymph % (Auto) 26.9 [place] % (Auto) 11.4 H Eos % (Auto) 1.3 Baso % (Auto) 0.7 Absolute Neuts (auto) 4.0 Absolute Lymphs (auto) 1.80 Nucleated RBC % 0 Sodium 140 Potassium 4.4 Chloride 108 H Carbon Dioxide 22.0 Anion Gap 10 BUN 33 H Creatinine 1.66 H Estim Creat Clear Calc 20.67 Est GFR (MDRD) Af Amer 38 L Est GFR (MDRD) Non-Af 31 L BUN/Creatinine Ratio 19.9 Glucose 143 H Calcium 9.0 Troponin I High Sens 15 16 Radiography Chest X-Ray - ED: 1 View, Read by ED Physician and Chronic Changes Diagnostic Testing: Clinical Impression(s) from Imaging Studies Chest X-Ray 09/12/21 00:23 IMPRESSION: No acute cardiopulmonary process. Electronically Signed: Mariano Quezada MD at 1:47 EDT , Wrist X-Ray 09/12/21 00:23 IMPRESSION: Questionable acute intra-articular fracture of distal radius. CT scan may be obtained to confirm. Marked subluxation of the first carpometacarpal joint, likely chronic and degenerative in etiology. Old avulsion fracture of the ulnar styloid. Multiple old fracture fragments on the volar and dorsal aspects of the wrist. 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 Electronically Signed: Mariano Quezada MD at 1:36 EDT , EKG Initial EKG: Attestation: I personally reviewed and interpreted this EKG as follows: Interpretation: Sinus Rhythm (Sinus at 88 with no acute ischemia.) Treatment and Re-Evaluation Narrative: On repeat evaluation patient resting comfortably. Lab work unremarkable with initial troponin of 15. 2-hour repeat will be obtained. Chest x-ray per my interpretation shows chronic changes only. Left wrist x-rays per my interpretation reveal significant arthritic changes with no acute fracture. Patient be given Tylenol and prednisone to help with left wrist pain. Patient will be discharged pending normal delta troponin. <Dr. Moises Mcknight, DO - Last Filed: 09/12/21 03:05> [facility] Lab Data Labs: Laboratory Results - last 24 hr 09/12/21 09/12/21 09/12/21 00:37 00:37 02:39 WBC 6.7 RBC 3.36 L Hgb 10.7 L Hct 34.4 L MCV 102.4 H MCH 31.8 MCHC 31.1 L RDW Std Deviation 54.4 H RDW Coeff of [place] 14.6 Plt Count 177 MPV 9.8 Immature Gran % (Auto) 0.400 Neut % (Auto) 59.3 Lymph % (Auto) 26.9 [place] % (Auto) 11.4 H Eos % (Auto) 1.3 Baso % (Auto) 0.7 Absolute Neuts (auto) 4.0 Absolute Lymphs (auto) 1.80 Nucleated RBC % 0 Sodium 140 Potassium 4.4 Chloride 108 H Carbon Dioxide 22.0 Anion Gap 10 BUN 33 H Creatinine 1.66 H Estim Creat Clear Calc 20.67 Est GFR (MDRD) Af Amer 38 L Est GFR (MDRD) Non-Af 31 L BUN/Creatinine Ratio 19.9 Glucose 143 H Calcium 9.0 Troponin I High Sens 15 16 Radiography Diagnostic Testing: Clinical Impression(s) from Imaging Studies Chest X-Ray 09/12/21 00:23 IMPRESSION: No acute cardiopulmonary process. Electronically Signed: Mariano Quezada MD at 1:47 EDT Reading Location ID and State: [facility] / [place] Tel , Service support , Wrist X-Ray 09/12/21 00:23 IMPRESSION: Questionable acute intra-articular fracture of distal radius. CT scan may be obtained to confirm. Marked subluxation of the first carpometacarpal joint, likely chronic and degenerative in etiology. Old avulsion fracture of the ulnar styloid. Multiple old fracture fragments on the volar and dorsal aspects of the wrist. 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 Electronically Signed: Mariano Quezada MD at 1:36 EDT , Chest x-ray as interpreted by the emergency medicine physician reveals no acute infiltrate pneumothorax or pleural effusion X-ray of the left wrist as interpreted by the emergency medicine physician reveals chronic degenerative changes without acute fracture or dislocation Treatment and Re-Evaluation Narrative: On repeat evaluation patient resting comfortably. Lab work unremarkable with initial troponin of 15. 2-hour repeat will be obtained. Chest x-ray per my interpretation shows chronic changes only. Left wrist x-rays per my interpretation reveal significant arthritic changes with no acute fracture. Patient be given Tylenol and prednisone to help with left wrist pain. Patient will be discharged pending normal delta troponin. The patient was signed out to me while awaiting the official x-ray reads as well as her delta troponin. The patient's official chest x-ray read displayed no acute pathology. A questioned a intra-articular distal radius fracture on the left with patient's had no report of trauma and therefore this is not clinically correlate so do not feel the need to add a CT scan. The patient is delta troponin went from 15-16 and this one-point elevation is not clinically significant. Therefore at this time the patient's presentation is atypical for cardiac disease. She is in normal sinus rhythm EKG and no clinically significant elevation to her delta troponin. On reevaluation she is resting comfortably and is otherwise safe for discharge. Discharge Plan Triage Chief Complaint: Upper Extremity Injury ED Provider: Karli Bailey Dx/Rx/DC Orders Clinical Impression: Left wrist pain, Chest pain, non-cardiac Instructions: ED Chest Pain, Noncardiac, ED Wrist Sprain Prescriptions: New prednisone 20 mg tablet 40 mg PO DAILY Qty: 6 0RF No Action ticagrelor 90 mg tablet 90 mg PO BID Qty: 60 11RF glimepiride 4 mg tablet 4 mg PO BID amlodipine 10 mg tablet 10 mg PO DAILY sertraline 25 mg tablet 25 mg PO DAILY atorvastatin 40 MG tablet 40 mg PO QHS gemfibrozil 600 MG tablet 600 mg PO BID gabapentin 300 MG capsule 300 mg PO 4X/DAY insulin glargine 100 unit/mL solution 16 unit subcut QHS metformin 1,000 MG tablet 1,000 mg PO BIDCM aspirin 81 MG tablet 81 mg PO DAILY@0800 0RF metoprolol tartrate 25 mg tablet 25 mg PO BID Primary Care Provider: Blade Moseley Referrals: Blade Moseley DO [Primary Care Provider] - 1 Week if not improving Disposition Disposition: Home, Self Care Discharge Date/Time: 09/12/21 03:12
[2021-09-12 00:41] LABS: Basophil# 0.05 X10^3/uL; Basophil% 0.7 % (0-1); Eosinophil# 0.09 X10^3/uL; Eosinophils% 1.3 % (0-5); Hematocrit 34.4 % (37-47); Hemoglobin 10.7 g/dL (12.0-15.0); Lymphocyte % 26.9 % (19-41); Mean Corp Hgb Conc 31.1 g/dL (32-36); Mean Corpuscular Hgb 31.8 pg (27.0-32.0); Mean Corpuscular Volume 102.4 fL (81-99); Mean Platelet Vol. 9.8 fl (6.2-12.0); Monocyte# 0.76 X10^3/uL; Monocyte% 11.4 % (0-10); NRBC Flagged by Analyzer 0 % (0-5); Neutrophil # 3.95 X10^3/uL (2.7-7.7); Neutrophil % 59.3 % (47-70); Platelet Count 177 K/mm3 (150-450); RBC Distribution Width CV 14.6 % (11.6-14.6); RBC Distribution Width SD 54.4 fl (35.1-43.9); Red Blood Count 3.36 M/mm3 (4.2-5.4); White Blood Count 6.7 K/mm3 (4.4-11.0)
[2021-09-12] MEDS: Aspirin 81 MG TAB.CHEW 324 MG PO (00:43)
[2021-09-12 01:06] LABS: Anion Gap 10 (5-15); BUN 33 mg/dL (7-18); BUN/Creat Ratio 19.9 RATIO (10-20); Chloride 108 mmol/L (98-107); Creatinine, Serum 1.66 mg/dL (0.55-1.02); EST Glomerular Filtration Rate 31 mL/min (>60); Est Glom Filt Rate - Afr Amer 38 mL/min (>60); Estimated Creatinine Clearance 20.67 ml/min; Glucose 143 mg/dL (74-106); Potassium 4.4 mmol/L (3.5-5.1); Sodium Level 140 mmol/L (136-145); Troponin-I HS (w/2H Reflex) 15 pg/mL (3.0-54.0)
[2021-09-12 02:39] LABS: Reflex Troponin-HS? (from REC) Y
[2021-09-12 03:01] LABS: Troponin-I HS 16 pg/mL (3.0-54.0)
[2021-09-12 03:02] VITALS: PULSE 87; RESP 16; O2SAT 99
== END 2021-09-12 03:12 | disposition home or self-care (01) ==
PROVIDERS: Emergency Provider Emergency Medicine; PCP Family Medicine; Visit Provider Emergency Medicine
DX: R07.89 Other chest pain (principal); E11.9 Type 2 diabetes mellitus without complications; M79.602 Pain in left arm; E78.5 Hyperlipidemia, unspecified; M25.532 Pain in left wrist; I10 Essential (primary) hypertension; Z87.891 Personal history of nicotine dependence; I25.10 Atherosclerotic heart disease of native coronary artery without angina pectoris; I25.2 Old myocardial infarction; Z95.5 Presence of coronary angioplasty implant and graft
CPT/HCPCS: 71045; 73110; 80048; 84484; 85025; 93005; 99284

== ENCOUNTER 2021-12-10 17:36 | Emergency (ER) | payer MEDICARE, SELFPAY ==
[2021-12-10 17:37] VITALS: BP 163/79; PULSE 84; RESP 16; TEMP 36.6; O2SAT 98; BMI 25.9
--- NOTE | 2021-12-10 17:52 | EX.ED.UPPERE ---
HPI History of Present Illness Chief Complaint: Upper Extremity Injury [facility] Medical History Acute respiratory failure with hypoxia Aspiration pneumonia Atherosclerosis of coronary artery of [place] heart without angina pectoris CVA (cerebral vascular accident) Essential hypertension HLD (hyperlipidemia) Mitral valve insufficiency Nonrheumatic aortic (valve) insufficiency Pneumonia due to COVID-19 virus (~03/2020) STEMI (ST elevation myocardial infarction) Syncope Type 2 diabetes mellitus without complication Home Medications atorvastatin 40 mg tablet 40 mg PO QHS 06/14/17 [History Last Taken 04/08/18] gabapentin 300 mg capsule 300 mg PO 4X/DAY 06/14/17 [History Last Taken 04/08/18] gemfibrozil 600 mg tablet 600 mg PO BID 06/14/17 [History Last Taken 04/08/18] metformin 1,000 mg tablet 1,000 mg PO BIDCM 06/17/19 [History Last Taken Unknown] aspirin 81 mg tablet,delayed release 81 mg PO DAILY@0800 06/23/19 [Rx Last Taken Unknown] ticagrelor 90 mg tablet 90 mg PO BID #60 tabs 10/02/19 [Rx Last Taken Unknown] glimepiride 4 mg tablet 4 mg PO BID 02/26/20 [History Last Taken Unknown] amlodipine 10 mg tablet 10 mg PO DAILY 06/23/20 [History Last Taken Unknown] metoprolol tartrate 25 mg tablet 25 mg PO BID 06/23/20 [History Last Taken Unknown] insulin glargine 100 unit/mL subcutaneous solution 16 unit subcut QHS 05/04/21 [History Last Taken Unknown] sertraline 25 mg tablet 25 mg PO DAILY 05/04/21 [History Last Taken Unknown] mecobalamin (vitamin B12) 1,000 mcg chewable tablet 1,000 mcg PO DAILY 11/02/21 [History Last Taken Unknown] hydrocodone-acetaminophen 5-325mg 5mg-325mg 1 tab PO Q6H PRN PRN Pain 3 days #10 TABLETS 12/10/21 [Rx Last Taken Unknown] Allergy/AdvReac Type Severity Reaction Status Date / Time niacin Allergy Other Verified 12/10/21 17:37 [From Niaspan Extended-Release] ramipril [From Altace] Allergy Other Verified 12/10/21 17:37 Surgical History History of coronary artery stent placement History of right-sided carotid endarterectomy Social History Smoking Status: Former smoker how long ago did patient quit smokin years ago alcohol intake: never substance use type: does not use caffeine: No EXAM Physical Exam Const Vital Signs: 12/10/21 17:37 Temperature 97.9 F Temperature Source Temporal Pulse Rate 84 Respiratory Rate 16 Blood Pressure 163/79 H Blood Pressure Mean 107 Pulse Ox 98 Oxygen Delivery Method Room Air MDM MDM Radiography Diagnostic Testing: Three-view x-ray of the right wrist was obtained. There is no swelling, subluxation or dislocation. There is significant degenerative changes of the radiocarpal joint as well as the metacarpal carpal joint of the thumb. There is no volar fat pad noted. Discharge Plan Triage Chief Complaint: Upper Extremity Injury ED Provider: Valentín Mcguire Dx/Rx/DC Orders Clinical Impression: Contusion of right wrist, initial encounter, Traumatic hematoma of right upper arm, Fall as cause of accidental injury at home as place of occurrence Instructions: ED Soft Tissue Contusion, ED Contusion, Upper Extremity Prescriptions: New hydrocodone-acetaminophen [hydrocodone-acetaminophen] 5-325 mg tablet 1 tab PO Q6H PRN PRN (Reason: Pain) 3 Days Qty: 10 0RF No Action ticagrelor 90 mg tablet 90 mg PO BID Qty: 60 11RF glimepiride 4 mg tablet 4 mg PO BID amlodipine 10 mg tablet 10 mg PO DAILY sertraline 25 mg tablet 25 mg PO DAILY mecobalamin (vitamin B12) 1,000 mcg tablet,chewable 1,000 mcg PO DAILY atorvastatin 40 MG tablet 40 mg PO QHS gemfibrozil 600 MG tablet 600 mg PO BID gabapentin 300 MG capsule 300 mg PO 4X/DAY insulin glargine 100 unit/mL solution 16 unit subcut QHS metformin 1,000 MG tablet 1,000 mg PO BIDCM aspirin 81 MG tablet 81 mg PO DAILY@0800 0RF metoprolol tartrate 25 mg tablet 25 mg PO BID Primary Care Provider: Blade Moseley Referrals: Blade Moseley, [Primary Care Provider] - 1 Week if not improving Disposition Disposition: Home, Self Care
--- NOTE | 2021-12-10 18:00 | RAD_ITS ---
STUDY: XR Wrist Min 3 Views REASON FOR EXAM: Female, 81 years old. Injury/Pain TECHNIQUE: XR Wrist Min 3 Views RIGHT COMPARISON: None FINDINGS: There are no acute findings of the visualized distal radius and ulna. There are no acute findings of the radiocarpal articulation. Normal distal radioulnar articulation. Normal carpal bones. There is degenerative arthrosis of the carpal articulations. There is degenerative arthrosis of the carpometacarpal articulation of the thumb. Normal second through fifth carpometacarpal articulations. There are no acute findings of the visualized metacarpal bones. There is calcification in the joint space which may signify calcium pyrophosphate deposition disease. 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 Electronically Signed: Javier Marks MD at 18:26 EDT ,
--- NOTE | 2021-12-19 07:24 | EX.ED.UPPERE ---
HPI History of Present Illness Chief Complaint: Upper Extremity Injury Detail of Chief Complaint: Patient presents because of blunt injury after fall 2 days prior to present Informant: patient Occured/Mechanism Mechanism/Context: Yes injury, Yes blunt trauma and Yes fall Comment: Patient rolled out of bed. Onset/Context/Timing Onset: Days (2 days prior to presentation) Context: Sudden Onset Timing: Continuous Quality of Pain: Dull and Aching Location: Wrist Current Severity: Mild Maximum Severity: Moderate Worsened by: Movement Relieved by: Better with rest Associated Symptoms Associated Symptoms: Negative for Parasthesia, Weakness or Loss of Funtion Narrative Narrative: Patient is an 81-year-old woman who presents after fall. This occurred 2 days prior to presentation. She denied head trauma. Denies loss conscious. Denies neck pain. Denies paresthesia, anesthesia motors present at time of the fall. She denies cardiac respiratory symptoms. She denies nausea or vomiting. Tetanus Immunization: Unknown Prior similar symptoms: No Recent Illness/Hospitalization: No PFSH PFS Medical History Acute respiratory failure with hypoxia Aspiration pneumonia Atherosclerosis of coronary artery of [place] heart without angina pectoris CVA (cerebral vascular accident) Essential hypertension HLD (hyperlipidemia) Mitral valve insufficiency Nonrheumatic aortic (valve) insufficiency Pneumonia due to COVID-19 virus (~03/2020) STEMI (ST elevation myocardial infarction) Syncope Type 2 diabetes mellitus without complication Home Medications atorvastatin 40 mg tablet 40 mg PO QHS 06/14/17 [History Last Taken 04/08/18] gabapentin 300 mg capsule 300 mg PO 4X/DAY 06/14/17 [History Last Taken 04/08/18] gemfibrozil 600 mg tablet 600 mg PO BID 06/14/17 [History Last Taken 04/08/18] metformin 1,000 mg tablet 1,000 mg PO BIDCM 06/17/19 [History Last Taken Unknown] aspirin 81 mg tablet,delayed release 81 mg PO DAILY@0800 06/23/19 [Rx Last Taken Unknown] ticagrelor 90 mg tablet 90 mg PO BID #60 tabs 10/02/19 [Rx Last Taken Unknown] glimepiride 4 mg tablet 4 mg PO BID 02/26/20 [History Last Taken Unknown] amlodipine 10 mg tablet 10 mg PO DAILY 06/23/20 [History Last Taken Unknown] metoprolol tartrate 25 mg tablet 25 mg PO BID 06/23/20 [History Last Taken Unknown] insulin glargine 100 unit/mL subcutaneous solution 16 unit subcut QHS 05/04/21 [History Last Taken Unknown] sertraline 25 mg tablet 25 mg PO DAILY 05/04/21 [History Last Taken Unknown] mecobalamin (vitamin B12) 1,000 mcg chewable tablet 1,000 mcg PO DAILY 11/02/21 [History Last Taken Unknown] hydrocodone-acetaminophen 5-325mg 5mg-325mg 1 tab PO Q6H PRN PRN Pain 3 days #10 TABLETS 12/10/21 [Rx Last Taken Unknown] Allergy/AdvReac Type Severity Reaction Status Date / Time niacin Allergy Other Verified 12/10/21 17:37 [From Niaspan Extended-Release] ramipril [From Altace] Allergy Other Verified 12/10/21 17:37 Surgical History History of coronary artery stent placement History of right-sided carotid endarterectomy Social History Smoking Status: Former smoker how long ago did patient quit smokin years ago alcohol intake: never substance use type: does not use caffeine: No ROS ROS ED Constitutional Constitutional ED: Denies chills or fever(s) Eyes Eyes: Denies blurry vision or change in vision ENT ENT ED: Reports other Details: Denies dental trauma or epistaxis. ; Denies ear pain, rhinorrhea or sore throat Cardiovascular Cardiovascular: Denies chest pain or palpitations Respiratory/Chest Respiratory/Chest: Denies cough or dyspnea Gastrointestinal Gastrointestinal: Denies nausea or vomiting Musculoskeletal Musculoskeletal: Reports other Details: Positive wrist pain ; Denies back pain, myalgias or neck pain Integumentary Denies Abrasions or rash Neurologic Neurologic: Denies paresthesias or weakness Hematologic/Lymphatic Hematologic/Lymphatic: Denies easy bleeding, easy bruising or lymphadenopathy EXAM Physical Exam Const Positive well nourished and well developed General Appearance ED: well developed and NAD; Negative for cyanotic or diaphoretic HEENT HEENT Narrative: Head is atraumatic normocephalic. Ears normal. Nares patent. No septal deviation hematoma noted. Eyes PERRL and EOMs intact bilaterally Eyes Narrative: Sclera is anicteric. Conjunctive is pink. There is no subconjunctival hemorrhage. Neck full ROM and supple Neck Narrative: C-spine was cleared per Nexus criteria. Resp normal respiratory effort Cardio regular rate and regular rhythm GI non-tender Back/Spine no CVA tenderness Extremity Negative for normal to inspection or full ROM Extremity Narrative: There is pain palpation of the wrist. There is no pain ovation over the anatomical snuffbox. There is no pain with axial loading of the thumb. Median, radial and ulnar function intact. There is no subungual hematoma of the any digit. The extensor and flexor mechanisms intact. Neuro oriented x3, CN's II-XII intact bilaterally, moves all extremities, no focal motor deficits and no sensory deficits noted Psych mental status grossly normal Skin General Skin Exam: Negative for petechiae Lesions: no lesions Rashes: no rashes MDM MDM MDM Narrative Medical decision making narrative: X-ray of the wrist was obtained to evaluate for contusion versus fracture. And the MDM was documented on the initial chart that was created on the date of service. 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 Electronically Signed: Javier Marks MD at 18:26 EDT Reading Location ID and State: [facility] / [place] , Service support , Discharge Plan Triage Chief Complaint: Upper Extremity Injury ED Provider: Valentín Mcguire Dx/Rx/DC Orders Clinical Impression: Contusion of right wrist, initial encounter, Traumatic hematoma of right upper arm, Fall as cause of accidental injury at home as place of occurrence Instructions: ED Soft Tissue Contusion, ED Contusion, Upper Extremity Prescriptions: New hydrocodone-acetaminophen [hydrocodone-acetaminophen] 5-325 mg tablet 1 tab PO Q6H PRN PRN (Reason: Pain) 3 Days Qty: 10 0RF No Action ticagrelor 90 mg tablet 90 mg PO BID Qty: 60 11RF glimepiride 4 mg tablet 4 mg PO BID amlodipine 10 mg tablet 10 mg PO DAILY sertraline 25 mg tablet 25 mg PO DAILY mecobalamin (vitamin B12) 1,000 mcg tablet,chewable 1,000 mcg PO DAILY atorvastatin 40 MG tablet 40 mg PO QHS gemfibrozil 600 MG tablet 600 mg PO BID gabapentin 300 MG capsule 300 mg PO 4X/DAY insulin glargine 100 unit/mL solution 16 unit subcut QHS metformin 1,000 MG tablet 1,000 mg PO BIDCM aspirin 81 MG tablet 81 mg PO DAILY@0800 0RF metoprolol tartrate 25 mg tablet 25 mg PO BID Primary Care Provider: Blade Moseley Referrals: Blade Moseley DO [Primary Care Provider] - 1 Week if not improving Disposition Disposition: Home, Self Care Discharge Date/Time: 12/10/21 18:50
== END 2021-12-10 18:50 | disposition home or self-care (01) ==
PROVIDERS: Emergency Provider Emergency Medicine; PCP Family Medicine; Visit Provider Emergency Medicine
DX: S60.211A Contusion of right wrist, initial encounter (principal); E11.9 Type 2 diabetes mellitus without complications; S49.91XA Unspecified injury of right shoulder and upper arm, initial encounter; I25.10 Atherosclerotic heart disease of native coronary artery without angina pectoris; Z87.891 Personal history of nicotine dependence; E78.5 Hyperlipidemia, unspecified; I10 Essential (primary) hypertension; Z86.73 Personal history of transient ischemic attack (TIA), and cerebral infarction without residual deficits; I25.2 Old myocardial infarction; Z95.5 Presence of coronary angioplasty implant and graft; W19.XXXA Unspecified fall, initial encounter; Y92.019 Unspecified place in single-family (private) house as the place of occurrence of the external cause
CPT/HCPCS: 73110; 99282

== ENCOUNTER → 2022-04-23 | Outpatient (CLI) | payer MEDICARE, SELFPAY ==
[2022-04-23 17:46] LABS: Absolute Lymphocyte Count 1.87 X10^3/uL (0.83-4.51); Absolute Neutrophil Count 4.6 X10^3/uL (2.0-7.7); Basophil# 0.06 X10^3/uL; Basophil% 0.8 % (0-1); Eosinophils% 2.6 % (0-5); Hematocrit 36.7 % (37-47); Lymphocyte # 1.87 X10^3/ul (0.83-4.51); Lymphocyte % 24.8 % (19-41); Mean Corpuscular Hgb 31.8 pg (27.0-32.0); Mean Corpuscular Volume 106.1 fL (81-99); Mean Platelet Vol. 10.3 fl (6.2-12.0); Monocyte# 0.77 X10^3/uL; Monocyte% 10.2 % (0-10); NRBC Flagged by Analyzer 0 % (0-5); Neutrophil # 4.62 X10^3/uL (2.7-7.7); Neutrophil % 61.2 % (47-70); Platelet Count 228 K/mm3 (150-450); RBC Distribution Width CV 14.6 % (11.6-14.6); RBC Distribution Width SD 56.9 fl (35.1-43.9); Red Blood Count 3.46 M/mm3 (4.2-5.4); White Blood Count 7.6 K/mm3 (4.4-11.0)
[2022-04-23 18:07] LABS: ALB/GLOB Ratio 0.7 RATIO (0.9-2.4); AST(SGOT) 20 U/L (15-37); Alanine Aminotransfer ALT/SGPT 15 U/L (13-56); Albumin, Serum 3.5 g/dL (3.2-5.0); Alkaline Phosphatase 68 U/L (45-117); Anion Gap 12 (5-15); BUN 36 mg/dL (7-18); BUN/Creat Ratio 24.5 RATIO (10-20); Calcium,Total 9.2 mg/dL (8.5-10.1); Chloride 107 mmol/L (98-107); Cholesterol 166 mg/dL (200); Creatinine, Serum 1.47 mg/dL (0.55-1.02); EST Glomerular Filtration Rate 36 mL/min (>60); Est Glom Filt Rate - Afr Amer 44 mL/min (>60); Globulin 4.9 g/dL (2.2-4.2); Glucose 150 mg/dL (74-106); High Density Lipoprotein 31 mg/dL; Potassium 4.2 mmol/L (3.5-5.1); Protein, Total 8.4 g/dL (6.4-8.2); Sodium Level 140 mmol/L (136-145); Triglycerides 230 mg/dL; Very Low Density Lipoprotein 46 mg/dL (5-40)
== END | disposition home or self-care (01) ==
LOC: BFHLAB 13:50
PROVIDERS: PCP Family Medicine; Visit Provider Family Medicine
DX: N18.31 Chronic kidney disease, stage 3a (principal); D63.1 Anemia in chronic kidney disease; E78.5 Hyperlipidemia, unspecified
CPT/HCPCS: 36415; 80053; 80061; 85025